=== PATIENT | female | born 1960 | race Caucasian/White ===

== ENCOUNTER 2017-08-11 16:00 | Emergency (ER) | payer OTHER, SELFPAY ==
[2017-08-11 16:01] VITALS: BP 166/97; PULSE 89; RESP 16; TEMP 36.7; O2SAT 100; BMI 36.6
--- NOTE | 2017-08-11 16:19 | RAD_ITS ---
STUDY: X-RAY - THORACIC SPINE REASON FOR EXAM: Female, 56 years old. Back pain. TECHNIQUE: 3 view(s) of the thoracic spine were obtained. COMPARISON: None. FINDINGS: There is an increase in the normal thoracic kyphosis. There is no substantial scoliosis. There is demineralization of the thoracic spine with endplate spondylosis. There is multilevel disc space narrowing of the thoracic spine. The soft tissue structures are unremarkable. RAD/Thoracic Spine 2 Views IMPRESSION: Osteopenia with multilevel degenerative disc disease and spondylosis of the thoracic spine. Electronically Signed: Effie Escudero MD at 17:46 EST , Service support ,
--- NOTE | 2017-08-11 16:19 | RAD_ITS ---
STUDY: X-RAY - LUMBAR SPINE REASON FOR EXAM: Female, 56 years old. Low-back pain without known recent trauma. TECHNIQUE: 3 view(s) of the lumbar spine were obtained. COMPARISON: Prior comparison studies are not available for review at this time. FINDINGS: There is an exaggerated lumbar lordosis. There is no substantial scoliosis. There is a normal alignment of the vertebrae. The bones appear osteopenic. There is mild anterolisthesis at L3-4. There is multi-level degenerative disc disease with multi-level disc space narrowing. There is no demonstrated fracture. There is multilevel degenerative arthropathy of facet joints. There may be a transitional vertebral segment at S1. There is atherosclerotic calcification of the abdominal aorta without a demonstrated aneurysm. RAD/Lumbar Spine 2 or 3 Views IMPRESSION: Multilevel degenerative disc disease, degenerative arthropathy and spondylosis of the lumbar spine. Electronically Signed: Effie Escudero MD at 17:45 EST , Service support ,
[2017-08-11 16:32] VITALS: BP 165/70; PULSE 85; RESP 14; O2SAT 99
--- NOTE | 2017-08-11 17:55 | ED.VISSUMM ---
- ER Visit Summary Date of Service: 08/11/17 Chief Complaint: Back pain History of Present Illness: The patient is a 56 F who presents with back pain. It is been present for about 2 weeks. She describes it as a cramping or spasm in the lower back which radiates into the left leg. She occasionally has tingling. It is worse when laying still at night and seems to be improved by getting up and moving around. She denies weakness. She denies fevers abdominal pain urinary retention fecal incontinence or history of spinal surgery. 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 She was seen in a walk-in clinic diagnosed with sciatica and is scheduled for therapy. Her pain is tolerable. She is concerned because before the onset of her symptoms she felt flushed and she has had a couple episodes where she has felt flushed since that time and is also having some upper back pain as well so was concerned this may be due to something else. No chest pain or shortness of breath. Physical Examination: Afebrile vitals are stable Moist mucous membranes Heart regular rate and rhythm Lungs are clear Abdomen soft and nontender Patient actually does not have any reproducible paraspinal or spinal tenderness Negative straight leg raise laying bilaterally Normal strength and sensation of the lower extremities with 5 out of 5 dorsiflexion plantarflexion and extensor hallucis longus Test Results: X-rays of the thoracic and lumbosacral spine show osteopenia and degenerative disc disease but no acute process no fracture. Emergency Department Course and Treatment: History and examination are consistent with lumbar radiculopathy. Patient does not have symptoms or signs suggestive of more serious process such as epidural abscess or cauda equina syndrome. She was reassured. I do believe she can undergo further outpatient evaluation. She was discharged. Treatment Plan: [] Disposition: Discharge Impression: Lumbar radiculopathy This note was generated with [employer] dictation software. It may contain incorrect words, spelling, and punctuation that were not noted in review of the chart prior to signing ED Disposition - Plan for ED Patient: Chief Complaint: Back Referrals: Maru Villela [Primary Care Provider] -
--- NOTE | 2017-08-11 17:58 | ED.DEP ---
ED Disposition - Plan for ED Patient: Chief Complaint: Back Instructions: ED Sciatica Referrals: Maru Villela [Primary Care Provider] -
[2017-08-11 18:02] VITALS: BP 122/75; PULSE 71; RESP 16; O2SAT 96
== END 2017-08-11 18:03 | disposition home or self-care (01) ==
PROVIDERS: Emergency Provider Emergency Medicine; Family Provider Nurse Practitioner; PCP Nurse Practitioner
DX: M51.17 Intervertebral disc disorders with radiculopathy, lumbosacral region (principal); M51.34 Other intervertebral disc degeneration, thoracic region; M85.80 Other specified disorders of bone density and structure, unspecified site; Z90.710 Acquired absence of both cervix and uterus
CPT/HCPCS: 72070; 72100; 99282; A4216

== ENCOUNTER → 2017-08-23 09:25 | Outpatient (CLI) | payer OTHER, SELFPAY ==
[2017-08-11 16:01] VITALS: BMI 36.6
[2017-08-11 18:02] VITALS: BP 122/75
--- NOTE | 2017-08-23 10:00 | MRI_ITS ---
STUDY: MRI LUMBAR SPINE WITHOUT CONTRAST REASON FOR EXAM: Female, 56 years old. Back pain that radiates down right leg. No known injury. TECHNIQUE: Standardized fat and water weighted pulse sequences were obtained in the sagittal and axial planes. COMPARISON: Radiographs of lumbar spine dated August 11, 2017. FINDINGS: T12-L1: There is narrowing of the disc. There is irregular contour of the endplates at this level possibly related to multiple Schmorl's nodes. There is an annular disc bulge. There is mild degenerative arthropathy of facet joints. Neural foramina are narrowed without evidence for nerve impingement. There is an exaggerated lumbar lordosis. There is no substantial scoliosis. Normal conus medullaris that terminates at the T12-L1 level. There is abnormal T1 and T2 hyperintensity within the T12 and L2 vertebral bodies probably related to small hemangiomas. L1-2: There is a moderate annular disc bulge and osteophyte complex. There is moderate degenerative arthropathy of facet joints. Neural foramina are narrowed without evidence for nerve impingement. There may be a focal left foraminal disc protrusion. There is mild central acquired canal stenosis. L2-3: There is an annular disc bulge and osteophyte complex. There is moderately severe degenerative arthropathy of facet joints. There is mild central acquired canal stenosis. Neural foramina bilaterally narrowed without evidence for nerve impingement. L3-4: There is mild anterolisthesis at this level. There is uncovering of the disc with annular disc bulge. There is severe degenerative arthropathy of facet joints. There is severe acquired canal stenosis with possible impingement of the cauda equina. Neural foramina are bilaterally narrowed with possible impingement of the right L3 nerve root at the neural foramen. L4-5: There is mild anterolisthesis at this level with uncovering of the disc. There is annular disc bulge with broad central disc protrusion. Appears to be a focal right central disc extrusion with probable impingement of the right L5 nerve root at the lateral recess. There are severe degenerative arthropathy of facet joints. Neural foramina are bilaterally narrowed without evidence for nerve impingement at the neural foramina. L5-S1: This has a rudimentary disc suggesting a transitional vertebral segment. There is moderate degenerative arthropathy of facet joints. Neural foramina are patent. There is no significant central acquired canal stenosis. Normal visualized sacral ala. There appear to be multiple left-sided parapelvic renal cysts. There may be a right-sided and left-sided extrarenal pelvis. Normal visualized paraspinous soft tissue structures. MRI/Spine Lumbar (Routine) IMPRESSION: 1. Moderately severe multilevel degenerative disc disease and degenerative arthropathy of the lumbar spine with acquired canal stenosis, neural foraminal narrowing and potential nerve impingement, as described. 2. Mild anterolisthesis at L3-4 and L4-5. 3. Transitional vertebral segment at L5-S1. Electronically Signed: Effie Escudero MD at 15:58 EST , Service support ,
== END ==
PROVIDERS: Family Provider Nurse Practitioner; PCP Nurse Practitioner; Visit Provider Nurse Practitioner
DX: M54.16 Radiculopathy, lumbar region (principal)
CPT/HCPCS: 72148

== ENCOUNTER 2017-09-06 12:30 | Outpatient (RCR) | payer OTHER, SELFPAY ==
[2017-08-11 18:02] VITALS: BP 122/75
--- NOTE | 2017-08-15 11:44 | HP.PTEVAL_ITS ---
Patient's Visit Information ABRAHAN TUCKER is a 56 year old F referred to Physical Therapy by Xi Lua with a diagnosis of LUMBAR DDD AND SCIATICA. Date of Evaluation: 08/15/17 Physical Therapist: Marly Sauer - Visit Plan Frequency: 2-3x /Week Duration: 4-6 Weeks Plan: AQUATIC THERAPY. POSTURE CORRECTION/STRENGTHENING, INSTRUCTION IN APPROPRIATE BODY MECHANICS AND ACTIVITY MODIFICATIONS. DLS STARTING WITH A NEUTRAL SPINE PROGRESSING ROM TOLERATED. ELIANE LE ROM, STRETCHING AND STRENGTHENING. HEP INSTRUCTION. 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 Disability: NO. Present symptoms: ELIANE LOW BACK PAIN RIGHT > LEFT AND RIGHT LE TO THE TOES. RIGHT LE PAIN, NUMBNESS AND TINGLING. PAIN FROM MID BACK TO CHEST AT TIMES IN SITTING. STATES JEREMY LLANES IS AWARE. Present since: JUL 26 2017. Pain Scale: WORST 10/10, LEAST 4/10. Currently: 4/10. Commenced as a result of: NO APPARENT REASON. Symptoms at onset: SAME. NOTICED IT WHEN SHE WENT TO SIT DOWN ON THE TOLIET AT 2 AM. Worse: TRYING TO BEND, STAYING STILL, SITTING, LYING DOWN, TRYING TO SLEEP, LIFTING. Better: STEROID, BEING ON THE MOVE. IBUPROFEN. Disturbed sleep: YES. Previous history/Previous treatment: PATIENT REPORTS A HISTORY OF LBP FOR ABOUT 6-7 YEARS. STATES SHE HAS A THIN DISK. CHIROPRACTOR. IBUPROFEN. IT NEVER WHEN DOWN THE LEG UNTIL NOW. Coughing/sneezing/straining: NEGATIVE. Gait: INDEP GAIT WITHOUT AD. Difficulty initiating urinatin: NO. Accidents: NO. Unexplained weight loss: NO. Imaging: LUMBAR X-RAY AT ED SATURDAY - ARTHRITIS. MRI ORDERED AND PENDING. T-SPINE X-RAY - ARTHRITIS. PMH: UNREMARKABLE - Objective Sitting Posture: POOR. Standing Posture: POOR. Lordosis: REDUCED. Lateral shift: NO. Relevant shift: N/A. Active Correction of posture: NE. Other Observations: INDEP GAIT INTO PT WITHOUT AD AND INDEP TRANSFER SIT TO STAND WITHOUT UE ASSIST. THIS PATIENT IS PLEASANT AND COOPERATIVE TO WORK WITH BUT GETS A LITTLE CONFUSED DURING INTERVIEW AND EXAM. Motor deficit: ELIANE LE STRENGTH 5/5 WITH MMT EXCEPT RIGHT HIP 4-/5 AND LEFT HIP 4/5. Sensory deficit: ELIANE LE LIGHT TOUCH SENSATION IS INTACT AND SYMMETRICAL. ROM deficit: TIGHT ELIANE LE HIP FLEXORS, HS'S AND GASTROC SOLEUS COMPLEX'S. Reflexes: ELIANE LE'S 2/ 3. Dural Signs: POSITIVE RIGHT AND NEGATIVE LLE. Lumbar mvmt loss: flex - MOD. ext - MICAH. R SG - MOD. L SG - MOD. PATIENT HAS C/O INCREASED PAIN WITH LUMBAR FLEXION AND RIGHT SG TESTING. Core strength: POOR. Palpation: TENDERNESS WITH PALPATION OF THE MID THORACIC SPINE AND THE [id number] REGIONS. - Goals Goal 1:: DECREASE C/O LBP AND RIGHT LE SX'S. Goal Time Frame: 4-6 Weeks Goal 2:: IMPROVE PERSONAL CARE, LIFITNG, SITTING, STANDING, SLEEP, SOCIAL LIFE, TRAVEL AND HOMEMAKING FUNCTION Goal Time Frame: 4-6 Weeks Goal 3:: INSTRUCT IN PROPHYLAXIS Goal Time Frame: 4-6 Weeks - Rehabilitation Potential Rehabilitation Potential: Fair - Anticipated Interventions Patient/Client Instruction: Educate patient on: Condition, Plan of Care, Risk Factors, Benefits of Fitness Program For the Purpose of:: To improve self management Therapeutic Exercise to Include: Strength training, Body mechanics, Postural training, Flexibilty training, In an aquatic setting, Dynamic Lumbar Stabilization For the Purpose of:: To improve ability of physical actions for home/community/ work/leisure Manual Therapy Techniques to Include: Soft tissue mobilization For the Purpose of:: To decrease pain, To improve nutrient delivery to tissue TENS: Yes IF ES: Yes Cryotherapy (ice pack, ice massage): Yes Thermo therapy (hot pack): Yes Ultrasound (thermal/non thermal): Yes For the Purpose of:: To decrease pain, To decrease swelling/inflammation Thank you for the opportunity to evaluate your patient. For Medicare and Medicare HMO plans, please review the plan of care and approve it. It will need to be FAXED BACK to us at [phone] for Medicare purposes. Please let me know if there are questions or concerns regarding this plan of care. Physician Signature: Date:
--- NOTE | 2018-01-14 13:49 | HP.PTDCNRP_ITS ---
HP - Discharge Summary (1) - Patient Information ABRAHAN TUCKER was seen in my office for initial evaluation on 08/15/17. The following Plan of Care was established for this patient: Initial Frequency: 2-3x /Week Initial Duration: 4-6 Weeks - Anticipated Interventions Patient/Client Instruction: Educate patient on: Condition, Plan of Care, Risk Factors, Benefits of Fitness Program For the Purpose of:: To improve self management Therapeutic Exercise to Include: Strength training, Body mechanics, Postural training, Flexibilty training, In an aquatic setting, Dynamic Lumbar Stabilization For the Purpose of:: To improve ability of physical actions for home/community/ work/leisure Manual Therapy Techniques to Include: Soft tissue mobilization For the Purpose of:: To decrease pain, To improve nutrient delivery to tissue TENS: Yes IF ES: Yes Cryotherapy (ice pack, ice massage): Yes Thermo therapy (hot pack): Yes Ultrasound (thermal/non thermal): Yes For the Purpose of:: To decrease pain, To decrease swelling/inflammation This patient was last seen in our office . Pertinent comments regarding their Physical therapy will appear below: This patient has not returned to Physical Therapy and is appropriate to return to MD for further follow-up as needed. At this point I will be discontinuing this patient from physical therapy. I would be happy to see this patient again in the future if found appropriate by the physician. Thank you! Marly Sauer
== END 2017-09-06 19:00 | disposition home or self-care (01) ==
LOC: PT 12:30
PROVIDERS: Family Provider Nurse Practitioner; PCP Nurse Practitioner; Visit Provider Internal Medicine
DX: M54.31 Sciatica, right side (principal); M51.36 Other intervertebral disc degeneration, lumbar region
CPT/HCPCS: 97014; 97035; 97113; 97162; 97530; G0283

== ENCOUNTER → 2017-09-09 10:52 | Outpatient (CLI) | payer OTHER, SELFPAY ==
--- NOTE | 2017-09-09 11:07 | RAD_ITS ---
XR Spine Cervical 2 or 3 Views INDICATION: CHRONIC PAIN, NKI COMPARISON: None TECHNIQUE: Frontal and lateral views of the cervical spine and open-mouth odontoid view FINDINGS: There is normal cervical lordosis. Height of the vertebral bodies is preserved. C4-5 and C5-6 and C6-7 disc spaces are decreased. C7 level is not well seen on the lateral view. Vascular calcifications are noted. Prevertebral soft tissue stripe is within normal limits. RAD/Cerv Spine 2 or 3 Views IMPRESSION: Degenerative changes at the lower cervical spine. Consider further evaluation with MRI if clinical symptoms persist. at 2143 Reported and signed by: Maranda Mi MD Electronically Signed: Maranda Mi MD at 20:42 EST Tel , Service support ,
== END ==
PROVIDERS: Family Provider Nurse Practitioner; PCP Nurse Practitioner; Visit Provider Anesthesiology Pain Medicine
DX: M54.2 Cervicalgia (principal)
CPT/HCPCS: 72040

== ENCOUNTER 2018-11-05 19:59 | Emergency (ER) | payer OTHER, SELFPAY ==
[2018-11-05 20:00] VITALS: BP 167/90; PULSE 84; RESP 17; TEMP 36.7; O2SAT 99; BMI 29.6
[2018-11-05 20:25] LABS: Color, Urine Straw (Yellow); Glucose, Dipstick Normal (Normal); Ketone-Dipstick Negative (Negative); Leukocyte Esterase-Dipstick 500 /ul (Negative); Nitrite-Dipstick Negative (Negative); Occult Blood-Urine 10 /ul (Negative); Protein-Dipstick Negative (Negative); Urine Bilirubin Dipstick Negative (Negative); Urine Clarity Clear (Clear); Urine Urobilinogen Normal (Normal)
[2018-11-05 20:48] LABS: Bacteria 2+ /hpf (None Seen); Mucous, Urine 1+ /hpf (<or=2+); Red Blood Cells-Urine 0-5 SEEN /hpf (0-5); Squamous Epithelial Cells - UA 0-5 SEEN /hpf (5-10); White Blood Cells 5-10 SEEN /hpf (0-5); Yeast-Urine RARE /hpf (None Seen)
--- NOTE | 2018-11-05 22:08 | ED.DCSUM_ITS ---
- ER Visit Summary Date of Service: 11/05/18 Chief Complaint: Burning with urination History of Present Illness: The patient is a 57 F who states for the past couple days she has had dysuria. She notes urinary frequency, urgency and dysuria. No fevers. No flank pain. No vomiting. Physical Examination: Afebrile vital signs are stable Gen: Well-nourished well-developed Head: Normocephalic atraumatic Eyes: Perrl EOMI ENT: TMs clear no rhinorrhea moist mucous membranes Neck: Supple no lymphadenopathy no JVD nontender CVS: Regular rate rhythm no murmurs normal S1-S2 Respiratory: No distress clear to auscultation bilaterally chest nontender Abdomen: Soft nontender nondistended normal bowel sounds no masses Back: Nontender Extremity: Nontender no edema Skin: Normal color no rash Neuro: alert orientated ?3 CN II-XII intact normal strength sensation reflexes gait cerebellar Psych: Normal affect normal mood Test Results: Urine is leukocyte esterase positive. 5-10 white cells. 2+ bacteria. Emergency Department Course and Treatment: Urine culture was ordered. Given the urine results and more importantly her clinical history patient was started on Macrobid and Pyridium. If no improvement follow-up with primary care return here. Impression: 1. Acute cystitis This note was generated with [employer] dictation software. It may contain incorrect words, spelling, and punctuation that were not noted in review of the chart prior to signing ED Disposition - Plan for ED Patient: Disposition: Home or Assisted Living Instructions: ED UTI Cystitis Female Prescriptions: Nitrofurantoin Macrocrystals [Macrobid] 100 mg PO Q12 #10 cap Phenazopyridine HCl [Pyridium] 200 mg PO TID #9 tab Referrals: Maru Villela, ARIELLE-C [Primary Care Provider] - As Needed
[2018-11-05] MEDS: Nitrofurantoin Macrocrystals 100 MG Capsule PO (22:17)
[2018-11-05] MEDS: Phenazopyridine 95 MG Tablet 190 MG PO (22:17)
[2018-11-05 22:19] VITALS: BP 200/93; PULSE 70; RESP 18; O2SAT 100
--- NOTE | 2018-11-05 22:28 | ED.RN ---
DR. DC MADE AWARE OF BP 200/93 AND SAID PATIENT IS ABLE TO GO HOME SINCE SHE DOESN'T HAVE ANY SYMPTOMS. HE SAID IT IS OK TO TAKE ANOTHER ONE OF HER MORNING BP PILLS SINCE HER PCP TOLD HER SHE COULD DO THAT BEFORE.
== END 2018-11-05 22:29 | disposition home or self-care (01) ==
LOC: ED 22:18
PROVIDERS: Emergency Provider Emergency Medicine; Family Provider Nurse Practitioner; PCP Nurse Practitioner
DX: N30.00 Acute cystitis without hematuria (principal); I10 Essential (primary) hypertension; Z79.899 Other long term (current) drug therapy
CPT/HCPCS: 81001; 87086; 87088; 99284

== ENCOUNTER 2018-11-21 19:58 | Emergency (ER) | payer OTHER, SELFPAY ==
[2018-11-21 19:58] VITALS: BP 166/89; PULSE 76; RESP 18; TEMP 36.7; O2SAT 100
--- NOTE | 2018-11-21 21:35 | ED.VISSUMM ---
- ER Visit Summary Date of Service: 11/21/18 Chief Complaint: High blood pressure History of Present Illness: The patient is a 57 F who presents for a high blood pressure check. The patient normally takes Norvasc 2.5 mg. She was recently increased to 5 mg after her blood pressures have been reading high. She checks her blood pressure at home frequently. She has had systolic pressures of 200. Patient is not on any other blood pressure medicine. She reports flushing and redness to her face and upper extremities. She thinks this may be related to increasing her Norvasc dose. Patient denies any other complaints currently. Physical Examination: Pressure 166/89. Otherwise her vitals are unremarkable and she is afebrile. She is alert and oriented and in no acute distress. Cranial nerves grossly intact. Moves all extremities. No focal or lateralizing neurologic abnormalities. Normal gait. Heart regular. No respiratory distress. Test Results: None indicated Emergency Department Course and Treatment: Patient has an established history of hypertension. Her blood pressure is 166/89. There is no indication for hypertensive urgency or emergency currently. Patient has had continued hypertension despite taking her increased dose of Norvasc. She attributes a skin rash to her increased dose of Norvasc. She would like to discontinue this medication. I advised her that she can discontinue the medication, but we should replace it. I started her on HCTZ. I advised her to continue monitoring her pressure. She should check in with her PCP for recheck and possible medication regimen adjustment. Patient should return right away for chest pain or stroke symptoms or any other complications. Treatment Plan: As above Disposition: Discharge Impression: 1. Hypertension established This note was generated with [employer] software. It may contain incorrect words, spelling, and punctuation that were not noted in review of the chart prior to signing ED Disposition - Plan for ED Patient: Disposition: Home or Assisted Living Instructions: ED HTN Established Prescriptions: Hydrochlorothiazide [Hctz] 25 mg PO DAILY #14 tab Referrals: Maru Villela NP-C [Primary Care Provider] -
--- NOTE | 2018-11-21 21:36 | DCINST.ED_ITS ---
ED Disposition - Plan for ED Patient: Instructions: ED HTN Established Prescriptions: Hydrochlorothiazide [Hctz] 25 mg PO DAILY #14 tab Referrals: Maru Villela, WIRING MECHANIC-C [Primary Care Provider] -
--- NOTE | 2018-11-21 21:54 | ED.RN ---
DISCHARGE INSTRUCTIONS GIVEN TO AND REVIEWED WITH PATIENT, PATIENT DENIES QUESTIONS OR CONCERNS AND VOICES UNDERSTANDING OF DISCHARGE INSTRUCTIONS. PT AMBULATES OUT OF ROOM WITHOUT DIFFICULTY.
== END 2018-11-21 21:55 | disposition home or self-care (01) ==
PROVIDERS: Emergency Provider Emergency Medicine; Family Provider Nurse Practitioner; PCP Nurse Practitioner
DX: I10 Essential (primary) hypertension (principal); Z79.899 Other long term (current) drug therapy
CPT/HCPCS: 99282

== ENCOUNTER 2020-01-25 13:53 | Outpatient (RCR) | payer OTHER, SELFPAY ==
--- NOTE | 2020-01-25 14:59 | HP.PTEVAL ---
Patient's Visit Information ABRAHAN TUCKER is a 59 year old F referred to Physical Therapy by REGINA Molina with a diagnosis of vertigo. Date of Evaluation: 01/25/20 Physical Therapist: Gurinder Sousa, CATHI, OCS, CSCS - Visit Plan Frequency: 1x/Week Duration: 2-4 Weeks Plan: weekly as needed x 2-4 for positional checks and vestibular checks. Next session check positional and oculomotr as needed. - Subjective Dizzyness for about a month. Insidious. Started feeling weak and shaky. Has checked bloodwork and blood pressure adn no problems. No diagnostics otherwise. Dizzyness in intermittent but worse at times. Worse with fatigue. Had waves and bed moving when lied down but that has improved. Dizzyness rated at 5/10 when present. Usually lasts short durations. Moving around is worse and sitting is fine. No passing out and no falls. Sleep is OK. Not employed. Activities take a little longer at home, stamina is effected. No falls, balance feels OK. - Objective Walks slow but steady. Transfers I. Steps reciprocal with one rail for safety. cervical AROM WFL adn without pain. Pt has some LB that she says is typical for her with transfers. - L hallpike hernesto. + R hallpike hernesto up torsional slight and quick with dizzyness. Treated with Wilma then - hallpike hernesto - Balance Scores Functional Gait Assessment Score: 27 % Disability: 10.0000 CATSIB Score (Max score 120 seconds): 120 - Goals Goal 1:: abolish dizzyness Goal Time Frame: 2-4 Weeks Goal 2:: Pt feel 95% back to norml Goal Time Frame: 4-6 Weeks - Rehabilitation Potential Physical Therapy Diagnosis: possible BPPV Rehabilitation Potential: Fair - Anticipated Interventions Patient/Client Instruction: Educate patient on: Condition, Plan of Care For the Purpose of:: To improve muscle performance and motor function, To increase tolerance to activity/condition/position Comment: positional and vestibular. Thank you for the opportunity to evaluate your patient. For Medicare and Medicare HMO plans, please review the plan of care and approve it. It will need to be FAXED BACK to us at [phone] for Medicare purposes. For Medicare only, by signing this I certify the plan of care. Please let me know if there are questions or concerns regarding this plan of care. Physician Signature: Date:
--- NOTE | 2020-03-29 09:50 | HP.PT.NRP ---
ABRAHAN TUCKER was seen in my office for initial evaluation on 01/25/20. The following Plan of Care was established for this patient: Initial Frequency: 1x/Week Initial Duration: 2-4 Weeks Patient/Client Instruction: Educate patient on: Condition, Plan of Care For the Purpose of:: To improve muscle performance and motor function, To increase tolerance to activity/condition/position This patient was last seen in our office 01/25/20. Pertinent comments regarding their Physical therapy will appear below: Pt seen for evaluation and positional treatment. Was to f/u weekly for checks but did not schedule or attend. At this point, it has been over two months and I will discontinue due to nonattendance. At this point I will be discontinuing this patient from physical therapy. I would be happy to see this patient again in the future if found appropriate by the physician. Thank you! Gurinder Sousa, DPT, OCS, CSCS
== END 2020-01-25 19:00 | disposition home or self-care (01) ==
LOC: PT 13:53
PROVIDERS: PCP Nurse Practitioner; Referring Provider Nurse Practitioner; Visit Provider Nurse Practitioner
DX: R42 Dizziness and giddiness (principal)
CPT/HCPCS: 97161

== ENCOUNTER → 2020-07-11 16:17 | Outpatient (CLI) | payer OTHER, SELFPAY ==
--- NOTE | 2020-07-11 16:20 | RAD_ITS ---
STUDY: X-RAY - LUMBAR SPINE REASON FOR EXAM: Female, 59 years old. bilateral buttock pain TECHNIQUE: 5 view(s) of the lumbar spine were obtained. COMPARISON: FINDINGS: Normal lumbar lordosis. There is no substantial scoliosis. 5 mm of anterolisthesis of L3 on L4 and 5 mm of anterolisthesis of L4 on L5 which are unchanged. There is multilevel endplate spondylosis of the lumbar vertebrae. There is multi-level degenerative disc disease with multi-level disc space narrowing. The soft tissue structures are unremarkable. RAD/L/S Spine Min 4 Views IMPRESSION: Degenerative disc disease with 5 mm of anterolisthesis of L3 on L4 and L4 and L5 which is unchanged. Electronically Signed: Dejuan Godinez MD at 17:02 EST Tel , Service support ,
--- NOTE | 2020-07-11 16:20 | RAD_ITS ---
STUDY: X-RAY - PELVIS REASON FOR EXAM: Female, 59 years old. bilateral buttock pain TECHNIQUE: One view of the pelvis was obtained. COMPARISON: None. FINDINGS: There is a non-specific bowel gas pattern. Normal visualized soft tissue structures. Normal bilateral iliac wings, sacroiliac joints and visualized sacrum. Normal visualized bilateral superior and inferior pubic rami. Normal pubic symphysis. Normal ischial tuberosities. There are osteoarthritic changes of the right femoral head with marginal osteophyte formation. There is osteoarthritic spur formation of the right acetabular rim. There is mild articular joint space narrowing of the right hip. Normal visualized left femoral head. There is osteoarthritic spur formation of the left acetabular rim. There is mild articular joint space narrowing of the left hip. RAD/Pelvis 1 or 2 Views IMPRESSION: Mild bilateral hip arthrosis. Electronically Signed: Dejuan Godinez MD at 17:03 EST Tel , Service support ,
== END ==
PROVIDERS: PCP Nurse Practitioner; Referring Provider Nurse Practitioner; Visit Provider Nurse Practitioner
DX: M79.18 Myalgia, other site (principal)
CPT/HCPCS: 72110; 72170

== ENCOUNTER → 2020-07-15 09:20 | Outpatient (CLI) | payer OTHER, SELFPAY ==
--- NOTE | 2020-07-15 09:27 | US_ITS ---
PROCEDURES: ULTRASOUND AORTA REASON FOR EXAM: Female, 59 years old. ABDOMINAL PRESSURE TECHNIQUE: Ultrasound evaluation of the aorta was performed with real-time and static cevallos-scale imaging. COMPARISON: None. FINDINGS: There is atherosclerotic plaque formation of the abdominal aorta. Aorta measures: Proximal 2.5 cm. Middle 2.0 cm. Distal 1.6 cm. Aorta measure transversely: Proximal 2.6 cm. Middle 1.8 cm. Distal 1.9 cm. Right iliac artery measures: 0.9 cm. Right iliac artery measure transversely: 1.0 cm. Left iliac artery measures: 1.0 cm. Left iliac artery measure transversely: 1.0 cm. There is no demonstrated aneurysm.. US/Aorta IMPRESSION: No abdominal aortic aneurysm is seen. There is evidence of atherosclerotic plaque formation. Electronically Signed: Gerardo Willis, at 10:52 EST , Service support ,
== END ==
PROVIDERS: PCP Nurse Practitioner; Referring Provider Nurse Practitioner; Visit Provider Nurse Practitioner
DX: R10.9 Unspecified abdominal pain (principal)
CPT/HCPCS: 76775

== ENCOUNTER → 2020-08-17 15:25 | Outpatient (CLI) | payer OTHER, SELFPAY ==
[2020-08-01 13:12] VITALS: BMI 31.0
--- NOTE | 2020-08-17 15:26 | MRI_ITS ---
STUDY: MRI LUMBAR SPINE WITHOUT CONTRAST REASON FOR EXAM: Female, 59 years old. degen spondylolisthesis, back stiffness -- pain low back and rt leg TECHNIQUE: Standardized fat and water weighted pulse sequences were obtained in the sagittal and axial planes. COMPARISON: 08/23/2017 FINDINGS: T12-L1: Grade 1 retrolisthesis Narrowed disc space with degenerative endplate changes minimal bulging disc osteophyte complex. Desiccation of the disc and normal morphology. Mild facet arthropathy. Mild bilateral neuroforaminal encroachment Normal lumbar lordosis. There is no substantial scoliosis. Normal conus medullaris that terminates at T12-L1 No evidence for acute fracture. Interosseous hemangiomata within the T12 and L2 vertebral bodies L1-2: Normal endplates. Normal disc height, desiccation and mild bulging annulus with small left foraminal disc protrusion.. Facet arthropathy. Normal central canal and bilateral lateral recesses. Mild left neuroforaminal encroachment.. L2-3: Normal endplates. Normal disc height, desiccation and mild annular bulge.. Facet arthropathy and thickening of ligamenta flava.. Mild narrowing of central canal. Mild narrowing of lateral recesses and moderate neuroforaminal stenosis. L3-4: Grade 1 spondylolisthesis. Narrowed disc space with desiccation of the disc and mild bulging disc osteophyte complex.. Facet arthropathy and thickening of ligamenta flava. Mild narrowing the central canal. Moderate bilateral recess and severe neuroforaminal stenosis exaggerated by pedicles. L4-5: Grade 1 spondylolisthesis. Narrowed disc space with desiccation of disc and mild bulging disc osteophyte complex. Bilateral facet arthropathy and thickening of ligamenta flava.. Mild narrowing of central canal. Moderate bilateral recess and severe neuroforaminal stenosis exaggerated by shortened pedicles L5-S1: Normal endplates. Normal disc height, desiccation and tiny central disc protrusion.. Facet arthropathy. Normal central canal and bilateral lateral recesses. Normal bilateral intervertebral neural foramina. Normal visualized sacral ala. Normal visualized paraspinous soft tissue structures. No significant change since prior exam MRI/Spine Lumbar (Routine) IMPRESSION: No evidence for acute fracture or other significant bony pathology. Advanced spondylosis and multilevel spinal stenosis secondary to disc disease and bony hypertrophy most severe at L4-5 and L3-4 exaggerated by shortened pedicles Electronically Signed: Dawood Horton MD at 16:56 EST , Service support ,
== END ==
PROVIDERS: PCP Nurse Practitioner; Referring Provider Orthopaedic Surgery; Visit Provider Orthopaedic Surgery
DX: M47.816 Spondylosis without myelopathy or radiculopathy, lumbar region (principal); M48.061 Spinal stenosis, lumbar region without neurogenic claudication
CPT/HCPCS: 72148

== ENCOUNTER 2023-06-13 10:53 | Emergency (ER) | payer OTHER, SELFPAY ==
[2023-06-13 10:54] VITALS: BP 166/70; PULSE 77; RESP 14; TEMP 36.8; O2SAT 100; BMI 28.5
--- NOTE | 2023-06-13 12:02 | CT_ITS ---
STUDY: CT BRAIN WITHOUT CONTRAST REASON FOR EXAM: Female, 62 years old. Weakness RADIATION DOSAGE (If Supplied By Facility): CTDIvol = ( 44.99 ) mGy, DLP = ( 829.85 ) mGycm TECHNIQUE: Transaxial CT imaging of the brain was performed without administration of intravenous contrast material. Individualized dose optimization techniques were used for this CT. COMPARISON: No relevant priors. FINDINGS: Normal soft tissue structures. Normal calvarium. Normal size ventricles and extra-axial spaces for the patient''s age. Normal white matter tracts of the cerebral hemispheres. Normal basal ganglia and thalami. Normal brainstem. Normal cerebellum. There is no intracranial hemorrhage. There are no findings of an acute ischemic infarction. Minimal mucosal thickening along the posterior aspect of the left maxillary sinus. CT/Brain/Head without Contrast IMPRESSION: Normal unenhanced CT scan of the brain. Minimal mucosal thickening along the posterior aspect of the left maxillary sinus. Electronically Signed: Gerardo Willis MD at 12:45 EST ,
--- NOTE | 2023-06-13 12:02 | EX.ED.DYSGE1 ---
HPI History of Present Illness Chief Complaint: Weakness Informant: patient Onset/Context/Timing Onset: Weeks (2) Context: Gradual Onset Timing: Continuous Quality: Weak, tired, dry Location: Lower extremities Worsened by: Nothing Relieved by: Rest Narrative Narrative: Patient presents with generalized weakness that has been getting worse over the past 2 weeks. Patient states she has been feeling weak and tired. Patient states it feels like her legs want to give out on her. Patient states it is gradually getting worse. Patient states it is better with rest. Patient denies any fevers or chills. Patient admits to some chronic neck and back pain. Patient also admits to a mild headache. Patient denies any numbness or tingling. Patient denies any bowel or bladder changes. Patient denies any saddle anesthesia. Patient denies any incontinence of urine or stool. [facility] Medical History (Updated 06/13/23 @ 15:[address] Gurinder Clinton DO) Back problem Hypertension Home Medications L.acidoph, paracasei,B. lactis 10 billion cell capsule 1 tab PO DAILY 11/05/18 [History Last Taken Unknown] cyclobenzaprine 5 mg tablet 5 mg PO 08/01/20 [History Last Taken Unknown] valsartan 40 mg tablet 40 mg PO 08/01/20 [History Last Taken Unknown] meloxicam 7.5 mg tablet (Mobic) 7.5 mg PO .prn 10/03/21 [History Last Taken Unknown] cephalexin 500 mg capsule 500 mg PO Q6 #12 CAPSULES 06/13/23 [Rx Last Taken Unknown] Allergy/AdvReac Type Severity Reaction Status Date / Time No Known Allergies Allergy Verified 06/13/23 10:54 Family History Mother Hypertension Surgical History (Updated 06/13/23 @ 14:[address] Gurinder Clinton DO) History of hysterectomy Social History Smoking Status: Never smoker alcohol intake: never substance use type: does not use ROS ROS ED Constitutional Constitutional ED: Denies chills or fever(s) Eyes Eyes: Denies blurry vision or change in vision ENT ENT ED: Denies rhinorrhea or sore throat Cardiovascular Cardiovascular: Denies chest pain or palpitations Respiratory/Chest Respiratory/Chest: Denies cough or dyspnea Gastrointestinal Gastrointestinal: Denies nausea or vomiting Genitourinary Genitourinary ED: Denies dysuria or hematuria Musculoskeletal Musculoskeletal: Reports back pain and neck pain Integumentary Denies abscess or rash Neurologic Neurologic: Reports headache(s) and weakness Allergic/Immunologic Allergic/Immunologic ED: Denies mouth swelling or urticaria EXAM Physical Exam Const Vital Signs: 06/13/23 10:54 06/13/23 11:55 06/13/23 14:02 Temperature 98.2 F Temperature Source Temporal Pulse Rate 77 70 Respiratory Rate 14 Respiratory Effort Normal Non-Labored Respiratory Pattern Normal Blood Pressure 166/70 H 130/64 H Blood Pressure Mean 102 86 Pulse Ox 100 Oxygen Delivery Method Room Air Positive well nourished and well developed General Appearance ED: well developed and NAD HEENT Reports moist mucous membranes Neck supple and no JVD Resp normal respiratory effort and clear to auscultation bilaterally Cardio regular rate and regular rhythm GI non-tender and non-distended Palpation: soft Extremity General Extremety ED: Negative for tenderness Neuro oriented x3, CN's II-XII intact bilaterally and no sensory deficits noted Sensorium / Orientation: alert Motor Exam: strength 5/5 throughout Psych mental status grossly normal MDM MDM MDM Narrative Medical decision making narrative: Differential diagnosis includes infection, electrolyte abnormality, stroke, cardiac dysrhythmia, cardiac ischemia, and dehydration. EKG will be obtained to assess for cardiac dysrhythmia and cardiac ischemia. CT scan of the brain will be obtained to assess for stroke and intracranial bleeding. CBC will be obtained to assess for leukocytosis and anemia. Basic metabolic profile will be obtained to assess for electrolyte abnormality and renal function. Urinalysis will be obtained to assess for urinary tract infection and hematuria. High-sensitivity troponin will be obtained to assess for cardiac ischemia. COVID-19 rapid antigen will be obtained to assess for COVID-19 infection. Influenza A and influenza B antigens will be obtained to assess for influenza infection. Lab Data Attestation: I reviewed the patient's lab results. Lab results narrative: CBC was reviewed and was within normal limits. Basic metabolic profile was reviewed and was essentially within normal limits. High-sensitivity troponin was reviewed and was within normal limits. Urinalysis was reviewed. There is a leukocyte esterase of 500 with 5-10 white blood cells and 1+ bacteria. COVID-19 rapid antigen was reviewed and was negative. Influenza A and influenza B antigens were reviewed and were negative. Labs: Laboratory Results - last 24 hr 06/13/23 06/13/23 12:15 13:20 WBC 5.8 RBC 4.14 L Hgb 13.0 Hct 37.8 MCV 91.3 MCH 31.4 MCHC 34.4 RDW Std Deviation 41.1 RDW Coeff of Jillian 12.4 Plt Count 263 MPV 9.0 Immature Gran % (Auto) 0.500 Neut % (Auto) 61.7 Lymph % (Auto) 28.3 Haakon % (Auto) 8.7 Eos % (Auto) 0.5 Baso % (Auto) 0.3 Absolute Neuts (auto) 3.5 Absolute Lymphs (auto) 1.63 Nucleated RBC % 0 Sodium 141 Potassium 3.6 Chloride 108 H Carbon Dioxide 29.0 Anion Gap 4 L BUN 7 Creatinine 0.61 Estim Creat Clear Calc 93.99 Est GFR (MDRD) Af Amer 127 Est GFR (MDRD) Non-Af 105 BUN/Creatinine Ratio 11.5 Glucose 96 Calcium 9.4 Troponin I High Sens 40 Urine Color Yellow Urine Clarity Clear Urine pH 8.0 Ur Specific [place] 1.015 Urine Protein Negative Urine Glucose (UA) Normal Urine Ketones Negative Urine Occult Blood 10 H Urine Nitrite Negative Urine Bilirubin Negative Urine Urobilinogen Normal Ur Leukocyte Esterase 500 H Urine RBC 0-5 SEEN Urine WBC 5-10 SEEN Ur Squamous Epith Cells 0-5 SEEN Urine Bacteria 1+ Urine Mucus 0 SEEN Radiography Chest X-Ray - ED: 2 View, Read by ED Physician, Read by Radiologist and No Acute Disease Diagnostic Testing: Clinical Impression(s) from Imaging Studies Brain CT 06/13/23 12:02 IMPRESSION: Normal unenhanced CT scan of the brain. Minimal mucosal thickening along the posterior aspect of the left maxillary sinus. Electronically Signed: Gerardo Willis MD at 12:45 EST , Chest X-Ray 06/13/23 12:03 IMPRESSION: Hyperinflation. Scattered calcified granulomas. Electronically Signed: Gerardo Willis MD at 12:47 EST , PA and lateral chest x-ray was obtained. There are 2 views. On my independent interpretation, lung banuelos are clear. There is normal cardiac silhouette. Bony thorax is normal. There is no acute process noted. Radiologist also interpreted the x-ray and agrees. EKG Initial EKG: Attestation: I personally reviewed and interpreted this EKG as follows: Interpretation: Sinus Rhythm (69) and No Acute Injury Pattern Comments: EKG was obtained. On my independent interpretation, it showed a normal sinus rhythm with a rate of 69. OK interval, QRS interval, and QTc intervals were all normal. Ramsey was normal. There are no acute ST or T wave changes. Prior EKG tracings: not available for review Prior: No Prior Treatment and Re-Evaluation :: Patient was given IV fluids. Urine culture was ordered. Patient was given a dose of Bactrim here. Patient was able to ambulate without difficulty. Patient was given a prescription for Keflex. Patient was instructed to follow-up with her primary care physician in 5 to 7 days. Patient understood and was agreeable with the plan. All questions were answered. Discharge Plan Triage Chief Complaint: Weakness ED Provider: Gurinder Clinton Dx/Rx/DC Orders Clinical Impression: Urinary tract infection, Dizziness Instructions: ED Dizziness, Uncertain Cause, ED Cystitis Female Adult Prescriptions: New cephalexin [cephalexin] 500 mg capsule 500 mg PO Q6 Qty: 12 0RF No Action cyclobenzaprine 5 mg tablet 5 mg PO valsartan 40 mg tablet 40 mg PO Patient Comments: TAKE 1 2 (ONE HALF) TABLET BY MOUTH ONCE DAILY meloxicam [Mobic] 7.5 mg tablet 7.5 mg PO .prn L.acidoph, paracasei,B. lactis 1 EACH capsule 1 tab PO DAILY Primary Care Provider: Corinne Sousa Referrals: Maru Villela [facility] [Non-Staff] - 3-5 Days Disposition Disposition: Home, Self Care
--- NOTE | 2023-06-13 12:03 | RAD_ITS ---
STUDY: X-RAY CHEST REASON FOR EXAM: Female, 62 years old. Weakness and dizziness. TECHNIQUE: PA and lateral views of the chest. COMPARISON: None. FINDINGS: Hyperinflation. The lungs are clear. Scattered calcified granulomas. There is no demonstrated pleural abnormality. Normal size heart. Normal mediastinum and dayo. Normal visualized pulmonary arteries. Normal visualized aortic arch and descending thoracic aorta. There are diffuse degenerative changes of the visualized thoracic spine. Normal visualized ribs, clavicles, and shoulders. There is no demonstrated abnormality of the visualized soft tissue structures of the upper abdomen. RAD/Chest PA and Lateral IMPRESSION: Hyperinflation. Scattered calcified granulomas. Electronically Signed: Gerardo Willis MD at 12:47 EST ,
[2023-06-13] MEDS: 0.9% Normal Saline (500mL Bag) 500 ML 1000 ML IV (12:21)
[2023-06-13 12:24] LABS: Absolute Lymphocyte Count 1.63 X10^3/uL (0.83-4.51); Absolute Neutrophil Count 3.5 X10^3/uL (2.0-7.7); Basophil# 0.02 X10^3/uL; Basophil% 0.3 % (0-1); Eosinophil# 0.03 X10^3/uL; Eosinophils% 0.5 % (0-5); Hematocrit 37.8 % (37-47); Lymphocyte # 1.63 X10^3/ul (0.83-4.51); Lymphocyte % 28.3 % (19-41); Mean Corp Hgb Conc 34.4 g/dL (32-36); Mean Corpuscular Hgb 31.4 pg (27.0-32.0); Mean Corpuscular Volume 91.3 fL (81-99); Monocyte% 8.7 % (0-10); NRBC Flagged by Analyzer 0 % (0-5); Neutrophil # 3.54 X10^3/uL (2.7-7.7); Neutrophil % 61.7 % (47-70); Platelet Count 263 K/mm3 (150-450); RBC Distribution Width CV 12.4 % (11.6-14.6); RBC Distribution Width SD 41.1 fl (35.1-43.9); Red Blood Count 4.14 M/mm3 (4.2-5.4); White Blood Count 5.8 K/mm3 (4.4-11.0)
[2023-06-13 12:39] LABS: Anion Gap 4 (5-15); BUN 7 mg/dL (7-18); BUN/Creat Ratio 11.5 RATIO (10-20); Calcium,Total 9.4 mg/dL (8.5-10.1); Chloride 108 mmol/L (98-107); Creatinine, Serum 0.61 mg/dL (0.55-1.02); EST Glomerular Filtration Rate 105 mL/min (>60); Est Glom Filt Rate - Afr Amer 127 mL/min (>60); Estimated Creatinine Clearance 93.99 ml/min; Glucose 96 mg/dL (74-106); Potassium 3.6 mmol/L (3.5-5.1); Sodium Level 141 mmol/L (136-145); Troponin-I HS 40 pg/mL (3.0-54.0)
[2023-06-13 13:34] LABS: Mucous, Urine 0 SEEN /hpf (<or=2+)
[2023-06-13 13:45] LABS: Color, Urine Yellow (Yellow); Glucose, Dipstick Normal (Normal); Ketone-Dipstick Negative (Negative); Leukocyte Esterase-Dipstick 500 /ul (Negative); Nitrite-Dipstick Negative (Negative); Occult Blood-Urine 10 /ul (Negative); Protein-Dipstick Negative (Negative); Specific Gravity, Urine 1.015 (1.002-1.030); Urine Bilirubin Dipstick Negative (Negative); Urine Clarity Clear (Clear); Urine Urobilinogen Normal (Normal)
[2023-06-13 13:57] LABS: Bacteria 1+ /hpf (None Seen); Red Blood Cells-Urine 0-5 SEEN /hpf (0-5); Squamous Epithelial Cells - UA 0-5 SEEN /hpf (5-10); White Blood Cells 5-10 SEEN /hpf (0-5)
[2023-06-13 14:02] VITALS: BP 130/64; PULSE 70
[2023-06-13] MEDS: Smz/Tmp Ds Tablet 1 TABLET PO (14:38)
== END 2023-06-13 15:29 | disposition home or self-care (01) ==
PROVIDERS: Emergency Provider Emergency Medicine; PCP Nurse Practitioner Family; Visit Provider Emergency Medicine
DX: N39.0 Urinary tract infection, site not specified (principal); R42 Dizziness and giddiness
CPT/HCPCS: 70450; 71046; 80048; 81001; 84484; 85025; 87077; 87086; 87088; 87186; 87428; 93005; 96360; 99283; J7040; A4216

== ENCOUNTER 2023-06-29 15:02 | Emergency (ER) | payer OTHER, SELFPAY ==
[2023-06-29 15:03] VITALS: BP 138/87; PULSE 76; RESP 14; TEMP 36.4; O2SAT 98; BMI 27.1
--- NOTE | 2023-06-29 15:46 | EDS_ITS ---
HPI History of Present Illness Chief Complaint: Weakness Narrative Narrative: 62-year-old female presenting with complaint of feeling like she cannot walk. She states this started around Thanksgiving after group gathering. She states she had a cold at that time but recovered from it. She has had the feeling since then and it has been fairly constant. She was seen in the ER and had a CT of her brain, lab work, EKG and all of this was normal. She states she was found to have a UTI and was treated for initially with Keflex and then followed up with Dr. Miramontes who checked her urinalysis and stated that it was clean but then the patient started having UTI symptoms the next day. After being on antibiotics for her UTI she developed a vaginal infection and was put on Flagyl. Subsequently she developed a yeast infection and had to be on medication for this. Patient states that I feel like I am not going to be able to walk. She states that I feel like I am not going to be able to my legs. She is able to walk and she has not fallen. She describes herself as wavy or like Jell-O when she is walking although she was able to demonstrate walking in the room without any difficulty. She has not had any headaches, visual complaints, nausea, vomiting. She eating drinking normally. Normal urine and stool. When asked if she is having dysuria she states she does not have any dysuria but thinks she might want to have some. When she is asked to further elaborate she states she thinks she might feel like she is going to develop something. She also states that she feels like her face is going to be flushed but it is not. She does not feel like she has vertiginous symptoms. [facility] Medical History Back problem Hypertension Home Medications L.acidoph, paracasei,B. lactis 10 billion cell capsule 1 tab PO DAILY 11/05/18 [History Last Taken Unknown] cyclobenzaprine 5 mg tablet 5 mg PO 08/01/20 [History Last Taken Unknown] valsartan 40 mg tablet 40 mg PO 08/01/20 [History Last Taken Unknown] meloxicam 7.5 mg tablet (Mobic) 7.5 mg PO .prn 10/03/21 [History Last Taken Unkn own] cephalexin 500 mg capsule 500 mg PO Q6 #12 CAPSULES 06/13/23 [Rx Last Taken Unknown] Allergy/AdvReac Type Severity Reaction Status Date / Time No Known Allergies Allergy Verified 06/29/23 15:03 Family History Mother Hypertension Surgical History History of hysterectomy Social History Smoking Status: Never smoker alcohol intake: never substance use type: does not use ROS ROS ED Constitutional Constitutional ED: Denies chills, fever(s) or sweats Eyes Eyes: Denies blurry vision or change in vision ENT ENT ED: Denies ear pain or sore throat Cardiovascular Cardiovascular: Reports other Details: Lightheadedness ; Denies chest pain, palpitations or racing heartbeat Respiratory/Chest Respiratory/Chest: Denies cough, dyspnea or sputum Gastrointestinal Gastrointestinal: Denies abdominal pain, constipation, diarrhea, nausea or vomiting Genitourinary Genitourinary ED: Denies dysuria, hematuria or urinary frequency Musculoskeletal Musculoskeletal: Denies arthralgias, myalgias or neck pain Integumentary Denies abscess, Abrasions or rash Neurologic Neurologic: Denies headache(s), paresthesias or weakness Psychiatric Psychiatric: Denies anxiety, depression, suicidal ideation or suicidal thoughts Endocrine Endocrinology: Denies polydipsia or polyuria EXAM Physical Exam Const Vital Signs: 06/29/23 15:03 06/29/23 15:02 06/29/23 16:08 Temperature 97.6 F L Temperature Source Temporal Pulse Rate 76 Pulse Rate [Lying] 66 Pulse Rate [Sitting (for 1 minute prior to obtaining)] 71 Pulse Rate [Standing (for 1 minute prior to obtaining)] 85 Respiratory Rate 14 Respiratory Effort Normal Non-Labored Respiratory Pattern Normal Blood Pressure 138/87 H Blood Pressure [Lying] 140/78 H Blood Pressure [Sitting (for 1 minute prior to obtaining)] 151/83 H Blood Pressure [Standing (for 1 minute prior to obtaining)] 158/88 H Blood Pressure Mean 104 Blood Pressure Mean [Lying] 98 Blood Pressure Mean [Sitting (for 1 minute prior to obtaining)] 105 Blood Pressure Mean [Standing (for 1 minute prior to obtaining)] 111 Pulse Ox 98 Oxygen Delivery Method Room Air 06/29/23 17:02 Temperature Temperature Source Pulse Rate Pulse Rate [Lying] Pulse Rate [Sitting (for 1 minute prior to obtaining)] Pulse Rate [Standing (for 1 minute prior to obtaining)] Respiratory Rate 16 Respiratory Effort Respiratory Pattern Blood Pressure Blood Pressure [Lying] Blood Pressure [Sitting (for 1 minute prior to obtaining)] Blood Pressure [Standing (for 1 minute prior to obtaining)] Blood Pressure Mean Blood Pressure Mean [Lying] Blood Pressure Mean [Sitting (for 1 minute prior to obtaining)] Blood Pressure Mean [Standing (for 1 minute prior to obtaining)] Pulse Ox Oxygen Delivery Method Positive well nourished General Appearance ED: NAD; Negative for pallor HEENT Reports moist mucous membranes Eyes PERRL and EOMs intact bilaterally General Eye ED: Negative for pale conjunctiva Resp normal respiratory effort and clear to auscultation bilaterally Auscultation: Negative for rales, rhonchi or wheezes Cardio regular rate and regular rhythm GI normal to inspection, nondistended, normoactive bowel sounds Extremity normal to inspection General Extremety ED: Negative for edema or tenderness General Extremity: Negative for edema Neuro oriented x3 and CN's II-XII intact bilaterally Sensorium / Orientation: alert Psych mental status grossly normal Skin no rashes or lesions noted and no wounds General Skin Exam: Negative for jaundice or pallor MDM MDM MDM Narrative Medical decision making narrative: Patient presenting with what is presumably lightheadedness. She is having a tough time describing what she is feeling but she is having difficulty involved. Started on EKG and CT brain which were negative. She does have recurrent UTIs as well. Differential includes dehydration, electrolyte abnormalities, UTI, orthostatic hypotension. Orthostatic vital signs will be obtained. CBC to assess for months of count, hemoglobin, platelets. BMP to assess renal function, electrolytes. Urinalysis to assess for UTI. Orthostatic vital signs are normal. CBC, BMP unremarkable. Thyroid studies are normal. Urinalysis negative. Patient counseled on findings. I recommended she follow-up with her PCP regarding her symptoms. Return precautions discussed. Impression: 1. Lightheadedness 2. Weakness Lab Data Labs: Laboratory Results - last 24 hr 06/29/23 06/29/23 16:00 16:25 WBC 6.4 RBC 4.33 Hgb 13.1 Hct 39.8 MCV 91.9 MCH 30.3 MCHC 32.9 RDW Std Deviation 42.4 RDW Coeff of Jillian 12.6 Plt Count 232 MPV 9.2 Immature Gran % (Auto) 0.600 Neut % (Auto) 64.8 Lymph % (Auto) 24.9 [place] % (Auto) 8.9 Eos % (Auto) 0.5 Baso % (Auto) 0.3 Absolute Neuts (auto) 4.2 Absolute Lymphs (auto) 1.60 Nucleated RBC % 0 Sodium 141 Potassium 3.8 Chloride 107 Carbon Dioxide 30.0 Anion Gap 4 L BUN 10 Creatinine 0.54 L Estim Creat Clear Calc 109.99 Est GFR (MDRD) Af Amer 147 Est GFR (MDRD) Non-Af 121 BUN/Creatinine Ratio 18.6 Glucose 90 Calcium 9.3 TSH 0.80 Free T4 1.09 Free T3 pg/dL 3.0 Urine Color Yellow Urine Clarity Clear Urine pH 7.0 Ur Specific [place] 1.010 Urine Protein Negative Urine Glucose (UA) Normal Urine Ketones Negative Urine Occult Blood 25 H Urine Nitrite Negative Urine Bilirubin Negative Urine Urobilinogen Normal Ur Leukocyte Esterase 500 H Urine RBC 0 SEEN Urine WBC 0-5 SEEN Ur Squamous Epith Cells 0-5 SEEN Urine Bacteria 0 SEEN Urine Mucus 0 SEEN Discharge Plan Triage Chief Complaint: Weakness ED Provider: Esau Cook Dx/Rx/DC Orders Instructions: ED Weakness (Uncertain Cause) Prescriptions: No Action cyclobenzaprine 5 mg tablet 5 mg PO valsartan 40 mg tablet 40 mg PO Patient Comments: TAKE 1 2 (ONE HALF) TABLET BY MOUTH ONCE DAILY meloxicam [Mobic] 7.5 mg tablet 7.5 mg PO .prn L.acidoph, paracasei,B. lactis 1 EACH capsule 1 tab PO DAILY cephalexin [cephalexin] 500 mg capsule 500 mg PO Q6 Qty: 12 0RF Primary Care Provider: Corinne Sousa Referrals: Corinne Sousa, ARIELLE-C [Primary Care Provider] - Disposition Disposition: Home, Self Care Discharge Date/Time: 06/29/23 18:06
[2023-06-29 16:08] VITALS: BP 140/78; BP 151/83; BP 158/88; PULSE 66; PULSE 71; PULSE 85
[2023-06-29 16:13] LABS: Absolute Neutrophil Count 4.2 X10^3/uL (2.0-7.7); Basophil# 0.02 X10^3/uL; Basophil% 0.3 % (0-1); Eosinophil# 0.03 X10^3/uL; Eosinophils% 0.5 % (0-5); Hematocrit 39.8 % (37-47); Hemoglobin 13.1 g/dL (12.0-15.0); Lymphocyte % 24.9 % (19-41); Mean Corp Hgb Conc 32.9 g/dL (32-36); Mean Corpuscular Hgb 30.3 pg (27.0-32.0); Mean Corpuscular Volume 91.9 fL (81-99); Mean Platelet Vol. 9.2 fl (6.2-12.0); Monocyte# 0.57 X10^3/uL; Monocyte% 8.9 % (0-10); NRBC Flagged by Analyzer 0 % (0-5); Neutrophil # 4.16 X10^3/uL (2.7-7.7); Neutrophil % 64.8 % (47-70); Platelet Count 232 K/mm3 (150-450); RBC Distribution Width CV 12.6 % (11.6-14.6); RBC Distribution Width SD 42.4 fl (35.1-43.9); Red Blood Count 4.33 M/mm3 (4.2-5.4); White Blood Count 6.4 K/mm3 (4.4-11.0)
[2023-06-29 16:32] LABS: Bacteria 0 SEEN /hpf (None Seen); Mucous, Urine 0 SEEN /hpf (<or=2+); Red Blood Cells-Urine 0 SEEN /hpf (0-5)
[2023-06-29 16:34] LABS: Color, Urine Yellow (Yellow); Glucose, Dipstick Normal (Normal); Ketone-Dipstick Negative (Negative); Leukocyte Esterase-Dipstick 500 /ul (Negative); Nitrite-Dipstick Negative (Negative); Occult Blood-Urine 25 /ul (Negative); Protein-Dipstick Negative (Negative); Urine Bilirubin Dipstick Negative (Negative); Urine Clarity Clear (Clear); Urine Urobilinogen Normal (Normal)
[2023-06-29 16:34] LABS: Anion Gap 4 (5-15); BUN 10 mg/dL (7-18); BUN/Creat Ratio 18.6 RATIO (10-20); Calcium,Total 9.3 mg/dL (8.5-10.1); Chloride 107 mmol/L (98-107); Creatinine, Serum 0.54 mg/dL (0.55-1.02); EST Glomerular Filtration Rate 121 mL/min (>60); Est Glom Filt Rate - Afr Amer 147 mL/min (>60); Estimated Creatinine Clearance 109.99 ml/min; Glucose 90 mg/dL (74-106); Potassium 3.8 mmol/L (3.5-5.1); Sodium Level 141 mmol/L (136-145); T4 Free Direct 1.09 ng/dL (0.76-1.46)
[2023-06-29 16:45] LABS: Squamous Epithelial Cells - UA 0-5 SEEN /hpf (5-10); White Blood Cells 0-5 SEEN /hpf (0-5)
[2023-06-29 17:02] VITALS: RESP 16
== END 2023-06-29 18:06 | disposition home or self-care (01) ==
PROVIDERS: Emergency Provider Student in an Organized Health Care Education/Training Program; PCP Nurse Practitioner Family; Visit Provider Student in an Organized Health Care Education/Training Program
DX: R53.1 Weakness (principal); R42 Dizziness and giddiness; I10 Essential (primary) hypertension; Z79.899 Other long term (current) drug therapy
CPT/HCPCS: 80048; 81001; 84439; 84443; 84481; 85025; 99284

== ENCOUNTER 2023-07-08 08:23 | Emergency (ER) | payer OTHER, SELFPAY ==
[2023-07-08 08:25] VITALS: BP 161/80; PULSE 72; RESP 14; TEMP 36.8; O2SAT 100; BMI 26.6
--- NOTE | 2023-07-08 08:35 | EX.ED.DYSGE1 ---
HPI History of Present Illness Chief Complaint: Syncope [facility] Medical History Back problem Hypertension Home Medications L.acidoph, paracasei,B. lactis 10 billion cell capsule 1 tab PO DAILY 11/05/18 [History Last Taken Unknown] cyclobenzaprine 5 mg tablet 5 mg PO 08/01/20 [History Last Taken Unknown] valsartan 40 mg tablet 40 mg PO 08/01/20 [History Last Taken Unknown] meloxicam 7.5 mg tablet (Mobic) 7.5 mg PO .prn 10/03/21 [History Last Taken Unknown] cephalexin 500 mg capsule 500 mg PO Q6 #12 CAPSULES 06/13/23 [Rx Last Taken Unknown] Allergy/AdvReac Type Severity Reaction Status Date / Time No Known Allergies Allergy Verified 06/29/23 15:03 Family History Mother Hypertension Surgical History History of hysterectomy Social History Smoking Status: Never smoker alcohol intake: never substance use type: does not use EXAM Physical Exam Const Vital Signs: 07/08/23 08:25 07/08/23 08:36 07/08/23 11:23 Temperature 98.2 F Temperature Source Temporal Pulse Rate 72 Respiratory Rate 14 16 Respiratory Effort Normal Non-Labored Respiratory Pattern Normal Blood Pressure 161/80 H Blood Pressure Mean 107 Pulse Ox 100 98 Oxygen Delivery Method Room Air Room Air MDM MDM MDM Narrative Medical decision making narrative: HISTORY OF PRESENT ILLNESS: 62-year-old female presents with feeling she is going to faint. She states has been having ongoing symptoms for the past 6 weeks. Notes bilateral leg weakness. Concerned she may fall at home. She has not fallen. She denies any chest pain but notes dizziness just prior to arrival that was self-limiting and lasted for seconds. Denies passing out but felt like she was going to lose consciousness. Denies any chest pain or shortness of breath. Denies any palpitations. Denies any bleeding diathesis. Denies any vomiting or diarrhea. Denies any back pain. Patient denies any saddle anesthesia, urinary retention, bowel or bladder incontinence, lower extremity weakness, fever or IV drug use, no recent spinal manipulation or surgery, no recent urinary catheterization. The patient denies recent surgery in the last 4 weeks or immobilization in the last 3 days, denies previous diagnosis of DVT or PE, hemoptysis, unilateral leg swelling or malignancy with treatment the last 6 months or palliative. No estrogen use noted. Patient denies sudden onset of pain, no tearing sensation, no migratory symptoms, no new numbness, weakness or loss of sensation. Patient denies family history or personal history of Connective tissue disorders (Marfan's Syndrome, Alondra Danlos etc) REVIEW OF SYSTEMS: Pertinent positives: Near syncope,, dizziness, bilateral leg weakness Pertinent negatives: Back pain, chest pain, palpitations, syncope focal weakness PHYSICAL EXAM: Nursing triage notes reviewed, Vital signs reviewed Constitutional: please see mdm HENT: MMM Eyes: Pupils equal round and reactive to light, Extraocular muscles intact Neck: No stridor, no JVD, full neck ROM Lungs: Clear to auscultation, No wheezing or rales. No increased work of breathing, no conversational dyspnea, no accessory muscle use, no nasal flaring. No respiratory distress noted Heart: Regular rate and rhythm, No murmurs, No rubs and No gallops, 2+ distal pulses (radial, femoral, posterior tibial) in all extremities Abdomen: Soft, there is no tenderness, rigidity, rebound or guarding, no obvious peritoneal signs, no palpable pulsatile abdominal masses, no auscultated abdominal bruit : No CVAT Extremities: No edema Back: no midline step offs or deformities Neuro: Alert and oriented x3, neuro exam at baseline, cranial nerves II through XII are intact. No pain with extraocular muscle movement. There is negative test of skew. 5 of 5 strength in upper and lower extremities in flexion extension. Intact sensation to light touch in upper and lower extremity dermatomes. No truncal or extremity ataxia. No dysdiadochokinesia. Normal gait. 2+ reflexes in upper and lower extremities. No meningeal signs. Negative Babinski. NIH of 0. Intact sensation L1-S1 dermatomal distributions. Intact 5/5 strength in hip flexion (T12-L3). Knee extension (L2-L4). Ankle dorsiflexion (L4-L5). Ankle plantar flexion (S1). Great toe extension (L5). 2+ patellar and Achilles DTRs. Skin: No rash or lesions noted MEDICAL DECISION MAKING: Chief Complaint: Dizziness, near syncope, leg weakness External records reviewed: Imaging reviewed: Aortic ultrasound from 2000 shows no abdominal aortic aneurysm Factors affecting care: Chronic back pain, hypertension Social determinants of health: Denies illicit drug use History obtained from others: Patient's Consults: none MDM Narrative: Patient was hemodynamically stable, afebrile, nontoxic-appearing. Exam without focal neurologic deficits. NIH of 0. No signs of posterior circulation CVA on exam. Patient ambulated well here without significant weakness or instability. There is no truncal extremity or gait ataxia noted on exam. I considered the following differential diagnosis: Arrhythmia, dehydration, vagal response, electrolyte disturbance, anemia, ACS, PE, dissection, ICH, mass ALL IMAGES (IF OBTAINED) HAVE BEEN PERSONALLY REVIEWED AND INTERPRETED BY MYSELF. EKG with normal sinus rhythm, normal axis, normal intervals, no STEMI I have personally reviewed the patient's chest x-ray. Chest x-ray is unremarkable for pulmonary edema, pneumothorax, pneumonia or focal cardiopulmonary abnormality. CBC without leukocytosis, severe anemia, no thrombocytopenia. BMP without evidence of significant electrolyte abnormalities, no anion gap, no acute kidney injury. High-sensitivity troponin is negative, no evidence of myocardial ischemia LFTs show no evidence of hepatobiliary pathology. Serum alcohol is negative CT scan of the brain shows no intracranial abnormality The synthesis of the patient history, physical exam, labs images suggest no acute life-limiting etiology. No indication for admission or advanced imaging such as MRI at this time as patient had no back pain red flags that would suggest an acute spinal injury. There is no clinical historical evidence to suggest Guillain-Benedict?. Patient had no objective weakness here was able to ambulate. She is appropriate discharge home with close outpatient follow-up and further evaluation. The patient and/or family, caregivers express understanding. The patient and/or family, caregivers agrees with the plan. Shared decision making: I will have a discussion with the patient and or visitors regarding risk/benefits of further testing or admission. They will be made aware of of the risk/benefits inherent in this decision they will be given the opportunity to voice understanding. Total critical care time today provided was at least 0 minutes. This excludes separately billable procedures. Critical care time (if documented) is secondary to the patient having high probability of clinically significant/life threatening deterioration in the patient's condition which required my urgent intervention. Impression: 1. Dizziness 2. Chronic leg weakness Dispo: Discharge Lab Data Labs: Laboratory Results - last 24 hr 07/08/23 09:10 WBC 4.0 L RBC 4.25 Hgb 12.9 Hct 39.4 MCV 92.7 MCH 30.4 MCHC 32.7 RDW Std Deviation 43.7 RDW Coeff of Jillian 12.8 Plt Count 217 MPV 9.2 Sodium 140 Potassium 3.7 Chloride 108 H Carbon Dioxide 31.0 Anion Gap 1 L BUN 10 Creatinine 0.72 Estim Creat Clear Calc 88.23 Est GFR (MDRD) Af Amer 105 Est GFR (MDRD) Non-Af 87 BUN/Creatinine Ratio 13.9 Glucose 82 Calcium 9.8 Total Bilirubin 0.50 AST 15 ALT 22 Alkaline Phosphatase 64 Troponin I High Sens 36 Total Protein 7.4 Albumin 3.8 Globulin 3.6 Albumin/Globulin Ratio 1.1 Ethyl Alcohol < 3.0 Radiography Diagnostic Testing: Clinical Impression(s) from Imaging Studies Brain CT 07/08/23 09:00 IMPRESSION: Normal unenhanced CT scan of the brain. Electronically Signed: Gustavo Seals MD at 10:41 EST , Chest X-Ray 07/08/23 09:32 IMPRESSION: Stable chest with no acute or active cardiopulmonary disease. Electronically Signed: Ken Owens MD at 9:48 EST , Discharge Plan Triage Chief Complaint: Syncope ED Provider: Leo Osullivan Dx/Rx/DC Orders Clinical Impression: Dizziness, Bilateral leg weakness Instructions: ED Dizziness, Uncertain Cause, ED Near-Fainting, Uncertain Cause, ED FALL-from [id number] Prescriptions: No Action cyclobenzaprine 5 mg tablet 5 mg PO valsartan 40 mg tablet 40 mg PO Patient Comments: TAKE 1 2 (ONE HALF) TABLET BY MOUTH ONCE DAILY meloxicam [Mobic] 7.5 mg tablet 7.5 mg PO .prn L.acidoph, paracasei,B. lactis 1 EACH capsule 1 tab PO DAILY cephalexin [cephalexin] 500 mg capsule 500 mg PO Q6 Qty: 12 0RF Primary Care Provider: Corinne Sousa Referrals: Corinne Sousa, SURG[facility]IER-C [Primary Care Provider] - Activity Restrictions/Additional Instructions: Thank you for trusting us with your care today! Your evaluation today did not reveal evidence of abnormal heart rhythms, damage to the heart, significant dehydration, kidney dysfunction, electrolyte abnormalities, intracranial abnormalities. Your physical exam was not consistent with an acute spinal injury. Please take Tylenol (2 pills, 650 mg), ibuprofen (2 pills, 400 mg) every 6 hours as needed for pain and fever control. Please return to the emergency department if your symptoms change or worsen. Please follow with your primary care physician for further outpatient evaluation and management. Disposition Disposition: Home, Self Care Discharge Date/Time: 07/08/23 11:23
--- NOTE | 2023-07-08 09:00 | CT_ITS ---
STUDY: CT BRAIN WITHOUT CONTRAST REASON FOR EXAM: Female, 62 years old. Dizziness RADIATION DOSAGE (If Supplied By Facility): CTDIvol = ( 44.99 ) mGy, DLP = ( 812.98 ) mGycm TECHNIQUE: Transaxial CT imaging of the brain was performed without administration of intravenous contrast material. Individualized dose optimization techniques were used for this CT. COMPARISON: Head CT dated June 13, 2023 FINDINGS: Normal soft tissue structures. Normal calvarium. No visualized hydrocephalus or midline shift. No visualized extra-axial fluid collection. Normal size ventricles and extra-axial spaces for the patient''s age. Normal white matter tracts of the cerebral hemispheres. Normal basal ganglia and thalami. Normal brainstem. Normal cerebellum. There is no intracranial hemorrhage. There are no findings of an acute ischemic infarction. Normal visualized paranasal sinuses. CT/Brain/Head without Contrast IMPRESSION: Normal unenhanced CT scan of the brain. Electronically Signed: Gustavo Seals MD at 10:41 EST ,
[2023-07-08 09:19] LABS: Hematocrit 39.4 % (37-47); Hemoglobin 12.9 g/dL (12.0-15.0); Mean Corp Hgb Conc 32.7 g/dL (32-36); Mean Corpuscular Hgb 30.4 pg (27.0-32.0); Mean Corpuscular Volume 92.7 fL (81-99); Mean Platelet Vol. 9.2 fl (6.2-12.0); Platelet Count 217 K/mm3 (150-450); RBC Distribution Width CV 12.8 % (11.6-14.6); RBC Distribution Width SD 43.7 fl (35.1-43.9); Red Blood Count 4.25 M/mm3 (4.2-5.4)
--- NOTE | 2023-07-08 09:32 | RAD_ITS ---
STUDY: X-RAY CHEST REASON FOR EXAM: Female, 62 years old. Dizziness. TECHNIQUE: Single frontal view of the chest. COMPARISON: June 13, 2023. FINDINGS: The lungs are clear and expanded. There is no demonstrated pleural abnormality. Normal size heart. Normal mediastinum and dayo. Normal visualized pulmonary arteries. Normal visualized aortic arch and descending thoracic aorta. Normal visualized thoracic spine. Normal visualized ribs, clavicles, and shoulders. No abnormality of the visualized soft tissue structures of the upper abdomen. RAD/Chest 1 View (Portable) IMPRESSION: Stable chest with no acute or active cardiopulmonary disease. Electronically Signed: Ken Owens MD at 9:48 EST ,
--- OUTSIDE RECORDS SUMMARY | 2023-07-08 09:33 | XMS RPT_ITS | CCD ---
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 Name Role Phone Maru Villela Unavailable Roberth Gunn Unavailable [facility], [facility] Unavailable Cinda Alcaraz Unavailable Unavailable Chong Jennings Unavailable Unavailable Suzanne Westbrook Unavailable Unavailable Kira Godoy Unavailable Unavailable Unavailable Unavailable Beatriz Bennett Unavailable Unavailable Chong Jennings Unavailable Unavailable Suzanne Westbrook Unavailable Unavailable Talia Rodgers Unavailable Unavailable Garrett, Jaqueline Unavailable Unavailable Chong Kelley Unavailable Unavailable Maryellen Miramontes Unavailable Oscar Dove Unavailable Zaheer Tomilnson Unavailable Maru Villela CNP Unavailable Oscar Dove DO Unavailable Dr. Roberth Gunn Unavailable [facility], [facility] Unavailable Maryellen Miramontes Unavailable Zaheer Tomlinson Unavailable Chong Kelley LPN Unavailable Unavailable Cinda Alcaraz LPN Unavailable Unavailable Beatriz Bennett Unavailable Unavailable Suzanne Westbrook RN Unavailable Unavailable Unavailable Unavailable Keke Colon MA Unavailable Unavailable BEVERLY Cuba LPN Unavailable Unavailable Garrett LICEA, Jaqueline Unavailable Unavailable Corinne Sousa CNP Unavailable Maru Villela Unavailable Corinne Sousa CNP Unavailable Lars Corinne STEELE Unavailable Unavailable Unavailable StephanieMaru baker Referring Unavailable Corinne Sousa CNP Attending Unavailable Corinne Sousa CNP Consulting Unavailable Medications Completed/Discontinued Medications Medication Drug Class(es) Dates Sig (Normalized) Sig (Original) acetaminophen 325 mg oral tablet (20 sources) Tylenol 325 MG O ral Tablet as needed (325 MG) Inactive Comments: Medication taken as needed. Problems Active Problems Problem Classification Problem Date Documented Da te Episodic/Chronic Abdominal pain (20 sources) Lower abdominal pain; Translations: [Abdominal pain] Resolved: 12-07-2020 09-25-2019 Episodic Past or Other Problems Problem Classification Problem Date Documented Da te Episodic/Chronic Conditions associated with dizziness or vertigo (20 sources) Conditions associated with dizziness or vertigo Influenza (13 sources) Influenza Other ear and sense organ disorders (20 sources) Hearing loss; Translations: [Hearing loss of right ear due to cerumen impaction] Resolved: 07-28-2018 07-03-2018 Chronic Other ear and sense organ disorders (12 sources) Hearing loss of right ear; Translations: [Hearing loss of right ear due to cerumen impaction] Resolved: 07-28-2018 11-07-2018 Chronic Other nutritional; endocrine; and metabolic disorders (20 sources) Body mass index 25-29 - overweight; Translations: [BMI 29.0-29.9,adult] Resolved: 08-12-2019 08-12-2019 Chronic Other nutritional; endocrine; and metabolic disorders (20 sources) Raised low density lipoprotein cholesterol; Translations: [Elevated LDL cholesterol level] Resolved: 07-28-2018 07-03-2018 Episodic Unclassified (20 sources) Shingles Unclassified (20 sources) Encounter for screening mammogram for breast cancer (Renamed from Encounter for screening mammogram for malignant neoplasm of breast); Translations: [Patient encounter status] 07-03-2018 Results Test Name Value Interpretation Reference Range Facil ity Vital Signs Date Time Vital Sign Value Performing Clinician Facility 03-18-2023 13:18-0400 Body height 170.18 cm BEVERLY Cuba LPN [facility] Work Phone: 03-18-2023 13:18-0400 Body mass index (BMI) [Ratio] 30.38 kg/m2 BEVERLY Cuba LPN [facility] Work Phone: 03-18-2023 13:18-0400 Body surface area Derived from formula 2 m2 BEVERLY Cuba LPN [facility] Work Phone: 03-18-2023 13:18-0400 Body temperature 97.3 [degF] BEVERLY Cuba LPN [facility] Work Phone: Encounters Encounter Date Encounter Type Care Provider Facility Start: 03-18-2023 End: 03-19-2023 Office outpatient visit 15 minutes Corinne Sousa CNP Work Phone: [facility] Start: 03-18-2023 Review Corinne Sousa CNP Work Phone: [facility] Start: 03-06-2023 End: 03-06-2023 Annotation/Addendum Corinne Sousa CNP Work Phone: [facility] Start: 12-07-2022 End: 12-07-2022 Office outpatient visit 15 minutes Corinne Sousa CNP Work Phone: [facility] Start: 09-14-2022 ambulatory Maru Berumne [facility] Start: 09-14-2022 End: 09-17-2022 Office outpatient visit 15 minutes Corinne Sousa CNP Work Phone: [facility] Start: 09-14-2022 Review Corinne Sousa CNP Work Phone: [facility] Start: 03-16-2022 End: 03-25-2022 Office outpatient visit 15 minutes Corinne Sousa CNP Work Phone: [facility] Start: 09-11-2021 End: 09-11-2021 Office outpatient visit 15 minutes Maru Stephaniesamuel STELEE Work Phone: [facility] Start: 08-14-2021 End: 08-14-2021 Office outpatient visit 25 minutes Maru Stephaniesamuel STEELE Work Phone: [facility] Start: 06-09-2021 End: 06-09-2021 Office outpatient visit 15 minutes Maru Villela [employer]ET[employer]EE Work Phone: [facility] Start: 03-22-2021 End: 03-22-2021 Annotation/Addendum Maru Villela [employer]EE Work Phone: [facility] Start: 03-22-2021 End: 03-22-2021 Office outpatient visit 10 minutes Maru Villela [employer]EE Work Phone: [facility] Start: 03-10-2021 End: 03-10-2021 Office outpatient visit 15 minutes Maru Villela [employer]EE Work Phone: [facility] Start: 12-07-2020 End: 12-07-2020 Office outpatient visit 15 minutes Maru Hinojosaestefanía [employer]ET[employer] TRAINEE Work Phone: [facility] Start: 10-18-2020 End: 10-18-2020 Office outpatient visit 5 minutes Maru Arambula [facility] Start: 09-06-2020 End: 09-06-2020 Office outpatient visit 15 minutes Maru [facility]ambula [facility] Start: 08-23-2020 End: 08-23-2020 Office outpatient visit 10 minutes Maru [facility]amb[facility] Start: 08-03-2020 End: 08-03-2020 Office outpatient visit 15 minutes Maru [facility]amb[facility] Start: 07-25-2020 End: 07-25-2020 Office outpatient visit 15 minutes Maru [facility] Start: 07-18-2020 End: 07-19-2020 Annotation/Addendum Maru Arambula [employer] [facility] Start: 07-18-2020 End: 07-18-2020 Office outpatient visit 25 minutes Maru [facility] Start: 07-11-2020 End: 07-11-2020 Office outpatient visit 25 minutes Maru [facility] Start: 04-04-2020 End: 04-04-2020 Office outpatient visit 5 minutes Maru [facility] Start: 02-17-2020 End: 02-17-2020 Phone Encounter Maru Arambula [employer] [facility] Start: 02-10-2020 End: 02-10-2020 Office outpatient visit 25 minutes Maru [facility] Start: 02-10-2020 Review Maru Ochoaens marla [facility] Start: 01-19-2020 End: 01-19-2020 Office outpatient visit 25 minutes Maru [facility] Start: 01-05-2020 End: 01-05-2020 Lab Order Maru Arambula [employer] [facility] Start: 01-05-2020 End: 01-05-2020 Office outpatient visit 25 minutes Maru Arambula [facility] Start: 11-16-2019 End: 11-16-2019 Office outpatient visit 15 minutes Maru Arambula [facility] Start: 09-25-2019 End: 09-25-2019 Office outpatient visit 15 minutes Maru Arambula [facility] Start: 08-12-2019 End: 08-12-2019 Office outpatient visit 25 minutes Maru Arambula [facility] Start: 08-04-2019 End: 08-04-2019 Office outpatient visit 15 minutes Maru Arambula [facility] Start: 06-25-2019 End: 06-25-2019 Office outpatient visit 15 minutes Maru Arambula [facility] Start: 02-11-2019 End: 02-11-2019 Annotation/Addendum Maru Arambula [employer] [facility] Start: 02-02-2019 End: 02-02-2019 Office outpatient visit 15 minutes Maru Arambula [facility] Start: 01-21-2019 End: 01-21-2019 Office outpatient visit 10 minutes Maru Arambula [facility] Start: 11-26-2018 End: 11-26-2018 Office outpatient visit 15 minutes Maru Arambula [facility] Start: 11-25-2018 End: 11-25-2018 Office outpatient visit 15 minutes Maru Arambula [facility] Start: 11-25-2018 Review Maru Berumen marla [facility] Start: 11-07-2018 End: 11-07-2018 Office outpatient visit 15 minutes Maru Arambula [facility] Start: 07-28-2018 End: 07-28-2018 Office outpatient visit 25 minutes Maru Arambula [facility] Start: 07-28-2018 Review Maru Brownbillestefanía Berumen marla [facility] Start: 07-03-2018 End: 07-03-2018 Office outpatient visit 15 minutes Maru Arambula [facility] Start: 02-04-2018 End: 02-04-2018 Office outpatient visit 15 minutes Maru Arambula [facility] Start: 01-31-2018 End: 01-31-2018 Office outpatient visit 15 minutes Maru Villela [facility] Start: 09-27-2017 End: 09-27-2017 Office outpatient visit 15 minutes Maru Villela [facility] Start: 08-30-2017 End: 08-30-2017 Office outpatient visit 25 minutes Maru Villela [facility] Start: 08-13-2017 End: 08-13-2017 Office outpatient visit 15 minutes Maru Villela [facility] Start: 07-31-2017 End: 07-31-2017 Office outpatient visit 15 minutes Maru Villela [facility] Start: 07-18-2016 End: 07-18-2016 Initial preventive medicine new patient 40-64yrs Maru Villela [facility] Internal [facility] Procedures Date Procedure Procedure Detail Performing Clinician Start: 11-09-2021 End: 11-09-2021 Chiropractic Report Comments: See Note; NOTES: [facility] [address] [place] [address] OFFICE VISIT Date of Service: 11/09/21 MR#: [id number] Acct: [id number] Name: SOCORRO VILLA Rep #: [id number] : 1960 Provider: ANTOLIN Jackson Age/Sex: 60/F [place] [facility] Status: Signed Intake Intake Visit Reasons: Back pain Chief Complaint: Low Back Pain Allergies No Known Allergies Allergy (Verified 11/09/21 14:15) Medications L.acidoph, paracasei,B. lactis 1 tab PO DAILY 11/05/18 [History Confirmed 11/09/21] cyclobenzaprine 5 mg tablet 5 mg PO tab 08/01/20 [History Confirmed 11/09/21] valsartan 40 mg tablet 40 mg PO tab 08/01/20 [History Confirmed 11/09/21] meloxicam 7.5 mg tablet 7.5 mg PO .prn tab 10/03/21 [History Confirmed 11/09/21] PFSH Medical History Back problem Hypertension Surgical History No history of previous surgery Family History Mother Hypertension Social History Smoking Status: Never smoker alcohol intake: never substance use type: does not use HPI Back pain Chief Complaint: low back Visit Number: 7 Details: SOCORRO VILLA is a 60 year old F here today for low back pain. She rates her pain 5/10 today states that the stiffness has improved tremendously with care program director. She is still having low back tightness across the low back but is able to perform her ADLs without pain. Denies injury, numbness, tingling or radiating pain. Location: low back Duration: intermittent Aggravating or associated factors: bending, ambulation Relieving factors: heat, chiro Pain Quality: aching, dull and other (stiff) Exam Musc General: Yes normal gait, joint tenderness and decreased range of motion; No normal posture or muscle weakness Thoracic/Lumber: No thoracic and lumbar spine normal to inspection (slightly flexed posture), Yes paraspinal tenderness (slightly improved) bilaterally in the upper lumbar, in the mid lumbar and in the lower lumbar, Yes thoraco-lumbar spasm on the right greater than left (paraspinal (L1-L5), QL, piriformis) and Yes misalignment L1, L2, L3, L4, L5 and RIL Sacroiliac joints: bilaterally tender to palpation Office Procedures Procedures - Chiropractic Procedures Manipulation: Lumbar L2 and Pelvis RIL Manipulation: 1-2 regions Electronic Stimulation: Yes Electrical Stimulation: Lumbar 15 mins (8) mA Traction, Mechanical: Yes Patient Response: positive Assessment and Plan Assessment and Plan (1) Back pain: Status: Acute Qualifiers: Back pain laterality: bilateral Back pain location: low back pain Chronicity: chronic Sciatica presence: without sciatica Qualified Code(s): M54.50 - Low back pain, unspecified; G89.29 - Other chronic pain Orders: Orders: Chiropractic Treatments Today (2) Spondylolysis of lumbar region: Status: Acute Orders: Orders: Chiropractic Treatments Today (3) Segmental and somatic dysfunction of pelvic region: Status: Acute Orders: Orders: Chiropractic Treatments Today (4) Segmental and somatic dysfunction of lumbar region: Status: Acute Orders: Orders: Chiropractic Treatments Today Plan Details Additional Comments: Patient was treated without incident. She has shown positive improvement. She will follow up on a PRN basis. Goals Barriers: Goals Decrease pain Improve posture Decrease spasm Decrease inflammation Barriers Spondy (L3/L4, L4/L5) DDD Follow Up: 1 x week (2/2) PRN Coding Level of Care Code No Charge Diagnoses Back pain M54.50; G89.29 Back pain laterality: bilateral Back pain location: low back pain Chronicity: chronic Sciatica presence: without sciatica Spondylolysis of lumbar region M43.06 Segmental and somatic dysfunction of pelvic region M99.05 Segmental and somatic dysfunction of lumbar region M99.03 CPT Codes Procedures - Manipulation: 1-2 regions (84186) Procedures - Electronic Stimulation: Yes (55279) Procedures - Traction, Mechanical: Yes (10746) 11/09/21 1522 <Electronically signed by Simi Page D.C.> Date Simi Page D.C. Cosigner Signature: Date (if applicable) CC: Corinne Sousa [facility] Work Phone: Start: 11-07-2021 End: 11-07-2021 Chiropractic Report Comments: See Note; NOTES: [facility] [address] [place], [place] [id number] OFFICE VISIT Date of Service: 11/07/21 MR#: [id number] Acct: [id number] Name: SOCORRO VILLA Rep #: [id number] : 1960 Provider: ANTOLIN Jackson Age/Sex: 60/F [place] [facility] Status: Signed Intake Intake Visit Reasons: Back pain Chief Complaint: Low Back Pain Allergies No Known Allergies Allergy (Verified 11/07/21 14:18) Medications L.acidoph, paracasei,B. lactis 1 tab PO DAILY 11/05/18 [History Confirmed 11/07/21] cyclobenzaprine 5 mg tablet 5 mg PO tab 08/01/20 [History Confirmed 11/07/21] valsartan 40 mg tablet 40 mg PO tab 08/01/20 [History Confirmed 11/07/21] meloxicam 7.5 mg tablet 7.5 mg PO .prn tab 10/03/21 [History Confirmed 11/07/21] PFSH Medical History Back problem Hypertension Surgical History No history of previous surgery Family History Mother Hypertension Social History Smoking Status: Never smoker alcohol intake: never substance use type: does not use HPI Back pain Chief Complaint: low back Visit Number: 6 Details: SOCORRO VILLA is a 60 year old F here today for low back pain. She states that the stiffness has improved with care program director. She is still having low back tightness which is across the low back but she is able to perform her ADLs with less discomfort. Denies injury, numbness, tingling or radiating pain. Location: low back and neck Duration: intermittent Aggravating or associated factors: bending, ambulation Relieving factors: heat, chiro Pain Quality: aching, dull and other (stiff) Exam Musc General: Yes normal gait, joint tenderness and decreased range of motion; No normal posture or muscle weakness Thoracic/Lumber: No thoracic and lumbar spine normal to inspection (slightly flexed posture), Yes paraspinal tenderness (slightly improved) bilaterally in the upper lumbar, in the mid lumbar and in the lower lumbar, Yes thoraco-lumbar spasm on the right greater than left (paraspinal (L1-L5), QL, piriformis) and Yes misalignment L1, L2, L3, L4, L5 and RIL Sacroiliac joints: bilaterally tender to palpation Office Procedures Procedures - Chiropractic Procedures Manipulation: Lumbar L2 and Pelvis RIL Manipulation: 1-2 regions Electronic Stimulation: Yes Electrical Stimulation: Cervical 15 mins (7) mA Therapy Performed by:: Ashley Neville Patient Response: positive Assessment and Plan Assessment and Plan (1) Back pain: Status: Acute Qualifiers: Back pain laterality: bilateral Back pain location: low back pain Chronicity: chronic Sciatica presence: without sciatica Qualified Code(s): M54.50 - Low back pain, unspecified; G89.29 - Other chronic pain Orders: Orders: Chiropractic Treatments Today (2) Spondylolysis of lumbar region: Status: Acute (3) Segmental and somatic dysfunction of pelvic region: Status: Acute (4) Segmental and somatic dysfunction of lumbar region: Status: Acute Plan Details Additional Comments: Patient was treated without incident. Continue care. Goals Barriers: Goals Decrease pain Improve posture Decrease spasm Decrease inflammation Barriers Spondy (L3/L4, L4/L5) DDD Follow Up: 1x/wk/2wks (0/2) Coding Level of Care Code No Charge Diagnoses Back pain M54.50; G89.29 Back pain laterality: bilateral Back pain location: low back pain Chronicity: chronic Sciatica presence: without sciatica Spondylolysis of lumbar region M43.06 Segmental and somatic dysfunction of pelvic region M99.05 Segmental and somatic dysfunction of lumbar region M99.03 CPT Codes Procedures - Manipulation: 1-2 regions (42247) Procedures - Electronic Stimulation: Yes (15160) 11/07/21 1650 <Electronically signed by Simi Page D.C.> Date Simi Page D.C. Cosigner Signature: Date (if applicable) CC: Corinne Sousa [employer]ET[employer] TRAINEE Work Phone: Start: 11-02-2021 End: 11-02-2021 Chiropractic Report Comments: See Note; NOTES: [facility] [address] [place] [id number] OFFICE VISIT Date of Service: 11/02/21 MR#: [id number] Acct: [id number] Name: SOCORRO VILLA Rep #: [id number] : 1960 Provider: ANTOLIN Jackson Age/Sex: 60/F [place] [facility] Status: Signed Intake Intake Visit Reasons: Back pain Chief Complaint: Low Back Pain Is patient in pain?: Yes Pain scale (1-10): 5 Allergies No Known Allergies Allergy (Verified 11/02/21 14:04) Medications L.acidoph, paracasei,B. lactis 1 tab PO DAILY 11/05/18 [History Confirmed 11/02/21] cyclobenzaprine 5 mg tablet 5 mg PO tab 08/01/20 [History Confirmed 11/02/21] valsartan 40 mg tablet 40 mg PO tab 08/01/20 [History Confirmed 11/02/21] meloxicam 7.5 mg tablet 7.5 mg PO .prn tab 10/03/21 [History Confirmed 11/02/21] PFSH Medical History Back problem Hypertension Surgical History No history of previous surgery Family History Mother Hypertension Social History Smoking Status: Never smoker alcohol intake: never substance use type: does not use HPI Back pain Chief Complaint: low back Visit Number: 5 Details: SOCORRO VILLA is a 60 year old F here today for c/o low back pain. She states that the pain has improved with care program director. She is still having low back tightness which is across the low back. Denies numbness, tingling or other associated symptoms. Denies any radiating pain. Location: low back Duration: intermittent Aggravating or associated factors: bending, ambulation Relieving factors: heat, chiro Pain Quality: aching, dull and other (stiff) Exam Musc General: Yes normal gait, joint tenderness and decreased range of motion; No normal posture or muscle weakness Thoracic/Lumber: No thoracic and lumbar spine normal to inspection (slightly flexed posture), Yes paraspinal tenderness (slightly improved) bilaterally in the upper lumbar, in the mid lumbar and in the lower lumbar, Yes thoraco-lumbar spasm on the right greater than left (paraspinal (L1-L5), QL, piriformis) and Yes misalignment L1, L2, L3, L4, L5 and RIL Sacroiliac joints: bilaterally tender to palpation Office Procedures Procedures - Chiropractic Procedures Stimulation: with Manipulation: Lumbar L2 and Pelvis RIL Manipulation: 1-2 regions Electronic Stimulation: Yes Electrical Stimulation: Cervical (7) 15 mins mA and Lumbar (7) 15 mins mA Traction, Mechanical: Yes Patient Response: positive Assessment and Plan Assessment and Plan (1) Back pain: Status: Acute Qualifiers: Back pain laterality: bilateral Back pain location: low back pain Chronicity: chronic Sciatica presence: without sciatica Qualified Code(s): M54.50 - Low back pain, unspecified; G89.29 - Other chronic pain Orders: Orders: Chiropractic Treatments Today Plan Details Additional Comments: Patient was treated without incident. She is showing positive improvement. Continue care. Goals Barriers: Goals Decrease pain Improve posture Decrease spasm Decrease inflammation Barriers Spondy (L3/L4, L4/L5) DDD Follow Up: 2 Weeks (11/10) Coding Level of Care Code No Charge Diagnoses Back pain M54.50; G89.29 Back pain laterality: bilateral Back pain location: low back pain Chronicity: chronic Sciatica presence: without sciatica CPT Codes Procedures - Manipulation: 1-2 regions (45941) Procedures - Electronic Stimulation: Yes (03074) Procedures - Traction, Mechanical: Yes (64052) 11/02/21 1438 <Electronically signed by Simi Page D.C.> Date Simi Page D.C. Cosigner Signature: Date (if applicable) CC: Corinne Sousa CNP Work Phone: Start: 10-31-2021 End: 10-31-2021 Chiropractic Report Comments: See Note; NOTES: [facility] [address] [place], [place] [id number] OFFICE VISIT Date of Service: 10/31/21 MR#: [id number] Acct: [id number] Name: SOCORRO VILLA Rep #: [id number] : 1960 Provider: ANTOLIN Jackson Age/Sex: 60/F [place] [facility] Status: Signed Intake Intake Visit Reasons: Back pain Chief Complaint: Low Back Pain Allergies No Known Allergies Allergy (Verified 10/26/21 16:25) Medications L.acidoph, paracasei,B. lactis 1 tab PO DAILY 11/05/18 [History Confirmed 10/31/21] cyclobenzaprine 5 mg tablet 5 mg PO tab 08/01/20 [History Confirmed 10/31/21] valsartan 40 mg tablet 40 mg PO tab 08/01/20 [History Confirmed 10/31/21] meloxicam 7.5 mg tablet 7.5 mg PO .prn tab 10/03/21 [History Confirmed 10/31/21] PFSH Medical History Back problem Hypertension Surgical History No history of previous surgery Family History Mother Hypertension Social History Smoking Status: Never smoker alcohol intake: never substance use type: does not use HPI Back pain Chief Complaint: low back Visit Number: 3 Details: SOCORRO VILLA is a 60 year old F here today for low back pain. She states that the chiropractic adjustments have been very helpful. She is still having low back tightness which is across the low back. Denies numbness, tingling or other associated symptoms. Denies any radiating pain. Location: low back Duration: intermittent Aggravating or associated factors: bending, ambulation Relieving factors: heat, chiro Pain Quality: aching and dull Exam Musc General: Yes normal gait, joint tenderness and decreased range of motion; No normal posture or muscle weakness Thoracic/Lumber: No thoracic and lumbar spine normal to inspection (slightly flexed posture), Yes paraspinal tenderness (slightly improved) bilaterally in the upper lumbar, in the mid lumbar and in the lower lumbar, Yes thoraco-lumbar spasm on the right greater than left (paraspinal (L1-L5), QL, piriformis) and Yes misalignment L1, L2, L3, L4, L5 and RIL Sacroiliac joints: bilaterally tender to palpation Office Procedures Procedures - Chiropractic Procedures Stimulation: with Manipulation: Lumbar L2 and Pelvis RIL Manipulation: 1-2 regions Electronic Stimulation: Yes Electrical Stimulation: Lumbar 15 mins (12) mA Therapy Performed by:: Ashley Neville Traction, Mechanical: Yes Patient Response: positive Assessment and Plan Assessment and Plan (1) Back pain: Status: Acute Qualifiers: Back pain laterality: bilateral Back pain location: low back pain Chronicity: chronic Sciatica presence: without sciatica Qualified Code(s): M54.50 - Low back pain, unspecified; G89.29 - Other chronic pain (2) Spondylolysis of lumbar region: Status: Acute (3) Segmental and somatic dysfunction of pelvic region: Status: Acute (4) Segmental and somatic dysfunction of lumbar region: Status: Acute Orders: Orders: Chiropractic Treatments Today M43.06, M99.05, M99.03 Plan Details Additional Comments: Patient was treated without incident. Continue care. Goals Barriers: Goals Decrease pain Improve posture Decrease spasm Decrease inflammation Barriers Spondy (L3/L4, L4/L5) DDD Follow Up: 2x week (3 of 6) Coding Level of Care Code No Charge Diagnoses Back pain M54.50; G89.29 Back pain laterality: bilateral Back pain location: low back pain Chronicity: chronic Sciatica presence: without sciatica Spondylolysis of lumbar region M43.06 Segmental and somatic dysfunction of pelvic region M99.05 Segmental and somatic dysfunction of lumbar region M99.03 CPT Codes Procedures - Manipulation: 1-2 regions (50917) Procedures - Electronic Stimulation: Yes (47325) Procedures - Traction, Mechanical: Yes (78584) 10/31/21 3956 <Electronically signed by Simi Page D.C.> Date Simi Page D.C. Cosigner Signature: Date (if applicable) CC: Corinne Lars STEELE Work Phone: Start: 10-26-2021 End: 10-30-2021 Chiropractic Report Comments: See Note; NOTES: [facility] [address] [place] [address] OFFICE VISIT Date of Service: 10/26/21 MR#: [id number] Acct: [id number] Name: SOCORRO VILLA Rep #: [id number] : 1960 Provider: ANTOLIN Jackson Age/Sex: 60/F [place] [facility] Status: Signed Intake Intake Visit Reasons: Back Pain Chief Complaint: Low Back Pain Is patient in pain?: Yes Pain scale (1-10): 7 Allergies No Known Allergies Allergy (Verified 10/26/21 16:25) Medications L.acidoph, paracasei,B. lactis 1 tab PO DAILY 11/05/18 [History Confirmed 10/26/21] cyclobenzaprine 5 mg tablet 5 mg PO tab 08/01/20 [History Confirmed 10/26/21] valsartan 40 mg tablet 40 mg PO tab 08/01/20 [History Confirmed 10/26/21] meloxicam 7.5 mg tablet 7.5 mg PO .prn tab 10/03/21 [History Confirmed 10/26/21] PFSH Medical History Back problem Hypertension Surgical History No history of previous surgery Family History Mother Hypertension Social History Smoking Status: Never smoker alcohol intake: never substance use type: does not use HPI Back Pain Chief Complaint: Low Back Pain Visit Number: 2 Details: Details: Socorro Villa 60 year old F is here today for low back pain. Patient stated her pain has improved since her last visit. She stated the pain currently is stiffness, achy, and constant across her lumbar spine. Pt. advises her pain is 7/10 today mostly due to stiffness. She stated the pain worsens as the day goes on. She gets relief from keeping active and resting. She finds that her posture becomes flexed as she walks and feels that this contributes to her pain and tightness. She denies numbness, tingling and radiculopathy. Onset: 07/08/16 Location: Low Back Pain Duration: Constant Relieving factors: working out, resting Pain Quality: aching, dull and other (stiffness) Exam Musc General: Yes normal gait, joint tenderness and decreased range of motion; No normal posture or muscle weakness Thoracic/Lumber: No thoracic and lumbar spine normal to inspection (slightly flexed posture), Yes straight leg raise negative bilaterally, Yes Lasegue's sign positive bilaterally, Yes pain with thoraco-lumbar ROM with lateral flexion to the right, with lateral flexion to the left and other (extension), Yes paraspinal tenderness bilaterally in the upper lumbar, in the mid lumbar and in the lower lumbar, Yes thoraco-lumbar ROM limited (extension) with lateral flexion to the right and with lateral flexion to the left, Yes thoraco-lumbar spasm on the right greater than left (paraspinal (L1-L5), QL, piriformis) and Yes misalignment L1, L2, L3, L4, L5 and RIL Sacroiliac joints: bilaterally tender to palpation Office Procedures Procedures - Chiropractic Procedures Manipulation: Lumbar L2 and Pelvis RIL Manipulation: 1-2 regions Electronic Stimulation: Yes Electrical Stimulation: Lumbar 15 mins (16) mA Therapy Performed by:: Dr. Simi Page DC Traction, Mechanical: Yes Patient Response: positive Assessment and Plan Assessment and Plan (1) Back pain: Status: Acute Qualifiers: Back pain laterality: bilateral Back pain location: low back pain Chronicity: chronic Sciatica presence: without sciatica Qualified Code(s): M54.50 - Low back pain, unspecified; G89.29 - Other chronic pain Orders: Orders: Chiropractic Treatments 10/26/21 (2) Spondylolysis of lumbar region: Status: Acute (3) Segmental and somatic dysfunction of pelvic region: Status: Acute (4) Segmental and somatic dysfunction of lumbar region: Status: Acute Plan Details Additional Comments: Patient was treated without incident. Continue care. Goals Barriers: Goals Decrease pain Improve posture Decrease spasm Decrease inflammation Barriers Spondy (L3/L4, L4/L5) DDD Follow Up: 2x/wk (2 of 6) Coding Level of Care Code No Charge Diagnoses Back pain M54.50; G89.29 Back pain laterality: bilateral Back pain location: low back pain Chronicity: chronic Sciatica presence: without sciatica Spondylolysis of lumbar region M43.06 Segmental and somatic dysfunction of pelvic region M99.05 Segmental and somatic dysfunction of lumbar region M99.03 CPT Codes Procedures - Manipulation: 1-2 regions (50537) Procedures - Electronic Stimulation: Yes (13293) Procedures - Traction, Mechanical: Yes (35042) 10/30/21 1510 <Electronically signed by Simi Page D.C.> Date Simi Page D.C. Cosigner Signature: Date (if applicable) CC: Corinne Sousa [facility] Work Phone: Start: 10-24-2021 End: 10-30-2021 Chiropractic Report Comments: See Note; NOTES: [facility] [address] [place] [address] OFFICE VISIT Date of Service: 10/24/21 MR#: [id number] Acct: [id number] Name: SOCORRO VILLA Rep #: [id number] : 1960 Provider: ANTOLIN Jackson Age/Sex: 60/F [place] [facility] Status: Signed Intake Intake Visit Reasons: Back pain Chief Complaint: Low Back Pain Allergies No Known Allergies Allergy (Verified 10/26/21 16:25) Medications L.acidoph, paracasei,B. lactis 1 tab PO DAILY 11/05/18 [History Confirmed 10/26/21] cyclobenzaprine 5 mg tablet 5 mg PO tab 08/01/20 [History Confirmed 10/26/21] valsartan 40 mg tablet 40 mg PO tab 08/01/20 [History Confirmed 10/26/21] meloxicam 7.5 mg tablet 7.5 mg PO .prn tab 10/03/21 [History Confirmed 10/26/21] PFSH Medical History Back problem Hypertension Surgical History No history of previous surgery Family History Mother Hypertension Social History Smoking Status: Never smoker alcohol intake: never substance use type: does not use HPI Back pain Chief Complaint: Low back pain Visit Number: 2 Details: SOCORRO VILLA is a 60 year old F here today for lower back pain and stiffness. She continues to have difficulty performing her ADLs. Exam Musc General: Yes normal gait, joint tenderness and decreased range of motion; No normal posture or muscle weakness Thoracic/Lumber: No thoracic and lumbar spine normal to inspection (slightly flexed posture), Yes paraspinal tenderness bilaterally in the upper lumbar, in the mid lumbar and in the lower lumbar, Yes thoraco-lumbar spasm on the right greater than left (paraspinal (L1-L5), QL, piriformis) and Yes misalignment L1, L2, L3, L4, L5 and RIL Sacroiliac joints: bilaterally tender to palpation Office Procedures Procedures - Chiropractic Procedures Manipulation: Lumbar L2 and Pelvis RIL Manipulation: 1-2 regions Electronic Stimulation: Yes Electrical Stimulation: Lumbar 15 mins (16) mA Therapy Performed by:: Dr. Simi Page DC Patient Response: positive Assessment and Plan Assessment and Plan (1) Back pain: Status: Acute Qualifiers: Back pain laterality: bilateral Back pain location: low back pain Chronicity: chronic Sciatica presence: without sciatica Qualified Code(s): M54.50 - Low back pain, unspecified; G89.29 - Other chronic pain (2) Spondylolysis of lumbar region: Status: Acute Orders: Orders: Chiropractic Treatments 10/24/21 (3) Segmental and somatic dysfunction of pelvic region: Status: Acute Orders: Orders: Chiropractic Treatments 10/24/21 (4) Segmental and somatic dysfunction of lumbar region: Status: Acute Orders: Orders: Chiropractic Treatments 10/24/21 Plan Details Additional Comments: Patient was treated without incident. Continue care. Goals Barriers: Goals Decrease pain Improve posture Decrease spasm Decrease inflammation Barriers Spondy (L3/L4, L4/L5) DDD Follow Up: 2x/wk (1 of 6) Coding Level of Care Code No Charge Diagnoses Back pain M54.50; G89.29 Back pain laterality: bilateral Back pain location: low back pain Chronicity: chronic Sciatica presence: without sciatica Spondylolysis of lumbar region M43.06 Segmental and somatic dysfunction of pelvic region M99.05 Segmental and somatic dysfunction of lumbar region M99.03 CPT Codes Procedures - Manipulation: 1-2 regions (90807) Procedures - Electronic Stimulation: Yes (82673) 10/30/21 0816 <Electronically signed by Simi Page D.C.> Date Simi Page D.C. Cosignisacc Signature: Date (if applicable) CC: Corinne Sousa CNP Work Phone: Start: 10-03-2021 End: 10-03-2021 Chiropractic Report Comments: See Note; NOTES: [facility] [address] [place] [id number] OFFICE VISIT Date of Service: 10/03/21 MR#: [id number] Acct: [id number] Name: SOCORRO VILLA Rep #: [id number] : 1960 Provider: ANTOLIN Jackson Age/Sex: 60/F [place] [facility] Status: Signed Intake Vital Signs 10/03/21 10:32 Height 5 ft 7 in Weight: 199 lb 8 oz BMI 31.2 BP 150/80 H Blood Pressure Location Lt brachial Position Sitting Intake Visit Reasons: Back Pain Chief Complaint: Low Back Pain 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 lactis 1 tab PO DAILY 11/05/18 [History Confirmed 10/03/21] cyclobenzaprine 5 mg tablet 5 mg PO tab 08/01/20 [History Confirmed 10/03/21] valsartan 40 mg tablet 40 mg PO tab 08/01/20 [History Confirmed 10/03/21] meloxicam 7.5 mg tablet 7.5 mg PO .prn tab 10/03/21 [History Confirmed 10/03/21] PFSH Medical History (Updated 10/03/21 @ 13:[address] Simi Page, [place]) Back problem Hypertension Surgical History (Updated 10/03/21 @ 10:56 by Margarette Pappas) No history of previous surgery Family History (Updated 10/03/21 @ 10:57 by Margarette Pappas) Mother Hypertension Social History (Updated 10/03/21 @ 10:57 by Margarette Pappas) Smoking Status: Never smoker alcohol intake: never substance use type: does not use HPI Back Pain Chief Complaint: Low Back Pain Visit Number: 1 Details: Details: Socroro Villa 60 year old F NEW PATIENT is here today for low back pain. Patient stated her low back pain started 5 years ago insidious onset. She stated the pain currently is stiffness, achy, and constant across her lumbar spine. She stated she has a history of right side sciatica which has decreased since getting pain injections with Dr. Gunn. She stated the pain worsens as the day goes on. She gets relief from keeping active and resting. She finds that her posture becomes flexed as she walks and feels that this contributes to her pain and tightness. She has a previous MRI which revealed DDD, spondylolisthesis at L3/L4 and L4/L5 with facet arthrosis. She denies numbness, tingling and radiculopathy. No history of spinal surgery. Onset: 07/08/16 Location: Low Back Pain Duration: Constant Relieving factors: working out, resting Pain Quality: aching, dull and other (stiffness) Exam Musc General: Yes normal gait, joint tenderness and decreased range of motion; No normal posture or muscle weakness Thoracic/Lumber: No thoracic and lumbar spine normal to inspection (slightly flexed posture), Yes straight leg raise negative bilaterally, Yes Lasegue's sign positive bilaterally, Yes pain with thoraco-lumbar ROM with lateral flexion to the right, with lateral flexion to the left and other (extension), Yes paraspinal tenderness bilaterally in the upper lumbar, in the mid lumbar and in the lower lumbar, Yes thoraco-lumbar ROM limited (extension) with lateral flexion to the right and with lateral flexion to the left, Yes thoraco-lumbar spasm on the right greater than left (paraspinal (L1-L5), QL, piriformis) and Yes misalignment L1, L2, L3, L4, L5 and RIL Sacroiliac joints: bilaterally tender to palpation Neuro General: patient alert, patient awake, patient oriented x3, CN's II-XI intact bilaterally and deep tendon reflexes 2+ bilaterally (lower extremity) Cranial Nerves: CN's II-XI intact bilaterally Cognition: normal cognition Speech: speech normal Gait: antalgic (flexed) Motor: strength 5/5 throughout (lower extremity, bilaterally) Sensory Exam: no sensory deficits noted DTR's: Rt Patellar: 2+, Lt Patellar: 2+, Rt Ankle: 2+ and Lt Ankle: 2+ Ortho Test CERVICAL THORACIC LUMBAR Kemps: Positive and Right Valsalvas: Negative SLR: Negative Iliac Compression: Positive, Right and Left Office Procedures Procedures - Chiropractic Procedures Manipulation: Lumbar L1 and Pelvis RIL Manipulation: 1-2 regions Traction, Mechanical: Yes Patient Response: positive Assessment and Plan Assessment and Plan (1) Back pain: Status: Acute Qualifiers: Back pain location: low back pain Chronicity: chronic Back pain laterality: bilateral Sciatica presence: without sciatica Qualified Code(s): M54.50 - Low back pain, unspecified; G89.29 - Other chronic pain Orders: Orders: Chiropractic Treatments Today (2) Segmental and somatic dysfunction of lumbar region: Status: Acute Orders: Orders: Chiropractic Treatments Today (3) Segmental and somatic dysfunction of pelvic region: Status: Acute Orders: Orders: Chiropractic Treatments Today (4) Spondylolysis of lumbar region: Status: Acute Orders: Orders: Chiropractic Treatments Today Plan Details Additional Comments: Previous MRI and xrays were reviewed. Patient was evaluated and treated without incident. Add in EMS to tx plan. Goals Barriers: Goals Decrease pain Improve posture Decrease spasm Decrease inflammation Barriers Spondy (L3/L4, L4/L5) DDD Follow Up: 2x/wk/2-3wks (07/13) Coding Level of Care Code Off vis,new,level 3 Diagnoses Back pain M54.50; G89.29 Back pain location: low back pain Chronicity: chronic Back pain laterality: bilateral Sciatica presence: without sciatica Segmental and somatic dysfunction of lumbar region M99.03 Segmental and somatic dysfunction of pelvic region M99.05 Spondylolysis of lumbar region M43.06 CPT Codes Procedures - Manipulation: 1-2 regions (93492) Procedures - Traction, Mechanical: Yes (66350) 10/03/21 1306 <Electronically signed by Simi Page D.C.> Date Simi Dumont Signature: Date (if applicable) CC: Corinne Sousa [employer] Work Phone: Start: 08-24-2020 End: 08-24-2020 Orthopedic Visit Report Comments: See Note; NOTES: [facility] Sports Medicine [address] [place] [address] OFFICE VISIT Date of Service: 08/24/20 MR#: [id number] Acct: [id number] Name: SOCORRO VILLA Raul Rep #: [id number] : 1960 Provider: Dr. Chinmay segal DO Age/Sex: 59/F [place] [facility] Status: Signed Intake Intake Visit Reasons: lUMBAR SPINE Is patient in pain?: Yes Allergies No Known Allergies Allergy (Verified 08/24/20 09:28) PFSH Social History (Updated 08/24/20 @ 10:[address] Chinmay Cerda DO) Smoking Status: Never smoker HPI lUMBAR SPINE: Details: Parts of this documentation were recorded by a scribe, this documentation accurately reflects the service provided and the decisions made by me, Dr. Chinmay Cerda DO 08/24/20 0922. SOCORRO VILLA is a 59 year old F here today for a followup after her lumbar spine MRI. Patient notes that she has improved. She has taken 2 rounds of steroids given to her by her PCP which has been helpful. Patient notes that her leg stiffness has gone away. She can now feel low back pain, as she has lost that stiffness. She had her MRI which is here for review. Socorro returns for follow-up after her new MRI scan of her lumbar spine. I reviewed the MRI at length. He has grade 1 spondylolisthesis of L4 on 5 and L3 on L4. Given her significant stenosis at both levels. We went back to her history. About between [address] Lagunas did epidural injections on her that helped her tremendously for a long period of time. I also remember the MRI scan from 2018 which really was about like it is now. It simply is not that much worse now than it was almost 3 years ago. Therefore I think that epidural injections again may be a very significant help to her as it did the first time. In addition she is not too crazy about the idea of a two-level reconstruction of her low back which is basically is what it would take. She was all for the epidurals again. We will send her back to Dr. Gunn for that purpose I would like to visit with her again 3 weeks after those are done. ROS Musc Reports back pain, Denies numbness, Denies stiffness, Denies tingling Skin/Breast Reports system reviewed and no additional complaints, except as docu Neuro Yes system reviewed and no additional complaints, except as docu, No numbness, No tingling Assessment Plan Problems 1. Degenerative spondylolisthesis M43.10 2. Spinal stenosis of lumbar region M48.061 Coding Level of Care Code Off vis,est,level 2 Diagnoses Degenerative spondylolisthesis M43.10 Spinal stenosis of lumbar region M48.061 Time Spent (min) 20 08/24/20 1010 <Electronically signed by Chinmay Cerda DO> Date [facility] Cerda [facility] Signature: Date (if applicable) CC: [employer] Maru Villela; Dr Luis A Villela Start: 08-17-2020 End: 08-17-2020 Spine Lumbar (Routine) Comments: See Note; NOTES: [facility] Imaging Services [address] [place] [address] Spine Lumbar (Routine) MR#: [id number] Acct: [id number] Name: SOCORRO VILLA Rep #: [id number] : 1960 F 59 From: Dawood Horton MD PCP: REGINA Molina Status: REG CLI Study: Spine Lumbar (Routine) Date of Exam: 08/17/20 Exam# [id number] Ordering Dr: Chinmay Cerda DO STUDY: MRI LUMBAR SPINE WITHOUT CONTRAST REASON FOR EXAM: Female, 59 years old. degen spondylolisthesis, back stiffness -- pain low back and rt leg TECHNIQUE: Standardized fat and water weighted pulse sequences were obtained in the sagittal and axial planes. COMPARISON: 08/23/2017 FINDINGS: T12-L1: Grade 1 retrolisthesis Narrowed disc space with degenerative endplate changes minimal bulging disc osteophyte complex. Desiccation of the disc and normal morphology. Mild facet arthropathy. Mild bilateral neuroforaminal encroachment Normal lumbar lordosis. There is no substantial scoliosis. Normal conus medullaris that terminates at T12-L1 No evidence for acute fracture. Interosseous hemangiomata within the T12 and L2 vertebral bodies L1-2: Normal endplates. Normal disc height, desiccation and mild bulging annulus with small left foraminal disc protrusion.. Facet arthropathy. Normal central canal and bilateral lateral recesses. Mild left neuroforaminal encroachment.. L2-3: Normal endplates. Normal disc height, desiccation and mild annular bulge.. Facet arthropathy and thickening of ligamenta flava.. Mild narrowing of central canal. Mild narrowing of lateral recesses and moderate neuroforaminal stenosis. L3-4: Grade 1 spondylolisthesis. Narrowed disc space with desiccation of the disc and mild bulging disc osteophyte complex.. Facet arthropathy and thickening of ligamenta flava. Mild narrowing the central canal. Moderate bilateral recess and severe neuroforaminal stenosis exaggerated by pedicles. L4-5: Grade 1 spondylolisthesis. Narrowed disc space with desiccation of disc and mild bulging disc osteophyte complex. Bilateral facet arthropathy and thickening of ligamenta flava.. Mild narrowing of central canal. Moderate bilateral recess and severe neuroforaminal stenosis exaggerated by shortened pedicles L5-S1: Normal endplates. Normal disc height, desiccation and tiny central disc protrusion.. Facet arthropathy. Normal central canal and bilateral lateral recesses. Normal bilateral intervertebral neural foramina. Normal visualized sacral ala. Normal visualized paraspinous soft tissue structures. No significant change since prior exam MRI/Spine Lumbar (Routine) IMPRESSION: No evidence for acute fracture or other significant bony pathology. Advanced spondylosis and multilevel spinal stenosis secondary to disc disease and bony hypertrophy most severe at L4-5 and L3-4 exaggerated by shortened pedicles Electronically Signed: Dawood Horton MD at 16:56 EST , Service support , CC: REGINA Villela; Dr. Chinmay Cerda DO Family Coach: Signed Maru Villela Start: 08-01-2020 End: 08-01-2020 Orthopedic Visit Report Comments: See Note; NOTES: [facility] Sports Medicine [address] [place] [address] OFFICE VISIT Date of Service: 08/01/20 MR#: [id number] Acct: [id number] Name: SOCORRO VILLA Rep #: [id number] : 1960 Provider: Dr. Chinmay segal DO Age/Sex: 59/F [place] [facility] [place] Status: Signed Intake Vital Signs 08/01/20 Height 5 ft 7 in 08/01/20 Weight: 198 lb 08/01/20 BMI 31.0 Intake Visit Reasons: Back pain Accompanied by: self Is patient in pain?: Yes Pain scale (1-10): 8 Allergies No Known Allergies Allergy (Verified 11/21/18 20:00) Medications L.acidoph,Paracasei, B.lactis [Probiotic] 1 tab PO DAILY 11/05/18 [History Confirmed 08/01/20] cyclobenzaprine 5 mg tablet 5 mg PO tab 08/01/20 [History Confirmed 08/01/20] valsartan 40 mg tablet 40 mg PO tab 08/01/20 [History Confirmed 08/01/20] PFSH Social History (Updated 08/01/20 @ 13:[address] Chinmay Cerda DO) Smoking Status: Never smoker HPI Back pain: Details: Parts of this documentation were recorded by a scribe, this documentation accurately reflects the service provided and the decisions made by me, Dr. Chinmay Cerda DO 08/01/20 1306. SOCORRO VILLA is a 59 year old F NEW patient here today for lumbar pain. Referred by Maru Vera, PCP She is here today for low back pain and weakness into her legs. She feels that her back is not holding her up that she is holding her back up. She has a hx of back issues and just recently started having issues again. She states that her whole back is painful and the weakness is around her waist. She states that pain comes after the weakness. She states she gets an achiness in her legs. She has done PT about 2 years ago for sciatic nerve and a hx of back injections. Has not seen pain management recently. Denies any traumatic injury to the back. Denies any back surgery. She has had x-rays and an MRI was denied that was recently ordered. She states that she feels pressure in her legs. She states that occasional she'll have a numbness of the right leg. She did try a Medrol dose pack which was semi-effective. She has also tried a muscle relaxer which is not effective. My history is as per above. On examination she has no real pain with extension or flexion of her lumbar spine. She has good motor strength of all the major muscle groups of both lower extremities. She has 2+ patella and Achilles reflexes bilaterally. She has no long tract signs. Clonus is absent Babinski's are downgoing. I reviewed plain x-rays of the lumbar spine that demonstrates that she has a degenerative spondylolisthesis of L4 and 5 and L3 on 4. I then reviewed the MRI scan from 2018. This demonstrates because of the L4-5 listhesis that she has spinal stenosis at that level in addition to a free fragment extrusion to the right side. In addition she has marked stenosis at L3-4. Our plan is for a new MRI scan of the lumbar spine. She has had a definite degeneration of her condition since that MRI was done. I will see her after that study and make further recommendations. Assessment Plan 1. Back pain M54.9 Orders Orders: Spine Lumbar (Routine) Today 2. Degenerative spondylolisthesis M43.10 Orders Orders: Spine Lumbar (Routine) Today 3. Spinal stenosis of lumbar region M48.061 Coding Level of Care Code Off vis,new,level 3 Diagnoses Back pain M54.9 Degenerative spondylolisthesis M43.10 Spinal stenosis of lumbar region M48.061 Time Spent (min) 30 08/01/20 1348 <Electronically signed by Chinmay Cerda DO> Date Chinmay Cerda DO Cosigner Signature: Date (if applicable) CC: REGINA Mahoney Ashishestefanía Maru Villela Start: 07-15-2020 End: 07-15-2020 Aorta Comments: See Note; NOTES: [facility] Imaging Services [address] [place] [address] [place] [address] Aorta MR#: [id number] Acct: [id number] Name: SOCORRO VILLA Rep #: [id number] : 1960 F 59 From: Gerardo paz MD PCP: REGINA Molina Status: REG CLI Study: Aorta Date of Exam: 07/15/20 Exam# [id number] Ordering Dr: Maru Villela NP PROCEDURES: ULTRASOUND AORTA REASON FOR EXAM: Female, 59 years old. ABDOMINAL PRESSURE TECHNIQUE: Ultrasound evaluation of the aorta was performed with real-time and static cevallos-scale imaging. COMPARISON: None. FINDINGS: There is atherosclerotic plaque formation of the abdominal aorta. Aorta measures: Proximal 2.5 cm. Middle 2.0 cm. Distal 1.6 cm. Aorta measure transversely: Proximal 2.6 cm. Middle 1.8 cm. Distal 1.9 cm. Right iliac artery measures: 0.9 cm. Right iliac artery measure transversely: 1.0 cm. Left iliac artery measures: 1.0 cm. Left iliac artery measure transversely: 1.0 cm. There is no demonstrated aneurysm.. US/Aorta IMPRESSION: No abdominal aortic aneurysm is seen. There is evidence of atherosclerotic plaque formation. Electronically Signed: Gerardo Willis, at 10:52 EST , Service support , CC: REGINA Villela Family Coach: Signed Maru Villela Work Phone: Start: 07-11-2020 End: 07-12-2020 L/S Spine Min 4 Views Comments: See Note; NOTES: [facility] Imaging Services [address] [place] [address] L/S Spine Min 4 Views MR#: [id number] Acct: [id number] Name: SOCORRO VILLA Rep #: [id number] : 1960 F 59 From: Dejuan Godinez MD PCP: REGINA Molina Status: REG CLI Study: L/S Spine Min 4 Views Date of Exam: 07/11/20 Exam# [id number] Ordering Dr: Maru Villela NP STUDY: X-RAY - LUMBAR SPINE REASON FOR EXAM: Female, 59 years old. bilateral buttock pain TECHNIQUE: 5 view(s) of the lumbar spine were obtained. COMPARISON: FINDINGS: Normal lumbar lordosis. There is no substantial scoliosis. 5 mm of anterolisthesis of L3 on L4 and 5 mm of anterolisthesis of L4 on L5 which are unchanged. There is multilevel endplate spondylosis of the lumbar vertebrae. There is multi-level degenerative disc disease with multi-level disc space narrowing. The soft tissue structures are unremarkable. RAD/L/S Spine Min 4 Views IMPRESSION: Degenerative disc disease with 5 mm of anterolisthesis of L3 on L4 and L4 and L5 which is unchanged. Electronically Signed: Dejuan Godinez MD at 17:02 EST Tel , Service support , CC: REGINA Villela Family Coach: Signed Maru Villela Work Phone: Start: 07-11-2020 End: 07-12-2020 Pelvis 1 or 2 Views Comments: See Note; NOTES: [facility] Imaging Services [address] [place] [address] Pelvis 1 or 2 Views MR#: [id number] Acct: [id number] Name: SOCORRO VILLA Rep #: [id number] : 1960 F 59 From: Dejuan Godinez MD PCP: REGINA Molina Status: REG CLI Study: Pelvis 1 or 2 Views Date of Exam: 07/11/20 Exam# [id number] Ordering Dr: Maru Villela NP [facility]-C STUDY: X-RAY - PELVIS REASON FOR EXAM: Female, 59 years old. bilateral buttock pain TECHNIQUE: One view of the pelvis was obtained. COMPARISON: None. FINDINGS: There is a non-specific bowel gas pattern. Normal visualized soft tissue structures. Normal bilateral iliac wings, sacroiliac joints and visualized sacrum. Normal visualized bilateral superior and inferior pubic rami. Normal pubic symphysis. Normal ischial tuberosities. There are osteoarthritic changes of the right femoral head with marginal osteophyte formation. There is osteoarthritic spur formation of the right acetabular rim. There is mild articular joint space narrowing of the right hip. Normal visualized left femoral head. There is osteoarthritic spur formation of the left acetabular rim. There is mild articular joint space narrowing of the left hip. RAD/Pelvis 1 or 2 Views IMPRESSION: Mild bilateral hip arthrosis. Electronically Signed: Dejuan Godinez MD at 17:03 EST Tel , Service support , CC: [facility]-C Maru Villela Family Coach: Signed Maru Villela Work Phone: Start: 03-29-2020 End: 03-29-2020 PT D/C of Non Returning Pt (1) Comments: See Note; NOTES: [facility] [address] [place] [address] [address] [place] [address] / REHABILITATION SERVICES DISCHARGE SUMMARY MR#: [id number] Acct: [id number] Name: LUCY VILLAEstefanía Carter Rep #: [id number] : 1960 59 From: MARIAN Duran DPT, CSCS Referring Dr.: REGINA Villela Status: REG RCR Insurance: [facility] PACKAGE PLAN SOCORRO VILLA was seen in my office for initial evaluation on 01/25/20. The following Plan of Care was established for this patient: Initial Frequency: 1x/Week Initial Duration: 2-4 Weeks Patient/Client Instruction: Educate patient on: Condition, Plan of Care For the Purpose of:: To improve muscle performance and motor function, To increase tolerance to activity/condition/position This patient was last seen in our office 01/25/20. Pertinent comments regarding their Physical therapy will appear below: Pt seen for evaluation and positional treatment. Was to f/u weekly for checks but did not schedule or attend. At this point, it has been over two months and I will discontinue due to nonattendance. At this point I will be discontinuing this patient from physical therapy. I would be happy to see this patient again in the future if found appropriate by the physician. Thank you! Gurinder Sousa DPT, MARIAN, CSCS <Electronically signed by MARIAN Duran DPT, CSCS> 03/29/20 1528 CC: REGINA Villela EBG Signed Maru Villela Start: 01-25-2020 End: 01-26-2020 Inital Evaluation (1) - PT Comments: See Note; NOTES: [facility] [address] [place] [address] [address] [place] [address] / REHABILITATION SERVICES INITIAL EVALUATION MR#: [id number] Acct: [id number] Name: SOCORRO VILLA Rep #: [id number] : 1960 59 From: MARIAN Duran DPT, CSCS Referring Dr.: REGINA Villela Status: REG RCR Insurance: [facility] PACKAGE PLAN Patient's Visit Information SOCORRO VILLA is a 59 year old F referred to Physical Therapy by REGINA Molina with a diagnosis of vertigo. Date of Evaluation: 01/25/20 Physical Therapist: Gurinder Sousa DPT, MARIAN, CSCS - Visit Plan Frequency: 1x/Week Duration: 2-4 Weeks Plan: weekly as needed x 2-4 for positional checks and vestibular checks. Next session check positional and oculomotr as needed. - Subjective Dizzyness for about a month. Insidious. Started feeling weak and shaky. Has checked bloodwork and blood pressure adn no problems. No diagnostics otherwise. Dizzyness in intermittent but worse at times. Worse with fatigue. Had waves and bed moving when lied down but that has improved. Dizzyness rated at 5/10 when present. Usually lasts short durations. Moving around is worse and sitting is fine. No passing out and no falls. Sleep is OK. Not employed. Activities take a little longer at home, stamina is effected. No falls, balance feels OK. - Objective Walks slow but steady. Transfers I. Steps reciprocal with one rail for safety. cervical AROM WFL adn without pain. Pt has some LB that she says is typical for her with transfers. - L hallpike hernesto. + R hallpike hernesto up torsional slight and quick with dizzyness. Treated with Wilma then - hallpike hernesto - Balance Scores Functional Gait Assessment Score: 27 % Disability: 10.0000 CATSIB Score (Max score 120 seconds): 120 - Goals Goal 1:: abolish dizzyness Goal Time Frame: 2-4 Weeks Goal 2:: Pt feel 95% back to norml Goal Time Frame: 4-6 Weeks - Rehabilitation Potential Physical Therapy Diagnosis: possible BPPV Rehabilitation Potential: Fair - Anticipated Interventions Patient/Client Instruction: Educate patient on: Condition, Plan of Care For the Purpose of:: To improve muscle performance and motor function, To increase tolerance to activity/condition/position Comment: positional and vestibular. Thank you for the opportunity to evaluate your patient. For Medicare and Medicare HMO plans, please review the plan of care and approve it. It will need to be FAXED BACK to us at [phone] for Medicare purposes. For Medicare only, by signing this I certify the plan of care. Please let me know if there are questions or concerns regarding this plan of care. Physician Signature: Date: <Electronically signed by Gurinder Sousa DPT, OCS, CSCS> 01/26/20 0859 CC: ASSOCIATE DE[facility] OF WOMENYulia Villela EBG Signed Maru Villela Start: 11-22-2018 End: 11-22-2018 Discharge Instruction Comments: See Note; NOTES: [facility] Medical Records Department [address] [place] [address] Discharge Instruction 11/21/182134 MR#: [id number] Acct: [id number] Name: LUCY VILLAEstefanía Carter Rep #: [id number] : 1960 57 From: Faheem Cormier MD PCP: Maru Villela NP Status: DEP ER ED Disposition - Plan for ED Patient: Instructions: ED HTN Established Prescriptions: Hydrochlorothiazide [Hctz] 25 mg PO DAILY #14 tab Referrals: Maru Villela NP-C [Primary Care Provider] - What to do if you have Problems For any increased pain, shortness of breath, bleeding, nausea or vomiting, chest pain, or any unexpected problems, contact your Primary Care Provider. Call [facility] ([phone]) or report to the closest Emergency Room. Call 911 if necessary. 11/22/18 0007 <Electronically signed by Faheem Cormier MD> Date Faheem Cormier MD Cosigner Signature (If Indicated): Date CC: [facility] Maru Villela Maru Hinojosaestefanía Start: 11-22-2018 End: 11-22-2018 Emergency Department Summary Comments: See Note; NOTES: [facility] Medical Records Department [address] [place] [address] Emergency Department Summary 11/21/182134 MR#: [id number] Acct: [id number] Name: SOCORRO VILLA Rep #: [id number] : 1960 57 From: Faheem Cormier MD PCP: Maru Villela NP Status: DEP ER - ER Visit Summary Date of Service: 11/21/18 Chief Complaint: High blood pressure History of Present Illness: The patient is a 57 F who presents for a high blood pressure check. The patient normally takes Norvasc 2.5 mg. She was recently increased to 5 mg after her blood pressures have been reading high. She checks her blood pressure at home frequently. She has had systolic pressures of 200. Patient is not on any other blood pressure medicine. She reports flushing and redness to her face and upper extremities. She thinks this may be related to increasing her Norvasc dose. Patient denies any other complaints currently. Physical Examination: Pressure 166/89. Otherwise her vitals are unremarkable and she is afebrile. She is alert and oriented and in no acute distress. Cranial nerves grossly intact. Moves all extremities. No focal or lateralizing neurologic abnormalities. Normal gait. Heart regular. No respiratory distress. Test Results: None indicated Emergency Department Course and Treatment: Patient has an established history of hypertension. Her blood pressure is 166/89. There is no indication for hypertensive urgency or emergency currently. Patient has had continued hypertension despite taking her increased dose of Norvasc. She attributes a skin rash to her increased dose of Norvasc. She would like to discontinue this medication. I advised her that she can discontinue the medication, but we should replace it. I started her on HCTZ. I advised her to continue monitoring her pressure. She should check in with her PCP for recheck and possible medication regimen adjustment. Patient should return right away for chest pain or stroke symptoms or any other complications. Treatment Plan: As above Disposition: Discharge Impression: 1. Hypertension established This note was generated with [employer] software. It may contain incorrect words, spelling, and punctuation that were not noted in review of the chart prior to signing ED Disposition - Plan for ED Patient: Disposition: Home or Assisted Living Instructions: ED HTN Established Prescriptions: Hydrochlorothiazide [Hctz] 25 mg PO DAILY #14 tab Referrals: Maru Villela, ARIELLE-C [Primary Care Provider] - What to do if you have Problems For any increased pain, shortness of breath, bleeding, nausea or vomiting, chest pain, or any unexpected problems, contact your Primary Care Provider. Call [facility] ([phone]) or report to the closest Emergency Room. Call 911 if necessary. 11/22/18 0007 <Electronically signed by Faheem Cormier MD> Date Faheem Cormier MD Cosigner Signature (If Indicated): Date CC: [facility] Maru Villela Start: 11-06-2018 End: 11-06-2018 Emergency Department Summary Comments: See Note; NOTES: [facility] Medical Records Department [address] [place] [address] Emergency Department Summary 11/05/18 2207 MR#: [id number] Acct: [id number] Name: SOCORRO VILLA Rep #: [id number] : 1960 57 From: Faheem Bruce DO PCP: Maru Villela NP Status: DEP ER - ER Visit Summary Date of Service: 11/05/18 Chief Complaint: Burning with urination History of Present Illness: The patient is a 57 F who states for the past couple days she has had dysuria. She notes urinary frequency, urgency and dysuria. No fevers. No flank pain. No vomiting. Physical Examination: Afebrile vital signs are stable Gen: Well-nourished well-developed Head: Normocephalic atraumatic Eyes: Perrl EOMI ENT: TMs clear no rhinorrhea moist mucous membranes Neck: Supple no lymphadenopathy no JVD nontender CVS: Regular rate rhythm no murmurs normal S1-S2 Respiratory: No distress clear to auscultation bilaterally chest nontender Abdomen: Soft nontender nondistended normal bowel sounds no masses Back: Nontender Extremity: Nontender no edema Skin: Normal color no rash Neuro: alert orientated 3 CN II-XII intact normal strength sensation reflexes gait cerebellar Psych: Normal affect normal mood Test Results: Urine is leukocyte esterase positive. 5-10 white cells. 2+ bacteria. Emergency Department Course and Treatment: Urine culture was ordered. Given the urine results and more importantly her clinical history patient was started on Macrobid and Pyridium. If no improvement follow-up with primary care return here. Impression: 1. Acute cystitis This note was generated with [employer]zi dictation software. It may contain incorrect words, spelling, and punctuation that were not noted in review of the chart prior to signing ED Disposition - Plan for ED Patient: Disposition: Home or Assisted Living Instructions: ED UTI Cystitis Female Prescriptions: Nitrofurantoin Macrocrystals [Macrobid] 100 mg PO Q12 #10 cap Phenazopyridine HCl [Pyridium] 200 mg PO TID #9 tab Referrals: Maru Villela NP-C [Primary Care Provider] - As Needed What to do if you have Problems For any increased pain, shortness of breath, bleeding, nausea or vomiting, chest pain, or any unexpected problems, contact your Primary Care Provider. Call [facility] ([phone]) or report to the closest Emergency Room. Call 911 if necessary. 11/06/18 0107 <Electronically signed by Faheem Bruce DO> Date Faheem Bruce DO Cosigner Signature (If Indicated): Date CC: ARIELLE Villela Start: 09-09-2017 End: 09-09-2017 Cerv Spine 2 or 3 Views Comments: See Note; NOTES: [facility] Imaging Services [address] [facility] [place] [address] Cerv Spine 2 or 3 Views MR#: [id number] Acct: [id number] Name: SOCORRO VILLA Rep #: [id number] : 1960 F 56 From: Maranda Mi MD PCP: Maru Villela NP Status: REG CLI Study: Cerv Spine 2 or 3 Views Date of Exam: 09/09/17 Exam# [id number] Ordering Dr: Yolanda Gunn MD XR Spine Cervical 2 or 3 Views INDICATION: CHRONIC PAIN, NKI COMPARISON: None TECHNIQUE: Frontal and lateral views of the cervical spine and open-mouth odontoid view FINDINGS: There is normal cervical lordosis. Height of the vertebral bodies is preserved. C4-5 and C5-6 and C6-7 disc spaces are decreased. C7 level is not well seen on the lateral view. Vascular calcifications are noted. Prevertebral soft tissue stripe is within normal limits. RAD/Cerv Spine 2 or 3 Views IMPRESSION: Degenerative changes at the lower cervical spine. Consider further evaluation with MRI if clinical symptoms persist. at 2143 Reported and signed by: Maranda Mi MD Electronically Signed: Maranda Mi MD at 20:42 EST Tel , Service support , CC: Maru Villela [employer] [facility] [facility]; Yolanda Gunn MD Family Coach: Signed Maru Villela Start: 08-23-2017 End: 08-24-2017 Spine Lumbar (Routine) Comments: See Note; NOTES: [facility] Imaging Services [address] [place] [address] Spine Lumbar (Routine) MR#: [id number] Acct: [id number] Name: SOCORRO VILLA Rep #: [id number] : 1960 F 56 From: Effie Escudero MD PCP: Maru Villela NP Status: REG CLI Study: Spine Lumbar (Routine) Date of Exam: 08/23/17 Exam# [id number] Ordering Dr: Maru Villela STUDY: MRI LUMBAR SPINE WITHOUT CONTRAST REASON FOR EXAM: Female, 56 years old. Back pain that radiates down right leg. No known injury. TECHNIQUE: Standardized fat and water weighted pulse sequences were obtained in the sagittal and axial planes. COMPARISON: Radiographs of lumbar spine dated August 11, 2017. FINDINGS: T12-L1: There is narrowing of the disc. There is irregular contour of the endplates at this level possibly related to multiple Schmorl's nodes. There is an annular disc bulge. There is mild degenerative arthropathy of facet joints. Neural foramina are narrowed without evidence for nerve impingement. There is an exaggerated lumbar lordosis. There is no substantial scoliosis. Normal conus medullaris that terminates at the T12-L1 level. There is abnormal T1 and T2 hyperintensity within the T12 and L2 vertebral bodies probably related to small hemangiomas. L1-2: There is a moderate annular disc bulge and osteophyte complex. There is moderate degenerative arthropathy of facet joints. Neural foramina are narrowed without evidence for nerve impingement. There may be a focal left foraminal disc protrusion. There is mild central acquired canal stenosis. L2-3: There is an annular disc bulge and osteophyte complex. There is moderately severe degenerative arthropathy of facet joints. There is mild central acquired canal stenosis. Neural foramina bilaterally narrowed without evidence for nerve impingement. L3-4: There is mild anterolisthesis at this level. There is uncovering of the disc with annular disc bulge. There is severe degenerative arthropathy of facet joints. There is severe acquired canal stenosis with possible impingement of the cauda equina. Neural foramina are bilaterally narrowed with possible impingement of the right L3 nerve root at the neural foramen. L4-5: There is mild anterolisthesis at this level with uncovering of the disc. There is annular disc bulge with broad central disc protrusion. Appears to be a focal right central disc extrusion with probable impingement of the right L5 nerve root at the lateral recess. There are severe degenerative arthropathy of facet joints. Neural foramina are bilaterally narrowed without evidence for nerve impingement at the neural foramina. L5-S1: This has a rudimentary disc suggesting a transitional vertebral segment. There is moderate degenerative arthropathy of facet joints. Neural foramina are patent. There is no significant central acquired canal stenosis. Normal visualized sacral ala. There appear to be multiple left-sided parapelvic renal cysts. There may be a right-sided and left-sided extrarenal pelvis. Normal visualized paraspinous soft tissue structures. MRI/Spine Lumbar (Routine) IMPRESSION: 1. Moderately severe multilevel degenerative disc disease and degenerative arthropathy of the lumbar spine with acquired canal stenosis, neural foraminal narrowing and potential nerve impingement, as described. 2. Mild anterolisthesis at L3-4 and L4-5. 3. Transitional vertebral segment at L5-S1. Electronically Signed: Effie Escudero MD at 15:58 EST , Service support , CC: Maru Villela NP Family Coach: Signed Maru Villela Work Phone: Start: 08-15-2017 End: 08-15-2017 Inital Evaluation (1) - PT Comments: See Note; NOTES: [facility] [address] [place] [address]. [address] [place] [address] Fax REHABILITATION SERVICES INITIAL EVALUATION MR#: [id number] Acct: [id number] Name: SOCORRO VILLA Rep #: [id number] : 1960 56 From: Marly Sauer PT, Cert. MDT Referring Dr.: Xi Lua DO Status: REG R Insurance: [facility] SELF PAY INSURANCE Patient's Visit Information SOCORRO VILLA is a 56 year old F referred to Physical Therapy by Xi Lua with a diagnosis of LUMBAR DDD AND SCIATICA. Date of Evaluation: 08/15/17 Physical Therapist: Marly Sauer - Visit Plan Frequency: 2-3x /Week Duration: 4-6 Weeks Plan: AQUATIC THERAPY. POSTURE CORRECTION/STRENGTHENING, INSTRUCTION IN APPROPRIATE BODY MECHANICS AND ACTIVITY MODIFICATIONS. DLS STARTING WITH A NEUTRAL SPINE PROGRESSING ROM TOLERATED. ELIANE LE ROM, STRETCHING AND STRENGTHENING. HEP INSTRUCTION. 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 Disability: NO. Present symptoms: ELIANE LOW BACK PAIN RIGHT > LEFT AND RIGHT LE TO THE TOES. RIGHT LE PAIN, NUMBNESS AND TINGLING. PAIN FROM MID BACK TO CHEST AT TIMES IN SITTING. STATES MARU LLANES IS AWARE. Present since: JUL 26 2017. Pain Scale: WORST 10/10, LEAST 4/10. Currently: 4/10. Commenced as a result of: NO APPARENT REASON. Symptoms at onset: SAME. NOTICED IT WHEN SHE WENT TO SIT DOWN ON THE TOLIET AT 2 AM. Worse: TRYING TO BEND, STAYING STILL, SITTING, LYING DOWN, TRYING TO SLEEP, LIFTING. Better: STEROID, BEING ON THE MOVE. IBUPROFEN. Disturbed sleep: YES. Previous history/Previous treatment: PATIENT REPORTS A HISTORY OF LBP FOR ABOUT 6-7 YEARS. STATES SHE HAS A THIN DISK. CHIROPRACTOR. IBUPROFEN. IT NEVER WHEN DOWN THE LEG UNTIL NOW. Coughing/sneezing/straining : NEGATIVE. Gait: INDEP GAIT WITHOUT AD. Difficulty initiating urinatin: NO. Accidents: NO. Unexplained weight loss: NO. Imaging: LUMBAR X-RAY AT ED SATURDAY - ARTHRITIS. MRI ORDERED AND PENDING. T-SPINE X-RAY - ARTHRITIS. PMH: UNREMARKABLE - Objective Sitting Posture: POOR. Standing Posture: POOR. Lordosis: REDUCED. Lateral shift: NO. Relevant shift: N/A. Active Correction of posture: NE. Other Observations: INDEP GAIT INTO PT WITHOUT AD AND INDEP TRANSFER SIT TO STAND WITHOUT UE ASSIST. THIS PATIENT IS PLEASANT AND COOPERATIVE TO WORK WITH BUT GETS A LITTLE CONFUSED DURING INTERVIEW AND EXAM. Motor deficit: ELIANE LE STRENGTH 5/5 WITH MMT EXCEPT RIGHT HIP 4-/5 AND LEFT HIP 4/5. Sensory deficit: ELIANE LE LIGHT TOUCH SENSATION IS INTACT AND SYMMETRICAL. ROM deficit: TIGHT ELIANE LE HIP FLEXORS, HS'S AND GASTROC SOLEUS COMPLEX'S. Reflexes: ELIANE LE'S 2/3. Dural Signs: POSITIVE RIGHT AND NEGATIVE LLE. Lumbar mvmt loss: flex - MOD. ext - MICAH. R SG - MOD. L SG - MOD. PATIENT HAS C/O INCREASED PAIN WITH LUMBAR FLEXION AND RIGHT SG TESTING. Core strength: POOR. Palpation: TENDERNESS WITH PALPATION OF THE MID THORACIC SPINE AND THE L345S1 REGIONS. - Goals Goal 1:: DECREASE C/O LBP AND RIGHT LE SX'S. Goal Time Frame: 4-6 Weeks Goal 2:: IMPROVE PERSONAL CARE, LIFITNG, SITTING, STANDING, SLEEP, SOCIAL LIFE, TRAVEL AND HOMEMAKING FUNCTION Goal Time Frame: 4-6 Weeks Goal 3:: INSTRUCT IN PROPHYLAXIS Goal Time Frame: 4-6 Weeks - Rehabilitation Potential Rehabilitation Potential: Fair - Anticipated Interventions Patient/Client Instruction: Educate patient on: Condition, Plan of Care, Risk Factors, Benefits of Fitness Program For the Purpose of:: To improve self management Therapeutic Exercise to Include: Strength training, Body mechanics, Postural training, Flexibilty training, In an aquatic setting , Dynamic Lumbar Stabilization For the Purpose of:: To improve ability of physical actions for home/community/work/leisure Manual Therapy Techniques to Include: Soft tissue mobilization For the Purpose of:: To decrease pain, To improve nutrient delivery to tissue TENS: Yes IF ES: Yes Cryotherapy (ice pack, ice massage): Yes Thermo therapy (hot pack): Yes Ultrasound (thermal/non thermal): Yes For the Purpose of:: To decrease pain, To decrease swelling/inflammation Thank you for the opportunity to evaluate your patient. For Medicare and Medicare HMO plans, please review the plan of care and approve it. It will need to be FAXED BACK to us at [phone] for Medicare purposes. Please let me know if there are questions or concerns regarding this plan of care. Physician Signature: Date: <Electronically signed by Marly Sauer PT, Cert. MDT> 08/15/17 1144 CC: Maru Villela NP; Xi Lua DO AURA Signed For Medicare only, by signing this I certify the plan of care. _ Physicians Signature Date Maru Villela Start: 08-11-2017 End: 08-11-2017 Discharge Instruction Comments: See Note; NOTES: [facility] Medical Records Department [address] [place] [address] Discharge Instruction 08/11/171757 MR#: [id number] Acct: [id number] Name: SOCORRO VILLA Rep #: [id number] : 1960 56 From: Michael Watson MD PCP: Maru Villela NP Status: REG ER ED Disposition - Plan for ED Patient: Chief Complaint: Back Instructions: ED Sciatica Referrals: Maru Villela [Primary Care Provider] - What to do if you have Problems For any increased pain, shortness of breath, bleeding, nausea or vomiting, chest pain, or any unexpected problems, contact your Primary Care Provider. Call [facility] ([phone]) or report to the closest Emergency Room. Call 911 if necessary. 08/11/171757 <Electronically signed by Michael Watson MD> Date Michael Watson MD Cosigner Signature (If Indicated): Date CC: Maru Villela Start: 08-11-2017 End: 08-11-2017 Emergency Department Summary Comments: See Note; NOTES: [facility] Medical Records Department [address] [place] [address] Emergency Department Summary 08/11/171754 MR#: [id number] Acct: [id number] Name: SOCORRO VILLA Rep #: [id number] : 1960 56 From: Michael Watson MD PCP: Maru Villela NP Status: REG ER - ER Visit Summary Date of Service: 08/11/17 Chief Complaint: Back pain History of Present Illness: The patient is a 56 F who presents with back pain. It is been present for about 2 weeks. She describes it as a cramping or spasm in the lower back which radiates into the left leg. She occasionally has tingling. It is worse when laying still at night and seems to be improved by getting up and moving around. She denies weakness. She denies fevers abdominal pain urinary retention fecal incontinence or history of spinal surgery. 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 She was seen in a walk-in clinic diagnosed with sciatica and is scheduled for therapy. Her pain is tolerable. She is concerned because before the onset of her symptoms she felt flushed and she has had a couple episodes where she has felt flushed since that time and is also having some upper back pain as well so was concerned this may be due to something else. No chest pain or shortness of breath. Physical Examination: Afebrile vitals are stable Moist mucous membranes Heart regular rate and rhythm Lungs are clear Abdomen soft and nontender Patient actually does not have any reproducible paraspinal or spinal tenderness Negative straight leg raise laying bilaterally Normal strength and sensation of the lower extremities with 5 out of 5 dorsiflexion plantarflexion and extensor hallucis longus Test Results: X-rays of the thoracic and lumbosacral spine show osteopenia and degenerative disc disease but no acute process no fracture. Emergency Department Course and Treatment: History and examination are consistent with lumbar radiculopathy. Patient does not have symptoms or signs suggestive of more serious process such as epidural abscess or cauda equina syndrome. She was reassured. I do believe she can undergo further outpatient evaluation. She was discharged. Treatment Plan: [] Disposition: Discharge Impression: Lumbar radiculopathy This note was generated with [employer] dictation software. It may contain incorrect words, spelling, and punctuation that were not noted in review of the chart prior to signing ED Disposition - Plan for ED Patient: Chief Complaint: Back Referrals: Maru Villela [Primary Care Provider] - What to do if you have Problems For any increased pain, shortness of breath, bleeding, nausea or vomiting, chest pain, or any unexpected problems, contact your Primary Care Provider. Call [email or web address] ([phone]) or report to the closest Emergency Room. Call 911 if necessary. 08/11/17 0288 <Electronically signed by Michael Watson MD> Date Michael Watson MD Cosigner Signature (If Indicated): Date CC: Maru Villela NP Maru Villela Start: 08-11-2017 End: 08-11-2017 Lumbar Spine 2 or 3 Views Comments: See Note; NOTES: [facility] Imaging Services [address] [address] Lumbar Spine 2 or 3 Views MR#: [id number] Acct: [id number] Name: SOCORRO VILLA Rep #: [id number] : 1960 F 56 From: Effie Escudero MD PCP: Maru Villela NP Status: REG ER Study: Lumbar Spine 2 or 3 Views Date of Exam: 08/11/17 Exam# [id number] Ordering Dr: Michael Watson MD STUDY: X-RAY - LUMBAR SPINE REASON FOR EXAM: Female, 56 years old. Low-back pain without known recent trauma. TECHNIQUE: 3 view(s) of the lumbar spine were obtained. COMPARISON: Prior comparison studies are not available for review at this time. FINDINGS: There is an exaggerated lumbar lordosis. There is no substantial scoliosis. There is a normal alignment of the vertebrae. The bones appear osteopenic. There is mild anterolisthesis at L3-4. There is multi-level degenerative disc disease with multi-level disc space narrowing. There is no demonstrated fracture. There is multilevel degenerative arthropathy of facet joints. There may be a transitional vertebral segment at S1. There is atherosclerotic calcification of the abdominal aorta without a demonstrated aneurysm. RAD/Lumbar Spine 2 or 3 Views IMPRESSION: Multilevel degenerative disc disease, degenerative arthropathy and spondylosis of the lumbar spine. Electronically Signed: Effie Escudero MD at 17:45 EST , Service support , CC: Maru Villela NP; Michael Watson MD Family Coach: Signed Maru Villela Start: 08-11-2017 End: 08-11-2017 Thoracic Spine 2 Views Comments: See Note; NOTES: [facility] Imaging Services [address] [place] [address] Thoracic Spine 2 Views MR#: [id number] Acct: [id number] Name: SOCORRO VILLA Rep #: [id number] : 1960 F 56 From: Effie Escudero MD PCP: Maru Villela NP Status: REG ER Study: Thoracic Spine 2 Views Date of Exam: 08/11/17 Exam# [id number] Ordering Dr: Michael Watson MD STUDY: X-RAY - THORACIC SPINE REASON FOR EXAM: Female, 56 years old. Back pain. TECHNIQUE: 3 view(s) of the thoracic spine were obtained. COMPARISON: None. FINDINGS: There is an increase in the normal thoracic kyphosis. There is no substantial scoliosis. There is demineralization of the thoracic spine with endplate spondylosis. There is multilevel disc space narrowing of the thoracic spine. The soft tissue structures are unremarkable. RAD/Thoracic Spine 2 Views IMPRESSION: Osteopenia with multilevel degenerative disc disease and spondylosis of the thoracic spine. Electronically Signed: Effie Escudero MD at 17:46 EST , Service support , CC: Maru Villela NP; Michael Watson MD Family Coach: Signed Maru Villela Hysterectomy Suzanne L Long Hysterectomy Chong Jennings Hysterectomy Chong Jennings Hysterectomy Chong Jennings Hysterectomy Beatriz Topock Hysterectomy Suzanne L Long Hysterectomy Chong Jennings Hysterectomy Chong Jennings Hysterectomy Chong Jennings Hysterectomy Chong Warren Hysterectomy Cinda Slarb Hysterectomy Chong Warren Hysterectomy Chong Warren Hysterectomy Cinda Slarb Hysterectomy Chong Warren LP N Hysterectomy Chong Warren LP N Hysterectomy BEVERLY [place] MORNING CAREGIVER Hysterectomy Jaqueline Garrett L PN Hysterectomy Cinda Slarb LP N Hysterectomy Cinda Slarb LP N Hysterectomy Keke Isaiah M A Hysterectomy BEVERLY [place] MORNING CAREGIVER Ligation of fallopia n tube Suzanne L Long Ligation of fallopia n tube Chong Jennings Ligation of fallopia n tube Chong Jennings Ligation of fallopia n tube Chong Jennings Ligation of fallopia n tube Beatriz Sabrina Ligation of fallopia n tube Suzanne L Long Ligation of fallopia n tube Chong Jennings Ligation of fallopia n tube Chong Jennings Ligation of fallopia n tube Chong Jennings Ligation of fallopia n tube Chong Warren Ligation of fallopia n tube Cinda Slarb Ligation of fallopia n tube Chong Warren Ligation of fallopia n tube Chong Warren Ligation of fallopia n tube Cinda Slarb Ligation of fallopia n tube Chong Warren MORNING CAREGIVER Ligation of fallopia n tube Chong Warren MORNING CAREGIVER Ligation of fallopia n tube BEVERLY [place] MORNING CAREGIVER Ligation of fallopia n tube Jaqueline Garrett MORNING CAREGIVER Ligation of fallopia n tube Cinda Slarb MORNING CAREGIVER Ligation of fallopia n tube Cinda Slarb MORNING CAREGIVER Ligation of fallopia n tube Keke Colon MA Ligation of fallopia n tube BEVERLY [place] MORNING CAREGIVER Plan of Treatment Date Care Activity Detail Author Start: 03-18-2023 Blood count complete auto&auto difrntl wbc CBC, PLATELETS & AUT DIFF (32679) : in 6 mo [facility] Work Phone: Start: 03-18-2023 Comprehensive metabolic panel METABOLIC PANEL, COMPREHENSIVE (15974) : in 6 mo [facility] Work Phone: Start: 03-18-2023 Lipid panel LIPID PANEL (09617) : in 6 mo [facility] Work Phone: Start: 03-18-2023 Provider Instructions for Treatment Follow up in 6 months [facility] Work Phone: Start: 12-07-2022 Procedure Education Eprescribed prescriptions (G8553) [facility] Work Phone: Start: 12-07-2022 Provider Instructions for Treatment Follow up if no improvement or if symptoms worsen [facility] Work Phone: Start: 12-07-2022 Urinalysis qual/semiquant except immunoassays URINALYSIS (57060) : 1 wk after completion of antibiotic. [facility] Work Phone: Start: 12-07-2022 Urnls dip stick/tablet reagent auto microscopy Urinalysis, Complete W/ Microscopic Examination with reflex to urine culture, routine (59201) [facility] Work Phone: Start: 09-14-2022 Assay of thyroid stimulating hormone tsh TSH (THYROID STIMULATING HORMONE) (53083) [facility] Work Phone: Immunizations Immunization Date Immunization Notes Care Provider nOel beck 05-11-2021 COVID-Pfizer (30 MCG/0.3 ML) Maru Brownsamuel STEELE Work Phone: [facility] Work Phone: 10-17-2020 COVID-19 (Pfizer) Maru Villela [facility] Work Phone: 09-26-2020 COVID-19 (Pfizer) Maru Villela [facility] Work Phone: Payers Date Payer Category Payer Unknown [id number] 2018 Unknown [id number] 2016 Unknown [id number] 1960 Unknown [id number] Unknown Social History Date Type Detail Facility Alcohol use: Never smoker [facility] Work Phone: Tobacco use: Never smoker. [facility] Work Phone: Alcohol use: Alcohol use: [facility] Work Phone: Tobacco use: Tobacco use: [facility] Work Phone: Clinical Notes Note Date & Type Note Facility [facility] Work Phone: Instructions* Name Dates Details Patient Instructions Indication:BMI 31.0-31.9,adult Start:09-Jun-2021 Instruction Type:Provider Instructions for Treatment How to Access Health Informa tion Online using Patient Portal and 3rd [employer] Apps Indication:Nonsmoker Start:09-Jun-2021 Instruction Type:Patient Education Patient Instructions Indication:BMI 31.0-31.9,adult Start:22-Mar-2021 Instruction Type:Provider Instructions for Treatment How to Access Health Informa tion Online using Patient Portal and 3rd [employer] Apps Indication:BMI 31.0-31.9,adult Start:22-Mar-2021 Instruction Type:Patient Education Patient Instructions Indication:BMI 31.0-31.9,adult Start:10-Mar-2021 Instruction Type:Provider Instructions for Treatment How to Access Health Informa tion Online using Patient Portal and 3rd [employer] Apps Indication:BMI 31.0-31.9,adult Start:10-Mar-2021 Instruction Type:Patient Education Patient Instructions Indication:Nonsmoker Start:07-Dec-2020 Instruction Type:Provider Instructions for Treatment How to Access Health Informa tion Online using Patient Portal and 3rd [employer] Apps Indication:Nonsmoker Start:07-Dec-2020 Instruction Type:Patient Education Patient Instructions Indication:Nonsmoker Start:18-Oct-2020 Instruction Type:Provider Instructions for Treatment How to Access Health Informa tion Online using Patient Portal and 3rd [employer] Apps Indication:Nonsmoker Start:18-Oct-2020 Instruction Type:Patient Education Patient Instructions Indication:Nonsmoker Start:06-Sep-2020 Instruction Type:Provider Instructions for Treatment How to Access Health Informa tion Online using Patient Portal and 3rd [employer] Apps Indication:Nonsmoker Start:06-Sep-2020 Instruction Type:Patient Education Patient Instructions Indication:Nonsmoker Start:23-Aug-2020 Instruction Type:Provider Instructions for Treatment How to Access Health Informa tion Online using Patient Portal and 3rd [employer] Apps Indication:Nonsmoker Start:23-Aug-2020 Instruction Type:Patient Education Patient Instructions Indication:Nonsmoker Start:03-Aug-2020 Instruction Type:Provider Instructions for Treatment How to Access Health Informa tion Online using Patient Portal and 3rd [employer] Apps Indication:Nonsmoker Start:03-Aug-2020 Instruction Type:Patient Education Patient Instructions Indication:Nonsmoker Start:25-Jul-2020 Instruction Type:Provider Instructions for Treatment How to Access Health Informa tion Online using Patient Portal and 3rd [employer] Apps Indication:Nonsmoker Start:25-Jul-2020 Instruction Type:Patient Education Patient Instructions Indication:Nonsmoker Start:18-Jul-2020 Instruction Type:Provider Instructions for Treatment How to Access Health Informa tion Online using Patient Portal and 3rd [employer] Apps Indication:Nonsmoker Start:18-Jul-2020 Instruction Type:Patient Education Patient Instructions Indication:Nonsmoker Start:11-Jul-2020 Instruction Type:Provider Instructions for Treatment How to Access Health Informa tion Online using Patient Portal and 3rd [employer] Apps Indication:Nonsmoker Start:11-Jul-2020 Instruction Type:Patient Education How to access health informa tion online Indication:Nonsmoker Start:10-Feb-2020 Instruction Type:Patient Education How to access health informa tion online - Detail Indication:Nonsmoker Start:10-Feb-2020 Instruction Type:Patient Education Patient Instructions Indication:BMI 31.0-31.9,adult Start:10-Feb-2020 Instruction Type:Provider Instructions for Treatment How to access health informa tion online Indication:Nonsmoker Start:19-Jan-2020 Instruction Type:Patient Education How to access health informa tion online - Detail Indication:Nonsmoker Start:19-Jan-2020 Instruction Type:Patient Education Patient Instructions Indication:Nonsmoker Start:19-Jan-2020 Instruction Type:Provider Instructions for Treatment How to access health informa tion online Indication:Nonsmoker Start:05-Jan-2020 Instruction Type:Patient Education How to access health informa tion online - Detail Indication:Nonsmoker Start:05-Jan-2020 Instruction Type:Patient Education Patient Instructions Indication:Allergic rhinitis Start:05-Jan-2020 Instruction Type:Provider Instructions for Treatment How to access health informa tion online Indication:BMI 30.0-30.9,adult Start:16-Nov-2019 Instruction Type:Patient Education How to access health informa tion online - Detail Indication:BMI 30.0-30.9,adult Start:16-Nov-2019 Instruction Type:Patient Education Patient Instructions Indication:BMI 30.0-30.9,adult Start:16-Nov-2019 Instruction Type:Provider Instructions for Treatment How to access health informa tion online Indication:BMI 30.0-30.9,adult Start:25-Sep-2019 Instruction Type:Patient Education How to access health informa tion online - Detail Indication:BMI 30.0-30.9,adult Start:25-Sep-2019 Instruction Type:Patient Education Patient Instructions Indication:BMI 30.0-30.9,adult Start:25-Sep-2019 Instruction Type:Provider Instructions for Treatment How to access health informa tion online Indication:Nonsmoker Start:12-Aug-2019 Instruction Type:Patient Education How to access health informa tion online - Detail Indication:Nonsmoker Start:12-Aug-2019 Instruction Type:Patient Education Patient Instructions Indication:Nonsmoker Start:12-Aug-2019 Instruction Type:Provider Instructions for Treatment How to access health informa tion online Indication:BMI 29.0-29.9,adult Start:04-Aug-2019 Instruction Type:Patient Education How to access health informa tion online - Detail Indication:BMI 29.0-29.9,adult Start:04-Aug-2019 Instruction Type:Patient Education Patient Instructions Indication:BMI 29.0-29.9,adult Start:04-Aug-2019 Instruction Type:Provider Instructions for Treatment How to access health informa tion online Indication:BMI 31.0-31.9,adult Start:25-Jun-2019 Instruction Type:Patient Education How to access health informa tion online - Detail Indication:BMI 31.0-31.9,adult Start:25-Jun-2019 Instruction Type:Patient Education Patient Instructions Indication:Dysuria Start:25-Jun-2019 Instruction Type:Provider Instructions for Treatment How to access health informa tion online Indication:Hypertension Start:02-Feb-2019 Instruction Type:Patient Education How to access health informa tion online - Detail Indication:Hypertension Start:02-Feb-2019 Instruction Type:Patient Education Patient Instructions Indication:Hypertension Start:02-Feb-2019 Instruction Type:Provider Instructions for Treatment How to access health informa tion online Indication:BMI 31.0-31.9,adult Start:21-Jan-2019 Instruction Type:Patient Education How to access health informa tion online - Detail Indication:BMI 31.0-31.9,adult Start:21-Jan-2019 Instruction Type:Patient Education Patient Instructions Indication:BMI 31.0-31.9,adult Start:21-Jan-2019 Instruction Type:Provider Instructions for Treatment How to access health informa tion online Indication:Nonsmoker Start:26-Nov-2018 Instruction Type:Patient Education How to access health informa tion online - Detail Indication:Nonsmoker Start:26-Nov-2018 Instruction Type:Patient Education Patient Instructions Indication:Nonsmoker Start:26-Nov-2018 Instruction Type:Provider Instructions for Treatment How to access health informa tion online Indication:Nonsmoker Start:25-Nov-2018 Instruction Type:Patient Education How to access health informa tion online - Detail Indication:Nonsmoker Start:25-Nov-2018 Instruction Type:Patient Education Patient Instructions Indication:Nonsmoker Start:25-Nov-2018 Instruction Type:Provider Instructions for Treatment How to access health informa tion online Indication:Nonsmoker Start:07-Nov-2018 Instruction Type:Patient Education How to access health informa tion online - Detail Indication:Nonsmoker Start:07-Nov-2018 Instruction Type:Patient Education Patient Instructions Indication:BMI 31.0-31.9,adult Start:07-Nov-2018 Instruction Type:Provider Instructions for Treatment How to access health informa tion online Indication:Nonsmoker Start:28-Jul-2018 Instruction Type:Patient Education How to access health informa tion online - Detail Indication:Nonsmoker Start:28-Jul-2018 Instruction Type:Patient Education Patient Instructions Indication:Bladder prolapse, congenital Start:28-Jul-2018 Instruction Type:Provider Instructions for Treatment How to access health informa tion online Indication:BMI 35.0-35.9,adult Start:03-Jul-2018 Instruction Type:Patient Education How to access health informa tion online - Detail Indication:BMI 35.0-35.9,adult Start:03-Jul-2018 Instruction Type:Patient Education Patient Instructions Indication:Upper respiratory infection Start:03-Jul-2018 Instruction Type:Provider Instructions for Treatment How to access health informa tion online Indication:Nonsmoker Start:04-Feb-2018 Instruction Type:Patient Education How to access health informa tion online - Detail Indication:Nonsmoker Start:04-Feb-2018 Instruction Type:Patient Education Patient Instructions Indication:Rash Start:04-Feb-2018 Instruction Type:Provider Instructions for Treatment How to access health informa tion online Indication:Sciatica of right side Start:31-Jan-2018 Instruction Type:Patient Education How to access health informa tion online - Detail Indication:Sciatica of right side Start:31-Jan-2018 Instruction Type:Patient Education Patient Instructions Indication:Nonsmoker Start:31-Jan-2018 Instruction Type:Provider Instructions for Treatment How to access health informa tion online Indication:Sciatica of right side Start:27-Sep-2017 Instruction Type:Patient Education How to access health informa tion online - Detail Indication:Sciatica of right side Start:27-Sep-2017 Instruction Type:Patient Education Patient Instructions Indication:Sciatica of right side Start:27-Sep-2017 Instruction Type:Provider Instructions for Treatment How to access health informa tion online Indication:Sciatica of right side Start:30-Aug-2017 Instruction Type:Patient Education How to access health informa tion online - Detail Indication:Sciatica of right side Start:30-Aug-2017 Instruction Type:Patient Education Patient Instructions Indication:Sciatica of right side Start:30-Aug-2017 Instruction Type:Provider Instructions for Treatment How to access health informa tion online Indication:DDD (degenerative disc disease), lumbar Start:13-Aug-2017 Instruction Type:Patient Education How to access health informa tion online - Detail Indication:DDD (degenerative disc disease), lumbar Start:13-Aug-2017 Instruction Type:Patient Education Patient Instructions Indication:Lumbar radiculopathy, right Start:13-Aug-2017 Instruction Type:Provider Instructions for Treatment How to access health informa tion online Indication:Nonsmoker Start:31-Jul-2017 Instruction Type:Patient Education How to access health informa tion online - Detail Indication:Nonsmoker Start:31-Jul-2017 Instruction Type:Patient Education Patient Instructions Indication:Nonsmoker Start:31-Jul-2017 Instruction Type:Provider Instructions for Treatment How to access health informa tion online Indication:Hypertension Start:18-Jul-2016 Instruction Type:Patient Education How to access health informa tion online - Detail Indication:Hypertension Start:18-Jul-2016 Instruction Type:Patient Education Patient Instructions Indication:Hypertension Start:18-Jul-2016 Instruction Type:Provider Instructions for Treatment [facility] Work Phone: Instructions* Name Dates Details Patient Instructions Indication:BMI 31.0-31.9,adult Start:09-Jun-2021 Instruction Type:Provider Instructions for Treatment How to Access Health Informa tion Online using Patient Portal and 3rd [employer] Apps Indication:Nonsmoker Start:09-Jun-2021 Instruction Type:Patient Education Patient Instructions Indication:BMI 31.0-31.9,adult Start:22-Mar-2021 Instruction Type:Provider Instructions for Treatment How to Access Health Informa tion Online using Patient Portal and 3rd [employer] Indication:BMI 31.0-31.9,adult Start:22-Mar-2021 Instruction Type:Patient Education Patient Instructions Indication:BMI 31.0-31.9,adult Start:10-Mar-2021 Instruction Type:Provider Instructions for Treatment How to Access Health Informa tion Online using Patient Portal and 3rd [employer] Indication:BMI 31.0-31.9,adult Start:10-Mar-2021 Instruction Type:Patient Education Patient Instructions Indication:Nonsmoker Start:07-Dec-2020 Instruction Type:Provider Instructions for Treatment How to Access Health Informa tion Online using Patient Portal and 3rd [employer] Indication:Nonsmoker Start:07-Dec-2020 Instruction Type:Patient Education Patient Instructions Indication:Nonsmoker Start:18-Oct-2020 Instruction Type:Provider Instructions for Treatment How to Access Health Informa tion Online using Patient Portal and 3rd [employer] Indication:Nonsmoker Start:18-Oct-2020 Instruction Type:Patient Education Patient Instructions Indication:Nonsmoker Start:06-Sep-2020 Instruction Type:Provider Instructions for Treatment How to Access Health Informa tion Online using Patient Portal and 3rd [employer] Indication:Nonsmoker Start:06-Sep-2020 Instruction Type:Patient Education Patient Instructions Indication:Nonsmoker Start:23-Aug-2020 Instruction Type:Provider Instructions for Treatment How to Access Health Informa tion Online using Patient Portal and [employer]rd [employer] Indication:Nonsmoker Start:23-Aug-2020 Instruction Type:Patient Education Patient Instructions Indication:Nonsmoker Start:03-Aug-2020 Instruction Type:Provider Instructions for Treatment How to Access Health Informa tion Online using Patient Portal and [employer]rd [employer] Indication:Nonsmoker Start:03-Aug-2020 Instruction Type:Patient Education Patient Instructions Indication:Nonsmoker Start:25-Jul-2020 Instruction Type:Provider Instructions for Treatment How to Access Health Informa tion Online using Patient Portal and [employer]rd [employer] Indication:Nonsmoker Start:25-Jul-2020 Instruction Type:Patient Education Patient Instructions Indication:Nonsmoker Start:18-Jul-2020 Instruction Type:Provider Instructions for Treatment How to Access Health Informa tion Online using Patient Portal and [employer]rd [employer] Indication:Nonsmoker Start:18-Jul-2020 Instruction Type:Patient Education Patient Instructions Indication:Nonsmoker Start:11-Jul-2020 Instruction Type:Provider Instructions for Treatment How to Access Health Informa tion Online using Patient Portal and [employer]rd [employer] Indication:Nonsmoker Start:11-Jul-2020 Instruction Type:Patient Education How to access health informa tion online Indication:Nonsmoker Start:10-Feb-2020 Instruction Type:Patient Education How to access health informa tion online - Detail Indication:Nonsmoker Start:10-Feb-2020 Instruction Type:Patient Education Patient Instructions Indication:BMI 31.0-31.9,adult Start:10-Feb-2020 Instruction Type:Provider Instructions for Treatment How to access health informa tion online Indication:Nonsmoker Start:19-Jan-2020 Instruction Type:Patient Education How to access health informa tion online - Detail Indication:Nonsmoker Start:19-Jan-2020 Instruction Type:Patient Education Patient Instructions Indication:Nonsmoker Start:19-Jan-2020 Instruction Type:Provider Instructions for Treatment How to access health informa tion online Indication:Nonsmoker Start:05-Jan-2020 Instruction Type:Patient Education How to access health informa tion online - Detail Indication:Nonsmoker Start:05-Jan-2020 Instruction Type:Patient Education Patient Instructions Indication:Allergic rhinitis Start:05-Jan-2020 Instruction Type:Provider Instructions for Treatment How to access health informa tion online Indication:BMI 30.0-30.9,adult Start:16-Nov-2019 Instruction Type:Patient Education How to access health informa tion online - Detail Indication:BMI 30.0-30.9,adult Start:16-Nov-2019 Instruction Type:Patient Education Patient Instructions Indication:BMI 30.0-30.9,adult Start:16-Nov-2019 Instruction Type:Provider Instructions for Treatment How to access health informa tion online Indication:BMI 30.0-30.9,adult Start:25-Sep-2019 Instruction Type:Patient Education How to access health informa tion online - Detail Indication:BMI 30.0-30.9,adult Start:25-Sep-2019 Instruction Type:Patient Education Patient Instructions Indication:BMI 30.0-30.9,adult Start:25-Sep-2019 Instruction Type:Provider Instructions for Treatment How to access health informa tion online Indication:Nonsmoker Start:12-Aug-2019 Instruction Type:Patient Education How to access health informa tion online - Detail Indication:Nonsmoker Start:12-Aug-2019 Instruction Type:Patient Education Patient Instructions Indication:Nonsmoker Start:12-Aug-2019 Instruction Type:Provider Instructions for Treatment How to access health informa tion online Indication:BMI 29.0-29.9,adult Start:04-Aug-2019 Instruction Type:Patient Education How to access health informa tion online - Detail Indication:BMI 29.0-29.9,adult Start:04-Aug-2019 Instruction Type:Patient Education Patient Instructions Indication:BMI 29.0-29.9,adult Start:04-Aug-2019 Instruction Type:Provider Instructions for Treatment How to access health informa tion online Indication:BMI 31.0-31.9,adult Start:25-Jun-2019 Instruction Type:Patient Education How to access health informa tion online - Detail Indication:BMI 31.0-31.9,adult Start:25-Jun-2019 Instruction Type:Patient Education Patient Instructions Indication:Dysuria Start:25-Jun-2019 Instruction Type:Provider Instructions for Treatment How to access health informa tion online Indication:Hypertension Start:02-Feb-2019 Instruction Type:Patient Education How to access health informa tion online - Detail Indication:Hypertension Start:02-Feb-2019 Instruction Type:Patient Education Patient Instructions Indication:Hypertension Start:02-Feb-2019 Instruction Type:Provider Instructions for Treatment How to access health informa tion online Indication:BMI 31.0-31.9,adult Start:21-Jan-2019 Instruction Type:Patient Education How to access health informa tion online - Detail Indication:BMI 31.0-31.9,adult Start:21-Jan-2019 Instruction Type:Patient Education Patient Instructions Indication:BMI 31.0-31.9,adult Start:21-Jan-2019 Instruction Type:Provider Instructions for Treatment How to access health informa tion online Indication:Nonsmoker Start:26-Nov-2018 Instruction Type:Patient Education How to access health informa tion online - Detail Indication:Nonsmoker Start:26-Nov-2018 Instruction Type:Patient Education Patient Instructions Indication:Nonsmoker Start:26-Nov-2018 Instruction Type:Provider Instructions for Treatment How to access health informa tion online Indication:Nonsmoker Start:25-Nov-2018 Instruction Type:Patient Education How to access health informa tion online - Detail Indication:Nonsmoker Start:25-Nov-2018 Instruction Type:Patient Education Patient Instructions Indication:Nonsmoker Start:25-Nov-2018 Instruction Type:Provider Instructions for Treatment How to access health informa tion online Indication:Nonsmoker Start:07-Nov-2018 Instruction Type:Patient Education How to access health informa tion online - Detail Indication:Nonsmoker Start:07-Nov-2018 Instruction Type:Patient Education Patient Instructions Indication:BMI 31.0-31.9,adult Start:07-Nov-2018 Instruction Type:Provider Instructions for Treatment How to access health informa tion online Indication:Nonsmoker Start:28-Jul-2018 Instruction Type:Patient Education How to access health informa tion online - Detail Indication:Nonsmoker Start:28-Jul-2018 Instruction Type:Patient Education Patient Instructions Indication:Bladder prolapse, congenital Start:28-Jul-2018 Instruction Type:Provider Instructions for Treatment How to access health informa tion online Indication:BMI 35.0-35.9,adult Start:03-Jul-2018 Instruction Type:Patient Education How to access health informa tion online - Detail Indication:BMI 35.0-35.9,adult Start:03-Jul-2018 Instruction Type:Patient Education Patient Instructions Indication:Upper respiratory infection Start:03-Jul-2018 Instruction Type:Provider Instructions for Treatment How to access health informa tion online Indication:Nonsmoker Start:04-Feb-2018 Instruction Type:Patient Education How to access health informa tion online - Detail Indication:Nonsmoker Start:04-Feb-2018 Instruction Type:Patient Education Patient Instructions Indication:Rash Start:04-Feb-2018 Instruction Type:Provider Instructions for Treatment How to access health informa tion online Indication:Sciatica of right side Start:31-Jan-2018 Instruction Type:Patient Education How to access health informa tion online - Detail Indication:Sciatica of right side Start:31-Jan-2018 Instruction Type:Patient Education Patient Instructions Indication:Nonsmoker Start:31-Jan-2018 Instruction Type:Provider Instructions for Treatment How to access health informa tion online Indication:Sciatica of right side Start:27-Sep-2017 Instruction Type:Patient Education How to access health informa tion online - Detail Indication:Sciatica of right side Start:27-Sep-2017 Instruction Type:Patient Education Patient Instructions Indication:Sciatica of right side Start:27-Sep-2017 Instruction Type:Provider Instructions for Treatment How to access health informa tion online Indication:Sciatica of right side Start:30-Aug-2017 Instruction Type:Patient Education How to access health informa tion online - Detail Indication:Sciatica of right side Start:30-Aug-2017 Instruction Type:Patient Education Patient Instructions Indication:Sciatica of right side Start:30-Aug-2017 Instruction Type:Provider Instructions for Treatment How to access health informa tion online Indication:DDD (degenerative disc disease), lumbar Start:13-Aug-2017 Instruction Type:Patient Education How to access health informa tion online - Detail Indication:DDD (degenerative disc disease), lumbar Start:13-Aug-2017 Instruction Type:Patient Education Patient Instructions Indication:Lumbar radiculopathy, right Start:13-Aug-2017 Instruction Type:Provider Instructions for Treatment How to access health informa tion online Indication:Nonsmoker Start:31-Jul-2017 Instruction Type:Patient Education How to access health informa tion online - Detail Indication:Nonsmoker Start:31-Jul-2017 Instruction Type:Patient Education Patient Instructions Indication:Nonsmoker Start:31-Jul-2017 Instruction Type:Provider Instructions for Treatment How to access health informa tion online Indication:Hypertension Start:18-Jul-2016 Instruction Type:Patient Education How to access health informa tion online - Detail Indication:Hypertension Start:18-Jul-2016 Instruction Type:Patient Education Patient Instructions Indication:Hypertension Start:18-Jul-2016 Instruction Type:Provider Instructions for Treatment [facility]; [facility] Work Phone: Instructions* Name Dates Details Patient Instructions Indication:BMI 31.0-31.9,adult Start:11-Sep-2021 Instruction Type:Provider Instructions for Treatment How to Access Health Informa tion Online using Patient Portal and [employer]rd [employer] Indication:BMI 31.0-31.9,adult Start:11-Sep-2021 Instruction Type:Patient Education Patient Instructions Indication:BMI 31.0-31.9,adult Start:09-Jun-2021 Instruction Type:Provider Instructions for Treatment How to Access Health Informa tion Online using Patient Portal and [employer]rd [employer] Indication:Nonsmoker Start:09-Jun-2021 Instruction Type:Patient Education Patient Instructions Indication:BMI 31.0-31.9,adult Start:22-Mar-2021 Instruction Type:Provider Instructions for Treatment How to Access Health Informa tion Online using Patient Portal and [employer]rd [employer] Indication:BMI 31.0-31.9,adult Start:22-Mar-2021 Instruction Type:Patient Education Patient Instructions Indication:BMI 31.0-31.9,adult Start:10-Mar-2021 Instruction Type:Provider Instructions for Treatment How to Access Health Informa tion Online using Patient Portal and [employer]rd [employer] Indication:BMI 31.0-31.9,adult Start:10-Mar-2021 Instruction Type:Patient Education Patient Instructions Indication:Nonsmoker Start:07-Dec-2020 Instruction Type:Provider Instructions for Treatment How to Access Health Informa tion Online using Patient Portal and [employer]rd [employer] Indication:Nonsmoker Start:07-Dec-2020 Instruction Type:Patient Education Patient Instructions Indication:Nonsmoker Start:18-Oct-2020 Instruction Type:Provider Instructions for Treatment How to Access Health Informa tion Online using Patient Portal and [employer]rd [employer] Indication:Nonsmoker Start:18-Oct-2020 Instruction Type:Patient Education Patient Instructions Indication:Nonsmoker Start:06-Sep-2020 Instruction Type:Provider Instructions for Treatment How to Access Health Informa tion Online using Patient Portal and [employer]rd [employer] Indication:Nonsmoker Start:06-Sep-2020 Instruction Type:Patient Education Patient Instructions Indication:Nonsmoker Start:23-Aug-2020 Instruction Type:Provider Instructions for Treatment How to Access Health Informa tion Online using Patient Portal and [employer]rd [employer] Indication:Nonsmoker Start:23-Aug-2020 Instruction Type:Patient Education Patient Instructions Indication:Nonsmoker Start:03-Aug-2020 Instruction Type:Provider Instructions for Treatment How to Access Health Informa tion Online using Patient Portal and [employer]rd [employer] Indication:Nonsmoker Start:03-Aug-2020 Instruction Type:Patient Education Patient Instructions Indication:Nonsmoker Start:25-Jul-2020 Instruction Type:Provider Instructions for Treatment How to Access Health Informa tion Online using Patient Portal and [employer]rd [employer] Indication:Nonsmoker Start:25-Jul-2020 Instruction Type:Patient Education Patient Instructions Indication:Nonsmoker Start:18-Jul-2020 Instruction Type:Provider Instructions for Treatment How to Access Health Informa tion Online using Patient Portal and [employer]rd [employer] Indication:Nonsmoker Start:18-Jul-2020 Instruction Type:Patient Education Patient Instructions Indication:Nonsmoker Start:11-Jul-2020 Instruction Type:Provider Instructions for Treatment How to Access Health Informa tion Online using Patient Portal and [employer]rd [employer] Indication:Nonsmoker Start:11-Jul-2020 Instruction Type:Patient Education How to access health informa tion online Indication:Nonsmoker Start:10-Feb-2020 Instruction Type:Patient Education How to access health informa tion online - Detail Indication:Nonsmoker Start:10-Feb-2020 Instruction Type:Patient Education Patient Instructions Indication:BMI 31.0-31.9,adult Start:10-Feb-2020 Instruction Type:Provider Instructions for Treatment How to access health informa tion online Indication:Nonsmoker Start:19-Jan-2020 Instruction Type:Patient Education How to access health informa tion online - Detail Indication:Nonsmoker Start:19-Jan-2020 Instruction Type:Patient Education Patient Instructions Indication:Nonsmoker Start:19-Jan-2020 Instruction Type:Provider Instructions for Treatment How to access health informa tion online Indication:Nonsmoker Start:05-Jan-2020 Instruction Type:Patient Education How to access health informa tion online - Detail Indication:Nonsmoker Start:05-Jan-2020 Instruction Type:Patient Education Patient Instructions Indication:Allergic rhinitis Start:05-Jan-2020 Instruction Type:Provider Instructions for Treatment How to access health informa tion online Indication:BMI 30.0-30.9,adult Start:16-Nov-2019 Instruction Type:Patient Education How to access health informa tion online - Detail Indication:BMI 30.0-30.9,adult Start:16-Nov-2019 Instruction Type:Patient Education Patient Instructions Indication:BMI 30.0-30.9,adult Start:16-Nov-2019 Instruction Type:Provider Instructions for Treatment How to access health informa tion online Indication:BMI 30.0-30.9,adult Start:25-Sep-2019 Instruction Type:Patient Education How to access health informa tion online - Detail Indication:BMI 30.0-30.9,adult Start:25-Sep-2019 Instruction Type:Patient Education Patient Instructions Indication:BMI 30.0-30.9,adult Start:25-Sep-2019 Instruction Type:Provider Instructions for Treatment How to access health informa tion online Indication:Nonsmoker Start:12-Aug-2019 Instruction Type:Patient Education How to access health informa tion online - Detail Indication:Nonsmoker Start:12-Aug-2019 Instruction Type:Patient Education Patient Instructions Indication:Nonsmoker Start:12-Aug-2019 Instruction Type:Provider Instructions for Treatment How to access health informa tion online Indication:BMI 29.0-29.9,adult Start:04-Aug-2019 Instruction Type:Patient Education How to access health informa tion online - Detail Indication:BMI 29.0-29.9,adult Start:04-Aug-2019 Instruction Type:Patient Education Patient Instructions Indication:BMI 29.0-29.9,adult Start:04-Aug-2019 Instruction Type:Provider Instructions for Treatment How to access health informa tion online Indication:BMI 31.0-31.9,adult Start:25-Jun-2019 Instruction Type:Patient Education How to access health informa tion online - Detail Indication:BMI 31.0-31.9,adult Start:25-Jun-2019 Instruction Type:Patient Education Patient Instructions Indication:Dysuria Start:25-Jun-2019 Instruction Type:Provider Instructions for Treatment How to access health informa tion online Indication:Hypertension Start:02-Feb-2019 Instruction Type:Patient Education How to access health informa tion online - Detail Indication:Hypertension Start:02-Feb-2019 Instruction Type:Patient Education Patient Instructions Indication:Hypertension Start:02-Feb-2019 Instruction Type:Provider Instructions for Treatment How to access health informa tion online Indication:BMI 31.0-31.9,adult Start:21-Jan-2019 Instruction Type:Patient Education How to access health informa tion online - Detail Indication:BMI 31.0-31.9,adult Start:21-Jan-2019 Instruction Type:Patient Education Patient Instructions Indication:BMI 31.0-31.9,adult Start:21-Jan-2019 Instruction Type:Provider Instructions for Treatment How to access health informa tion online Indication:Nonsmoker Start:26-Nov-2018 Instruction Type:Patient Education How to access health informa tion online - Detail Indication:Nonsmoker Start:26-Nov-2018 Instruction Type:Patient Education Patient Instructions Indication:Nonsmoker Start:26-Nov-2018 Instruction Type:Provider Instructions for Treatment How to access health informa tion online Indication:Nonsmoker Start:25-Nov-2018 Instruction Type:Patient Education How to access health informa tion online - Detail Indication:Nonsmoker Start:25-Nov-2018 Instruction Type:Patient Education Patient Instructions Indication:Nonsmoker Start:25-Nov-2018 Instruction Type:Provider Instructions for Treatment How to access health informa tion online Indication:Nonsmoker Start:07-Nov-2018 Instruction Type:Patient Education How to access health informa tion online - Detail Indication:Nonsmoker Start:07-Nov-2018 Instruction Type:Patient Education Patient Instructions Indication:BMI 31.0-31.9,adult Start:07-Nov-2018 Instruction Type:Provider Instructions for Treatment How to access health informa tion online Indication:Nonsmoker Start:28-Jul-2018 Instruction Type:Patient Education How to access health informa tion online - Detail Indication:Nonsmoker Start:28-Jul-2018 Instruction Type:Patient Education Patient Instructions Indication:Bladder prolapse, congenital Start:28-Jul-2018 Instruction Type:Provider Instructions for Treatment How to access health informa tion online Indication:BMI 35.0-35.9,adult Start:03-Jul-2018 Instruction Type:Patient Education How to access health informa tion online - Detail Indication:BMI 35.0-35.9,adult Start:03-Jul-2018 Instruction Type:Patient Education Patient Instructions Indication:Upper respiratory infection Start:03-Jul-2018 Instruction Type:Provider Instructions for Treatment How to access health informa tion online Indication:Nonsmoker Start:04-Feb-2018 Instruction Type:Patient Education How to access health informa tion online - Detail Indication:Nonsmoker Start:04-Feb-2018 Instruction Type:Patient Education Patient Instructions Indication:Rash Start:04-Feb-2018 Instruction Type:Provider Instructions for Treatment How to access health informa tion online Indication:Sciatica of right side Start:31-Jan-2018 Instruction Type:Patient Education How to access health informa tion online - Detail Indication:Sciatica of right side Start:31-Jan-2018 Instruction Type:Patient Education Patient Instructions Indication:Nonsmoker Start:31-Jan-2018 Instruction Type:Provider Instructions for Treatment How to access health informa tion online Indication:Sciatica of right side Start:27-Sep-2017 Instruction Type:Patient Education How to access health informa tion online - Detail Indication:Sciatica of right side Start:27-Sep-2017 Instruction Type:Patient Education Patient Instructions Indication:Sciatica of right side Start:27-Sep-2017 Instruction Type:Provider Instructions for Treatment How to access health informa tion online Indication:Sciatica of right side Start:30-Aug-2017 Instruction Type:Patient Education How to access health informa tion online - Detail Indication:Sciatica of right side Start:30-Aug-2017 Instruction Type:Patient Education Patient Instructions Indication:Sciatica of right side Start:30-Aug-2017 Instruction Type:Provider Instructions for Treatment How to access health informa tion online Indication:DDD (degenerative disc disease), lumbar Start:13-Aug-2017 Instruction Type:Patient Education How to access health informa tion online - Detail Indication:DDD (degenerative disc disease), lumbar Start:13-Aug-2017 Instruction Type:Patient Education Patient Instructions Indication:Lumbar radiculopathy, right Start:13-Aug-2017 Instruction Type:Provider Instructions for Treatment How to access health informa tion online Indication:Nonsmoker Start:31-Jul-2017 Instruction Type:Patient Education How to access health informa tion online - Detail Indication:Nonsmoker Start:31-Jul-2017 Instruction Type:Patient Education Patient Instructions Indication:Nonsmoker Start:31-Jul-2017 Instruction Type:Provider Instructions for Treatment How to access health informa tion online Indication:Hypertension Start:18-Jul-2016 Instruction Type:Patient Education How to access health informa tion online - Detail Indication:Hypertension Start:18-Jul-2016 Instruction Type:Patient Education Patient Instructions Indication:Hypertension Start:18-Jul-2016 Instruction Type:Provider Instructions for Treatment [facility]; [facility] Work Phone: Instructions* Name Dates Details Patient Instructions Indication:BMI 31.0-31.9,adult Start:11-Sep-2021 Instruction Type:Provider Instructions for Treatment How to Access Health Informa tion Online using Patient Portal and [employer]rd [employer] Indication:BMI 31.0-31.9,adult Start:11-Sep-2021 Instruction Type:Patient Education Patient Instructions Indication:BMI 31.0-31.9,adult Start:09-Jun-2021 Instruction Type:Provider Instructions for Treatment How to Access Health Informa tion Online using Patient Portal and [employer]rd [employer] Indication:Nonsmoker Start:09-Jun-2021 Instruction Type:Patient Education Patient Instructions Indication:BMI 31.0-31.9,adult Start:22-Mar-2021 Instruction Type:Provider Instructions for Treatment How to Access Health Informa tion Online using Patient Portal and [employer]rd [employer] Indication:BMI 31.0-31.9,adult Start:22-Mar-2021 Instruction Type:Patient Education Patient Instructions Indication:BMI 31.0-31.9,adult Start:10-Mar-2021 Instruction Type:Provider Instructions for Treatment How to Access Health Informa tion Online using Patient Portal and [employer]rd [employer] Indication:BMI 31.0-31.9,adult Start:10-Mar-2021 Instruction Type:Patient Education Patient Instructions Indication:Nonsmoker Start:07-Dec-2020 Instruction Type:Provider Instructions for Treatment How to Access Health Informa tion Online using Patient Portal and [employer] Indication:Nonsmoker Start:07-Dec-2020 Instruction Type:Patient Education Patient Instructions Indication:Nonsmoker Start:18-Oct-2020 Instruction Type:Provider Instructions for Treatment How to Access Health Informa tion Online using Patient Portal and [employer]rd [employer] Apps Indication:Nonsmoker Start:18-Oct-2020 Instruction Type:Patient Education Patient Instructions Indication:Nonsmoker Start:06-Sep-2020 Instruction Type:Provider Instructions for Treatment How to Access Health Informa tion Online using Patient Portal and [employer]rd [employer] Apps Indication:Nonsmoker Start:06-Sep-2020 Instruction Type:Patient Education Patient Instructions Indication:Nonsmoker Start:23-Aug-2020 Instruction Type:Provider Instructions for Treatment How to Access Health Informa tion Online using Patient Portal and [employer]rd [employer] Apps Indication:Nonsmoker Start:23-Aug-2020 Instruction Type:Patient Education Patient Instructions Indication:Nonsmoker Start:03-Aug-2020 Instruction Type:Provider Instructions for Treatment How to Access Health Informa tion Online using Patient Portal and [employer]rd [employer] Apps Indication:Nonsmoker Start:03-Aug-2020 Instruction Type:Patient Education Patient Instructions Indication:Nonsmoker Start:25-Jul-2020 Instruction Type:Provider Instructions for Treatment How to Access Health Informa tion Online using Patient Portal and [employer]rd [employer] Apps Indication:Nonsmoker Start:25-Jul-2020 Instruction Type:Patient Education Patient Instructions Indication:Nonsmoker Start:18-Jul-2020 Instruction Type:Provider Instructions for Treatment How to Access Health Informa tion Online using Patient Portal and [employer]rd [employer] Apps Indication:Nonsmoker Start:18-Jul-2020 Instruction Type:Patient Education Patient Instructions Indication:Nonsmoker Start:11-Jul-2020 Instruction Type:Provider Instructions for Treatment How to Access Health Informa tion Online using Patient Portal and [employer] Apps Indication:Nonsmoker Start:11-Jul-2020 Instruction Type:Patient Education How to access health informa tion online Indication:Nonsmoker Start:10-Feb-2020 Instruction Type:Patient Education How to access health informa tion online - Detail Indication:Nonsmoker Start:10-Feb-2020 Instruction Type:Patient Education Patient Instructions Indication:BMI 31.0-31.9,adult Start:10-Feb-2020 Instruction Type:Provider Instructions for Treatment How to access health informa tion online Indication:Nonsmoker Start:19-Jan-2020 Instruction Type:Patient Education How to access health informa tion online - Detail Indication:Nonsmoker Start:19-Jan-2020 Instruction Type:Patient Education Patient Instructions Indication:Nonsmoker Start:19-Jan-2020 Instruction Type:Provider Instructions for Treatment How to access health informa tion online Indication:Nonsmoker Start:05-Jan-2020 Instruction Type:Patient Education How to access health informa tion online - Detail Indication:Nonsmoker Start:05-Jan-2020 Instruction Type:Patient Education Patient Instructions Indication:Allergic rhinitis Start:05-Jan-2020 Instruction Type:Provider Instructions for Treatment How to access health informa tion online Indication:BMI 30.0-30.9,adult Start:16-Nov-2019 Instruction Type:Patient Education How to access health informa tion online - Detail Indication:BMI 30.0-30.9,adult Start:16-Nov-2019 Instruction Type:Patient Education Patient Instructions Indication:BMI 30.0-30.9,adult Start:16-Nov-2019 Instruction Type:Provider Instructions for Treatment How to access health informa tion online Indication:BMI 30.0-30.9,adult Start:25-Sep-2019 Instruction Type:Patient Education How to access health informa tion online - Detail Indication:BMI 30.0-30.9,adult Start:25-Sep-2019 Instruction Type:Patient Education Patient Instructions Indication:BMI 30.0-30.9,adult Start:25-Sep-2019 Instruction Type:Provider Instructions for Treatment How to access health informa tion online Indication:Nonsmoker Start:12-Aug-2019 Instruction Type:Patient Education How to access health informa tion online - Detail Indication:Nonsmoker Start:12-Aug-2019 Instruction Type:Patient Education Patient Instructions Indication:Nonsmoker Start:12-Aug-2019 Instruction Type:Provider Instructions for Treatment How to access health informa tion online Indication:BMI 29.0-29.9,adult Start:04-Aug-2019 Instruction Type:Patient Education How to access health informa tion online - Detail Indication:BMI 29.0-29.9,adult Start:04-Aug-2019 Instruction Type:Patient Education Patient Instructions Indication:BMI 29.0-29.9,adult Start:04-Aug-2019 Instruction Type:Provider Instructions for Treatment How to access health informa tion online Indication:BMI 31.0-31.9,adult Start:25-Jun-2019 Instruction Type:Patient Education How to access health informa tion online - Detail Indication:BMI 31.0-31.9,adult Start:25-Jun-2019 Instruction Type:Patient Education Patient Instructions Indication:Dysuria Start:25-Jun-2019 Instruction Type:Provider Instructions for Treatment How to access health informa tion online Indication:Hypertension Start:02-Feb-2019 Instruction Type:Patient Education How to access health informa tion online - Detail Indication:Hypertension Start:02-Feb-2019 Instruction Type:Patient Education Patient Instructions Indication:Hypertension Start:02-Feb-2019 Instruction Type:Provider Instructions for Treatment How to access health informa tion online Indication:BMI 31.0-31.9,adult Start:21-Jan-2019 Instruction Type:Patient Education How to access health informa tion online - Detail Indication:BMI 31.0-31.9,adult Start:21-Jan-2019 Instruction Type:Patient Education Patient Instructions Indication:BMI 31.0-31.9,adult Start:21-Jan-2019 Instruction Type:Provider Instructions for Treatment How to access health informa tion online Indication:Nonsmoker Start:26-Nov-2018 Instruction Type:Patient Education How to access health informa tion online - Detail Indication:Nonsmoker Start:26-Nov-2018 Instruction Type:Patient Education Patient Instructions Indication:Nonsmoker Start:26-Nov-2018 Instruction Type:Provider Instructions for Treatment How to access health informa tion online Indication:Nonsmoker Start:25-Nov-2018 Instruction Type:Patient Education How to access health informa tion online - Detail Indication:Nonsmoker Start:25-Nov-2018 Instruction Type:Patient Education Patient Instructions Indication:Nonsmoker Start:25-Nov-2018 Instruction Type:Provider Instructions for Treatment How to access health informa tion online Indication:Nonsmoker Start:07-Nov-2018 Instruction Type:Patient Education How to access health informa tion online - Detail Indication:Nonsmoker Start:07-Nov-2018 Instruction Type:Patient Education Patient Instructions Indication:BMI 31.0-31.9,adult Start:07-Nov-2018 Instruction Type:Provider Instructions for Treatment How to access health informa tion online Indication:Nonsmoker Start:28-Jul-2018 Instruction Type:Patient Education How to access health informa tion online - Detail Indication:Nonsmoker Start:28-Jul-2018 Instruction Type:Patient Education Patient Instructions Indication:Bladder prolapse, congenital Start:28-Jul-2018 Instruction Type:Provider Instructions for Treatment How to access health informa tion online Indication:BMI 35.0-35.9,adult Start:03-Jul-2018 Instruction Type:Patient Education How to access health informa tion online - Detail Indication:BMI 35.0-35.9,adult Start:03-Jul-2018 Instruction Type:Patient Education Patient Instructions Indication:Upper respiratory infection Start:03-Jul-2018 Instruction Type:Provider Instructions for Treatment How to access health informa tion online Indication:Nonsmoker Start:04-Feb-2018 Instruction Type:Patient Education How to access health informa tion online - Detail Indication:Nonsmoker Start:04-Feb-2018 Instruction Type:Patient Education Patient Instructions Indication:Rash Start:04-Feb-2018 Instruction Type:Provider Instructions for Treatment How to access health informa tion online Indication:Sciatica of right side Start:31-Jan-2018 Instruction Type:Patient Education How to access health informa tion online - Detail Indication:Sciatica of right side Start:31-Jan-2018 Instruction Type:Patient Education Patient Instructions Indication:Nonsmoker Start:31-Jan-2018 Instruction Type:Provider Instructions for Treatment How to access health informa tion online Indication:Sciatica of right side Start:27-Sep-2017 Instruction Type:Patient Education How to access health informa tion online - Detail Indication:Sciatica of right side Start:27-Sep-2017 Instruction Type:Patient Education Patient Instructions Indication:Sciatica of right side Start:27-Sep-2017 Instruction Type:Provider Instructions for Treatment How to access health informa tion online Indication:Sciatica of right side Start:30-Aug-2017 Instruction Type:Patient Education How to access health informa tion online - Detail Indication:Sciatica of right side Start:30-Aug-2017 Instruction Type:Patient Education Patient Instructions Indication:Sciatica of right side Start:30-Aug-2017 Instruction Type:Provider Instructions for Treatment How to access health informa tion online Indication:DDD (degenerative disc disease), lumbar Start:13-Aug-2017 Instruction Type:Patient Education How to access health informa tion online - Detail Indication:DDD (degenerative disc disease), lumbar Start:13-Aug-2017 Instruction Type:Patient Education Patient Instructions Indication:Lumbar radiculopathy, right Start:13-Aug-2017 Instruction Type:Provider Instructions for Treatment How to access health informa tion online Indication:Nonsmoker Start:31-Jul-2017 Instruction Type:Patient Education How to access health informa tion online - Detail Indication:Nonsmoker Start:31-Jul-2017 Instruction Type:Patient Education Patient Instructions Indication:Nonsmoker Start:31-Jul-2017 Instruction Type:Provider Instructions for Treatment How to access health informa tion online Indication:Hypertension Start:18-Jul-2016 Instruction Type:Patient Education How to access health informa tion online - Detail Indication:Hypertension Start:18-Jul-2016 Instruction Type:Patient Education Patient Instructions Indication:Hypertension Start:18-Jul-2016 Instruction Type:Provider Instructions for Treatment [facility]; [facility] Work Phone: Instructions* Name Dates Details Patient Instructions Indication:BMI 31.0-31.9,adult Start:11-Sep-2021 Instruction Type:Provider Instructions for Treatment How to Access Health Informa tion Online using Patient Portal and [employer]rd [employer] Apps Indication:BMI 31.0-31.9,adult Start:11-Sep-2021 Instruction Type:Patient Education Patient Instructions Indication:BMI 31.0-31.9,adult Start:09-Jun-2021 Instruction Type:Provider Instructions for Treatment How to Access Health Informa tion Online using Patient Portal and [employer] Apps Indication:Nonsmoker Start:09-Jun-2021 Instruction Type:Patient Education Patient Instructions Indication:BMI 31.0-31.9,adult Start:22-Mar-2021 Instruction Type:Provider Instructions for Treatment How to Access Health Informa tion Online using Patient Portal and [employer] Apps Indication:BMI 31.0-31.9,adult Start:22-Mar-2021 Instruction Type:Patient Education Patient Instructions Indication:BMI 31.0-31.9,adult Start:10-Mar-2021 Instruction Type:Provider Instructions for Treatment How to Access Health Informa tion Online using Patient Portal and [employer] Apps Indication:BMI 31.0-31.9,adult Start:10-Mar-2021 Instruction Type:Patient Education Patient Instructions Indication:Nonsmoker Start:07-Dec-2020 Instruction Type:Provider Instructions for Treatment How to Access Health Informa tion Online using Patient Portal and [employer] Apps Indication:Nonsmoker Start:07-Dec-2020 Instruction Type:Patient Education Patient Instructions Indication:Nonsmoker Start:18-Oct-2020 Instruction Type:Provider Instructions for Treatment How to Access Health Informa tion Online using Patient Portal and [employer] Apps Indication:Nonsmoker Start:18-Oct-2020 Instruction Type:Patient Education Patient Instructions Indication:Nonsmoker Start:06-Sep-2020 Instruction Type:Provider Instructions for Treatment How to Access Health Informa tion Online using Patient Portal and [employer] Apps Indication:Nonsmoker Start:06-Sep-2020 Instruction Type:Patient Education Patient Instructions Indication:Nonsmoker Start:23-Aug-2020 Instruction Type:Provider Instructions for Treatment How to Access Health Informa tion Online using Patient Portal and [employer] Apps Indication:Nonsmoker Start:23-Aug-2020 Instruction Type:Patient Education Patient Instructions Indication:Nonsmoker Start:03-Aug-2020 Instruction Type:Provider Instructions for Treatment How to Access Health Informa tion Online using Patient Portal and [employer] Apps Indication:Nonsmoker Start:03-Aug-2020 Instruction Type:Patient Education Patient Instructions Indication:Nonsmoker Start:25-Jul-2020 Instruction Type:Provider Instructions for Treatment How to Access Health Informa tion Online using Patient Portal and [employer] Apps Indication:Nonsmoker Start:25-Jul-2020 Instruction Type:Patient Education Patient Instructions Indication:Nonsmoker Start:18-Jul-2020 Instruction Type:Provider Instructions for Treatment How to Access Health Informa tion Online using Patient Portal and [employer] Apps Indication:Nonsmoker Start:18-Jul-2020 Instruction Type:Patient Education Patient Instructions Indication:Nonsmoker Start:11-Jul-2020 Instruction Type:Provider Instructions for Treatment How to Access Health Informa tion Online using Patient Portal and [employer] Apps Indication:Nonsmoker Start:11-Jul-2020 Instruction Type:Patient Education How to access health informa tion online Indication:Nonsmoker Start:10-Feb-2020 Instruction Type:Patient Education How to access health informa tion online - Detail Indication:Nonsmoker Start:10-Feb-2020 Instruction Type:Patient Education Patient Instructions Indication:BMI 31.0-31.9,adult Start:10-Feb-2020 Instruction Type:Provider Instructions for Treatment How to access health informa tion online Indication:Nonsmoker Start:19-Jan-2020 Instruction Type:Patient Education How to access health informa tion online - Detail Indication:Nonsmoker Start:19-Jan-2020 Instruction Type:Patient Education Patient Instructions Indication:Nonsmoker Start:19-Jan-2020 Instruction Type:Provider Instructions for Treatment How to access health informa tion online Indication:Nonsmoker Start:05-Jan-2020 Instruction Type:Patient Education How to access health informa tion online - Detail Indication:Nonsmoker Start:05-Jan-2020 Instruction Type:Patient Education Patient Instructions Indication:Allergic rhinitis Start:05-Jan-2020 Instruction Type:Provider Instructions for Treatment How to access health informa tion online Indication:BMI 30.0-30.9,adult Start:16-Nov-2019 Instruction Type:Patient Education How to access health informa tion online - Detail Indication:BMI 30.0-30.9,adult Start:16-Nov-2019 Instruction Type:Patient Education Patient Instructions Indication:BMI 30.0-30.9,adult Start:16-Nov-2019 Instruction Type:Provider Instructions for Treatment How to access health informa tion online Indication:BMI 30.0-30.9,adult Start:25-Sep-2019 Instruction Type:Patient Education How to access health informa tion online - Detail Indication:BMI 30.0-30.9,adult Start:25-Sep-2019 Instruction Type:Patient Education Patient Instructions Indication:BMI 30.0-30.9,adult Start:25-Sep-2019 Instruction Type:Provider Instructions for Treatment How to access health informa tion online Indication:Nonsmoker Start:12-Aug-2019 Instruction Type:Patient Education How to access health informa tion online - Detail Indication:Nonsmoker Start:12-Aug-2019 Instruction Type:Patient Education Patient Instructions Indication:Nonsmoker Start:12-Aug-2019 Instruction Type:Provider Instructions for Treatment How to access health informa tion online Indication:BMI 29.0-29.9,adult Start:04-Aug-2019 Instruction Type:Patient Education How to access health informa tion online - Detail Indication:BMI 29.0-29.9,adult Start:04-Aug-2019 Instruction Type:Patient Education Patient Instructions Indication:BMI 29.0-29.9,adult Start:04-Aug-2019 Instruction Type:Provider Instructions for Treatment How to access health informa tion online Indication:BMI 31.0-31.9,adult Start:25-Jun-2019 Instruction Type:Patient Education How to access health informa tion online - Detail Indication:BMI 31.0-31.9,adult Start:25-Jun-2019 Instruction Type:Patient Education Patient Instructions Indication:Dysuria Start:25-Jun-2019 Instruction Type:Provider Instructions for Treatment How to access health informa tion online Indication:Hypertension Start:02-Feb-2019 Instruction Type:Patient Education How to access health informa tion online - Detail Indication:Hypertension Start:02-Feb-2019 Instruction Type:Patient Education Patient Instructions Indication:Hypertension Start:02-Feb-2019 Instruction Type:Provider Instructions for Treatment How to access health informa tion online Indication:BMI 31.0-31.9,adult Start:21-Jan-2019 Instruction Type:Patient Education How to access health informa tion online - Detail Indication:BMI 31.0-31.9,adult Start:21-Jan-2019 Instruction Type:Patient Education Patient Instructions Indication:BMI 31.0-31.9,adult Start:21-Jan-2019 Instruction Type:Provider Instructions for Treatment How to access health informa tion online Indication:Nonsmoker Start:26-Nov-2018 Instruction Type:Patient Education How to access health informa tion online - Detail Indication:Nonsmoker Start:26-Nov-2018 Instruction Type:Patient Education Patient Instructions Indication:Nonsmoker Start:26-Nov-2018 Instruction Type:Provider Instructions for Treatment How to access health informa tion online Indication:Nonsmoker Start:25-Nov-2018 Instruction Type:Patient Education How to access health informa tion online - Detail Indication:Nonsmoker Start:25-Nov-2018 Instruction Type:Patient Education Patient Instructions Indication:Nonsmoker Start:25-Nov-2018 Instruction Type:Provider Instructions for Treatment How to access health informa tion online Indication:Nonsmoker Start:07-Nov-2018 Instruction Type:Patient Education How to access health informa tion online - Detail Indication:Nonsmoker Start:07-Nov-2018 Instruction Type:Patient Education Patient Instructions Indication:BMI 31.0-31.9,adult Start:07-Nov-2018 Instruction Type:Provider Instructions for Treatment How to access health informa tion online Indication:Nonsmoker Start:28-Jul-2018 Instruction Type:Patient Education How to access health informa tion online - Detail Indication:Nonsmoker Start:28-Jul-2018 Instruction Type:Patient Education Patient Instructions Indication:Bladder prolapse, congenital Start:28-Jul-2018 Instruction Type:Provider Instructions for Treatment How to access health informa tion online Indication:BMI 35.0-35.9,adult Start:03-Jul-2018 Instruction Type:Patient Education How to access health informa tion online - Detail Indication:BMI 35.0-35.9,adult Start:03-Jul-2018 Instruction Type:Patient Education Patient Instructions Indication:Upper respiratory infection Start:03-Jul-2018 Instruction Type:Provider Instructions for Treatment How to access health informa tion online Indication:Nonsmoker Start:04-Feb-2018 Instruction Type:Patient Education How to access health informa tion online - Detail Indication:Nonsmoker Start:04-Feb-2018 Instruction Type:Patient Education Patient Instructions Indication:Rash Start:04-Feb-2018 Instruction Type:Provider Instructions for Treatment How to access health informa tion online Indication:Sciatica of right side Start:31-Jan-2018 Instruction Type:Patient Education How to access health informa tion online - Detail Indication:Sciatica of right side Start:31-Jan-2018 Instruction Type:Patient Education Patient Instructions Indication:Nonsmoker Start:31-Jan-2018 Instruction Type:Provider Instructions for Treatment How to access health informa tion online Indication:Sciatica of right side Start:27-Sep-2017 Instruction Type:Patient Education How to access health informa tion online - Detail Indication:Sciatica of right side Start:27-Sep-2017 Instruction Type:Patient Education Patient Instructions Indication:Sciatica of right side Start:27-Sep-2017 Instruction Type:Provider Instructions for Treatment How to access health informa tion online Indication:Sciatica of right side Start:30-Aug-2017 Instruction Type:Patient Education How to access health informa tion online - Detail Indication:Sciatica of right side Start:30-Aug-2017 Instruction Type:Patient Education Patient Instructions Indication:Sciatica of right side Start:30-Aug-2017 Instruction Type:Provider Instructions for Treatment How to access health informa tion online Indication:DDD (degenerative disc disease), lumbar Start:13-Aug-2017 Instruction Type:Patient Education How to access health informa tion online - Detail Indication:DDD (degenerative disc disease), lumbar Start:13-Aug-2017 Instruction Type:Patient Education Patient Instructions Indication:Lumbar radiculopathy, right Start:13-Aug-2017 Instruction Type:Provider Instructions for Treatment How to access health informa tion online Indication:Nonsmoker Start:31-Jul-2017 Instruction Type:Patient Education How to access health informa tion online - Detail Indication:Nonsmoker Start:31-Jul-2017 Instruction Type:Patient Education Patient Instructions Indication:Nonsmoker Start:31-Jul-2017 Instruction Type:Provider Instructions for Treatment How to access health informa tion online Indication:Hypertension Start:18-Jul-2016 Instruction Type:Patient Education How to access health informa tion online - Detail Indication:Hypertension Start:18-Jul-2016 Instruction Type:Patient Education Patient Instructions Indication:Hypertension Start:18-Jul-2016 Instruction Type:Provider Instructions for Treatment [facility]; [facility] Work Phone: Instructions* Name Dates Details Patient Instructions Indication:Nonsmoker Start:16-Mar-2022 Instruction Type:Provider Instructions for Treatment How to Access Health Informa tion Online using Patient Portal and [employer] Apps Indication:Nonsmoker Start:16-Mar-2022 Instruction Type:Patient Education Patient Instructions Indication:BMI 31.0-31.9,adult Start:11-Sep-2021 Instruction Type:Provider Instructions for Treatment How to Access Health Informa tion Online using Patient Portal and [employer] Apps Indication:BMI 31.0-31.9,adult Start:11-Sep-2021 Instruction Type:Patient Education Patient Instructions Indication:BMI 31.0-31.9,adult Start:09-Jun-2021 Instruction Type:Provider Instructions for Treatment How to Access Health Informa tion Online using Patient Portal and [employer] Apps Indication:Nonsmoker Start:09-Jun-2021 Instruction Type:Patient Education Patient Instructions Indication:BMI 31.0-31.9,adult Start:22-Mar-2021 Instruction Type:Provider Instructions for Treatment How to Access Health Informa tion Online using Patient Portal and [employer] Apps Indication:BMI 31.0-31.9,adult Start:22-Mar-2021 Instruction Type:Patient Education Patient Instructions Indication:BMI 31.0-31.9,adult Start:10-Mar-2021 Instruction Type:Provider Instructions for Treatment How to Access Health Informa tion Online using Patient Portal and [employer] Apps Indication:BMI 31.0-31.9,adult Start:10-Mar-2021 Instruction Type:Patient Education Patient Instructions Indication:Nonsmoker Start:07-Dec-2020 Instruction Type:Provider Instructions for Treatment How to Access Health Informa tion Online using Patient Portal and [employer] Apps Indication:Nonsmoker Start:07-Dec-2020 Instruction Type:Patient Education Patient Instructions Indication:Nonsmoker Start:18-Oct-2020 Instruction Type:Provider Instructions for Treatment How to Access Health Informa tion Online using Patient Portal and [employer]rd [employer] Apps Indication:Nonsmoker Start:18-Oct-2020 Instruction Type:Patient Education Patient Instructions Indication:Nonsmoker Start:06-Sep-2020 Instruction Type:Provider Instructions for Treatment How to Access Health Informa tion Online using Patient Portal and [employer]rd [employer] Apps Indication:Nonsmoker Start:06-Sep-2020 Instruction Type:Patient Education Patient Instructions Indication:Nonsmoker Start:23-Aug-2020 Instruction Type:Provider Instructions for Treatment How to Access Health Informa tion Online using Patient Portal and [employer]rd [employer] Apps Indication:Nonsmoker Start:23-Aug-2020 Instruction Type:Patient Education Patient Instructions Indication:Nonsmoker Start:03-Aug-2020 Instruction Type:Provider Instructions for Treatment How to Access Health Informa tion Online using Patient Portal and [employer]rd [employer] Apps Indication:Nonsmoker Start:03-Aug-2020 Instruction Type:Patient Education Patient Instructions Indication:Nonsmoker Start:25-Jul-2020 Instruction Type:Provider Instructions for Treatment How to Access Health Informa tion Online using Patient Portal and [employer]rd [employer] Apps Indication:Nonsmoker Start:25-Jul-2020 Instruction Type:Patient Education Patient Instructions Indication:Nonsmoker Start:18-Jul-2020 Instruction Type:Provider Instructions for Treatment How to Access Health Informa tion Online using Patient Portal and [employer]rd [employer] Apps Indication:Nonsmoker Start:18-Jul-2020 Instruction Type:Patient Education Patient Instructions Indication:Nonsmoker Start:11-Jul-2020 Instruction Type:Provider Instructions for Treatment How to Access Health Informa tion Online using Patient Portal and [employer]rd [employer] Apps Indication:Nonsmoker Start:11-Jul-2020 Instruction Type:Patient Education How to access health informa tion online Indication:Nonsmoker Start:10-Feb-2020 Instruction Type:Patient Education How to access health informa tion online - Detail Indication:Nonsmoker Start:10-Feb-2020 Instruction Type:Patient Education Patient Instructions Indication:BMI 31.0-31.9,adult Start:10-Feb-2020 Instruction Type:Provider Instructions for Treatment How to access health informa tion online Indication:Nonsmoker Start:19-Jan-2020 Instruction Type:Patient Education How to access health informa tion online - Detail Indication:Nonsmoker Start:19-Jan-2020 Instruction Type:Patient Education Patient Instructions Indication:Nonsmoker Start:19-Jan-2020 Instruction Type:Provider Instructions for Treatment How to access health informa tion online Indication:Nonsmoker Start:05-Jan-2020 Instruction Type:Patient Education How to access health informa tion online - Detail Indication:Nonsmoker Start:05-Jan-2020 Instruction Type:Patient Education Patient Instructions Indication:Allergic rhinitis Start:05-Jan-2020 Instruction Type:Provider Instructions for Treatment How to access health informa tion online Indication:BMI 30.0-30.9,adult Start:16-Nov-2019 Instruction Type:Patient Education How to access health informa tion online - Detail Indication:BMI 30.0-30.9,adult Start:16-Nov-2019 Instruction Type:Patient Education Patient Instructions Indication:BMI 30.0-30.9,adult Start:16-Nov-2019 Instruction Type:Provider Instructions for Treatment How to access health informa tion online Indication:BMI 30.0-30.9,adult Start:25-Sep-2019 Instruction Type:Patient Education How to access health informa tion online - Detail Indication:BMI 30.0-30.9,adult Start:25-Sep-2019 Instruction Type:Patient Education Patient Instructions Indication:BMI 30.0-30.9,adult Start:25-Sep-2019 Instruction Type:Provider Instructions for Treatment How to access health informa tion online Indication:Nonsmoker Start:12-Aug-2019 Instruction Type:Patient Education How to access health informa tion online - Detail Indication:Nonsmoker Start:12-Aug-2019 Instruction Type:Patient Education Patient Instructions Indication:Nonsmoker Start:12-Aug-2019 Instruction Type:Provider Instructions for Treatment How to access health informa tion online Indication:BMI 29.0-29.9,adult Start:04-Aug-2019 Instruction Type:Patient Education How to access health informa tion online - Detail Indication:BMI 29.0-29.9,adult Start:04-Aug-2019 Instruction Type:Patient Education Patient Instructions Indication:BMI 29.0-29.9,adult Start:04-Aug-2019 Instruction Type:Provider Instructions for Treatment How to access health informa tion online Indication:BMI 31.0-31.9,adult Start:25-Jun-2019 Instruction Type:Patient Education How to access health informa tion online - Detail Indication:BMI 31.0-31.9,adult Start:25-Jun-2019 Instruction Type:Patient Education Patient Instructions Indication:Dysuria Start:25-Jun-2019 Instruction Type:Provider Instructions for Treatment How to access health informa tion online Indication:Hypertension Start:02-Feb-2019 Instruction Type:Patient Education How to access health informa tion online - Detail Indication:Hypertension Start:02-Feb-2019 Instruction Type:Patient Education Patient Instructions Indication:Hypertension Start:02-Feb-2019 Instruction Type:Provider Instructions for Treatment How to access health informa tion online Indication:BMI 31.0-31.9,adult Start:21-Jan-2019 Instruction Type:Patient Education How to access health informa tion online - Detail Indication:BMI 31.0-31.9,adult Start:21-Jan-2019 Instruction Type:Patient Education Patient Instructions Indication:BMI 31.0-31.9,adult Start:21-Jan-2019 Instruction Type:Provider Instructions for Treatment How to access health informa tion online Indication:Nonsmoker Start:26-Nov-2018 Instruction Type:Patient Education How to access health informa tion online - Detail Indication:Nonsmoker Start:26-Nov-2018 Instruction Type:Patient Education Patient Instructions Indication:Nonsmoker Start:26-Nov-2018 Instruction Type:Provider Instructions for Treatment How to access health informa tion online Indication:Nonsmoker Start:25-Nov-2018 Instruction Type:Patient Education How to access health informa tion online - Detail Indication:Nonsmoker Start:25-Nov-2018 Instruction Type:Patient Education Patient Instructions Indication:Nonsmoker Start:25-Nov-2018 Instruction Type:Provider Instructions for Treatment How to access health informa tion online Indication:Nonsmoker Start:07-Nov-2018 Instruction Type:Patient Education How to access health informa tion online - Detail Indication:Nonsmoker Start:07-Nov-2018 Instruction Type:Patient Education Patient Instructions Indication:BMI 31.0-31.9,adult Start:07-Nov-2018 Instruction Type:Provider Instructions for Treatment How to access health informa tion online Indication:Nonsmoker Start:28-Jul-2018 Instruction Type:Patient Education How to access health informa tion online - Detail Indication:Nonsmoker Start:28-Jul-2018 Instruction Type:Patient Education Patient Instructions Indication:Bladder prolapse, congenital Start:28-Jul-2018 Instruction Type:Provider Instructions for Treatment How to access health informa tion online Indication:BMI 35.0-35.9,adult Start:03-Jul-2018 Instruction Type:Patient Education How to access health informa tion online - Detail Indication:BMI 35.0-35.9,adult Start:03-Jul-2018 Instruction Type:Patient Education Patient Instructions Indication:Upper respiratory infection Start:03-Jul-2018 Instruction Type:Provider Instructions for Treatment How to access health informa tion online Indication:Nonsmoker Start:04-Feb-2018 Instruction Type:Patient Education How to access health informa tion online - Detail Indication:Nonsmoker Start:04-Feb-2018 Instruction Type:Patient Education Patient Instructions Indication:Rash Start:04-Feb-2018 Instruction Type:Provider Instructions for Treatment How to access health informa tion online Indication:Sciatica of right side Start:31-Jan-2018 Instruction Type:Patient Education How to access health informa tion online - Detail Indication:Sciatica of right side Start:31-Jan-2018 Instruction Type:Patient Education Patient Instructions Indication:Nonsmoker Start:31-Jan-2018 Instruction Type:Provider Instructions for Treatment How to access health informa tion online Indication:Sciatica of right side Start:27-Sep-2017 Instruction Type:Patient Education How to access health informa tion online - Detail Indication:Sciatica of right side Start:27-Sep-2017 Instruction Type:Patient Education Patient Instructions Indication:Sciatica of right side Start:27-Sep-2017 Instruction Type:Provider Instructions for Treatment How to access health informa tion online Indication:Sciatica of right side Start:30-Aug-2017 Instruction Type:Patient Education How to access health informa tion online - Detail Indication:Sciatica of right side Start:30-Aug-2017 Instruction Type:Patient Education Patient Instructions Indication:Sciatica of right side Start:30-Aug-2017 Instruction Type:Provider Instructions for Treatment How to access health informa tion online Indication:DDD (degenerative disc disease), lumbar Start:13-Aug-2017 Instruction Type:Patient Education How to access health informa tion online - Detail Indication:DDD (degenerative disc disease), lumbar Start:13-Aug-2017 Instruction Type:Patient Education Patient Instructions Indication:Lumbar radiculopathy, right Start:13-Aug-2017 Instruction Type:Provider Instructions for Treatment How to access health informa tion online Indication:Nonsmoker Start:31-Jul-2017 Instruction Type:Patient Education How to access health informa tion online - Detail Indication:Nonsmoker Start:31-Jul-2017 Instruction Type:Patient Education Patient Instructions Indication:Nonsmoker Start:31-Jul-2017 Instruction Type:Provider Instructions for Treatment How to access health informa tion online Indication:Hypertension Start:18-Jul-2016 Instruction Type:Patient Education How to access health informa tion online - Detail Indication:Hypertension Start:18-Jul-2016 Instruction Type:Patient Education Patient Instructions Indication:Hypertension Start:18-Jul-2016 Instruction Type:Provider Instructions for Treatment [facility]; [facility] Work Phone: Instructions* Name Dates Details Patient Instructions Indication:Nonsmoker Start:16-Mar-2022 Instruction Type:Provider Instructions for Treatment How to Access Health Informa tion Online using Patient Portal and [employer]rd [employer] Apps Indication:Nonsmoker Start:16-Mar-2022 Instruction Type:Patient Education Patient Instructions Indication:BMI 31.0-31.9,adult Start:11-Sep-2021 Instruction Type:Provider Instructions for Treatment How to Access Health Informa tion Online using Patient Portal and [employer]rd [employer] Apps Indication:BMI 31.0-31.9,adult Start:11-Sep-2021 Instruction Type:Patient Education Patient Instructions Indication:BMI 31.0-31.9,adult Start:09-Jun-2021 Instruction Type:Provider Instructions for Treatment How to Access Health Informa tion Online using Patient Portal and [employer]rd [employer] Apps Indication:Nonsmoker Start:09-Jun-2021 Instruction Type:Patient Education Patient Instructions Indication:BMI 31.0-31.9,adult Start:22-Mar-2021 Instruction Type:Provider Instructions for Treatment How to Access Health Informa tion Online using Patient Portal and [employer]rd [employer] Apps Indication:BMI 31.0-31.9,adult Start:22-Mar-2021 Instruction Type:Patient Education Patient Instructions Indication:BMI 31.0-31.9,adult Start:10-Mar-2021 Instruction Type:Provider Instructions for Treatment How to Access Health Informa tion Online using Patient Portal and [employer]rd [employer] Apps Indication:BMI 31.0-31.9,adult Start:10-Mar-2021 Instruction Type:Patient Education Patient Instructions Indication:Nonsmoker Start:07-Dec-2020 Instruction Type:Provider Instructions for Treatment How to Access Health Informa tion Online using Patient Portal and [employer]rd [employer] Apps Indication:Nonsmoker Start:07-Dec-2020 Instruction Type:Patient Education Patient Instructions Indication:Nonsmoker Start:18-Oct-2020 Instruction Type:Provider Instructions for Treatment How to Access Health Informa tion Online using Patient Portal and [employer]rd [employer] Apps Indication:Nonsmoker Start:18-Oct-2020 Instruction Type:Patient Education Patient Instructions Indication:Nonsmoker Start:06-Sep-2020 Instruction Type:Provider Instructions for Treatment How to Access Health Informa tion Online using Patient Portal and [employer] Apps Indication:Nonsmoker Start:06-Sep-2020 Instruction Type:Patient Education Patient Instructions Indication:Nonsmoker Start:23-Aug-2020 Instruction Type:Provider Instructions for Treatment How to Access Health Informa tion Online using Patient Portal and [employer] Apps Indication:Nonsmoker Start:23-Aug-2020 Instruction Type:Patient Education Patient Instructions Indication:Nonsmoker Start:03-Aug-2020 Instruction Type:Provider Instructions for Treatment How to Access Health Informa tion Online using Patient Portal and [employer]rd [employer] Apps Indication:Nonsmoker Start:03-Aug-2020 Instruction Type:Patient Education Patient Instructions Indication:Nonsmoker Start:25-Jul-2020 Instruction Type:Provider Instructions for Treatment How to Access Health Informa tion Online using Patient Portal and [employer] Apps Indication:Nonsmoker Start:25-Jul-2020 Instruction Type:Patient Education Patient Instructions Indication:Nonsmoker Start:18-Jul-2020 Instruction Type:Provider Instructions for Treatment How to Access Health Informa tion Online using Patient Portal and [employer] Apps Indication:Nonsmoker Start:18-Jul-2020 Instruction Type:Patient Education Patient Instructions Indication:Nonsmoker Start:11-Jul-2020 Instruction Type:Provider Instructions for Treatment How to Access Health Informa tion Online using Patient Portal and [employer] Apps Indication:Nonsmoker Start:11-Jul-2020 Instruction Type:Patient Education How to access health informa tion online Indication:Nonsmoker Start:10-Feb-2020 Instruction Type:Patient Education How to access health informa tion online - Detail Indication:Nonsmoker Start:10-Feb-2020 Instruction Type:Patient Education Patient Instructions Indication:BMI 31.0-31.9,adult Start:10-Feb-2020 Instruction Type:Provider Instructions for Treatment How to access health informa tion online Indication:Nonsmoker Start:19-Jan-2020 Instruction Type:Patient Education How to access health informa tion online - Detail Indication:Nonsmoker Start:19-Jan-2020 Instruction Type:Patient Education Patient Instructions Indication:Nonsmoker Start:19-Jan-2020 Instruction Type:Provider Instructions for Treatment How to access health informa tion online Indication:Nonsmoker Start:05-Jan-2020 Instruction Type:Patient Education How to access health informa tion online - Detail Indication:Nonsmoker Start:05-Jan-2020 Instruction Type:Patient Education Patient Instructions Indication:Allergic rhinitis Start:05-Jan-2020 Instruction Type:Provider Instructions for Treatment How to access health informa tion online Indication:BMI 30.0-30.9,adult Start:16-Nov-2019 Instruction Type:Patient Education How to access health informa tion online - Detail Indication:BMI 30.0-30.9,adult Start:16-Nov-2019 Instruction Type:Patient Education Patient Instructions Indication:BMI 30.0-30.9,adult Start:16-Nov-2019 Instruction Type:Provider Instructions for Treatment How to access health informa tion online Indication:BMI 30.0-30.9,adult Start:25-Sep-2019 Instruction Type:Patient Education How to access health informa tion online - Detail Indication:BMI 30.0-30.9,adult Start:25-Sep-2019 Instruction Type:Patient Education Patient Instructions Indication:BMI 30.0-30.9,adult Start:25-Sep-2019 Instruction Type:Provider Instructions for Treatment How to access health informa tion online Indication:Nonsmoker Start:12-Aug-2019 Instruction Type:Patient Education How to access health informa tion online - Detail Indication:Nonsmoker Start:12-Aug-2019 Instruction Type:Patient Education Patient Instructions Indication:Nonsmoker Start:12-Aug-2019 Instruction Type:Provider Instructions for Treatment How to access health informa tion online Indication:BMI 29.0-29.9,adult Start:04-Aug-2019 Instruction Type:Patient Education How to access health informa tion online - Detail Indication:BMI 29.0-29.9,adult Start:04-Aug-2019 Instruction Type:Patient Education Patient Instructions Indication:BMI 29.0-29.9,adult Start:04-Aug-2019 Instruction Type:Provider Instructions for Treatment How to access health informa tion online Indication:BMI 31.0-31.9,adult Start:25-Jun-2019 Instruction Type:Patient Education How to access health informa tion online - Detail Indication:BMI 31.0-31.9,adult Start:25-Jun-2019 Instruction Type:Patient Education Patient Instructions Indication:Dysuria Start:25-Jun-2019 Instruction Type:Provider Instructions for Treatment How to access health informa tion online Indication:Hypertension Start:02-Feb-2019 Instruction Type:Patient Education How to access health informa tion online - Detail Indication:Hypertension Start:02-Feb-2019 Instruction Type:Patient Education Patient Instructions Indication:Hypertension Start:02-Feb-2019 Instruction Type:Provider Instructions for Treatment How to access health informa tion online Indication:BMI 31.0-31.9,adult Start:21-Jan-2019 Instruction Type:Patient Education How to access health informa tion online - Detail Indication:BMI 31.0-31.9,adult Start:21-Jan-2019 Instruction Type:Patient Education Patient Instructions Indication:BMI 31.0-31.9,adult Start:21-Jan-2019 Instruction Type:Provider Instructions for Treatment How to access health informa tion online Indication:Nonsmoker Start:26-Nov-2018 Instruction Type:Patient Education How to access health informa tion online - Detail Indication:Nonsmoker Start:26-Nov-2018 Instruction Type:Patient Education Patient Instructions Indication:Nonsmoker Start:26-Nov-2018 Instruction Type:Provider Instructions for Treatment How to access health informa tion online Indication:Nonsmoker Start:25-Nov-2018 Instruction Type:Patient Education How to access health informa tion online - Detail Indication:Nonsmoker Start:25-Nov-2018 Instruction Type:Patient Education Patient Instructions Indication:Nonsmoker Start:25-Nov-2018 Instruction Type:Provider Instructions for Treatment How to access health informa tion online Indication:Nonsmoker Start:07-Nov-2018 Instruction Type:Patient Education How to access health informa tion online - Detail Indication:Nonsmoker Start:07-Nov-2018 Instruction Type:Patient Education Patient Instructions Indication:BMI 31.0-31.9,adult Start:07-Nov-2018 Instruction Type:Provider Instructions for Treatment How to access health informa tion online Indication:Nonsmoker Start:28-Jul-2018 Instruction Type:Patient Education How to access health informa tion online - Detail Indication:Nonsmoker Start:28-Jul-2018 Instruction Type:Patient Education Patient Instructions Indication:Bladder prolapse, congenital Start:28-Jul-2018 Instruction Type:Provider Instructions for Treatment How to access health informa tion online Indication:BMI 35.0-35.9,adult Start:03-Jul-2018 Instruction Type:Patient Education How to access health informa tion online - Detail Indication:BMI 35.0-35.9,adult Start:03-Jul-2018 Instruction Type:Patient Education Patient Instructions Indication:Upper respiratory infection Start:03-Jul-2018 Instruction Type:Provider Instructions for Treatment How to access health informa tion online Indication:Nonsmoker Start:04-Feb-2018 Instruction Type:Patient Education How to access health informa tion online - Detail Indication:Nonsmoker Start:04-Feb-2018 Instruction Type:Patient Education Patient Instructions Indication:Rash Start:04-Feb-2018 Instruction Type:Provider Instructions for Treatment How to access health informa tion online Indication:Sciatica of right side Start:31-Jan-2018 Instruction Type:Patient Education How to access health informa tion online - Detail Indication:Sciatica of right side Start:31-Jan-2018 Instruction Type:Patient Education Patient Instructions Indication:Nonsmoker Start:31-Jan-2018 Instruction Type:Provider Instructions for Treatment How to access health informa tion online Indication:Sciatica of right side Start:27-Sep-2017 Instruction Type:Patient Education How to access health informa tion online - Detail Indication:Sciatica of right side Start:27-Sep-2017 Instruction Type:Patient Education Patient Instructions Indication:Sciatica of right side Start:27-Sep-2017 Instruction Type:Provider Instructions for Treatment How to access health informa tion online Indication:Sciatica of right side Start:30-Aug-2017 Instruction Type:Patient Education How to access health informa tion online - Detail Indication:Sciatica of right side Start:30-Aug-2017 Instruction Type:Patient Education Patient Instructions Indication:Sciatica of right side Start:30-Aug-2017 Instruction Type:Provider Instructions for Treatment How to access health informa tion online Indication:DDD (degenerative disc disease), lumbar Start:13-Aug-2017 Instruction Type:Patient Education How to access health informa tion online - Detail Indication:DDD (degenerative disc disease), lumbar Start:13-Aug-2017 Instruction Type:Patient Education Patient Instructions Indication:Lumbar radiculopathy, right Start:13-Aug-2017 Instruction Type:Provider Instructions for Treatment How to access health informa tion online Indication:Nonsmoker Start:31-Jul-2017 Instruction Type:Patient Education How to access health informa tion online - Detail Indication:Nonsmoker Start:31-Jul-2017 Instruction Type:Patient Education Patient Instructions Indication:Nonsmoker Start:31-Jul-2017 Instruction Type:Provider Instructions for Treatment How to access health informa tion online Indication:Hypertension Start:18-Jul-2016 Instruction Type:Patient Education How to access health informa tion online - Detail Indication:Hypertension Start:18-Jul-2016 Instruction Type:Patient Education Patient Instructions Indication:Hypertension Start:18-Jul-2016 Instruction Type:Provider Instructions for Treatment [facility]; [facility] Work Phone: Instructions* Name Dates Details Patient Instructions Indication:Nonsmoker Start:14-Sep-2022 Instruction Type:Provider Instructions for Treatment How to Access Health Informa tion Online using Patient Portal and [employer]rd [employer] Apps Indication:Nonsmoker Start:14-Sep-2022 Instruction Type:Patient Education Patient Instructions Indication:Nonsmoker Start:16-Mar-2022 Instruction Type:Provider Instructions for Treatment How to Access Health Informa tion Online using Patient Portal and [employer]rd [employer] Apps Indication:Nonsmoker Start:16-Mar-2022 Instruction Type:Patient Education Patient Instructions Indication:BMI 31.0-31.9,adult Start:11-Sep-2021 Instruction Type:Provider Instructions for Treatment How to Access Health Informa tion Online using Patient Portal and [employer] Apps Indication:BMI 31.0-31.9,adult Start:11-Sep-2021 Instruction Type:Patient Education Patient Instructions Indication:BMI 31.0-31.9,adult Start:09-Jun-2021 Instruction Type:Provider Instructions for Treatment How to Access Health Informa tion Online using Patient Portal and [employer]rd [employer] Apps Indication:Nonsmoker Start:09-Jun-2021 Instruction Type:Patient Education Patient Instructions Indication:BMI 31.0-31.9,adult Start:22-Mar-2021 Instruction Type:Provider Instructions for Treatment How to Access Health Informa tion Online using Patient Portal and [employer] Apps Indication:BMI 31.0-31.9,adult Start:22-Mar-2021 Instruction Type:Patient Education Patient Instructions Indication:BMI 31.0-31.9,adult Start:10-Mar-2021 Instruction Type:Provider Instructions for Treatment How to Access Health Informa tion Online using Patient Portal and [employer] Apps Indication:BMI 31.0-31.9,adult Start:10-Mar-2021 Instruction Type:Patient Education Patient Instructions Indication:Nonsmoker Start:07-Dec-2020 Instruction Type:Provider Instructions for Treatment How to Access Health Informa tion Online using Patient Portal and [employer]rd [employer] Indication:Nonsmoker Start:07-Dec-2020 Instruction Type:Patient Education Patient Instructions Indication:Nonsmoker Start:18-Oct-2020 Instruction Type:Provider Instructions for Treatment How to Access Health Informa tion Online using Patient Portal and [employer]rd [employer] Apps Indication:Nonsmoker Start:18-Oct-2020 Instruction Type:Patient Education Patient Instructions Indication:Nonsmoker Start:06-Sep-2020 Instruction Type:Provider Instructions for Treatment How to Access Health Informa tion Online using Patient Portal and [employer]rd [employer] Apps Indication:Nonsmoker Start:06-Sep-2020 Instruction Type:Patient Education Patient Instructions Indication:Nonsmoker Start:23-Aug-2020 Instruction Type:Provider Instructions for Treatment How to Access Health Informa tion Online using Patient Portal and [employer]rd [employer] Apps Indication:Nonsmoker Start:23-Aug-2020 Instruction Type:Patient Education Patient Instructions Indication:Nonsmoker Start:03-Aug-2020 Instruction Type:Provider Instructions for Treatment How to Access Health Informa tion Online using Patient Portal and [employer]rd [employer] Apps Indication:Nonsmoker Start:03-Aug-2020 Instruction Type:Patient Education Patient Instructions Indication:Nonsmoker Start:25-Jul-2020 Instruction Type:Provider Instructions for Treatment How to Access Health Informa tion Online using Patient Portal and [employer]rd [employer] Apps Indication:Nonsmoker Start:25-Jul-2020 Instruction Type:Patient Education Patient Instructions Indication:Nonsmoker Start:18-Jul-2020 Instruction Type:Provider Instructions for Treatment How to Access Health Informa tion Online using Patient Portal and [employer]rd [employer] Apps Indication:Nonsmoker Start:18-Jul-2020 Instruction Type:Patient Education Patient Instructions Indication:Nonsmoker Start:11-Jul-2020 Instruction Type:Provider Instructions for Treatment How to Access Health Informa tion Online using Patient Portal and [employer]rd [employer] Apps Indication:Nonsmoker Start:11-Jul-2020 Instruction Type:Patient Education How to access health informa tion online Indication:Nonsmoker Start:10-Feb-2020 Instruction Type:Patient Education How to access health informa tion online - Detail Indication:Nonsmoker Start:10-Feb-2020 Instruction Type:Patient Education Patient Instructions Indication:BMI 31.0-31.9,adult Start:10-Feb-2020 Instruction Type:Provider Instructions for Treatment How to access health informa tion online Indication:Nonsmoker Start:19-Jan-2020 Instruction Type:Patient Education How to access health informa tion online - Detail Indication:Nonsmoker Start:19-Jan-2020 Instruction Type:Patient Education Patient Instructions Indication:Nonsmoker Start:19-Jan-2020 Instruction Type:Provider Instructions for Treatment How to access health informa tion online Indication:Nonsmoker Start:05-Jan-2020 Instruction Type:Patient Education How to access health informa tion online - Detail Indication:Nonsmoker Start:05-Jan-2020 Instruction Type:Patient Education Patient Instructions Indication:Allergic rhinitis Start:05-Jan-2020 Instruction Type:Provider Instructions for Treatment How to access health informa tion online Indication:BMI 30.0-30.9,adult Start:16-Nov-2019 Instruction Type:Patient Education How to access health informa tion online - Detail Indication:BMI 30.0-30.9,adult Start:16-Nov-2019 Instruction Type:Patient Education Patient Instructions Indication:BMI 30.0-30.9,adult Start:16-Nov-2019 Instruction Type:Provider Instructions for Treatment How to access health informa tion online Indication:BMI 30.0-30.9,adult Start:25-Sep-2019 Instruction Type:Patient Education How to access health informa tion online - Detail Indication:BMI 30.0-30.9,adult Start:25-Sep-2019 Instruction Type:Patient Education Patient Instructions Indication:BMI 30.0-30.9,adult Start:25-Sep-2019 Instruction Type:Provider Instructions for Treatment How to access health informa tion online Indication:Nonsmoker Start:12-Aug-2019 Instruction Type:Patient Education How to access health informa tion online - Detail Indication:Nonsmoker Start:12-Aug-2019 Instruction Type:Patient Education Patient Instructions Indication:Nonsmoker Start:12-Aug-2019 Instruction Type:Provider Instructions for Treatment How to access health informa tion online Indication:BMI 29.0-29.9,adult Start:04-Aug-2019 Instruction Type:Patient Education How to access health informa tion online - Detail Indication:BMI 29.0-29.9,adult Start:04-Aug-2019 Instruction Type:Patient Education Patient Instructions Indication:BMI 29.0-29.9,adult Start:04-Aug-2019 Instruction Type:Provider Instructions for Treatment How to access health informa tion online Indication:BMI 31.0-31.9,adult Start:25-Jun-2019 Instruction Type:Patient Education How to access health informa tion online - Detail Indication:BMI 31.0-31.9,adult Start:25-Jun-2019 Instruction Type:Patient Education Patient Instructions Indication:Dysuria Start:25-Jun-2019 Instruction Type:Provider Instructions for Treatment How to access health informa tion online Indication:Hypertension Start:02-Feb-2019 Instruction Type:Patient Education How to access health informa tion online - Detail Indication:Hypertension Start:02-Feb-2019 Instruction Type:Patient Education Patient Instructions Indication:Hypertension Start:02-Feb-2019 Instruction Type:Provider Instructions for Treatment How to access health informa tion online Indication:BMI 31.0-31.9,adult Start:21-Jan-2019 Instruction Type:Patient Education How to access health informa tion online - Detail Indication:BMI 31.0-31.9,adult Start:21-Jan-2019 Instruction Type:Patient Education Patient Instructions Indication:BMI 31.0-31.9,adult Start:21-Jan-2019 Instruction Type:Provider Instructions for Treatment How to access health informa tion online Indication:Nonsmoker Start:26-Nov-2018 Instruction Type:Patient Education How to access health informa tion online - Detail Indication:Nonsmoker Start:26-Nov-2018 Instruction Type:Patient Education Patient Instructions Indication:Nonsmoker Start:26-Nov-2018 Instruction Type:Provider Instructions for Treatment How to access health informa tion online Indication:Nonsmoker Start:25-Nov-2018 Instruction Type:Patient Education How to access health informa tion online - Detail Indication:Nonsmoker Start:25-Nov-2018 Instruction Type:Patient Education Patient Instructions Indication:Nonsmoker Start:25-Nov-2018 Instruction Type:Provider Instructions for Treatment How to access health informa tion online Indication:Nonsmoker Start:07-Nov-2018 Instruction Type:Patient Education How to access health informa tion online - Detail Indication:Nonsmoker Start:07-Nov-2018 Instruction Type:Patient Education Patient Instructions Indication:BMI 31.0-31.9,adult Start:07-Nov-2018 Instruction Type:Provider Instructions for Treatment How to access health informa tion online Indication:Nonsmoker Start:28-Jul-2018 Instruction Type:Patient Education How to access health informa tion online - Detail Indication:Nonsmoker Start:28-Jul-2018 Instruction Type:Patient Education Patient Instructions Indication:Bladder prolapse, congenital Start:28-Jul-2018 Instruction Type:Provider Instructions for Treatment How to access health informa tion online Indication:BMI 35.0-35.9,adult Start:03-Jul-2018 Instruction Type:Patient Education How to access health informa tion online - Detail Indication:BMI 35.0-35.9,adult Start:03-Jul-2018 Instruction Type:Patient Education Patient Instructions Indication:Upper respiratory infection Start:03-Jul-2018 Instruction Type:Provider Instructions for Treatment How to access health informa tion online Indication:Nonsmoker Start:04-Feb-2018 Instruction Type:Patient Education How to access health informa tion online - Detail Indication:Nonsmoker Start:04-Feb-2018 Instruction Type:Patient Education Patient Instructions Indication:Rash Start:04-Feb-2018 Instruction Type:Provider Instructions for Treatment How to access health informa tion online Indication:Sciatica of right side Start:31-Jan-2018 Instruction Type:Patient Education How to access health informa tion online - Detail Indication:Sciatica of right side Start:31-Jan-2018 Instruction Type:Patient Education Patient Instructions Indication:Nonsmoker Start:31-Jan-2018 Instruction Type:Provider Instructions for Treatment How to access health informa tion online Indication:Sciatica of right side Start:27-Sep-2017 Instruction Type:Patient Education How to access health informa tion online - Detail Indication:Sciatica of right side Start:27-Sep-2017 Instruction Type:Patient Education Patient Instructions Indication:Sciatica of right side Start:27-Sep-2017 Instruction Type:Provider Instructions for Treatment How to access health informa tion online Indication:Sciatica of right side Start:30-Aug-2017 Instruction Type:Patient Education How to access health informa tion online - Detail Indication:Sciatica of right side Start:30-Aug-2017 Instruction Type:Patient Education Patient Instructions Indication:Sciatica of right side Start:30-Aug-2017 Instruction Type:Provider Instructions for Treatment How to access health informa tion online Indication:DDD (degenerative disc disease), lumbar Start:13-Aug-2017 Instruction Type:Patient Education How to access health informa tion online - Detail Indication:DDD (degenerative disc disease), lumbar Start:13-Aug-2017 Instruction Type:Patient Education Patient Instructions Indication:Lumbar radiculopathy, right Start:13-Aug-2017 Instruction Type:Provider Instructions for Treatment How to access health informa tion online Indication:Nonsmoker Start:31-Jul-2017 Instruction Type:Patient Education How to access health informa tion online - Detail Indication:Nonsmoker Start:31-Jul-2017 Instruction Type:Patient Education Patient Instructions Indication:Nonsmoker Start:31-Jul-2017 Instruction Type:Provider Instructions for Treatment How to access health informa tion online Indication:Hypertension Start:18-Jul-2016 Instruction Type:Patient Education How to access health informa tion online - Detail Indication:Hypertension Start:18-Jul-2016 Instruction Type:Patient Education Patient Instructions Indication:Hypertension Start:18-Jul-2016 Instruction Type:Provider Instructions for Treatment [facility]; [facility] Work Phone: Instructions* Name Dates Details Patient Instructions Indication:Nonsmoker Start:14-Sep-2022 Instruction Type:Provider Instructions for Treatment How to Access Health Informa tion Online using Patient Portal and [employer]rd [employer] Apps Indication:Nonsmoker Start:14-Sep-2022 Instruction Type:Patient Education Patient Instructions Indication:Nonsmoker Start:16-Mar-2022 Instruction Type:Provider Instructions for Treatment How to Access Health Informa tion Online using Patient Portal and [employer]rd [employer] Apps Indication:Nonsmoker Start:16-Mar-2022 Instruction Type:Patient Education Patient Instructions Indication:BMI 31.0-31.9,adult Start:11-Sep-2021 Instruction Type:Provider Instructions for Treatment How to Access Health Informa tion Online using Patient Portal and [employer] Apps Indication:BMI 31.0-31.9,adult Start:11-Sep-2021 Instruction Type:Patient Education Patient Instructions Indication:BMI 31.0-31.9,adult Start:09-Jun-2021 Instruction Type:Provider Instructions for Treatment How to Access Health Informa tion Online using Patient Portal and [employer]rd [employer] Apps Indication:Nonsmoker Start:09-Jun-2021 Instruction Type:Patient Education Patient Instructions Indication:BMI 31.0-31.9,adult Start:22-Mar-2021 Instruction Type:Provider Instructions for Treatment How to Access Health Informa tion Online using Patient Portal and [employer] Apps Indication:BMI 31.0-31.9,adult Start:22-Mar-2021 Instruction Type:Patient Education Patient Instructions Indication:BMI 31.0-31.9,adult Start:10-Mar-2021 Instruction Type:Provider Instructions for Treatment How to Access Health Informa tion Online using Patient Portal and [employer] Apps Indication:BMI 31.0-31.9,adult Start:10-Mar-2021 Instruction Type:Patient Education Patient Instructions Indication:Nonsmoker Start:07-Dec-2020 Instruction Type:Provider Instructions for Treatment How to Access Health Informa tion Online using Patient Portal and [employer] Apps Indication:Nonsmoker Start:07-Dec-2020 Instruction Type:Patient Education Patient Instructions Indication:Nonsmoker Start:18-Oct-2020 Instruction Type:Provider Instructions for Treatment How to Access Health Informa tion Online using Patient Portal and [employer] Apps Indication:Nonsmoker Start:18-Oct-2020 Instruction Type:Patient Education Patient Instructions Indication:Nonsmoker Start:06-Sep-2020 Instruction Type:Provider Instructions for Treatment How to Access Health Informa tion Online using Patient Portal and [employer] Apps Indication:Nonsmoker Start:06-Sep-2020 Instruction Type:Patient Education Patient Instructions Indication:Nonsmoker Start:23-Aug-2020 Instruction Type:Provider Instructions for Treatment How to Access Health Informa tion Online using Patient Portal and [employer] Apps Indication:Nonsmoker Start:23-Aug-2020 Instruction Type:Patient Education Patient Instructions Indication:Nonsmoker Start:03-Aug-2020 Instruction Type:Provider Instructions for Treatment How to Access Health Informa tion Online using Patient Portal and [employer] Apps Indication:Nonsmoker Start:03-Aug-2020 Instruction Type:Patient Education Patient Instructions Indication:Nonsmoker Start:25-Jul-2020 Instruction Type:Provider Instructions for Treatment How to Access Health Informa tion Online using Patient Portal and [employer] Apps Indication:Nonsmoker Start:25-Jul-2020 Instruction Type:Patient Education Patient Instructions Indication:Nonsmoker Start:18-Jul-2020 Instruction Type:Provider Instructions for Treatment How to Access Health Informa tion Online using Patient Portal and [employer] Apps Indication:Nonsmoker Start:18-Jul-2020 Instruction Type:Patient Education Patient Instructions Indication:Nonsmoker Start:11-Jul-2020 Instruction Type:Provider Instructions for Treatment How to Access Health Informa tion Online using Patient Portal and [employer] Apps Indication:Nonsmoker Start:11-Jul-2020 Instruction Type:Patient Education How to access health informa tion online Indication:Nonsmoker Start:10-Feb-2020 Instruction Type:Patient Education How to access health informa tion online - Detail Indication:Nonsmoker Start:10-Feb-2020 Instruction Type:Patient Education Patient Instructions Indication:BMI 31.0-31.9,adult Start:10-Feb-2020 Instruction Type:Provider Instructions for Treatment How to access health informa tion online Indication:Nonsmoker Start:19-Jan-2020 Instruction Type:Patient Education How to access health informa tion online - Detail Indication:Nonsmoker Start:19-Jan-2020 Instruction Type:Patient Education Patient Instructions Indication:Nonsmoker Start:19-Jan-2020 Instruction Type:Provider Instructions for Treatment How to access health informa tion online Indication:Nonsmoker Start:05-Jan-2020 Instruction Type:Patient Education How to access health informa tion online - Detail Indication:Nonsmoker Start:05-Jan-2020 Instruction Type:Patient Education Patient Instructions Indication:Allergic rhinitis Start:05-Jan-2020 Instruction Type:Provider Instructions for Treatment How to access health informa tion online Indication:BMI 30.0-30.9,adult Start:16-Nov-2019 Instruction Type:Patient Education How to access health informa tion online - Detail Indication:BMI 30.0-30.9,adult Start:16-Nov-2019 Instruction Type:Patient Education Patient Instructions Indication:BMI 30.0-30.9,adult Start:16-Nov-2019 Instruction Type:Provider Instructions for Treatment How to access health informa tion online Indication:BMI 30.0-30.9,adult Start:25-Sep-2019 Instruction Type:Patient Education How to access health informa tion online - Detail Indication:BMI 30.0-30.9,adult Start:25-Sep-2019 Instruction Type:Patient Education Patient Instructions Indication:BMI 30.0-30.9,adult Start:25-Sep-2019 Instruction Type:Provider Instructions for Treatment How to access health informa tion online Indication:Nonsmoker Start:12-Aug-2019 Instruction Type:Patient Education How to access health informa tion online - Detail Indication:Nonsmoker Start:12-Aug-2019 Instruction Type:Patient Education Patient Instructions Indication:Nonsmoker Start:12-Aug-2019 Instruction Type:Provider Instructions for Treatment How to access health informa tion online Indication:BMI 29.0-29.9,adult Start:04-Aug-2019 Instruction Type:Patient Education How to access health informa tion online - Detail Indication:BMI 29.0-29.9,adult Start:04-Aug-2019 Instruction Type:Patient Education Patient Instructions Indication:BMI 29.0-29.9,adult Start:04-Aug-2019 Instruction Type:Provider Instructions for Treatment How to access health informa tion online Indication:BMI 31.0-31.9,adult Start:25-Jun-2019 Instruction Type:Patient Education How to access health informa tion online - Detail Indication:BMI 31.0-31.9,adult Start:25-Jun-2019 Instruction Type:Patient Education Patient Instructions Indication:Dysuria Start:25-Jun-2019 Instruction Type:Provider Instructions for Treatment How to access health informa tion online Indication:Hypertension Start:02-Feb-2019 Instruction Type:Patient Education How to access health informa tion online - Detail Indication:Hypertension Start:02-Feb-2019 Instruction Type:Patient Education Patient Instructions Indication:Hypertension Start:02-Feb-2019 Instruction Type:Provider Instructions for Treatment How to access health informa tion online Indication:BMI 31.0-31.9,adult Start:21-Jan-2019 Instruction Type:Patient Education How to access health informa tion online - Detail Indication:BMI 31.0-31.9,adult Start:21-Jan-2019 Instruction Type:Patient Education Patient Instructions Indication:BMI 31.0-31.9,adult Start:21-Jan-2019 Instruction Type:Provider Instructions for Treatment How to access health informa tion online Indication:Nonsmoker Start:26-Nov-2018 Instruction Type:Patient Education How to access health informa tion online - Detail Indication:Nonsmoker Start:26-Nov-2018 Instruction Type:Patient Education Patient Instructions Indication:Nonsmoker Start:26-Nov-2018 Instruction Type:Provider Instructions for Treatment How to access health informa tion online Indication:Nonsmoker Start:25-Nov-2018 Instruction Type:Patient Education How to access health informa tion online - Detail Indication:Nonsmoker Start:25-Nov-2018 Instruction Type:Patient Education Patient Instructions Indication:Nonsmoker Start:25-Nov-2018 Instruction Type:Provider Instructions for Treatment How to access health informa tion online Indication:Nonsmoker Start:07-Nov-2018 Instruction Type:Patient Education How to access health informa tion online - Detail Indication:Nonsmoker Start:07-Nov-2018 Instruction Type:Patient Education Patient Instructions Indication:BMI 31.0-31.9,adult Start:07-Nov-2018 Instruction Type:Provider Instructions for Treatment How to access health informa tion online Indication:Nonsmoker Start:28-Jul-2018 Instruction Type:Patient Education How to access health informa tion online - Detail Indication:Nonsmoker Start:28-Jul-2018 Instruction Type:Patient Education Patient Instructions Indication:Bladder prolapse, congenital Start:28-Jul-2018 Instruction Type:Provider Instructions for Treatment How to access health informa tion online Indication:BMI 35.0-35.9,adult Start:03-Jul-2018 Instruction Type:Patient Education How to access health informa tion online - Detail Indication:BMI 35.0-35.9,adult Start:03-Jul-2018 Instruction Type:Patient Education Patient Instructions Indication:Upper respiratory infection Start:03-Jul-2018 Instruction Type:Provider Instructions for Treatment How to access health informa tion online Indication:Nonsmoker Start:04-Feb-2018 Instruction Type:Patient Education How to access health informa tion online - Detail Indication:Nonsmoker Start:04-Feb-2018 Instruction Type:Patient Education Patient Instructions Indication:Rash Start:04-Feb-2018 Instruction Type:Provider Instructions for Treatment How to access health informa tion online Indication:Sciatica of right side Start:31-Jan-2018 Instruction Type:Patient Education How to access health informa tion online - Detail Indication:Sciatica of right side Start:31-Jan-2018 Instruction Type:Patient Education Patient Instructions Indication:Nonsmoker Start:31-Jan-2018 Instruction Type:Provider Instructions for Treatment How to access health informa tion online Indication:Sciatica of right side Start:27-Sep-2017 Instruction Type:Patient Education How to access health informa tion online - Detail Indication:Sciatica of right side Start:27-Sep-2017 Instruction Type:Patient Education Patient Instructions Indication:Sciatica of right side Start:27-Sep-2017 Instruction Type:Provider Instructions for Treatment How to access health informa tion online Indication:Sciatica of right side Start:30-Aug-2017 Instruction Type:Patient Education How to access health informa tion online - Detail Indication:Sciatica of right side Start:30-Aug-2017 Instruction Type:Patient Education Patient Instructions Indication:Sciatica of right side Start:30-Aug-2017 Instruction Type:Provider Instructions for Treatment How to access health informa tion online Indication:DDD (degenerative disc disease), lumbar Start:13-Aug-2017 Instruction Type:Patient Education How to access health informa tion online - Detail Indication:DDD (degenerative disc disease), lumbar Start:13-Aug-2017 Instruction Type:Patient Education Patient Instructions Indication:Lumbar radiculopathy, right Start:13-Aug-2017 Instruction Type:Provider Instructions for Treatment How to access health informa tion online Indication:Nonsmoker Start:31-Jul-2017 Instruction Type:Patient Education How to access health informa tion online - Detail Indication:Nonsmoker Start:31-Jul-2017 Instruction Type:Patient Education Patient Instructions Indication:Nonsmoker Start:31-Jul-2017 Instruction Type:Provider Instructions for Treatment How to access health informa tion online Indication:Hypertension Start:18-Jul-2016 Instruction Type:Patient Education How to access health informa tion online - Detail Indication:Hypertension Start:18-Jul-2016 Instruction Type:Patient Education Patient Instructions Indication:Hypertension Start:18-Jul-2016 Instruction Type:Provider Instructions for Treatment [facility]; [facility] Work Phone: Instructions* Name Dates Details Patient Instructions Indication:UTI symptoms (Renamed from Symptoms of urinary tract infection) Start:07-Dec-2022 Instruction Type:Provider Instructions for Treatment How to Access Health Informa tion Online using Patient Portal and [employer]rd [employer] Apps Indication:UTI symptoms (Renamed from Symptoms of urinary tract infection) Start:07-Dec-2022 Instruction Type:Patient Education Patient Instructions Indication:Nonsmoker Start:14-Sep-2022 Instruction Type:Provider Instructions for Treatment How to Access Health Informa tion Online using Patient Portal and [employer]rd [employer] Apps Indication:Nonsmoker Start:14-Sep-2022 Instruction Type:Patient Education Patient Instructions Indication:Nonsmoker Start:16-Mar-2022 Instruction Type:Provider Instructions for Treatment How to Access Health Informa tion Online using Patient Portal and [employer] Apps Indication:Nonsmoker Start:16-Mar-2022 Instruction Type:Patient Education Patient Instructions Indication:BMI 31.0-31.9,adult Start:11-Sep-2021 Instruction Type:Provider Instructions for Treatment How to Access Health Informa tion Online using Patient Portal and [employer] Apps Indication:BMI 31.0-31.9,adult Start:11-Sep-2021 Instruction Type:Patient Education Patient Instructions Indication:BMI 31.0-31.9,adult Start:09-Jun-2021 Instruction Type:Provider Instructions for Treatment How to Access Health Informa tion Online using Patient Portal and [employer]rd [employer] Apps Indication:Nonsmoker Start:09-Jun-2021 Instruction Type:Patient Education Patient Instructions Indication:BMI 31.0-31.9,adult Start:22-Mar-2021 Instruction Type:Provider Instructions for Treatment How to Access Health Informa tion Online using Patient Portal and [employer]rd [employer] Apps Indication:BMI 31.0-31.9,adult Start:22-Mar-2021 Instruction Type:Patient Education Patient Instructions Indication:BMI 31.0-31.9,adult Start:10-Mar-2021 Instruction Type:Provider Instructions for Treatment How to Access Health Informa tion Online using Patient Portal and [employer]rd [employer] Apps Indication:BMI 31.0-31.9,adult Start:10-Mar-2021 Instruction Type:Patient Education Patient Instructions Indication:Nonsmoker Start:07-Dec-2020 Instruction Type:Provider Instructions for Treatment How to Access Health Informa tion Online using Patient Portal and [employer]rd [employer] Apps Indication:Nonsmoker Start:07-Dec-2020 Instruction Type:Patient Education Patient Instructions Indication:Nonsmoker Start:18-Oct-2020 Instruction Type:Provider Instructions for Treatment How to Access Health Informa tion Online using Patient Portal and [employer]rd [employer] Apps Indication:Nonsmoker Start:18-Oct-2020 Instruction Type:Patient Education Patient Instructions Indication:Nonsmoker Start:06-Sep-2020 Instruction Type:Provider Instructions for Treatment How to Access Health Informa tion Online using Patient Portal and [employer]rd [employer] Apps Indication:Nonsmoker Start:06-Sep-2020 Instruction Type:Patient Education Patient Instructions Indication:Nonsmoker Start:23-Aug-2020 Instruction Type:Provider Instructions for Treatment How to Access Health Informa tion Online using Patient Portal and [employer]rd [employer] Apps Indication:Nonsmoker Start:23-Aug-2020 Instruction Type:Patient Education Patient Instructions Indication:Nonsmoker Start:03-Aug-2020 Instruction Type:Provider Instructions for Treatment How to Access Health Informa tion Online using Patient Portal and [employer]rd [employer] Apps Indication:Nonsmoker Start:03-Aug-2020 Instruction Type:Patient Education Patient Instructions Indication:Nonsmoker Start:25-Jul-2020 Instruction Type:Provider Instructions for Treatment How to Access Health Informa tion Online using Patient Portal and [employer]rd [employer] Apps Indication:Nonsmoker Start:25-Jul-2020 Instruction Type:Patient Education Patient Instructions Indication:Nonsmoker Start:18-Jul-2020 Instruction Type:Provider Instructions for Treatment How to Access Health Informa tion Online using Patient Portal and [employer]rd [employer] Apps Indication:Nonsmoker Start:18-Jul-2020 Instruction Type:Patient Education Patient Instructions Indication:Nonsmoker Start:11-Jul-2020 Instruction Type:Provider Instructions for Treatment How to Access Health Informa tion Online using Patient Portal and [employer]rd [employer] Apps Indication:Nonsmoker Start:11-Jul-2020 Instruction Type:Patient Education How to access health informa tion online Indication:Nonsmoker Start:10-Feb-2020 Instruction Type:Patient Education How to access health informa tion online - Detail Indication:Nonsmoker Start:10-Feb-2020 Instruction Type:Patient Education Patient Instructions Indication:BMI 31.0-31.9,adult Start:10-Feb-2020 Instruction Type:Provider Instructions for Treatment How to access health informa tion online Indication:Nonsmoker Start:19-Jan-2020 Instruction Type:Patient Education How to access health informa tion online - Detail Indication:Nonsmoker Start:19-Jan-2020 Instruction Type:Patient Education Patient Instructions Indication:Nonsmoker Start:19-Jan-2020 Instruction Type:Provider Instructions for Treatment How to access health informa tion online Indication:Nonsmoker Start:05-Jan-2020 Instruction Type:Patient Education How to access health informa tion online - Detail Indication:Nonsmoker Start:05-Jan-2020 Instruction Type:Patient Education Patient Instructions Indication:Allergic rhinitis Start:05-Jan-2020 Instruction Type:Provider Instructions for Treatment How to access health informa tion online Indication:BMI 30.0-30.9,adult Start:16-Nov-2019 Instruction Type:Patient Education How to access health informa tion online - Detail Indication:BMI 30.0-30.9,adult Start:16-Nov-2019 Instruction Type:Patient Education Patient Instructions Indication:BMI 30.0-30.9,adult Start:16-Nov-2019 Instruction Type:Provider Instructions for Treatment How to access health informa tion online Indication:BMI 30.0-30.9,adult Start:25-Sep-2019 Instruction Type:Patient Education How to access health informa tion online - Detail Indication:BMI 30.0-30.9,adult Start:25-Sep-2019 Instruction Type:Patient Education Patient Instructions Indication:BMI 30.0-30.9,adult Start:25-Sep-2019 Instruction Type:Provider Instructions for Treatment How to access health informa tion online Indication:Nonsmoker Start:12-Aug-2019 Instruction Type:Patient Education How to access health informa tion online - Detail Indication:Nonsmoker Start:12-Aug-2019 Instruction Type:Patient Education Patient Instructions Indication:Nonsmoker Start:12-Aug-2019 Instruction Type:Provider Instructions for Treatment How to access health informa tion online Indication:BMI 29.0-29.9,adult Start:04-Aug-2019 Instruction Type:Patient Education How to access health informa tion online - Detail Indication:BMI 29.0-29.9,adult Start:04-Aug-2019 Instruction Type:Patient Education Patient Instructions Indication:BMI 29.0-29.9,adult Start:04-Aug-2019 Instruction Type:Provider Instructions for Treatment How to access health informa tion online Indication:BMI 31.0-31.9,adult Start:25-Jun-2019 Instruction Type:Patient Education How to access health informa tion online - Detail Indication:BMI 31.0-31.9,adult Start:25-Jun-2019 Instruction Type:Patient Education Patient Instructions Indication:Dysuria Start:25-Jun-2019 Instruction Type:Provider Instructions for Treatment How to access health informa tion online Indication:Hypertension Start:02-Feb-2019 Instruction Type:Patient Education How to access health informa tion online - Detail Indication:Hypertension Start:02-Feb-2019 Instruction Type:Patient Education Patient Instructions Indication:Hypertension Start:02-Feb-2019 Instruction Type:Provider Instructions for Treatment How to access health informa tion online Indication:BMI 31.0-31.9,adult Start:21-Jan-2019 Instruction Type:Patient Education How to access health informa tion online - Detail Indication:BMI 31.0-31.9,adult Start:21-Jan-2019 Instruction Type:Patient Education Patient Instructions Indication:BMI 31.0-31.9,adult Start:21-Jan-2019 Instruction Type:Provider Instructions for Treatment How to access health informa tion online Indication:Nonsmoker Start:26-Nov-2018 Instruction Type:Patient Education How to access health informa tion online - Detail Indication:Nonsmoker Start:26-Nov-2018 Instruction Type:Patient Education Patient Instructions Indication:Nonsmoker Start:26-Nov-2018 Instruction Type:Provider Instructions for Treatment How to access health informa tion online Indication:Nonsmoker Start:25-Nov-2018 Instruction Type:Patient Education How to access health informa tion online - Detail Indication:Nonsmoker Start:25-Nov-2018 Instruction Type:Patient Education Patient Instructions Indication:Nonsmoker Start:25-Nov-2018 Instruction Type:Provider Instructions for Treatment How to access health informa tion online Indication:Nonsmoker Start:07-Nov-2018 Instruction Type:Patient Education How to access health informa tion online - Detail Indication:Nonsmoker Start:07-Nov-2018 Instruction Type:Patient Education Patient Instructions Indication:BMI 31.0-31.9,adult Start:07-Nov-2018 Instruction Type:Provider Instructions for Treatment How to access health informa tion online Indication:Nonsmoker Start:28-Jul-2018 Instruction Type:Patient Education How to access health informa tion online - Detail Indication:Nonsmoker Start:28-Jul-2018 Instruction Type:Patient Education Patient Instructions Indication:Bladder prolapse, congenital Start:28-Jul-2018 Instruction Type:Provider Instructions for Treatment How to access health informa tion online Indication:BMI 35.0-35.9,adult Start:03-Jul-2018 Instruction Type:Patient Education How to access health informa tion online - Detail Indication:BMI 35.0-35.9,adult Start:03-Jul-2018 Instruction Type:Patient Education Patient Instructions Indication:Upper respiratory infection Start:03-Jul-2018 Instruction Type:Provider Instructions for Treatment How to access health informa tion online Indication:Nonsmoker Start:04-Feb-2018 Instruction Type:Patient Education How to access health informa tion online - Detail Indication:Nonsmoker Start:04-Feb-2018 Instruction Type:Patient Education Patient Instructions Indication:Rash Start:04-Feb-2018 Instruction Type:Provider Instructions for Treatment How to access health informa tion online Indication:Sciatica of right side Start:31-Jan-2018 Instruction Type:Patient Education How to access health informa tion online - Detail Indication:Sciatica of right side Start:31-Jan-2018 Instruction Type:Patient Education Patient Instructions Indication:Nonsmoker Start:31-Jan-2018 Instruction Type:Provider Instructions for Treatment How to access health informa tion online Indication:Sciatica of right side Start:27-Sep-2017 Instruction Type:Patient Education How to access health informa tion online - Detail Indication:Sciatica of right side Start:27-Sep-2017 Instruction Type:Patient Education Patient Instructions Indication:Sciatica of right side Start:27-Sep-2017 Instruction Type:Provider Instructions for Treatment How to access health informa tion online Indication:Sciatica of right side Start:30-Aug-2017 Instruction Type:Patient Education How to access health informa tion online - Detail Indication:Sciatica of right side Start:30-Aug-2017 Instruction Type:Patient Education Patient Instructions Indication:Sciatica of right side Start:30-Aug-2017 Instruction Type:Provider Instructions for Treatment How to access health informa tion online Indication:DDD (degenerative disc disease), lumbar Start:13-Aug-2017 Instruction Type:Patient Education How to access health informa tion online - Detail Indication:DDD (degenerative disc disease), lumbar Start:13-Aug-2017 Instruction Type:Patient Education Patient Instructions Indication:Lumbar radiculopathy, right Start:13-Aug-2017 Instruction Type:Provider Instructions for Treatment How to access health informa tion online Indication:Nonsmoker Start:31-Jul-2017 Instruction Type:Patient Education How to access health informa tion online - Detail Indication:Nonsmoker Start:31-Jul-2017 Instruction Type:Patient Education Patient Instructions Indication:Nonsmoker Start:31-Jul-2017 Instruction Type:Provider Instructions for Treatment How to access health informa tion online Indication:Hypertension Start:18-Jul-2016 Instruction Type:Patient Education How to access health informa tion online - Detail Indication:Hypertension Start:18-Jul-2016 Instruction Type:Patient Education Patient Instructions Indication:Hypertension Start:18-Jul-2016 Instruction Type:Provider Instructions for Treatment [facility]; [facility] Work Phone: Instructions* Name Dates Details Patient Instructions Indication:UTI symptoms (Renamed from Symptoms of urinary tract infection) Start:07-Dec-2022 Instruction Type:Provider Instructions for Treatment How to Access Health Informa tion Online using Patient Portal and [employer]rd [employer] Apps Indication:UTI symptoms (Renamed from Symptoms of urinary tract infection) Start:07-Dec-2022 Instruction Type:Patient Education Patient Instructions Indication:Nonsmoker Start:14-Sep-2022 Instruction Type:Provider Instructions for Treatment How to Access Health Informa tion Online using Patient Portal and [employer]rd [employer] Apps Indication:Nonsmoker Start:14-Sep-2022 Instruction Type:Patient Education Patient Instructions Indication:Nonsmoker Start:16-Mar-2022 Instruction Type:Provider Instructions for Treatment How to Access Health Informa tion Online using Patient Portal and [employer]rd [employer] Apps Indication:Nonsmoker Start:16-Mar-2022 Instruction Type:Patient Education Patient Instructions Indication:BMI 31.0-31.9,adult Start:11-Sep-2021 Instruction Type:Provider Instructions for Treatment How to Access Health Informa tion Online using Patient Portal and [employer]rd [employer] Apps Indication:BMI 31.0-31.9,adult Start:11-Sep-2021 Instruction Type:Patient Education Patient Instructions Indication:BMI 31.0-31.9,adult Start:09-Jun-2021 Instruction Type:Provider Instructions for Treatment How to Access Health Informa tion Online using Patient Portal and [employer]rd [employer] Apps Indication:Nonsmoker Start:09-Jun-2021 Instruction Type:Patient Education Patient Instructions Indication:BMI 31.0-31.9,adult Start:22-Mar-2021 Instruction Type:Provider Instructions for Treatment How to Access Health Informa tion Online using Patient Portal and [employer]rd [employer] Apps Indication:BMI 31.0-31.9,adult Start:22-Mar-2021 Instruction Type:Patient Education Patient Instructions Indication:BMI 31.0-31.9,adult Start:10-Mar-2021 Instruction Type:Provider Instructions for Treatment How to Access Health Informa tion Online using Patient Portal and [employer]rd [employer] Apps Indication:BMI 31.0-31.9,adult Start:10-Mar-2021 Instruction Type:Patient Education Patient Instructions Indication:Nonsmoker Start:07-Dec-2020 Instruction Type:Provider Instructions for Treatment How to Access Health Informa tion Online using Patient Portal and [employer]rd [employer] Apps Indication:Nonsmoker Start:07-Dec-2020 Instruction Type:Patient Education Patient Instructions Indication:Nonsmoker Start:18-Oct-2020 Instruction Type:Provider Instructions for Treatment How to Access Health Informa tion Online using Patient Portal and [employer]rd [employer] Apps Indication:Nonsmoker Start:18-Oct-2020 Instruction Type:Patient Education Patient Instructions Indication:Nonsmoker Start:06-Sep-2020 Instruction Type:Provider Instructions for Treatment How to Access Health Informa tion Online using Patient Portal and [employer]rd [employer] Apps Indication:Nonsmoker Start:06-Sep-2020 Instruction Type:Patient Education Patient Instructions Indication:Nonsmoker Start:23-Aug-2020 Instruction Type:Provider Instructions for Treatment How to Access Health Informa tion Online using Patient Portal and [employer]rd [employer] Apps Indication:Nonsmoker Start:23-Aug-2020 Instruction Type:Patient Education Patient Instructions Indication:Nonsmoker Start:03-Aug-2020 Instruction Type:Provider Instructions for Treatment How to Access Health Informa tion Online using Patient Portal and [employer]rd [employer] Apps Indication:Nonsmoker Start:03-Aug-2020 Instruction Type:Patient Education Patient Instructions Indication:Nonsmoker Start:25-Jul-2020 Instruction Type:Provider Instructions for Treatment How to Access Health Informa tion Online using Patient Portal and [employer]rd [employer] Apps Indication:Nonsmoker Start:25-Jul-2020 Instruction Type:Patient Education Patient Instructions Indication:Nonsmoker Start:18-Jul-2020 Instruction Type:Provider Instructions for Treatment How to Access Health Informa tion Online using Patient Portal and [employer]rd [employer] Apps Indication:Nonsmoker Start:18-Jul-2020 Instruction Type:Patient Education Patient Instructions Indication:Nonsmoker Start:11-Jul-2020 Instruction Type:Provider Instructions for Treatment How to Access Health Informa tion Online using Patient Portal and [employer]rd [employer] Apps Indication:Nonsmoker Start:11-Jul-2020 Instruction Type:Patient Education How to access health informa tion online Indication:Nonsmoker Start:10-Feb-2020 Instruction Type:Patient Education How to access health informa tion online - Detail Indication:Nonsmoker Start:10-Feb-2020 Instruction Type:Patient Education Patient Instructions Indication:BMI 31.0-31.9,adult Start:10-Feb-2020 Instruction Type:Provider Instructions for Treatment How to access health informa tion online Indication:Nonsmoker Start:19-Jan-2020 Instruction Type:Patient Education How to access health informa tion online - Detail Indication:Nonsmoker Start:19-Jan-2020 Instruction Type:Patient Education Patient Instructions Indication:Nonsmoker Start:19-Jan-2020 Instruction Type:Provider Instructions for Treatment How to access health informa tion online Indication:Nonsmoker Start:05-Jan-2020 Instruction Type:Patient Education How to access health informa tion online - Detail Indication:Nonsmoker Start:05-Jan-2020 Instruction Type:Patient Education Patient Instructions Indication:Allergic rhinitis Start:05-Jan-2020 Instruction Type:Provider Instructions for Treatment How to access health informa tion online Indication:BMI 30.0-30.9,adult Start:16-Nov-2019 Instruction Type:Patient Education How to access health informa tion online - Detail Indication:BMI 30.0-30.9,adult Start:16-Nov-2019 Instruction Type:Patient Education Patient Instructions Indication:BMI 30.0-30.9,adult Start:16-Nov-2019 Instruction Type:Provider Instructions for Treatment How to access health informa tion online Indication:BMI 30.0-30.9,adult Start:25-Sep-2019 Instruction Type:Patient Education How to access health informa tion online - Detail Indication:BMI 30.0-30.9,adult Start:25-Sep-2019 Instruction Type:Patient Education Patient Instructions Indication:BMI 30.0-30.9,adult Start:25-Sep-2019 Instruction Type:Provider Instructions for Treatment How to access health informa tion online Indication:Nonsmoker Start:12-Aug-2019 Instruction Type:Patient Education How to access health informa tion online - Detail Indication:Nonsmoker Start:12-Aug-2019 Instruction Type:Patient Education Patient Instructions Indication:Nonsmoker Start:12-Aug-2019 Instruction Type:Provider Instructions for Treatment How to access health informa tion online Indication:BMI 29.0-29.9,adult Start:04-Aug-2019 Instruction Type:Patient Education How to access health informa tion online - Detail Indication:BMI 29.0-29.9,adult Start:04-Aug-2019 Instruction Type:Patient Education Patient Instructions Indication:BMI 29.0-29.9,adult Start:04-Aug-2019 Instruction Type:Provider Instructions for Treatment How to access health informa tion online Indication:BMI 31.0-31.9,adult Start:25-Jun-2019 Instruction Type:Patient Education How to access health informa tion online - Detail Indication:BMI 31.0-31.9,adult Start:25-Jun-2019 Instruction Type:Patient Education Patient Instructions Indication:Dysuria Start:25-Jun-2019 Instruction Type:Provider Instructions for Treatment How to access health informa tion online Indication:Hypertension Start:02-Feb-2019 Instruction Type:Patient Education How to access health informa tion online - Detail Indication:Hypertension Start:02-Feb-2019 Instruction Type:Patient Education Patient Instructions Indication:Hypertension Start:02-Feb-2019 Instruction Type:Provider Instructions for Treatment How to access health informa tion online Indication:BMI 31.0-31.9,adult Start:21-Jan-2019 Instruction Type:Patient Education How to access health informa tion online - Detail Indication:BMI 31.0-31.9,adult Start:21-Jan-2019 Instruction Type:Patient Education Patient Instructions Indication:BMI 31.0-31.9,adult Start:21-Jan-2019 Instruction Type:Provider Instructions for Treatment How to access health informa tion online Indication:Nonsmoker Start:26-Nov-2018 Instruction Type:Patient Education How to access health informa tion online - Detail Indication:Nonsmoker Start:26-Nov-2018 Instruction Type:Patient Education Patient Instructions Indication:Nonsmoker Start:26-Nov-2018 Instruction Type:Provider Instructions for Treatment How to access health informa tion online Indication:Nonsmoker Start:25-Nov-2018 Instruction Type:Patient Education How to access health informa tion online - Detail Indication:Nonsmoker Start:25-Nov-2018 Instruction Type:Patient Education Patient Instructions Indication:Nonsmoker Start:25-Nov-2018 Instruction Type:Provider Instructions for Treatment How to access health informa tion online Indication:Nonsmoker Start:07-Nov-2018 Instruction Type:Patient Education How to access health informa tion online - Detail Indication:Nonsmoker Start:07-Nov-2018 Instruction Type:Patient Education Patient Instructions Indication:BMI 31.0-31.9,adult Start:07-Nov-2018 Instruction Type:Provider Instructions for Treatment How to access health informa tion online Indication:Nonsmoker Start:28-Jul-2018 Instruction Type:Patient Education How to access health informa tion online - Detail Indication:Nonsmoker Start:28-Jul-2018 Instruction Type:Patient Education Patient Instructions Indication:Bladder prolapse, congenital Start:28-Jul-2018 Instruction Type:Provider Instructions for Treatment How to access health informa tion online Indication:BMI 35.0-35.9,adult Start:03-Jul-2018 Instruction Type:Patient Education How to access health informa tion online - Detail Indication:BMI 35.0-35.9,adult Start:03-Jul-2018 Instruction Type:Patient Education Patient Instructions Indication:Upper respiratory infection Start:03-Jul-2018 Instruction Type:Provider Instructions for Treatment How to access health informa tion online Indication:Nonsmoker Start:04-Feb-2018 Instruction Type:Patient Education How to access health informa tion online - Detail Indication:Nonsmoker Start:04-Feb-2018 Instruction Type:Patient Education Patient Instructions Indication:Rash Start:04-Feb-2018 Instruction Type:Provider Instructions for Treatment How to access health informa tion online Indication:Sciatica of right side Start:31-Jan-2018 Instruction Type:Patient Education How to access health informa tion online - Detail Indication:Sciatica of right side Start:31-Jan-2018 Instruction Type:Patient Education Patient Instructions Indication:Nonsmoker Start:31-Jan-2018 Instruction Type:Provider Instructions for Treatment How to access health informa tion online Indication:Sciatica of right side Start:27-Sep-2017 Instruction Type:Patient Education How to access health informa tion online - Detail Indication:Sciatica of right side Start:27-Sep-2017 Instruction Type:Patient Education Patient Instructions Indication:Sciatica of right side Start:27-Sep-2017 Instruction Type:Provider Instructions for Treatment How to access health informa tion online Indication:Sciatica of right side Start:30-Aug-2017 Instruction Type:Patient Education How to access health informa tion online - Detail Indication:Sciatica of right side Start:30-Aug-2017 Instruction Type:Patient Education Patient Instructions Indication:Sciatica of right side Start:30-Aug-2017 Instruction Type:Provider Instructions for Treatment How to access health informa tion online Indication:DDD (degenerative disc disease), lumbar Start:13-Aug-2017 Instruction Type:Patient Education How to access health informa tion online - Detail Indication:DDD (degenerative disc disease), lumbar Start:13-Aug-2017 Instruction Type:Patient Education Patient Instructions Indication:Lumbar radiculopathy, right Start:13-Aug-2017 Instruction Type:Provider Instructions for Treatment How to access health informa tion online Indication:Nonsmoker Start:31-Jul-2017 Instruction Type:Patient Education How to access health informa tion online - Detail Indication:Nonsmoker Start:31-Jul-2017 Instruction Type:Patient Education Patient Instructions Indication:Nonsmoker Start:31-Jul-2017 Instruction Type:Provider Instructions for Treatment How to access health informa tion online Indication:Hypertension Start:18-Jul-2016 Instruction Type:Patient Education How to access health informa tion online - Detail Indication:Hypertension Start:18-Jul-2016 Instruction Type:Patient Education Patient Instructions Indication:Hypertension Start:18-Jul-2016 Instruction Type:Provider Instructions for Treatment [facility]; [facility] Work Phone: Instructions* Name Dates Details Patient Instructions Indication:UTI symptoms (Renamed from Symptoms of urinary tract infection) Start:07-Dec-2022 Instruction Type:Provider Instructions for Treatment How to Access Health Informa tion Online using Patient Portal and [employer] Apps Indication:UTI symptoms (Renamed from Symptoms of urinary tract infection) Start:07-Dec-2022 Instruction Type:Patient Education Patient Instructions Indication:Nonsmoker Start:14-Sep-2022 Instruction Type:Provider Instructions for Treatment How to Access Health Informa tion Online using Patient Portal and [employer] Apps Indication:Nonsmoker Start:14-Sep-2022 Instruction Type:Patient Education Patient Instructions Indication:Nonsmoker Start:16-Mar-2022 Instruction Type:Provider Instructions for Treatment How to Access Health Informa tion Online using Patient Portal and [employer] Apps Indication:Nonsmoker Start:16-Mar-2022 Instruction Type:Patient Education Patient Instructions Indication:BMI 31.0-31.9,adult Start:11-Sep-2021 Instruction Type:Provider Instructions for Treatment How to Access Health Informa tion Online using Patient Portal and [employer] Apps Indication:BMI 31.0-31.9,adult Start:11-Sep-2021 Instruction Type:Patient Education Patient Instructions Indication:BMI 31.0-31.9,adult Start:09-Jun-2021 Instruction Type:Provider Instructions for Treatment How to Access Health Informa tion Online using Patient Portal and [employer] Apps Indication:Nonsmoker Start:09-Jun-2021 Instruction Type:Patient Education Patient Instructions Indication:BMI 31.0-31.9,adult Start:22-Mar-2021 Instruction Type:Provider Instructions for Treatment How to Access Health Informa tion Online using Patient Portal and [employer] Apps Indication:BMI 31.0-31.9,adult Start:22-Mar-2021 Instruction Type:Patient Education Patient Instructions Indication:BMI 31.0-31.9,adult Start:10-Mar-2021 Instruction Type:Provider Instructions for Treatment How to Access Health Informa tion Online using Patient Portal and [employer] Apps Indication:BMI 31.0-31.9,adult Start:10-Mar-2021 Instruction Type:Patient Education Patient Instructions Indication:Nonsmoker Start:07-Dec-2020 Instruction Type:Provider Instructions for Treatment How to Access Health Informa tion Online using Patient Portal and [employer] Apps Indication:Nonsmoker Start:07-Dec-2020 Instruction Type:Patient Education Patient Instructions Indication:Nonsmoker Start:18-Oct-2020 Instruction Type:Provider Instructions for Treatment How to Access Health Informa tion Online using Patient Portal and [employer] Apps Indication:Nonsmoker Start:18-Oct-2020 Instruction Type:Patient Education Patient Instructions Indication:Nonsmoker Start:06-Sep-2020 Instruction Type:Provider Instructions for Treatment How to Access Health Informa tion Online using Patient Portal and [employer] Apps Indication:Nonsmoker Start:06-Sep-2020 Instruction Type:Patient Education Patient Instructions Indication:Nonsmoker Start:23-Aug-2020 Instruction Type:Provider Instructions for Treatment How to Access Health Informa tion Online using Patient Portal and [employer] Apps Indication:Nonsmoker Start:23-Aug-2020 Instruction Type:Patient Education Patient Instructions Indication:Nonsmoker Start:03-Aug-2020 Instruction Type:Provider Instructions for Treatment How to Access Health Informa tion Online using Patient Portal and [employer] Apps Indication:Nonsmoker Start:03-Aug-2020 Instruction Type:Patient Education Patient Instructions Indication:Nonsmoker Start:25-Jul-2020 Instruction Type:Provider Instructions for Treatment How to Access Health Informa tion Online using Patient Portal and [employer] Apps Indication:Nonsmoker Start:25-Jul-2020 Instruction Type:Patient Education Patient Instructions Indication:Nonsmoker Start:18-Jul-2020 Instruction Type:Provider Instructions for Treatment How to Access Health Informa tion Online using Patient Portal and [employer] Apps Indication:Nonsmoker Start:18-Jul-2020 Instruction Type:Patient Education Patient Instructions Indication:Nonsmoker Start:11-Jul-2020 Instruction Type:Provider Instructions for Treatment How to Access Health Informa tion Online using Patient Portal and [employer] Apps Indication:Nonsmoker Start:11-Jul-2020 Instruction Type:Patient Education How to access health informa tion online Indication:Nonsmoker Start:10-Feb-2020 Instruction Type:Patient Education How to access health informa tion online - Detail Indication:Nonsmoker Start:10-Feb-2020 Instruction Type:Patient Education Patient Instructions Indication:BMI 31.0-31.9,adult Start:10-Feb-2020 Instruction Type:Provider Instructions for Treatment How to access health informa tion online Indication:Nonsmoker Start:19-Jan-2020 Instruction Type:Patient Education How to access health informa tion online - Detail Indication:Nonsmoker Start:19-Jan-2020 Instruction Type:Patient Education Patient Instructions Indication:Nonsmoker Start:19-Jan-2020 Instruction Type:Provider Instructions for Treatment How to access health informa tion online Indication:Nonsmoker Start:05-Jan-2020 Instruction Type:Patient Education How to access health informa tion online - Detail Indication:Nonsmoker Start:05-Jan-2020 Instruction Type:Patient Education Patient Instructions Indication:Allergic rhinitis Start:05-Jan-2020 Instruction Type:Provider Instructions for Treatment How to access health informa tion online Indication:BMI 30.0-30.9,adult Start:16-Nov-2019 Instruction Type:Patient Education How to access health informa tion online - Detail Indication:BMI 30.0-30.9,adult Start:16-Nov-2019 Instruction Type:Patient Education Patient Instructions Indication:BMI 30.0-30.9,adult Start:16-Nov-2019 Instruction Type:Provider Instructions for Treatment How to access health informa tion online Indication:BMI 30.0-30.9,adult Start:25-Sep-2019 Instruction Type:Patient Education How to access health informa tion online - Detail Indication:BMI 30.0-30.9,adult Start:25-Sep-2019 Instruction Type:Patient Education Patient Instructions Indication:BMI 30.0-30.9,adult Start:25-Sep-2019 Instruction Type:Provider Instructions for Treatment How to access health informa tion online Indication:Nonsmoker Start:12-Aug-2019 Instruction Type:Patient Education How to access health informa tion online - Detail Indication:Nonsmoker Start:12-Aug-2019 Instruction Type:Patient Education Patient Instructions Indication:Nonsmoker Start:12-Aug-2019 Instruction Type:Provider Instructions for Treatment How to access health informa tion online Indication:BMI 29.0-29.9,adult Start:04-Aug-2019 Instruction Type:Patient Education How to access health informa tion online - Detail Indication:BMI 29.0-29.9,adult Start:04-Aug-2019 Instruction Type:Patient Education Patient Instructions Indication:BMI 29.0-29.9,adult Start:04-Aug-2019 Instruction Type:Provider Instructions for Treatment How to access health informa tion online Indication:BMI 31.0-31.9,adult Start:25-Jun-2019 Instruction Type:Patient Education How to access health informa tion online - Detail Indication:BMI 31.0-31.9,adult Start:25-Jun-2019 Instruction Type:Patient Education Patient Instructions Indication:Dysuria Start:25-Jun-2019 Instruction Type:Provider Instructions for Treatment How to access health informa tion online Indication:Hypertension Start:02-Feb-2019 Instruction Type:Patient Education How to access health informa tion online - Detail Indication:Hypertension Start:02-Feb-2019 Instruction Type:Patient Education Patient Instructions Indication:Hypertension Start:02-Feb-2019 Instruction Type:Provider Instructions for Treatment How to access health informa tion online Indication:BMI 31.0-31.9,adult Start:21-Jan-2019 Instruction Type:Patient Education How to access health informa tion online - Detail Indication:BMI 31.0-31.9,adult Start:21-Jan-2019 Instruction Type:Patient Education Patient Instructions Indication:BMI 31.0-31.9,adult Start:21-Jan-2019 Instruction Type:Provider Instructions for Treatment How to access health informa tion online Indication:Nonsmoker Start:26-Nov-2018 Instruction Type:Patient Education How to access health informa tion online - Detail Indication:Nonsmoker Start:26-Nov-2018 Instruction Type:Patient Education Patient Instructions Indication:Nonsmoker Start:26-Nov-2018 Instruction Type:Provider Instructions for Treatment How to access health informa tion online Indication:Nonsmoker Start:25-Nov-2018 Instruction Type:Patient Education How to access health informa tion online - Detail Indication:Nonsmoker Start:25-Nov-2018 Instruction Type:Patient Education Patient Instructions Indication:Nonsmoker Start:25-Nov-2018 Instruction Type:Provider Instructions for Treatment How to access health informa tion online Indication:Nonsmoker Start:07-Nov-2018 Instruction Type:Patient Education How to access health informa tion online - Detail Indication:Nonsmoker Start:07-Nov-2018 Instruction Type:Patient Education Patient Instructions Indication:BMI 31.0-31.9,adult Start:07-Nov-2018 Instruction Type:Provider Instructions for Treatment How to access health informa tion online Indication:Nonsmoker Start:28-Jul-2018 Instruction Type:Patient Education How to access health informa tion online - Detail Indication:Nonsmoker Start:28-Jul-2018 Instruction Type:Patient Education Patient Instructions Indication:Bladder prolapse, congenital Start:28-Jul-2018 Instruction Type:Provider Instructions for Treatment How to access health informa tion online Indication:BMI 35.0-35.9,adult Start:03-Jul-2018 Instruction Type:Patient Education How to access health informa tion online - Detail Indication:BMI 35.0-35.9,adult Start:03-Jul-2018 Instruction Type:Patient Education Patient Instructions Indication:Upper respiratory infection Start:03-Jul-2018 Instruction Type:Provider Instructions for Treatment How to access health informa tion online Indication:Nonsmoker Start:04-Feb-2018 Instruction Type:Patient Education How to access health informa tion online - Detail Indication:Nonsmoker Start:04-Feb-2018 Instruction Type:Patient Education Patient Instructions Indication:Rash Start:04-Feb-2018 Instruction Type:Provider Instructions for Treatment How to access health informa tion online Indication:Sciatica of right side Start:31-Jan-2018 Instruction Type:Patient Education How to access health informa tion online - Detail Indication:Sciatica of right side Start:31-Jan-2018 Instruction Type:Patient Education Patient Instructions Indication:Nonsmoker Start:31-Jan-2018 Instruction Type:Provider Instructions for Treatment How to access health informa tion online Indication:Sciatica of right side Start:27-Sep-2017 Instruction Type:Patient Education How to access health informa tion online - Detail Indication:Sciatica of right side Start:27-Sep-2017 Instruction Type:Patient Education Patient Instructions Indication:Sciatica of right side Start:27-Sep-2017 Instruction Type:Provider Instructions for Treatment How to access health informa tion online Indication:Sciatica of right side Start:30-Aug-2017 Instruction Type:Patient Education How to access health informa tion online - Detail Indication:Sciatica of right side Start:30-Aug-2017 Instruction Type:Patient Education Patient Instructions Indication:Sciatica of right side Start:30-Aug-2017 Instruction Type:Provider Instructions for Treatment How to access health informa tion online Indication:DDD (degenerative disc disease), lumbar Start:13-Aug-2017 Instruction Type:Patient Education How to access health informa tion online - Detail Indication:DDD (degenerative disc disease), lumbar Start:13-Aug-2017 Instruction Type:Patient Education Patient Instructions Indication:Lumbar radiculopathy, right Start:13-Aug-2017 Instruction Type:Provider Instructions for Treatment How to access health informa tion online Indication:Nonsmoker Start:31-Jul-2017 Instruction Type:Patient Education How to access health informa tion online - Detail Indication:Nonsmoker Start:31-Jul-2017 Instruction Type:Patient Education Patient Instructions Indication:Nonsmoker Start:31-Jul-2017 Instruction Type:Provider Instructions for Treatment How to access health informa tion online Indication:Hypertension Start:18-Jul-2016 Instruction Type:Patient Education How to access health informa tion online - Detail Indication:Hypertension Start:18-Jul-2016 Instruction Type:Patient Education Patient Instructions Indication:Hypertension Start:18-Jul-2016 Instruction Type:Provider Instructions for Treatment [facility]; [facility] Work Phone: Instructions* Name Dates Details Patient Instructions Indication:UTI symptoms (Renamed from Symptoms of urinary tract infection) Start:07-Dec-2022 Instruction Type:Provider Instructions for Treatment How to Access Health Informa tion Online using Patient Portal and [employer] Apps Indication:UTI symptoms (Renamed from Symptoms of urinary tract infection) Start:07-Dec-2022 Instruction Type:Patient Education Patient Instructions Indication:Nonsmoker Start:14-Sep-2022 Instruction Type:Provider Instructions for Treatment How to Access Health Informa tion Online using Patient Portal and [employer] Apps Indication:Nonsmoker Start:14-Sep-2022 Instruction Type:Patient Education Patient Instructions Indication:Nonsmoker Start:16-Mar-2022 Instruction Type:Provider Instructions for Treatment How to Access Health Informa tion Online using Patient Portal and [employer] Apps Indication:Nonsmoker Start:16-Mar-2022 Instruction Type:Patient Education Patient Instructions Indication:BMI 31.0-31.9,adult Start:11-Sep-2021 Instruction Type:Provider Instructions for Treatment How to Access Health Informa tion Online using Patient Portal and [employer]rd [employer] Apps Indication:BMI 31.0-31.9,adult Start:11-Sep-2021 Instruction Type:Patient Education Patient Instructions Indication:BMI 31.0-31.9,adult Start:09-Jun-2021 Instruction Type:Provider Instructions for Treatment How to Access Health Informa tion Online using Patient Portal and [employer] Apps Indication:Nonsmoker Start:09-Jun-2021 Instruction Type:Patient Education Patient Instructions Indication:BMI 31.0-31.9,adult Start:22-Mar-2021 Instruction Type:Provider Instructions for Treatment How to Access Health Informa tion Online using Patient Portal and [employer] Apps Indication:BMI 31.0-31.9,adult Start:22-Mar-2021 Instruction Type:Patient Education Patient Instructions Indication:BMI 31.0-31.9,adult Start:10-Mar-2021 Instruction Type:Provider Instructions for Treatment How to Access Health Informa tion Online using Patient Portal and [employer] Apps Indication:BMI 31.0-31.9,adult Start:10-Mar-2021 Instruction Type:Patient Education Patient Instructions Indication:Nonsmoker Start:07-Dec-2020 Instruction Type:Provider Instructions for Treatment How to Access Health Informa tion Online using Patient Portal and [employer] Apps Indication:Nonsmoker Start:07-Dec-2020 Instruction Type:Patient Education Patient Instructions Indication:Nonsmoker Start:18-Oct-2020 Instruction Type:Provider Instructions for Treatment How to Access Health Informa tion Online using Patient Portal and [employer] Apps Indication:Nonsmoker Start:18-Oct-2020 Instruction Type:Patient Education Patient Instructions Indication:Nonsmoker Start:06-Sep-2020 Instruction Type:Provider Instructions for Treatment How to Access Health Informa tion Online using Patient Portal and [employer] Apps Indication:Nonsmoker Start:06-Sep-2020 Instruction Type:Patient Education Patient Instructions Indication:Nonsmoker Start:23-Aug-2020 Instruction Type:Provider Instructions for Treatment How to Access Health Informa tion Online using Patient Portal and [employer] Apps Indication:Nonsmoker Start:23-Aug-2020 Instruction Type:Patient Education Patient Instructions Indication:Nonsmoker Start:03-Aug-2020 Instruction Type:Provider Instructions for Treatment How to Access Health Informa tion Online using Patient Portal and [employer] Apps Indication:Nonsmoker Start:03-Aug-2020 Instruction Type:Patient Education Patient Instructions Indication:Nonsmoker Start:25-Jul-2020 Instruction Type:Provider Instructions for Treatment How to Access Health Informa tion Online using Patient Portal and [employer] Apps Indication:Nonsmoker Start:25-Jul-2020 Instruction Type:Patient Education Patient Instructions Indication:Nonsmoker Start:18-Jul-2020 Instruction Type:Provider Instructions for Treatment How to Access Health Informa tion Online using Patient Portal and [employer] Apps Indication:Nonsmoker Start:18-Jul-2020 Instruction Type:Patient Education Patient Instructions Indication:Nonsmoker Start:11-Jul-2020 Instruction Type:Provider Instructions for Treatment How to Access Health Informa tion Online using Patient Portal and [employer] Apps Indication:Nonsmoker Start:11-Jul-2020 Instruction Type:Patient Education How to access health informa tion online Indication:Nonsmoker Start:10-Feb-2020 Instruction Type:Patient Education How to access health informa tion online - Detail Indication:Nonsmoker Start:10-Feb-2020 Instruction Type:Patient Education Patient Instructions Indication:BMI 31.0-31.9,adult Start:10-Feb-2020 Instruction Type:Provider Instructions for Treatment How to access health informa tion online Indication:Nonsmoker Start:19-Jan-2020 Instruction Type:Patient Education How to access health informa tion online - Detail Indication:Nonsmoker Start:19-Jan-2020 Instruction Type:Patient Education Patient Instructions Indication:Nonsmoker Start:19-Jan-2020 Instruction Type:Provider Instructions for Treatment How to access health informa tion online Indication:Nonsmoker Start:05-Jan-2020 Instruction Type:Patient Education How to access health informa tion online - Detail Indication:Nonsmoker Start:05-Jan-2020 Instruction Type:Patient Education Patient Instructions Indication:Allergic rhinitis Start:05-Jan-2020 Instruction Type:Provider Instructions for Treatment How to access health informa tion online Indication:BMI 30.0-30.9,adult Start:16-Nov-2019 Instruction Type:Patient Education How to access health informa tion online - Detail Indication:BMI 30.0-30.9,adult Start:16-Nov-2019 Instruction Type:Patient Education Patient Instructions Indication:BMI 30.0-30.9,adult Start:16-Nov-2019 Instruction Type:Provider Instructions for Treatment How to access health informa tion online Indication:BMI 30.0-30.9,adult Start:25-Sep-2019 Instruction Type:Patient Education How to access health informa tion online - Detail Indication:BMI 30.0-30.9,adult Start:25-Sep-2019 Instruction Type:Patient Education Patient Instructions Indication:BMI 30.0-30.9,adult Start:25-Sep-2019 Instruction Type:Provider Instructions for Treatment How to access health informa tion online Indication:Nonsmoker Start:12-Aug-2019 Instruction Type:Patient Education How to access health informa tion online - Detail Indication:Nonsmoker Start:12-Aug-2019 Instruction Type:Patient Education Patient Instructions Indication:Nonsmoker Start:12-Aug-2019 Instruction Type:Provider Instructions for Treatment How to access health informa tion online Indication:BMI 29.0-29.9,adult Start:04-Aug-2019 Instruction Type:Patient Education How to access health informa tion online - Detail Indication:BMI 29.0-29.9,adult Start:04-Aug-2019 Instruction Type:Patient Education Patient Instructions Indication:BMI 29.0-29.9,adult Start:04-Aug-2019 Instruction Type:Provider Instructions for Treatment How to access health informa tion online Indication:BMI 31.0-31.9,adult Start:25-Jun-2019 Instruction Type:Patient Education How to access health informa tion online - Detail Indication:BMI 31.0-31.9,adult Start:25-Jun-2019 Instruction Type:Patient Education Patient Instructions Indication:Dysuria Start:25-Jun-2019 Instruction Type:Provider Instructions for Treatment How to access health informa tion online Indication:Hypertension Start:02-Feb-2019 Instruction Type:Patient Education How to access health informa tion online - Detail Indication:Hypertension Start:02-Feb-2019 Instruction Type:Patient Education Patient Instructions Indication:Hypertension Start:02-Feb-2019 Instruction Type:Provider Instructions for Treatment How to access health informa tion online Indication:BMI 31.0-31.9,adult Start:21-Jan-2019 Instruction Type:Patient Education How to access health informa tion online - Detail Indication:BMI 31.0-31.9,adult Start:21-Jan-2019 Instruction Type:Patient Education Patient Instructions Indication:BMI 31.0-31.9,adult Start:21-Jan-2019 Instruction Type:Provider Instructions for Treatment How to access health informa tion online Indication:Nonsmoker Start:26-Nov-2018 Instruction Type:Patient Education How to access health informa tion online - Detail Indication:Nonsmoker Start:26-Nov-2018 Instruction Type:Patient Education Patient Instructions Indication:Nonsmoker Start:26-Nov-2018 Instruction Type:Provider Instructions for Treatment How to access health informa tion online Indication:Nonsmoker Start:25-Nov-2018 Instruction Type:Patient Education How to access health informa tion online - Detail Indication:Nonsmoker Start:25-Nov-2018 Instruction Type:Patient Education Patient Instructions Indication:Nonsmoker Start:25-Nov-2018 Instruction Type:Provider Instructions for Treatment How to access health informa tion online Indication:Nonsmoker Start:07-Nov-2018 Instruction Type:Patient Education How to access health informa tion online - Detail Indication:Nonsmoker Start:07-Nov-2018 Instruction Type:Patient Education Patient Instructions Indication:BMI 31.0-31.9,adult Start:07-Nov-2018 Instruction Type:Provider Instructions for Treatment How to access health informa tion online Indication:Nonsmoker Start:28-Jul-2018 Instruction Type:Patient Education How to access health informa tion online - Detail Indication:Nonsmoker Start:28-Jul-2018 Instruction Type:Patient Education Patient Instructions Indication:Bladder prolapse, congenital Start:28-Jul-2018 Instruction Type:Provider Instructions for Treatment How to access health informa tion online Indication:BMI 35.0-35.9,adult Start:03-Jul-2018 Instruction Type:Patient Education How to access health informa tion online - Detail Indication:BMI 35.0-35.9,adult Start:03-Jul-2018 Instruction Type:Patient Education Patient Instructions Indication:Upper respiratory infection Start:03-Jul-2018 Instruction Type:Provider Instructions for Treatment How to access health informa tion online Indication:Nonsmoker Start:04-Feb-2018 Instruction Type:Patient Education How to access health informa tion online - Detail Indication:Nonsmoker Start:04-Feb-2018 Instruction Type:Patient Education Patient Instructions Indication:Rash Start:04-Feb-2018 Instruction Type:Provider Instructions for Treatment How to access health informa tion online Indication:Sciatica of right side Start:31-Jan-2018 Instruction Type:Patient Education How to access health informa tion online - Detail Indication:Sciatica of right side Start:31-Jan-2018 Instruction Type:Patient Education Patient Instructions Indication:Nonsmoker Start:31-Jan-2018 Instruction Type:Provider Instructions for Treatment How to access health informa tion online Indication:Sciatica of right side Start:27-Sep-2017 Instruction Type:Patient Education How to access health informa tion online - Detail Indication:Sciatica of right side Start:27-Sep-2017 Instruction Type:Patient Education Patient Instructions Indication:Sciatica of right side Start:27-Sep-2017 Instruction Type:Provider Instructions for Treatment How to access health informa tion online Indication:Sciatica of right side Start:30-Aug-2017 Instruction Type:Patient Education How to access health informa tion online - Detail Indication:Sciatica of right side Start:30-Aug-2017 Instruction Type:Patient Education Patient Instructions Indication:Sciatica of right side Start:30-Aug-2017 Instruction Type:Provider Instructions for Treatment How to access health informa tion online Indication:DDD (degenerative disc disease), lumbar Start:13-Aug-2017 Instruction Type:Patient Education How to access health informa tion online - Detail Indication:DDD (degenerative disc disease), lumbar Start:13-Aug-2017 Instruction Type:Patient Education Patient Instructions Indication:Lumbar radiculopathy, right Start:13-Aug-2017 Instruction Type:Provider Instructions for Treatment How to access health informa tion online Indication:Nonsmoker Start:31-Jul-2017 Instruction Type:Patient Education How to access health informa tion online - Detail Indication:Nonsmoker Start:31-Jul-2017 Instruction Type:Patient Education Patient Instructions Indication:Nonsmoker Start:31-Jul-2017 Instruction Type:Provider Instructions for Treatment How to access health informa tion online Indication:Hypertension Start:18-Jul-2016 Instruction Type:Patient Education How to access health informa tion online - Detail Indication:Hypertension Start:18-Jul-2016 Instruction Type:Patient Education Patient Instructions Indication:Hypertension Start:18-Jul-2016 Instruction Type:Provider Instructions for Treatment [facility]; [facility] Work Phone: Instructions Name Dates Details Nonsmoker : How to access he alth information online Indication:Nonsmoker Nonsmoker : How to access he alth information online - Detail Indication:Nonsmoker Nonsmoker : Patient Instruct ions Indication:Nonsmoker BMI 35.0-35.9,adult : How to access health information online Indication:BMI 35.0-35.9,adult BMI 35.0-35.9,adult : How to access health information online - Detail Indication:BMI 35.0-35.9,adult Upper respiratory infection : Patient Instructions Indication:Upper respiratory infection Rash : Patient Instructions Indication:Rash Sciatica of right side : How to access health information online Indication:Sciatica of right side Sciatica of right side : How to access health information online - Detail Indication:Sciatica of right side Sciatica of right side : Pat ient Instructions Indication:Sciatica of right side DDD (degenerative disc disea se), lumbar : How to access health information online Indication:DDD (degenerative disc disease), lumbar DDD (degenerative disc disea se), lumbar : How to access health information online - Detail Indication:DDD (degenerative disc disease), lumbar Lumbar radiculopathy, right : Patient Instructions Indication:Lumbar radiculopathy, right Hypertension : How to access health information online Indication:Hypertension Hypertension : How to access health information online - Detail Indication:Hypertension Hypertension : Patient Instr uctions Indication:Hypertension Name Dates Details How to access health informa tion online Indication:Nonsmoker Start:07-Nov-2018 Instruction Type:Patient Education How to access health informa tion online - Detail Indication:Nonsmoker Start:07-Nov-2018 Instruction Type:Patient Education Patient Instructions Indication:BMI 31.0-31.9,adult Start:07-Nov-2018 Instruction Type:Provider Instructions for Treatment How to access health informa tion online Indication:Nonsmoker Start:28-Jul-2018 Instruction Type:Patient Education How to access health informa tion online - Detail Indication:Nonsmoker Start:28-Jul-2018 Instruction Type:Patient Education Patient Instructions Indication:Bladder prolapse, congenital Start:28-Jul-2018 Instruction Type:Provider Instructions for Treatment How to access health informa tion online Indication:BMI 35.0-35.9,adult Start:03-Jul-2018 Instruction Type:Patient Education How to access health informa tion online - Detail Indication:BMI 35.0-35.9,adult Start:03-Jul-2018 Instruction Type:Patient Education Patient Instructions Indication:Upper respiratory infection Start:03-Jul-2018 Instruction Type:Provider Instructions for Treatment How to access health informa tion online Indication:Nonsmoker Start:04-Feb-2018 Instruction Type:Patient Education How to access health informa tion online - Detail Indication:Nonsmoker Start:04-Feb-2018 Instruction Type:Patient Education Patient Instructions Indication:Rash Start:04-Feb-2018 Instruction Type:Provider Instructions for Treatment How to access health informa tion online Indication:Sciatica of right side Start:31-Jan-2018 Instruction Type:Patient Education How to access health informa tion online - Detail Indication:Sciatica of right side Start:31-Jan-2018 Instruction Type:Patient Education Patient Instructions Indication:Nonsmoker Start:31-Jan-2018 Instruction Type:Provider Instructions for Treatment How to access health informa tion online Indication:Sciatica of right side Start:27-Sep-2017 Instruction Type:Patient Education How to access health informa tion online - Detail Indication:Sciatica of right side Start:27-Sep-2017 Instruction Type:Patient Education Patient Instructions Indication:Sciatica of right side Start:27-Sep-2017 Instruction Type:Provider Instructions for Treatment How to access health informa tion online Indication:Sciatica of right side Start:30-Aug-2017 Instruction Type:Patient Education How to access health informa tion online - Detail Indication:Sciatica of right side Start:30-Aug-2017 Instruction Type:Patient Education Patient Instructions Indication:Sciatica of right side Start:30-Aug-2017 Instruction Type:Provider Instructions for Treatment How to access health informa tion online Indication:DDD (degenerative disc disease), lumbar Start:13-Aug-2017 Instruction Type:Patient Education How to access health informa tion online - Detail Indication:DDD (degenerative disc disease), lumbar Start:13-Aug-2017 Instruction Type:Patient Education Patient Instructions Indication:Lumbar radiculopathy, right Start:13-Aug-2017 Instruction Type:Provider Instructions for Treatment How to access health informa tion online Indication:Nonsmoker Start:31-Jul-2017 Instruction Type:Patient Education How to access health informa tion online - Detail Indication:Nonsmoker Start:31-Jul-2017 Instruction Type:Patient Education Patient Instructions Indication:Nonsmoker Start:31-Jul-2017 Instruction Type:Provider Instructions for Treatment How to access health informa tion online Indication:Hypertension Start:18-Jul-2016 Instruction Type:Patient Education How to access health informa tion online - Detail Indication:Hypertension Start:18-Jul-2016 Instruction Type:Patient Education Patient Instructions Indication:Hypertension Start:18-Jul-2016 Instruction Type:Provider Instructions for Treatment Name Dates Details How to access health informa tion online Indication:Nonsmoker Start:25-Nov-2018 Instruction Type:Patient Education How to access health informa tion online - Detail Indication:Nonsmoker Start:25-Nov-2018 Instruction Type:Patient Education Patient Instructions Indication:Nonsmoker Start:25-Nov-2018 Instruction Type:Provider Instructions for Treatment How to access health informa tion online Indication:Nonsmoker Start:07-Nov-2018 Instruction Type:Patient Education How to access health informa tion online - Detail Indication:Nonsmoker Start:07-Nov-2018 Instruction Type:Patient Education Patient Instructions Indication:BMI 31.0-31.9,adult Start:07-Nov-2018 Instruction Type:Provider Instructions for Treatment How to access health informa tion online Indication:Nonsmoker Start:28-Jul-2018 Instruction Type:Patient Education How to access health informa tion online - Detail Indication:Nonsmoker Start:28-Jul-2018 Instruction Type:Patient Education Patient Instructions Indication:Bladder prolapse, congenital Start:28-Jul-2018 Instruction Type:Provider Instructions for Treatment How to access health informa tion online Indication:BMI 35.0-35.9,adult Start:03-Jul-2018 Instruction Type:Patient Education How to access health informa tion online - Detail Indication:BMI 35.0-35.9,adult Start:03-Jul-2018 Instruction Type:Patient Education Patient Instructions Indication:Upper respiratory infection Start:03-Jul-2018 Instruction Type:Provider Instructions for Treatment How to access health informa tion online Indication:Nonsmoker Start:04-Feb-2018 Instruction Type:Patient Education How to access health informa tion online - Detail Indication:Nonsmoker Start:04-Feb-2018 Instruction Type:Patient Education Patient Instructions Indication:Rash Start:04-Feb-2018 Instruction Type:Provider Instructions for Treatment How to access health informa tion online Indication:Sciatica of right side Start:31-Jan-2018 Instruction Type:Patient Education How to access health informa tion online - Detail Indication:Sciatica of right side Start:31-Jan-2018 Instruction Type:Patient Education Patient Instructions Indication:Nonsmoker Start:31-Jan-2018 Instruction Type:Provider Instructions for Treatment How to access health informa tion online Indication:Sciatica of right side Start:27-Sep-2017 Instruction Type:Patient Education How to access health informa tion online - Detail Indication:Sciatica of right side Start:27-Sep-2017 Instruction Type:Patient Education Patient Instructions Indication:Sciatica of right side Start:27-Sep-2017 Instruction Type:Provider Instructions for Treatment How to access health informa tion online Indication:Sciatica of right side Start:30-Aug-2017 Instruction Type:Patient Education How to access health informa tion online - Detail Indication:Sciatica of right side Start:30-Aug-2017 Instruction Type:Patient Education Patient Instructions Indication:Sciatica of right side Start:30-Aug-2017 Instruction Type:Provider Instructions for Treatment How to access health informa tion online Indication:DDD (degenerative disc disease), lumbar Start:13-Aug-2017 Instruction Type:Patient Education How to access health informa tion online - Detail Indication:DDD (degenerative disc disease), lumbar Start:13-Aug-2017 Instruction Type:Patient Education Patient Instructions Indication:Lumbar radiculopathy, right Start:13-Aug-2017 Instruction Type:Provider Instructions for Treatment How to access health informa tion online Indication:Nonsmoker Start:31-Jul-2017 Instruction Type:Patient Education How to access health informa tion online - Detail Indication:Nonsmoker Start:31-Jul-2017 Instruction Type:Patient Education Patient Instructions Indication:Nonsmoker Start:31-Jul-2017 Instruction Type:Provider Instructions for Treatment How to access health informa tion online Indication:Hypertension Start:18-Jul-2016 Instruction Type:Patient Education How to access health informa tion online - Detail Indication:Hypertension Start:18-Jul-2016 Instruction Type:Patient Education Patient Instructions Indication:Hypertension Start:18-Jul-2016 Instruction Type:Provider Instructions for Treatment Name Dates Details How to access health informa tion online Indication:Nonsmoker Start:26-Nov-2018 Instruction Type:Patient Education How to access health informa tion online - Detail Indication:Nonsmoker Start:26-Nov-2018 Instruction Type:Patient Education Patient Instructions Indication:Nonsmoker Start:26-Nov-2018 Instruction Type:Provider Instructions for Treatment How to access health informa tion online Indication:Nonsmoker Start:25-Nov-2018 Instruction Type:Patient Education How to access health informa tion online - Detail Indication:Nonsmoker Start:25-Nov-2018 Instruction Type:Patient Education Patient Instructions Indication:Nonsmoker Start:25-Nov-2018 Instruction Type:Provider Instructions for Treatment How to access health informa tion online Indication:Nonsmoker Start:07-Nov-2018 Instruction Type:Patient Education How to access health informa tion online - Detail Indication:Nonsmoker Start:07-Nov-2018 Instruction Type:Patient Education Patient Instructions Indication:BMI 31.0-31.9,adult Start:07-Nov-2018 Instruction Type:Provider Instructions for Treatment How to access health informa tion online Indication:Nonsmoker Start:28-Jul-2018 Instruction Type:Patient Education How to access health informa tion online - Detail Indication:Nonsmoker Start:28-Jul-2018 Instruction Type:Patient Education Patient Instructions Indication:Bladder prolapse, congenital Start:28-Jul-2018 Instruction Type:Provider Instructions for Treatment How to access health informa tion online Indication:BMI 35.0-35.9,adult Start:03-Jul-2018 Instruction Type:Patient Education How to access health informa tion online - Detail Indication:BMI 35.0-35.9,adult Start:03-Jul-2018 Instruction Type:Patient Education Patient Instructions Indication:Upper respiratory infection Start:03-Jul-2018 Instruction Type:Provider Instructions for Treatment How to access health informa tion online Indication:Nonsmoker Start:04-Feb-2018 Instruction Type:Patient Education How to access health informa tion online - Detail Indication:Nonsmoker Start:04-Feb-2018 Instruction Type:Patient Education Patient Instructions Indication:Rash Start:04-Feb-2018 Instruction Type:Provider Instructions for Treatment How to access health informa tion online Indication:Sciatica of right side Start:31-Jan-2018 Instruction Type:Patient Education How to access health informa tion online - Detail Indication:Sciatica of right side Start:31-Jan-2018 Instruction Type:Patient Education Patient Instructions Indication:Nonsmoker Start:31-Jan-2018 Instruction Type:Provider Instructions for Treatment How to access health informa tion online Indication:Sciatica of right side Start:27-Sep-2017 Instruction Type:Patient Education How to access health informa tion online - Detail Indication:Sciatica of right side Start:27-Sep-2017 Instruction Type:Patient Education Patient Instructions Indication:Sciatica of right side Start:27-Sep-2017 Instruction Type:Provider Instructions for Treatment How to access health informa tion online Indication:Sciatica of right side Start:30-Aug-2017 Instruction Type:Patient Education How to access health informa tion online - Detail Indication:Sciatica of right side Start:30-Aug-2017 Instruction Type:Patient Education Patient Instructions Indication:Sciatica of right side Start:30-Aug-2017 Instruction Type:Provider Instructions for Treatment How to access health informa tion online Indication:DDD (degenerative disc disease), lumbar Start:13-Aug-2017 Instruction Type:Patient Education How to access health informa tion online - Detail Indication:DDD (degenerative disc disease), lumbar Start:13-Aug-2017 Instruction Type:Patient Education Patient Instructions Indication:Lumbar radiculopathy, right Start:13-Aug-2017 Instruction Type:Provider Instructions for Treatment How to access health informa tion online Indication:Nonsmoker Start:31-Jul-2017 Instruction Type:Patient Education How to access health informa tion online - Detail Indication:Nonsmoker Start:31-Jul-2017 Instruction Type:Patient Education Patient Instructions Indication:Nonsmoker Start:31-Jul-2017 Instruction Type:Provider Instructions for Treatment How to access health informa tion online Indication:Hypertension Start:18-Jul-2016 Instruction Type:Patient Education How to access health informa tion online - Detail Indication:Hypertension Start:18-Jul-2016 Instruction Type:Patient Education Patient Instructions Indication:Hypertension Start:18-Jul-2016 Instruction Type:Provider Instructions for Treatment Name Dates Details How to access health informa tion online Indication:BMI 31.0-31.9,adult Start:21-Jan-2019 Instruction Type:Patient Education How to access health informa tion online - Detail Indication:BMI 31.0-31.9,adult Start:21-Jan-2019 Instruction Type:Patient Education Patient Instructions Indication:BMI 31.0-31.9,adult Start:21-Jan-2019 Instruction Type:Provider Instructions for Treatment How to access health informa tion online Indication:Nonsmoker Start:26-Nov-2018 Instruction Type:Patient Education How to access health informa tion online - Detail Indication:Nonsmoker Start:26-Nov-2018 Instruction Type:Patient Education Patient Instructions Indication:Nonsmoker Start:26-Nov-2018 Instruction Type:Provider Instructions for Treatment How to access health informa tion online Indication:Nonsmoker Start:25-Nov-2018 Instruction Type:Patient Education How to access health informa tion online - Detail Indication:Nonsmoker Start:25-Nov-2018 Instruction Type:Patient Education Patient Instructions Indication:Nonsmoker Start:25-Nov-2018 Instruction Type:Provider Instructions for Treatment How to access health informa tion online Indication:Nonsmoker Start:07-Nov-2018 Instruction Type:Patient Education How to access health informa tion online - Detail Indication:Nonsmoker Start:07-Nov-2018 Instruction Type:Patient Education Patient Instructions Indication:BMI 31.0-31.9,adult Start:07-Nov-2018 Instruction Type:Provider Instructions for Treatment How to access health informa tion online Indication:Nonsmoker Start:28-Jul-2018 Instruction Type:Patient Education How to access health informa tion online - Detail Indication:Nonsmoker Start:28-Jul-2018 Instruction Type:Patient Education Patient Instructions Indication:Bladder prolapse, congenital Start:28-Jul-2018 Instruction Type:Provider Instructions for Treatment How to access health informa tion online Indication:BMI 35.0-35.9,adult Start:03-Jul-2018 Instruction Type:Patient Education How to access health informa tion online - Detail Indication:BMI 35.0-35.9,adult Start:03-Jul-2018 Instruction Type:Patient Education Patient Instructions Indication:Upper respiratory infection Start:03-Jul-2018 Instruction Type:Provider Instructions for Treatment How to access health informa tion online Indication:Nonsmoker Start:04-Feb-2018 Instruction Type:Patient Education How to access health informa tion online - Detail Indication:Nonsmoker Start:04-Feb-2018 Instruction Type:Patient Education Patient Instructions Indication:Rash Start:04-Feb-2018 Instruction Type:Provider Instructions for Treatment How to access health informa tion online Indication:Sciatica of right side Start:31-Jan-2018 Instruction Type:Patient Education How to access health informa tion online - Detail Indication:Sciatica of right side Start:31-Jan-2018 Instruction Type:Patient Education Patient Instructions Indication:Nonsmoker Start:31-Jan-2018 Instruction Type:Provider Instructions for Treatment How to access health informa tion online Indication:Sciatica of right side Start:27-Sep-2017 Instruction Type:Patient Education How to access health informa tion online - Detail Indication:Sciatica of right side Start:27-Sep-2017 Instruction Type:Patient Education Patient Instructions Indication:Sciatica of right side Start:27-Sep-2017 Instruction Type:Provider Instructions for Treatment How to access health informa tion online Indication:Sciatica of right side Start:30-Aug-2017 Instruction Type:Patient Education How to access health informa tion online - Detail Indication:Sciatica of right side Start:30-Aug-2017 Instruction Type:Patient Education Patient Instructions Indication:Sciatica of right side Start:30-Aug-2017 Instruction Type:Provider Instructions for Treatment How to access health informa tion online Indication:DDD (degenerative disc disease), lumbar Start:13-Aug-2017 Instruction Type:Patient Education How to access health informa tion online - Detail Indication:DDD (degenerative disc disease), lumbar Start:13-Aug-2017 Instruction Type:Patient Education Patient Instructions Indication:Lumbar radiculopathy, right Start:13-Aug-2017 Instruction Type:Provider Instructions for Treatment How to access health informa tion online Indication:Nonsmoker Start:31-Jul-2017 Instruction Type:Patient Education How to access health informa tion online - Detail Indication:Nonsmoker Start:31-Jul-2017 Instruction Type:Patient Education Patient Instructions Indication:Nonsmoker Start:31-Jul-2017 Instruction Type:Provider Instructions for Treatment How to access health informa tion online Indication:Hypertension Start:18-Jul-2016 Instruction Type:Patient Education How to access health informa tion online - Detail Indication:Hypertension Start:18-Jul-2016 Instruction Type:Patient Education Patient Instructions Indication:Hypertension Start:18-Jul-2016 Instruction Type:Provider Instructions for Treatment Name Dates Details How to access health informa tion online Indication:Hypertension Start:02-Feb-2019 Instruction Type:Patient Education How to access health informa tion online - Detail Indication:Hypertension Start:02-Feb-2019 Instruction Type:Patient Education Patient Instructions Indication:Hypertension Start:02-Feb-2019 Instruction Type:Provider Instructions for Treatment How to access health informa tion online Indication:BMI 31.0-31.9,adult Start:21-Jan-2019 Instruction Type:Patient Education How to access health informa tion online - Detail Indication:BMI 31.0-31.9,adult Start:21-Jan-2019 Instruction Type:Patient Education Patient Instructions Indication:BMI 31.0-31.9,adult Start:21-Jan-2019 Instruction Type:Provider Instructions for Treatment How to access health informa tion online Indication:Nonsmoker Start:26-Nov-2018 Instruction Type:Patient Education How to access health informa tion online - Detail Indication:Nonsmoker Start:26-Nov-2018 Instruction Type:Patient Education Patient Instructions Indication:Nonsmoker Start:26-Nov-2018 Instruction Type:Provider Instructions for Treatment How to access health informa tion online Indication:Nonsmoker Start:25-Nov-2018 Instruction Type:Patient Education How to access health informa tion online - Detail Indication:Nonsmoker Start:25-Nov-2018 Instruction Type:Patient Education Patient Instructions Indication:Nonsmoker Start:25-Nov-2018 Instruction Type:Provider Instructions for Treatment How to access health informa tion online Indication:Nonsmoker Start:07-Nov-2018 Instruction Type:Patient Education How to access health informa tion online - Detail Indication:Nonsmoker Start:07-Nov-2018 Instruction Type:Patient Education Patient Instructions Indication:BMI 31.0-31.9,adult Start:07-Nov-2018 Instruction Type:Provider Instructions for Treatment How to access health informa tion online Indication:Nonsmoker Start:28-Jul-2018 Instruction Type:Patient Education How to access health informa tion online - Detail Indication:Nonsmoker Start:28-Jul-2018 Instruction Type:Patient Education Patient Instructions Indication:Bladder prolapse, congenital Start:28-Jul-2018 Instruction Type:Provider Instructions for Treatment How to access health informa tion online Indication:BMI 35.0-35.9,adult Start:03-Jul-2018 Instruction Type:Patient Education How to access health informa tion online - Detail Indication:BMI 35.0-35.9,adult Start:03-Jul-2018 Instruction Type:Patient Education Patient Instructions Indication:Upper respiratory infection Start:03-Jul-2018 Instruction Type:Provider Instructions for Treatment How to access health informa tion online Indication:Nonsmoker Start:04-Feb-2018 Instruction Type:Patient Education How to access health informa tion online - Detail Indication:Nonsmoker Start:04-Feb-2018 Instruction Type:Patient Education Patient Instructions Indication:Rash Start:04-Feb-2018 Instruction Type:Provider Instructions for Treatment How to access health informa tion online Indication:Sciatica of right side Start:31-Jan-2018 Instruction Type:Patient Education How to access health informa tion online - Detail Indication:Sciatica of right side Start:31-Jan-2018 Instruction Type:Patient Education Patient Instructions Indication:Nonsmoker Start:31-Jan-2018 Instruction Type:Provider Instructions for Treatment How to access health informa tion online Indication:Sciatica of right side Start:27-Sep-2017 Instruction Type:Patient Education How to access health informa tion online - Detail Indication:Sciatica of right side Start:27-Sep-2017 Instruction Type:Patient Education Patient Instructions Indication:Sciatica of right side Start:27-Sep-2017 Instruction Type:Provider Instructions for Treatment How to access health informa tion online Indication:Sciatica of right side Start:30-Aug-2017 Instruction Type:Patient Education How to access health informa tion online - Detail Indication:Sciatica of right side Start:30-Aug-2017 Instruction Type:Patient Education Patient Instructions Indication:Sciatica of right side Start:30-Aug-2017 Instruction Type:Provider Instructions for Treatment How to access health informa tion online Indication:DDD (degenerative disc disease), lumbar Start:13-Aug-2017 Instruction Type:Patient Education How to access health informa tion online - Detail Indication:DDD (degenerative disc disease), lumbar Start:13-Aug-2017 Instruction Type:Patient Education Patient Instructions Indication:Lumbar radiculopathy, right Start:13-Aug-2017 Instruction Type:Provider Instructions for Treatment How to access health informa tion online Indication:Nonsmoker Start:31-Jul-2017 Instruction Type:Patient Education How to access health informa tion online - Detail Indication:Nonsmoker Start:31-Jul-2017 Instruction Type:Patient Education Patient Instructions Indication:Nonsmoker Start:31-Jul-2017 Instruction Type:Provider Instructions for Treatment How to access health informa tion online Indication:Hypertension Start:18-Jul-2016 Instruction Type:Patient Education How to access health informa tion online - Detail Indication:Hypertension Start:18-Jul-2016 Instruction Type:Patient Education Patient Instructions Indication:Hypertension Start:18-Jul-2016 Instruction Type:Provider Instructions for Treatment Name Dates Details How to access health informa tion online Indication:Hypertension Start:02-Feb-2019 Instruction Type:Patient Education How to access health informa tion online - Detail Indication:Hypertension Start:02-Feb-2019 Instruction Type:Patient Education Patient Instructions Indication:Hypertension Start:02-Feb-2019 Instruction Type:Provider Instructions for Treatment How to access health informa tion online Indication:BMI 31.0-31.9,adult Start:21-Jan-2019 Instruction Type:Patient Education How to access health informa tion online - Detail Indication:BMI 31.0-31.9,adult Start:21-Jan-2019 Instruction Type:Patient Education Patient Instructions Indication:BMI 31.0-31.9,adult Start:21-Jan-2019 Instruction Type:Provider Instructions for Treatment How to access health informa tion online Indication:Nonsmoker Start:26-Nov-2018 Instruction Type:Patient Education How to access health informa tion online - Detail Indication:Nonsmoker Start:26-Nov-2018 Instruction Type:Patient Education Patient Instructions Indication:Nonsmoker Start:26-Nov-2018 Instruction Type:Provider Instructions for Treatment How to access health informa tion online Indication:Nonsmoker Start:25-Nov-2018 Instruction Type:Patient Education How to access health informa tion online - Detail Indication:Nonsmoker Start:25-Nov-2018 Instruction Type:Patient Education Patient Instructions Indication:Nonsmoker Start:25-Nov-2018 Instruction Type:Provider Instructions for Treatment How to access health informa tion online Indication:Nonsmoker Start:07-Nov-2018 Instruction Type:Patient Education How to access health informa tion online - Detail Indication:Nonsmoker Start:07-Nov-2018 Instruction Type:Patient Education Patient Instructions Indication:BMI 31.0-31.9,adult Start:07-Nov-2018 Instruction Type:Provider Instructions for Treatment How to access health informa tion online Indication:Nonsmoker Start:28-Jul-2018 Instruction Type:Patient Education How to access health informa tion online - Detail Indication:Nonsmoker Start:28-Jul-2018 Instruction Type:Patient Education Patient Instructions Indication:Bladder prolapse, congenital Start:28-Jul-2018 Instruction Type:Provider Instructions for Treatment How to access health informa tion online Indication:BMI 35.0-35.9,adult Start:03-Jul-2018 Instruction Type:Patient Education How to access health informa tion online - Detail Indication:BMI 35.0-35.9,adult Start:03-Jul-2018 Instruction Type:Patient Education Patient Instructions Indication:Upper respiratory infection Start:03-Jul-2018 Instruction Type:Provider Instructions for Treatment How to access health informa tion online Indication:Nonsmoker Start:04-Feb-2018 Instruction Type:Patient Education How to access health informa tion online - Detail Indication:Nonsmoker Start:04-Feb-2018 Instruction Type:Patient Education Patient Instructions Indication:Rash Start:04-Feb-2018 Instruction Type:Provider Instructions for Treatment How to access health informa tion online Indication:Sciatica of right side Start:31-Jan-2018 Instruction Type:Patient Education How to access health informa tion online - Detail Indication:Sciatica of right side Start:31-Jan-2018 Instruction Type:Patient Education Patient Instructions Indication:Nonsmoker Start:31-Jan-2018 Instruction Type:Provider Instructions for Treatment How to access health informa tion online Indication:Sciatica of right side Start:27-Sep-2017 Instruction Type:Patient Education How to access health informa tion online - Detail Indication:Sciatica of right side Start:27-Sep-2017 Instruction Type:Patient Education Patient Instructions Indication:Sciatica of right side Start:27-Sep-2017 Instruction Type:Provider Instructions for Treatment How to access health informa tion online Indication:Sciatica of right side Start:30-Aug-2017 Instruction Type:Patient Education How to access health informa tion online - Detail Indication:Sciatica of right side Start:30-Aug-2017 Instruction Type:Patient Education Patient Instructions Indication:Sciatica of right side Start:30-Aug-2017 Instruction Type:Provider Instructions for Treatment How to access health informa tion online Indication:DDD (degenerative disc disease), lumbar Start:13-Aug-2017 Instruction Type:Patient Education How to access health informa tion online - Detail Indication:DDD (degenerative disc disease), lumbar Start:13-Aug-2017 Instruction Type:Patient Education Patient Instructions Indication:Lumbar radiculopathy, right Start:13-Aug-2017 Instruction Type:Provider Instructions for Treatment How to access health informa tion online Indication:Nonsmoker Start:31-Jul-2017 Instruction Type:Patient Education How to access health informa tion online - Detail Indication:Nonsmoker Start:31-Jul-2017 Instruction Type:Patient Education Patient Instructions Indication:Nonsmoker Start:31-Jul-2017 Instruction Type:Provider Instructions for Treatment How to access health informa tion online Indication:Hypertension Start:18-Jul-2016 Instruction Type:Patient Education How to access health informa tion online - Detail Indication:Hypertension Start:18-Jul-2016 Instruction Type:Patient Education Patient Instructions Indication:Hypertension Start:18-Jul-2016 Instruction Type:Provider Instructions for Treatment Name Dates Details How to access health informa tion online Indication:Nonsmoker Start:05-Jan-2020 Instruction Type:Patient Education How to access health informa tion online - Detail Indication:Nonsmoker Start:05-Jan-2020 Instruction Type:Patient Education Patient Instructions Indication:Allergic rhinitis Start:05-Jan-2020 Instruction Type:Provider Instructions for Treatment How to access health informa tion online Indication:BMI 30.0-30.9,adult Start:16-Nov-2019 Instruction Type:Patient Education How to access health informa tion online - Detail Indication:BMI 30.0-30.9,adult Start:16-Nov-2019 Instruction Type:Patient Education Patient Instructions Indication:BMI 30.0-30.9,adult Start:16-Nov-2019 Instruction Type:Provider Instructions for Treatment How to access health informa tion online Indication:BMI 30.0-30.9,adult Start:25-Sep-2019 Instruction Type:Patient Education How to access health informa tion online - Detail Indication:BMI 30.0-30.9,adult Start:25-Sep-2019 Instruction Type:Patient Education Patient Instructions Indication:BMI 30.0-30.9,adult Start:25-Sep-2019 Instruction Type:Provider Instructions for Treatment How to access health informa tion online Indication:Nonsmoker Start:12-Aug-2019 Instruction Type:Patient Education How to access health informa tion online - Detail Indication:Nonsmoker Start:12-Aug-2019 Instruction Type:Patient Education Patient Instructions Indication:Nonsmoker Start:12-Aug-2019 Instruction Type:Provider Instructions for Treatment How to access health informa tion online Indication:BMI 29.0-29.9,adult Start:04-Aug-2019 Instruction Type:Patient Education How to access health informa tion online - Detail Indication:BMI 29.0-29.9,adult Start:04-Aug-2019 Instruction Type:Patient Education Patient Instructions Indication:BMI 29.0-29.9,adult Start:04-Aug-2019 Instruction Type:Provider Instructions for Treatment How to access health informa tion online Indication:BMI 31.0-31.9,adult Start:25-Jun-2019 Instruction Type:Patient Education How to access health informa tion online - Detail Indication:BMI 31.0-31.9,adult Start:25-Jun-2019 Instruction Type:Patient Education Patient Instructions Indication:Dysuria Start:25-Jun-2019 Instruction Type:Provider Instructions for Treatment How to access health informa tion online Indication:Hypertension Start:02-Feb-2019 Instruction Type:Patient Education How to access health informa tion online - Detail Indication:Hypertension Start:02-Feb-2019 Instruction Type:Patient Education Patient Instructions Indication:Hypertension Start:02-Feb-2019 Instruction Type:Provider Instructions for Treatment How to access health informa tion online Indication:BMI 31.0-31.9,adult Start:21-Jan-2019 Instruction Type:Patient Education How to access health informa tion online - Detail Indication:BMI 31.0-31.9,adult Start:21-Jan-2019 Instruction Type:Patient Education Patient Instructions Indication:BMI 31.0-31.9,adult Start:21-Jan-2019 Instruction Type:Provider Instructions for Treatment How to access health informa tion online Indication:Nonsmoker Start:26-Nov-2018 Instruction Type:Patient Education How to access health informa tion online - Detail Indication:Nonsmoker Start:26-Nov-2018 Instruction Type:Patient Education Patient Instructions Indication:Nonsmoker Start:26-Nov-2018 Instruction Type:Provider Instructions for Treatment How to access health informa tion online Indication:Nonsmoker Start:25-Nov-2018 Instruction Type:Patient Education How to access health informa tion online - Detail Indication:Nonsmoker Start:25-Nov-2018 Instruction Type:Patient Education Patient Instructions Indication:Nonsmoker Start:25-Nov-2018 Instruction Type:Provider Instructions for Treatment How to access health informa tion online Indication:Nonsmoker Start:07-Nov-2018 Instruction Type:Patient Education How to access health informa tion online - Detail Indication:Nonsmoker Start:07-Nov-2018 Instruction Type:Patient Education Patient Instructions Indication:BMI 31.0-31.9,adult Start:07-Nov-2018 Instruction Type:Provider Instructions for Treatment How to access health informa tion online Indication:Nonsmoker Start:28-Jul-2018 Instruction Type:Patient Education How to access health informa tion online - Detail Indication:Nonsmoker Start:28-Jul-2018 Instruction Type:Patient Education Patient Instructions Indication:Bladder prolapse, congenital Start:28-Jul-2018 Instruction Type:Provider Instructions for Treatment How to access health informa tion online Indication:BMI 35.0-35.9,adult Start:03-Jul-2018 Instruction Type:Patient Education How to access health informa tion online - Detail Indication:BMI 35.0-35.9,adult Start:03-Jul-2018 Instruction Type:Patient Education Patient Instructions Indication:Upper respiratory infection Start:03-Jul-2018 Instruction Type:Provider Instructions for Treatment How to access health informa tion online Indication:Nonsmoker Start:04-Feb-2018 Instruction Type:Patient Education How to access health informa tion online - Detail Indication:Nonsmoker Start:04-Feb-2018 Instruction Type:Patient Education Patient Instructions Indication:Rash Start:04-Feb-2018 Instruction Type:Provider Instructions for Treatment How to access health informa tion online Indication:Sciatica of right side Start:31-Jan-2018 Instruction Type:Patient Education How to access health informa tion online - Detail Indication:Sciatica of right side Start:31-Jan-2018 Instruction Type:Patient Education Patient Instructions Indication:Nonsmoker Start:31-Jan-2018 Instruction Type:Provider Instructions for Treatment How to access health informa tion online Indication:Sciatica of right side Start:27-Sep-2017 Instruction Type:Patient Education How to access health informa tion online - Detail Indication:Sciatica of right side Start:27-Sep-2017 Instruction Type:Patient Education Patient Instructions Indication:Sciatica of right side Start:27-Sep-2017 Instruction Type:Provider Instructions for Treatment How to access health informa tion online Indication:Sciatica of right side Start:30-Aug-2017 Instruction Type:Patient Education How to access health informa tion online - Detail Indication:Sciatica of right side Start:30-Aug-2017 Instruction Type:Patient Education Patient Instructions Indication:Sciatica of right side Start:30-Aug-2017 Instruction Type:Provider Instructions for Treatment How to access health informa tion online Indication:DDD (degenerative disc disease), lumbar Start:13-Aug-2017 Instruction Type:Patient Education How to access health informa tion online - Detail Indication:DDD (degenerative disc disease), lumbar Start:13-Aug-2017 Instruction Type:Patient Education Patient Instructions Indication:Lumbar radiculopathy, right Start:13-Aug-2017 Instruction Type:Provider Instructions for Treatment How to access health informa tion online Indication:Nonsmoker Start:31-Jul-2017 Instruction Type:Patient Education How to access health informa tion online - Detail Indication:Nonsmoker Start:31-Jul-2017 Instruction Type:Patient Education Patient Instructions Indication:Nonsmoker Start:31-Jul-2017 Instruction Type:Provider Instructions for Treatment How to access health informa tion online Indication:Hypertension Start:18-Jul-2016 Instruction Type:Patient Education How to access health informa tion online - Detail Indication:Hypertension Start:18-Jul-2016 Instruction Type:Patient Education Patient Instructions Indication:Hypertension Start:18-Jul-2016 Instruction Type:Provider Instructions for Treatment Name Dates Details How to access health informa tion online Indication:Nonsmoker Start:19-Jan-2020 Instruction Type:Patient Education How to access health informa tion online - Detail Indication:Nonsmoker Start:19-Jan-2020 Instruction Type:Patient Education Patient Instructions Indication:Nonsmoker Start:19-Jan-2020 Instruction Type:Provider Instructions for Treatment How to access health informa tion online Indication:Nonsmoker Start:05-Jan-2020 Instruction Type:Patient Education How to access health informa tion online - Detail Indication:Nonsmoker Start:05-Jan-2020 Instruction Type:Patient Education Patient Instructions Indication:Allergic rhinitis Start:05-Jan-2020 Instruction Type:Provider Instructions for Treatment How to access health informa tion online Indication:BMI 30.0-30.9,adult Start:16-Nov-2019 Instruction Type:Patient Education How to access health informa tion online - Detail Indication:BMI 30.0-30.9,adult Start:16-Nov-2019 Instruction Type:Patient Education Patient Instructions Indication:BMI 30.0-30.9,adult Start:16-Nov-2019 Instruction Type:Provider Instructions for Treatment How to access health informa tion online Indication:BMI 30.0-30.9,adult Start:25-Sep-2019 Instruction Type:Patient Education How to access health informa tion online - Detail Indication:BMI 30.0-30.9,adult Start:25-Sep-2019 Instruction Type:Patient Education Patient Instructions Indication:BMI 30.0-30.9,adult Start:25-Sep-2019 Instruction Type:Provider Instructions for Treatment How to access health informa tion online Indication:Nonsmoker Start:12-Aug-2019 Instruction Type:Patient Education How to access health informa tion online - Detail Indication:Nonsmoker Start:12-Aug-2019 Instruction Type:Patient Education Patient Instructions Indication:Nonsmoker Start:12-Aug-2019 Instruction Type:Provider Instructions for Treatment How to access health informa tion online Indication:BMI 29.0-29.9,adult Start:04-Aug-2019 Instruction Type:Patient Education How to access health informa tion online - Detail Indication:BMI 29.0-29.9,adult Start:04-Aug-2019 Instruction Type:Patient Education Patient Instructions Indication:BMI 29.0-29.9,adult Start:04-Aug-2019 Instruction Type:Provider Instructions for Treatment How to access health informa tion online Indication:BMI 31.0-31.9,adult Start:25-Jun-2019 Instruction Type:Patient Education How to access health informa tion online - Detail Indication:BMI 31.0-31.9,adult Start:25-Jun-2019 Instruction Type:Patient Education Patient Instructions Indication:Dysuria Start:25-Jun-2019 Instruction Type:Provider Instructions for Treatment How to access health informa tion online Indication:Hypertension Start:02-Feb-2019 Instruction Type:Patient Education How to access health informa tion online - Detail Indication:Hypertension Start:02-Feb-2019 Instruction Type:Patient Education Patient Instructions Indication:Hypertension Start:02-Feb-2019 Instruction Type:Provider Instructions for Treatment How to access health informa tion online Indication:BMI 31.0-31.9,adult Start:21-Jan-2019 Instruction Type:Patient Education How to access health informa tion online - Detail Indication:BMI 31.0-31.9,adult Start:21-Jan-2019 Instruction Type:Patient Education Patient Instructions Indication:BMI 31.0-31.9,adult Start:21-Jan-2019 Instruction Type:Provider Instructions for Treatment How to access health informa tion online Indication:Nonsmoker Start:26-Nov-2018 Instruction Type:Patient Education How to access health informa tion online - Detail Indication:Nonsmoker Start:26-Nov-2018 Instruction Type:Patient Education Patient Instructions Indication:Nonsmoker Start:26-Nov-2018 Instruction Type:Provider Instructions for Treatment How to access health informa tion online Indication:Nonsmoker Start:25-Nov-2018 Instruction Type:Patient Education How to access health informa tion online - Detail Indication:Nonsmoker Start:25-Nov-2018 Instruction Type:Patient Education Patient Instructions Indication:Nonsmoker Start:25-Nov-2018 Instruction Type:Provider Instructions for Treatment How to access health informa tion online Indication:Nonsmoker Start:07-Nov-2018 Instruction Type:Patient Education How to access health informa tion online - Detail Indication:Nonsmoker Start:07-Nov-2018 Instruction Type:Patient Education Patient Instructions Indication:BMI 31.0-31.9,adult Start:07-Nov-2018 Instruction Type:Provider Instructions for Treatment How to access health informa tion online Indication:Nonsmoker Start:28-Jul-2018 Instruction Type:Patient Education How to access health informa tion online - Detail Indication:Nonsmoker Start:28-Jul-2018 Instruction Type:Patient Education Patient Instructions Indication:Bladder prolapse, congenital Start:28-Jul-2018 Instruction Type:Provider Instructions for Treatment How to access health informa tion online Indication:BMI 35.0-35.9,adult Start:03-Jul-2018 Instruction Type:Patient Education How to access health informa tion online - Detail Indication:BMI 35.0-35.9,adult Start:03-Jul-2018 Instruction Type:Patient Education Patient Instructions Indication:Upper respiratory infection Start:03-Jul-2018 Instruction Type:Provider Instructions for Treatment How to access health informa tion online Indication:Nonsmoker Start:04-Feb-2018 Instruction Type:Patient Education How to access health informa tion online - Detail Indication:Nonsmoker Start:04-Feb-2018 Instruction Type:Patient Education Patient Instructions Indication:Rash Start:04-Feb-2018 Instruction Type:Provider Instructions for Treatment How to access health informa tion online Indication:Sciatica of right side Start:31-Jan-2018 Instruction Type:Patient Education How to access health informa tion online - Detail Indication:Sciatica of right side Start:31-Jan-2018 Instruction Type:Patient Education Patient Instructions Indication:Nonsmoker Start:31-Jan-2018 Instruction Type:Provider Instructions for Treatment How to access health informa tion online Indication:Sciatica of right side Start:27-Sep-2017 Instruction Type:Patient Education How to access health informa tion online - Detail Indication:Sciatica of right side Start:27-Sep-2017 Instruction Type:Patient Education Patient Instructions Indication:Sciatica of right side Start:27-Sep-2017 Instruction Type:Provider Instructions for Treatment How to access health informa tion online Indication:Sciatica of right side Start:30-Aug-2017 Instruction Type:Patient Education How to access health informa tion online - Detail Indication:Sciatica of right side Start:30-Aug-2017 Instruction Type:Patient Education Patient Instructions Indication:Sciatica of right side Start:30-Aug-2017 Instruction Type:Provider Instructions for Treatment How to access health informa tion online Indication:DDD (degenerative disc disease), lumbar Start:13-Aug-2017 Instruction Type:Patient Education How to access health informa tion online - Detail Indication:DDD (degenerative disc disease), lumbar Start:13-Aug-2017 Instruction Type:Patient Education Patient Instructions Indication:Lumbar radiculopathy, right Start:13-Aug-2017 Instruction Type:Provider Instructions for Treatment How to access health informa tion online Indication:Nonsmoker Start:31-Jul-2017 Instruction Type:Patient Education How to access health informa tion online - Detail Indication:Nonsmoker Start:31-Jul-2017 Instruction Type:Patient Education Patient Instructions Indication:Nonsmoker Start:31-Jul-2017 Instruction Type:Provider Instructions for Treatment How to access health informa tion online Indication:Hypertension Start:18-Jul-2016 Instruction Type:Patient Education How to access health informa tion online - Detail Indication:Hypertension Start:18-Jul-2016 Instruction Type:Patient Education Patient Instructions Indication:Hypertension Start:18-Jul-2016 Instruction Type:Provider Instructions for Treatment Name Dates Details How to access health informa tion online Indication:Nonsmoker Start:10-Feb-2020 Instruction Type:Patient Education How to access health informa tion online - Detail Indication:Nonsmoker Start:10-Feb-2020 Instruction Type:Patient Education Patient Instructions Indication:Nonsmoker Start:10-Feb-2020 Instruction Type:Provider Instructions for Treatment How to access health informa tion online Indication:Nonsmoker Start:19-Jan-2020 Instruction Type:Patient Education How to access health informa tion online - Detail Indication:Nonsmoker Start:19-Jan-2020 Instruction Type:Patient Education Patient Instructions Indication:Nonsmoker Start:19-Jan-2020 Instruction Type:Provider Instructions for Treatment How to access health informa tion online Indication:Nonsmoker Start:05-Jan-2020 Instruction Type:Patient Education How to access health informa tion online - Detail Indication:Nonsmoker Start:05-Jan-2020 Instruction Type:Patient Education Patient Instructions Indication:Allergic rhinitis Start:05-Jan-2020 Instruction Type:Provider Instructions for Treatment How to access health informa tion online Indication:BMI 30.0-30.9,adult Start:16-Nov-2019 Instruction Type:Patient Education How to access health informa tion online - Detail Indication:BMI 30.0-30.9,adult Start:16-Nov-2019 Instruction Type:Patient Education Patient Instructions Indication:BMI 30.0-30.9,adult Start:16-Nov-2019 Instruction Type:Provider Instructions for Treatment How to access health informa tion online Indication:BMI 30.0-30.9,adult Start:25-Sep-2019 Instruction Type:Patient Education How to access health informa tion online - Detail Indication:BMI 30.0-30.9,adult Start:25-Sep-2019 Instruction Type:Patient Education Patient Instructions Indication:BMI 30.0-30.9,adult Start:25-Sep-2019 Instruction Type:Provider Instructions for Treatment How to access health informa tion online Indication:Nonsmoker Start:12-Aug-2019 Instruction Type:Patient Education How to access health informa tion online - Detail Indication:Nonsmoker Start:12-Aug-2019 Instruction Type:Patient Education Patient Instructions Indication:Nonsmoker Start:12-Aug-2019 Instruction Type:Provider Instructions for Treatment How to access health informa tion online Indication:BMI 29.0-29.9,adult Start:04-Aug-2019 Instruction Type:Patient Education How to access health informa tion online - Detail Indication:BMI 29.0-29.9,adult Start:04-Aug-2019 Instruction Type:Patient Education Patient Instructions Indication:BMI 29.0-29.9,adult Start:04-Aug-2019 Instruction Type:Provider Instructions for Treatment How to access health informa tion online Indication:BMI 31.0-31.9,adult Start:25-Jun-2019 Instruction Type:Patient Education How to access health informa tion online - Detail Indication:BMI 31.0-31.9,adult Start:25-Jun-2019 Instruction Type:Patient Education Patient Instructions Indication:Dysuria Start:25-Jun-2019 Instruction Type:Provider Instructions for Treatment How to access health informa tion online Indication:Hypertension Start:02-Feb-2019 Instruction Type:Patient Education How to access health informa tion online - Detail Indication:Hypertension Start:02-Feb-2019 Instruction Type:Patient Education Patient Instructions Indication:Hypertension Start:02-Feb-2019 Instruction Type:Provider Instructions for Treatment How to access health informa tion online Indication:BMI 31.0-31.9,adult Start:21-Jan-2019 Instruction Type:Patient Education How to access health informa tion online - Detail Indication:BMI 31.0-31.9,adult Start:21-Jan-2019 Instruction Type:Patient Education Patient Instructions Indication:BMI 31.0-31.9,adult Start:21-Jan-2019 Instruction Type:Provider Instructions for Treatment How to access health informa tion online Indication:Nonsmoker Start:26-Nov-2018 Instruction Type:Patient Education How to access health informa tion online - Detail Indication:Nonsmoker Start:26-Nov-2018 Instruction Type:Patient Education Patient Instructions Indication:Nonsmoker Start:26-Nov-2018 Instruction Type:Provider Instructions for Treatment How to access health informa tion online Indication:Nonsmoker Start:25-Nov-2018 Instruction Type:Patient Education How to access health informa tion online - Detail Indication:Nonsmoker Start:25-Nov-2018 Instruction Type:Patient Education Patient Instructions Indication:Nonsmoker Start:25-Nov-2018 Instruction Type:Provider Instructions for Treatment How to access health informa tion online Indication:Nonsmoker Start:07-Nov-2018 Instruction Type:Patient Education How to access health informa tion online - Detail Indication:Nonsmoker Start:07-Nov-2018 Instruction Type:Patient Education Patient Instructions Indication:BMI 31.0-31.9,adult Start:07-Nov-2018 Instruction Type:Provider Instructions for Treatment How to access health informa tion online Indication:Nonsmoker Start:28-Jul-2018 Instruction Type:Patient Education How to access health informa tion online - Detail Indication:Nonsmoker Start:28-Jul-2018 Instruction Type:Patient Education Patient Instructions Indication:Bladder prolapse, congenital Start:28-Jul-2018 Instruction Type:Provider Instructions for Treatment How to access health informa tion online Indication:BMI 35.0-35.9,adult Start:03-Jul-2018 Instruction Type:Patient Education How to access health informa tion online - Detail Indication:BMI 35.0-35.9,adult Start:03-Jul-2018 Instruction Type:Patient Education Patient Instructions Indication:Upper respiratory infection Start:03-Jul-2018 Instruction Type:Provider Instructions for Treatment How to access health informa tion online Indication:Nonsmoker Start:04-Feb-2018 Instruction Type:Patient Education How to access health informa tion online - Detail Indication:Nonsmoker Start:04-Feb-2018 Instruction Type:Patient Education Patient Instructions Indication:Rash Start:04-Feb-2018 Instruction Type:Provider Instructions for Treatment How to access health informa tion online Indication:Sciatica of right side Start:31-Jan-2018 Instruction Type:Patient Education How to access health informa tion online - Detail Indication:Sciatica of right side Start:31-Jan-2018 Instruction Type:Patient Education Patient Instructions Indication:Nonsmoker Start:31-Jan-2018 Instruction Type:Provider Instructions for Treatment How to access health informa tion online Indication:Sciatica of right side Start:27-Sep-2017 Instruction Type:Patient Education How to access health informa tion online - Detail Indication:Sciatica of right side Start:27-Sep-2017 Instruction Type:Patient Education Patient Instructions Indication:Sciatica of right side Start:27-Sep-2017 Instruction Type:Provider Instructions for Treatment How to access health informa tion online Indication:Sciatica of right side Start:30-Aug-2017 Instruction Type:Patient Education How to access health informa tion online - Detail Indication:Sciatica of right side Start:30-Aug-2017 Instruction Type:Patient Education Patient Instructions Indication:Sciatica of right side Start:30-Aug-2017 Instruction Type:Provider Instructions for Treatment How to access health informa tion online Indication:DDD (degenerative disc disease), lumbar Start:13-Aug-2017 Instruction Type:Patient Education How to access health informa tion online - Detail Indication:DDD (degenerative disc disease), lumbar Start:13-Aug-2017 Instruction Type:Patient Education Patient Instructions Indication:Lumbar radiculopathy, right Start:13-Aug-2017 Instruction Type:Provider Instructions for Treatment How to access health informa tion online Indication:Nonsmoker Start:31-Jul-2017 Instruction Type:Patient Education How to access health informa tion online - Detail Indication:Nonsmoker Start:31-Jul-2017 Instruction Type:Patient Education Patient Instructions Indication:Nonsmoker Start:31-Jul-2017 Instruction Type:Provider Instructions for Treatment How to access health informa tion online Indication:Hypertension Start:18-Jul-2016 Instruction Type:Patient Education How to access health informa tion online - Detail Indication:Hypertension Start:18-Jul-2016 Instruction Type:Patient Education Patient Instructions Indication:Hypertension Start:18-Jul-2016 Instruction Type:Provider Instructions for Treatment Name Dates Details How to access health informa tion online Indication:Nonsmoker Start:10-Feb-2020 Instruction Type:Patient Education How to access health informa tion online - Detail Indication:Nonsmoker Start:10-Feb-2020 Instruction Type:Patient Education Patient Instructions Indication:BMI 31.0-31.9,adult Start:10-Feb-2020 Instruction Type:Provider Instructions for Treatment How to access health informa tion online Indication:Nonsmoker Start:19-Jan-2020 Instruction Type:Patient Education How to access health informa tion online - Detail Indication:Nonsmoker Start:19-Jan-2020 Instruction Type:Patient Education Patient Instructions Indication:Nonsmoker Start:19-Jan-2020 Instruction Type:Provider Instructions for Treatment How to access health informa tion online Indication:Nonsmoker Start:05-Jan-2020 Instruction Type:Patient Education How to access health informa tion online - Detail Indication:Nonsmoker Start:05-Jan-2020 Instruction Type:Patient Education Patient Instructions Indication:Allergic rhinitis Start:05-Jan-2020 Instruction Type:Provider Instructions for Treatment How to access health informa tion online Indication:BMI 30.0-30.9,adult Start:16-Nov-2019 Instruction Type:Patient Education How to access health informa tion online - Detail Indication:BMI 30.0-30.9,adult Start:16-Nov-2019 Instruction Type:Patient Education Patient Instructions Indication:BMI 30.0-30.9,adult Start:16-Nov-2019 Instruction Type:Provider Instructions for Treatment How to access health informa tion online Indication:BMI 30.0-30.9,adult Start:25-Sep-2019 Instruction Type:Patient Education How to access health informa tion online - Detail Indication:BMI 30.0-30.9,adult Start:25-Sep-2019 Instruction Type:Patient Education Patient Instructions Indication:BMI 30.0-30.9,adult Start:25-Sep-2019 Instruction Type:Provider Instructions for Treatment How to access health informa tion online Indication:Nonsmoker Start:12-Aug-2019 Instruction Type:Patient Education How to access health informa tion online - Detail Indication:Nonsmoker Start:12-Aug-2019 Instruction Type:Patient Education Patient Instructions Indication:Nonsmoker Start:12-Aug-2019 Instruction Type:Provider Instructions for Treatment How to access health informa tion online Indication:BMI 29.0-29.9,adult Start:04-Aug-2019 Instruction Type:Patient Education How to access health informa tion online - Detail Indication:BMI 29.0-29.9,adult Start:04-Aug-2019 Instruction Type:Patient Education Patient Instructions Indication:BMI 29.0-29.9,adult Start:04-Aug-2019 Instruction Type:Provider Instructions for Treatment How to access health informa tion online Indication:BMI 31.0-31.9,adult Start:25-Jun-2019 Instruction Type:Patient Education How to access health informa tion online - Detail Indication:BMI 31.0-31.9,adult Start:25-Jun-2019 Instruction Type:Patient Education Patient Instructions Indication:Dysuria Start:25-Jun-2019 Instruction Type:Provider Instructions for Treatment How to access health informa tion online Indication:Hypertension Start:02-Feb-2019 Instruction Type:Patient Education How to access health informa tion online - Detail Indication:Hypertension Start:02-Feb-2019 Instruction Type:Patient Education Patient Instructions Indication:Hypertension Start:02-Feb-2019 Instruction Type:Provider Instructions for Treatment How to access health informa tion online Indication:BMI 31.0-31.9,adult Start:21-Jan-2019 Instruction Type:Patient Education How to access health informa tion online - Detail Indication:BMI 31.0-31.9,adult Start:21-Jan-2019 Instruction Type:Patient Education Patient Instructions Indication:BMI 31.0-31.9,adult Start:21-Jan-2019 Instruction Type:Provider Instructions for Treatment How to access health informa tion online Indication:Nonsmoker Start:26-Nov-2018 Instruction Type:Patient Education How to access health informa tion online - Detail Indication:Nonsmoker Start:26-Nov-2018 Instruction Type:Patient Education Patient Instructions Indication:Nonsmoker Start:26-Nov-2018 Instruction Type:Provider Instructions for Treatment How to access health informa tion online Indication:Nonsmoker Start:25-Nov-2018 Instruction Type:Patient Education How to access health informa tion online - Detail Indication:Nonsmoker Start:25-Nov-2018 Instruction Type:Patient Education Patient Instructions Indication:Nonsmoker Start:25-Nov-2018 Instruction Type:Provider Instructions for Treatment How to access health informa tion online Indication:Nonsmoker Start:07-Nov-2018 Instruction Type:Patient Education How to access health informa tion online - Detail Indication:Nonsmoker Start:07-Nov-2018 Instruction Type:Patient Education Patient Instructions Indication:BMI 31.0-31.9,adult Start:07-Nov-2018 Instruction Type:Provider Instructions for Treatment How to access health informa tion online Indication:Nonsmoker Start:28-Jul-2018 Instruction Type:Patient Education How to access health informa tion online - Detail Indication:Nonsmoker Start:28-Jul-2018 Instruction Type:Patient Education Patient Instructions Indication:Bladder prolapse, congenital Start:28-Jul-2018 Instruction Type:Provider Instructions for Treatment How to access health informa tion online Indication:BMI 35.0-35.9,adult Start:03-Jul-2018 Instruction Type:Patient Education How to access health informa tion online - Detail Indication:BMI 35.0-35.9,adult Start:03-Jul-2018 Instruction Type:Patient Education Patient Instructions Indication:Upper respiratory infection Start:03-Jul-2018 Instruction Type:Provider Instructions for Treatment How to access health informa tion online Indication:Nonsmoker Start:04-Feb-2018 Instruction Type:Patient Education How to access health informa tion online - Detail Indication:Nonsmoker Start:04-Feb-2018 Instruction Type:Patient Education Patient Instructions Indication:Rash Start:04-Feb-2018 Instruction Type:Provider Instructions for Treatment How to access health informa tion online Indication:Sciatica of right side Start:31-Jan-2018 Instruction Type:Patient Education How to access health informa tion online - Detail Indication:Sciatica of right side Start:31-Jan-2018 Instruction Type:Patient Education Patient Instructions Indication:Nonsmoker Start:31-Jan-2018 Instruction Type:Provider Instructions for Treatment How to access health informa tion online Indication:Sciatica of right side Start:27-Sep-2017 Instruction Type:Patient Education How to access health informa tion online - Detail Indication:Sciatica of right side Start:27-Sep-2017 Instruction Type:Patient Education Patient Instructions Indication:Sciatica of right side Start:27-Sep-2017 Instruction Type:Provider Instructions for Treatment How to access health informa tion online Indication:Sciatica of right side Start:30-Aug-2017 Instruction Type:Patient Education How to access health informa tion online - Detail Indication:Sciatica of right side Start:30-Aug-2017 Instruction Type:Patient Education Patient Instructions Indication:Sciatica of right side Start:30-Aug-2017 Instruction Type:Provider Instructions for Treatment How to access health informa tion online Indication:DDD (degenerative disc disease), lumbar Start:13-Aug-2017 Instruction Type:Patient Education How to access health informa tion online - Detail Indication:DDD (degenerative disc disease), lumbar Start:13-Aug-2017 Instruction Type:Patient Education Patient Instructions Indication:Lumbar radiculopathy, right Start:13-Aug-2017 Instruction Type:Provider Instructions for Treatment How to access health informa tion online Indication:Nonsmoker Start:31-Jul-2017 Instruction Type:Patient Education How to access health informa tion online - Detail Indication:Nonsmoker Start:31-Jul-2017 Instruction Type:Patient Education Patient Instructions Indication:Nonsmoker Start:31-Jul-2017 Instruction Type:Provider Instructions for Treatment How to access health informa tion online Indication:Hypertension Start:18-Jul-2016 Instruction Type:Patient Education How to access health informa tion online - Detail Indication:Hypertension Start:18-Jul-2016 Instruction Type:Patient Education Patient Instructions Indication:Hypertension Start:18-Jul-2016 Instruction Type:Provider Instructions for Treatment Name Dates Details How to access health informa tion online Indication:Nonsmoker Start:10-Feb-2020 Instruction Type:Patient Education How to access health informa tion online - Detail Indication:Nonsmoker Start:10-Feb-2020 Instruction Type:Patient Education Patient Instructions Indication:BMI 31.0-31.9,adult Start:10-Feb-2020 Instruction Type:Provider Instructions for Treatment How to access health informa tion online Indication:Nonsmoker Start:19-Jan-2020 Instruction Type:Patient Education How to access health informa tion online - Detail Indication:Nonsmoker Start:19-Jan-2020 Instruction Type:Patient Education Patient Instructions Indication:Nonsmoker Start:19-Jan-2020 Instruction Type:Provider Instructions for Treatment How to access health informa tion online Indication:Nonsmoker Start:05-Jan-2020 Instruction Type:Patient Education How to access health informa tion online - Detail Indication:Nonsmoker Start:05-Jan-2020 Instruction Type:Patient Education Patient Instructions Indication:Allergic rhinitis Start:05-Jan-2020 Instruction Type:Provider Instructions for Treatment How to access health informa tion online Indication:BMI 30.0-30.9,adult Start:16-Nov-2019 Instruction Type:Patient Education How to access health informa tion online - Detail Indication:BMI 30.0-30.9,adult Start:16-Nov-2019 Instruction Type:Patient Education Patient Instructions Indication:BMI 30.0-30.9,adult Start:16-Nov-2019 Instruction Type:Provider Instructions for Treatment How to access health informa tion online Indication:BMI 30.0-30.9,adult Start:25-Sep-2019 Instruction Type:Patient Education How to access health informa tion online - Detail Indication:BMI 30.0-30.9,adult Start:25-Sep-2019 Instruction Type:Patient Education Patient Instructions Indication:BMI 30.0-30.9,adult Start:25-Sep-2019 Instruction Type:Provider Instructions for Treatment How to access health informa tion online Indication:Nonsmoker Start:12-Aug-2019 Instruction Type:Patient Education How to access health informa tion online - Detail Indication:Nonsmoker Start:12-Aug-2019 Instruction Type:Patient Education Patient Instructions Indication:Nonsmoker Start:12-Aug-2019 Instruction Type:Provider Instructions for Treatment How to access health informa tion online Indication:BMI 29.0-29.9,adult Start:04-Aug-2019 Instruction Type:Patient Education How to access health informa tion online - Detail Indication:BMI 29.0-29.9,adult Start:04-Aug-2019 Instruction Type:Patient Education Patient Instructions Indication:BMI 29.0-29.9,adult Start:04-Aug-2019 Instruction Type:Provider Instructions for Treatment How to access health informa tion online Indication:BMI 31.0-31.9,adult Start:25-Jun-2019 Instruction Type:Patient Education How to access health informa tion online - Detail Indication:BMI 31.0-31.9,adult Start:25-Jun-2019 Instruction Type:Patient Education Patient Instructions Indication:Dysuria Start:25-Jun-2019 Instruction Type:Provider Instructions for Treatment How to access health informa tion online Indication:Hypertension Start:02-Feb-2019 Instruction Type:Patient Education How to access health informa tion online - Detail Indication:Hypertension Start:02-Feb-2019 Instruction Type:Patient Education Patient Instructions Indication:Hypertension Start:02-Feb-2019 Instruction Type:Provider Instructions for Treatment How to access health informa tion online Indication:BMI 31.0-31.9,adult Start:21-Jan-2019 Instruction Type:Patient Education How to access health informa tion online - Detail Indication:BMI 31.0-31.9,adult Start:21-Jan-2019 Instruction Type:Patient Education Patient Instructions Indication:BMI 31.0-31.9,adult Start:21-Jan-2019 Instruction Type:Provider Instructions for Treatment How to access health informa tion online Indication:Nonsmoker Start:26-Nov-2018 Instruction Type:Patient Education How to access health informa tion online - Detail Indication:Nonsmoker Start:26-Nov-2018 Instruction Type:Patient Education Patient Instructions Indication:Nonsmoker Start:26-Nov-2018 Instruction Type:Provider Instructions for Treatment How to access health informa tion online Indication:Nonsmoker Start:25-Nov-2018 Instruction Type:Patient Education How to access health informa tion online - Detail Indication:Nonsmoker Start:25-Nov-2018 Instruction Type:Patient Education Patient Instructions Indication:Nonsmoker Start:25-Nov-2018 Instruction Type:Provider Instructions for Treatment How to access health informa tion online Indication:Nonsmoker Start:07-Nov-2018 Instruction Type:Patient Education How to access health informa tion online - Detail Indication:Nonsmoker Start:07-Nov-2018 Instruction Type:Patient Education Patient Instructions Indication:BMI 31.0-31.9,adult Start:07-Nov-2018 Instruction Type:Provider Instructions for Treatment How to access health informa tion online Indication:Nonsmoker Start:28-Jul-2018 Instruction Type:Patient Education How to access health informa tion online - Detail Indication:Nonsmoker Start:28-Jul-2018 Instruction Type:Patient Education Patient Instructions Indication:Bladder prolapse, congenital Start:28-Jul-2018 Instruction Type:Provider Instructions for Treatment How to access health informa tion online Indication:BMI 35.0-35.9,adult Start:03-Jul-2018 Instruction Type:Patient Education How to access health informa tion online - Detail Indication:BMI 35.0-35.9,adult Start:03-Jul-2018 Instruction Type:Patient Education Patient Instructions Indication:Upper respiratory infection Start:03-Jul-2018 Instruction Type:Provider Instructions for Treatment How to access health informa tion online Indication:Nonsmoker Start:04-Feb-2018 Instruction Type:Patient Education How to access health informa tion online - Detail Indication:Nonsmoker Start:04-Feb-2018 Instruction Type:Patient Education Patient Instructions Indication:Rash Start:04-Feb-2018 Instruction Type:Provider Instructions for Treatment How to access health informa tion online Indication:Sciatica of right side Start:31-Jan-2018 Instruction Type:Patient Education How to access health informa tion online - Detail Indication:Sciatica of right side Start:31-Jan-2018 Instruction Type:Patient Education Patient Instructions Indication:Nonsmoker Start:31-Jan-2018 Instruction Type:Provider Instructions for Treatment How to access health informa tion online Indication:Sciatica of right side Start:27-Sep-2017 Instruction Type:Patient Education How to access health informa tion online - Detail Indication:Sciatica of right side Start:27-Sep-2017 Instruction Type:Patient Education Patient Instructions Indication:Sciatica of right side Start:27-Sep-2017 Instruction Type:Provider Instructions for Treatment How to access health informa tion online Indication:Sciatica of right side Start:30-Aug-2017 Instruction Type:Patient Education How to access health informa tion online - Detail Indication:Sciatica of right side Start:30-Aug-2017 Instruction Type:Patient Education Patient Instructions Indication:Sciatica of right side Start:30-Aug-2017 Instruction Type:Provider Instructions for Treatment How to access health informa tion online Indication:DDD (degenerative disc disease), lumbar Start:13-Aug-2017 Instruction Type:Patient Education How to access health informa tion online - Detail Indication:DDD (degenerative disc disease), lumbar Start:13-Aug-2017 Instruction Type:Patient Education Patient Instructions Indication:Lumbar radiculopathy, right Start:13-Aug-2017 Instruction Type:Provider Instructions for Treatment How to access health informa tion online Indication:Nonsmoker Start:31-Jul-2017 Instruction Type:Patient Education How to access health informa tion online - Detail Indication:Nonsmoker Start:31-Jul-2017 Instruction Type:Patient Education Patient Instructions Indication:Nonsmoker Start:31-Jul-2017 Instruction Type:Provider Instructions for Treatment How to access health informa tion online Indication:Hypertension Start:18-Jul-2016 Instruction Type:Patient Education How to access health informa tion online - Detail Indication:Hypertension Start:18-Jul-2016 Instruction Type:Patient Education Patient Instructions Indication:Hypertension Start:18-Jul-2016 Instruction Type:Provider Instructions for Treatment Name Dates Details How to access health informa tion online Indication:Nonsmoker Start:10-Feb-2020 Instruction Type:Patient Education How to access health informa tion online - Detail Indication:Nonsmoker Start:10-Feb-2020 Instruction Type:Patient Education Patient Instructions Indication:BMI 31.0-31.9,adult Start:10-Feb-2020 Instruction Type:Provider Instructions for Treatment How to access health informa tion online Indication:Nonsmoker Start:19-Jan-2020 Instruction Type:Patient Education How to access health informa tion online - Detail Indication:Nonsmoker Start:19-Jan-2020 Instruction Type:Patient Education Patient Instructions Indication:Nonsmoker Start:19-Jan-2020 Instruction Type:Provider Instructions for Treatment How to access health informa tion online Indication:Nonsmoker Start:05-Jan-2020 Instruction Type:Patient Education How to access health informa tion online - Detail Indication:Nonsmoker Start:05-Jan-2020 Instruction Type:Patient Education Patient Instructions Indication:Allergic rhinitis Start:05-Jan-2020 Instruction Type:Provider Instructions for Treatment How to access health informa tion online Indication:BMI 30.0-30.9,adult Start:16-Nov-2019 Instruction Type:Patient Education How to access health informa tion online - Detail Indication:BMI 30.0-30.9,adult Start:16-Nov-2019 Instruction Type:Patient Education Patient Instructions Indication:BMI 30.0-30.9,adult Start:16-Nov-2019 Instruction Type:Provider Instructions for Treatment How to access health informa tion online Indication:BMI 30.0-30.9,adult Start:25-Sep-2019 Instruction Type:Patient Education How to access health informa tion online - Detail Indication:BMI 30.0-30.9,adult Start:25-Sep-2019 Instruction Type:Patient Education Patient Instructions Indication:BMI 30.0-30.9,adult Start:25-Sep-2019 Instruction Type:Provider Instructions for Treatment How to access health informa tion online Indication:Nonsmoker Start:12-Aug-2019 Instruction Type:Patient Education How to access health informa tion online - Detail Indication:Nonsmoker Start:12-Aug-2019 Instruction Type:Patient Education Patient Instructions Indication:Nonsmoker Start:12-Aug-2019 Instruction Type:Provider Instructions for Treatment How to access health informa tion online Indication:BMI 29.0-29.9,adult Start:04-Aug-2019 Instruction Type:Patient Education How to access health informa tion online - Detail Indication:BMI 29.0-29.9,adult Start:04-Aug-2019 Instruction Type:Patient Education Patient Instructions Indication:BMI 29.0-29.9,adult Start:04-Aug-2019 Instruction Type:Provider Instructions for Treatment How to access health informa tion online Indication:BMI 31.0-31.9,adult Start:25-Jun-2019 Instruction Type:Patient Education How to access health informa tion online - Detail Indication:BMI 31.0-31.9,adult Start:25-Jun-2019 Instruction Type:Patient Education Patient Instructions Indication:Dysuria Start:25-Jun-2019 Instruction Type:Provider Instructions for Treatment How to access health informa tion online Indication:Hypertension Start:02-Feb-2019 Instruction Type:Patient Education How to access health informa tion online - Detail Indication:Hypertension Start:02-Feb-2019 Instruction Type:Patient Education Patient Instructions Indication:Hypertension Start:02-Feb-2019 Instruction Type:Provider Instructions for Treatment How to access health informa tion online Indication:BMI 31.0-31.9,adult Start:21-Jan-2019 Instruction Type:Patient Education How to access health informa tion online - Detail Indication:BMI 31.0-31.9,adult Start:21-Jan-2019 Instruction Type:Patient Education Patient Instructions Indication:BMI 31.0-31.9,adult Start:21-Jan-2019 Instruction Type:Provider Instructions for Treatment How to access health informa tion online Indication:Nonsmoker Start:26-Nov-2018 Instruction Type:Patient Education How to access health informa tion online - Detail Indication:Nonsmoker Start:26-Nov-2018 Instruction Type:Patient Education Patient Instructions Indication:Nonsmoker Start:26-Nov-2018 Instruction Type:Provider Instructions for Treatment How to access health informa tion online Indication:Nonsmoker Start:25-Nov-2018 Instruction Type:Patient Education How to access health informa tion online - Detail Indication:Nonsmoker Start:25-Nov-2018 Instruction Type:Patient Education Patient Instructions Indication:Nonsmoker Start:25-Nov-2018 Instruction Type:Provider Instructions for Treatment How to access health informa tion online Indication:Nonsmoker Start:07-Nov-2018 Instruction Type:Patient Education How to access health informa tion online - Detail Indication:Nonsmoker Start:07-Nov-2018 Instruction Type:Patient Education Patient Instructions Indication:BMI 31.0-31.9,adult Start:07-Nov-2018 Instruction Type:Provider Instructions for Treatment How to access health informa tion online Indication:Nonsmoker Start:28-Jul-2018 Instruction Type:Patient Education How to access health informa tion online - Detail Indication:Nonsmoker Start:28-Jul-2018 Instruction Type:Patient Education Patient Instructions Indication:Bladder prolapse, congenital Start:28-Jul-2018 Instruction Type:Provider Instructions for Treatment How to access health informa tion online Indication:BMI 35.0-35.9,adult Start:03-Jul-2018 Instruction Type:Patient Education How to access health informa tion online - Detail Indication:BMI 35.0-35.9,adult Start:03-Jul-2018 Instruction Type:Patient Education Patient Instructions Indication:Upper respiratory infection Start:03-Jul-2018 Instruction Type:Provider Instructions for Treatment How to access health informa tion online Indication:Nonsmoker Start:04-Feb-2018 Instruction Type:Patient Education How to access health informa tion online - Detail Indication:Nonsmoker Start:04-Feb-2018 Instruction Type:Patient Education Patient Instructions Indication:Rash Start:04-Feb-2018 Instruction Type:Provider Instructions for Treatment How to access health informa tion online Indication:Sciatica of right side Start:31-Jan-2018 Instruction Type:Patient Education How to access health informa tion online - Detail Indication:Sciatica of right side Start:31-Jan-2018 Instruction Type:Patient Education Patient Instructions Indication:Nonsmoker Start:31-Jan-2018 Instruction Type:Provider Instructions for Treatment How to access health informa tion online Indication:Sciatica of right side Start:27-Sep-2017 Instruction Type:Patient Education How to access health informa tion online - Detail Indication:Sciatica of right side Start:27-Sep-2017 Instruction Type:Patient Education Patient Instructions Indication:Sciatica of right side Start:27-Sep-2017 Instruction Type:Provider Instructions for Treatment How to access health informa tion online Indication:Sciatica of right side Start:30-Aug-2017 Instruction Type:Patient Education How to access health informa tion online - Detail Indication:Sciatica of right side Start:30-Aug-2017 Instruction Type:Patient Education Patient Instructions Indication:Sciatica of right side Start:30-Aug-2017 Instruction Type:Provider Instructions for Treatment How to access health informa tion online Indication:DDD (degenerative disc disease), lumbar Start:13-Aug-2017 Instruction Type:Patient Education How to access health informa tion online - Detail Indication:DDD (degenerative disc disease), lumbar Start:13-Aug-2017 Instruction Type:Patient Education Patient Instructions Indication:Lumbar radiculopathy, right Start:13-Aug-2017 Instruction Type:Provider Instructions for Treatment How to access health informa tion online Indication:Nonsmoker Start:31-Jul-2017 Instruction Type:Patient Education How to access health informa tion online - Detail Indication:Nonsmoker Start:31-Jul-2017 Instruction Type:Patient Education Patient Instructions Indication:Nonsmoker Start:31-Jul-2017 Instruction Type:Provider Instructions for Treatment How to access health informa tion online Indication:Hypertension Start:18-Jul-2016 Instruction Type:Patient Education How to access health informa tion online - Detail Indication:Hypertension Start:18-Jul-2016 Instruction Type:Patient Education Patient Instructions Indication:Hypertension Start:18-Jul-2016 Instruction Type:Provider Instructions for Treatment Name Dates Details How to access health informa tion online Indication:Nonsmoker Start:10-Feb-2020 Instruction Type:Patient Education How to access health informa tion online - Detail Indication:Nonsmoker Start:10-Feb-2020 Instruction Type:Patient Education Patient Instructions Indication:BMI 31.0-31.9,adult Start:10-Feb-2020 Instruction Type:Provider Instructions for Treatment How to access health informa tion online Indication:Nonsmoker Start:19-Jan-2020 Instruction Type:Patient Education How to access health informa tion online - Detail Indication:Nonsmoker Start:19-Jan-2020 Instruction Type:Patient Education Patient Instructions Indication:Nonsmoker Start:19-Jan-2020 Instruction Type:Provider Instructions for Treatment How to access health informa tion online Indication:Nonsmoker Start:05-Jan-2020 Instruction Type:Patient Education How to access health informa tion online - Detail Indication:Nonsmoker Start:05-Jan-2020 Instruction Type:Patient Education Patient Instructions Indication:Allergic rhinitis Start:05-Jan-2020 Instruction Type:Provider Instructions for Treatment How to access health informa tion online Indication:BMI 30.0-30.9,adult Start:16-Nov-2019 Instruction Type:Patient Education How to access health informa tion online - Detail Indication:BMI 30.0-30.9,adult Start:16-Nov-2019 Instruction Type:Patient Education Patient Instructions Indication:BMI 30.0-30.9,adult Start:16-Nov-2019 Instruction Type:Provider Instructions for Treatment How to access health informa tion online Indication:BMI 30.0-30.9,adult Start:25-Sep-2019 Instruction Type:Patient Education How to access health informa tion online - Detail Indication:BMI 30.0-30.9,adult Start:25-Sep-2019 Instruction Type:Patient Education Patient Instructions Indication:BMI 30.0-30.9,adult Start:25-Sep-2019 Instruction Type:Provider Instructions for Treatment How to access health informa tion online Indication:Nonsmoker Start:12-Aug-2019 Instruction Type:Patient Education How to access health informa tion online - Detail Indication:Nonsmoker Start:12-Aug-2019 Instruction Type:Patient Education Patient Instructions Indication:Nonsmoker Start:12-Aug-2019 Instruction Type:Provider Instructions for Treatment How to access health informa tion online Indication:BMI 29.0-29.9,adult Start:04-Aug-2019 Instruction Type:Patient Education How to access health informa tion online - Detail Indication:BMI 29.0-29.9,adult Start:04-Aug-2019 Instruction Type:Patient Education Patient Instructions Indication:BMI 29.0-29.9,adult Start:04-Aug-2019 Instruction Type:Provider Instructions for Treatment How to access health informa tion online Indication:BMI 31.0-31.9,adult Start:25-Jun-2019 Instruction Type:Patient Education How to access health informa tion online - Detail Indication:BMI 31.0-31.9,adult Start:25-Jun-2019 Instruction Type:Patient Education Patient Instructions Indication:Dysuria Start:25-Jun-2019 Instruction Type:Provider Instructions for Treatment How to access health informa tion online Indication:Hypertension Start:02-Feb-2019 Instruction Type:Patient Education How to access health informa tion online - Detail Indication:Hypertension Start:02-Feb-2019 Instruction Type:Patient Education Patient Instructions Indication:Hypertension Start:02-Feb-2019 Instruction Type:Provider Instructions for Treatment How to access health informa tion online Indication:BMI 31.0-31.9,adult Start:21-Jan-2019 Instruction Type:Patient Education How to access health informa tion online - Detail Indication:BMI 31.0-31.9,adult Start:21-Jan-2019 Instruction Type:Patient Education Patient Instructions Indication:BMI 31.0-31.9,adult Start:21-Jan-2019 Instruction Type:Provider Instructions for Treatment How to access health informa tion online Indication:Nonsmoker Start:26-Nov-2018 Instruction Type:Patient Education How to access health informa tion online - Detail Indication:Nonsmoker Start:26-Nov-2018 Instruction Type:Patient Education Patient Instructions Indication:Nonsmoker Start:26-Nov-2018 Instruction Type:Provider Instructions for Treatment How to access health informa tion online Indication:Nonsmoker Start:25-Nov-2018 Instruction Type:Patient Education How to access health informa tion online - Detail Indication:Nonsmoker Start:25-Nov-2018 Instruction Type:Patient Education Patient Instructions Indication:Nonsmoker Start:25-Nov-2018 Instruction Type:Provider Instructions for Treatment How to access health informa tion online Indication:Nonsmoker Start:07-Nov-2018 Instruction Type:Patient Education How to access health informa tion online - Detail Indication:Nonsmoker Start:07-Nov-2018 Instruction Type:Patient Education Patient Instructions Indication:BMI 31.0-31.9,adult Start:07-Nov-2018 Instruction Type:Provider Instructions for Treatment How to access health informa tion online Indication:Nonsmoker Start:28-Jul-2018 Instruction Type:Patient Education How to access health informa tion online - Detail Indication:Nonsmoker Start:28-Jul-2018 Instruction Type:Patient Education Patient Instructions Indication:Bladder prolapse, congenital Start:28-Jul-2018 Instruction Type:Provider Instructions for Treatment How to access health informa tion online Indication:BMI 35.0-35.9,adult Start:03-Jul-2018 Instruction Type:Patient Education How to access health informa tion online - Detail Indication:BMI 35.0-35.9,adult Start:03-Jul-2018 Instruction Type:Patient Education Patient Instructions Indication:Upper respiratory infection Start:03-Jul-2018 Instruction Type:Provider Instructions for Treatment How to access health informa tion online Indication:Nonsmoker Start:04-Feb-2018 Instruction Type:Patient Education How to access health informa tion online - Detail Indication:Nonsmoker Start:04-Feb-2018 Instruction Type:Patient Education Patient Instructions Indication:Rash Start:04-Feb-2018 Instruction Type:Provider Instructions for Treatment How to access health informa tion online Indication:Sciatica of right side Start:31-Jan-2018 Instruction Type:Patient Education How to access health informa tion online - Detail Indication:Sciatica of right side Start:31-Jan-2018 Instruction Type:Patient Education Patient Instructions Indication:Nonsmoker Start:31-Jan-2018 Instruction Type:Provider Instructions for Treatment How to access health informa tion online Indication:Sciatica of right side Start:27-Sep-2017 Instruction Type:Patient Education How to access health informa tion online - Detail Indication:Sciatica of right side Start:27-Sep-2017 Instruction Type:Patient Education Patient Instructions Indication:Sciatica of right side Start:27-Sep-2017 Instruction Type:Provider Instructions for Treatment How to access health informa tion online Indication:Sciatica of right side Start:30-Aug-2017 Instruction Type:Patient Education How to access health informa tion online - Detail Indication:Sciatica of right side Start:30-Aug-2017 Instruction Type:Patient Education Patient Instructions Indication:Sciatica of right side Start:30-Aug-2017 Instruction Type:Provider Instructions for Treatment How to access health informa tion online Indication:DDD (degenerative disc disease), lumbar Start:13-Aug-2017 Instruction Type:Patient Education How to access health informa tion online - Detail Indication:DDD (degenerative disc disease), lumbar Start:13-Aug-2017 Instruction Type:Patient Education Patient Instructions Indication:Lumbar radiculopathy, right Start:13-Aug-2017 Instruction Type:Provider Instructions for Treatment How to access health informa tion online Indication:Nonsmoker Start:31-Jul-2017 Instruction Type:Patient Education How to access health informa tion online - Detail Indication:Nonsmoker Start:31-Jul-2017 Instruction Type:Patient Education Patient Instructions Indication:Nonsmoker Start:31-Jul-2017 Instruction Type:Provider Instructions for Treatment How to access health informa tion online Indication:Hypertension Start:18-Jul-2016 Instruction Type:Patient Education How to access health informa tion online - Detail Indication:Hypertension Start:18-Jul-2016 Instruction Type:Patient Education Patient Instructions Indication:Hypertension Start:18-Jul-2016 Instruction Type:Provider Instructions for Treatment Name Dates Details Patient Instructions Indication:Nonsmoker Start:11-Jul-2020 Instruction Type:Provider Instructions for Treatment How to Access Health Informa tion Online using Patient Portal and [employer]rd [employer] Apps Indication:Nonsmoker Start:11-Jul-2020 Instruction Type:Patient Education How to access health informa tion online Indication:Nonsmoker Start:10-Feb-2020 Instruction Type:Patient Education How to access health informa tion online - Detail Indication:Nonsmoker Start:10-Feb-2020 Instruction Type:Patient Education Patient Instructions Indication:BMI 31.0-31.9,adult Start:10-Feb-2020 Instruction Type:Provider Instructions for Treatment How to access health informa tion online Indication:Nonsmoker Start:19-Jan-2020 Instruction Type:Patient Education How to access health informa tion online - Detail Indication:Nonsmoker Start:19-Jan-2020 Instruction Type:Patient Education Patient Instructions Indication:Nonsmoker Start:19-Jan-2020 Instruction Type:Provider Instructions for Treatment How to access health informa tion online Indication:Nonsmoker Start:05-Jan-2020 Instruction Type:Patient Education How to access health informa tion online - Detail Indication:Nonsmoker Start:05-Jan-2020 Instruction Type:Patient Education Patient Instructions Indication:Allergic rhinitis Start:05-Jan-2020 Instruction Type:Provider Instructions for Treatment How to access health informa tion online Indication:BMI 30.0-30.9,adult Start:16-Nov-2019 Instruction Type:Patient Education How to access health informa tion online - Detail Indication:BMI 30.0-30.9,adult Start:16-Nov-2019 Instruction Type:Patient Education Patient Instructions Indication:BMI 30.0-30.9,adult Start:16-Nov-2019 Instruction Type:Provider Instructions for Treatment How to access health informa tion online Indication:BMI 30.0-30.9,adult Start:25-Sep-2019 Instruction Type:Patient Education How to access health informa tion online - Detail Indication:BMI 30.0-30.9,adult Start:25-Sep-2019 Instruction Type:Patient Education Patient Instructions Indication:BMI 30.0-30.9,adult Start:25-Sep-2019 Instruction Type:Provider Instructions for Treatment How to access health informa tion online Indication:Nonsmoker Start:12-Aug-2019 Instruction Type:Patient Education How to access health informa tion online - Detail Indication:Nonsmoker Start:12-Aug-2019 Instruction Type:Patient Education Patient Instructions Indication:Nonsmoker Start:12-Aug-2019 Instruction Type:Provider Instructions for Treatment How to access health informa tion online Indication:BMI 29.0-29.9,adult Start:04-Aug-2019 Instruction Type:Patient Education How to access health informa tion online - Detail Indication:BMI 29.0-29.9,adult Start:04-Aug-2019 Instruction Type:Patient Education Patient Instructions Indication:BMI 29.0-29.9,adult Start:04-Aug-2019 Instruction Type:Provider Instructions for Treatment How to access health informa tion online Indication:BMI 31.0-31.9,adult Start:25-Jun-2019 Instruction Type:Patient Education How to access health informa tion online - Detail Indication:BMI 31.0-31.9,adult Start:25-Jun-2019 Instruction Type:Patient Education Patient Instructions Indication:Dysuria Start:25-Jun-2019 Instruction Type:Provider Instructions for Treatment How to access health informa tion online Indication:Hypertension Start:02-Feb-2019 Instruction Type:Patient Education How to access health informa tion online - Detail Indication:Hypertension Start:02-Feb-2019 Instruction Type:Patient Education Patient Instructions Indication:Hypertension Start:02-Feb-2019 Instruction Type:Provider Instructions for Treatment How to access health informa tion online Indication:BMI 31.0-31.9,adult Start:21-Jan-2019 Instruction Type:Patient Education How to access health informa tion online - Detail Indication:BMI 31.0-31.9,adult Start:21-Jan-2019 Instruction Type:Patient Education Patient Instructions Indication:BMI 31.0-31.9,adult Start:21-Jan-2019 Instruction Type:Provider Instructions for Treatment How to access health informa tion online Indication:Nonsmoker Start:26-Nov-2018 Instruction Type:Patient Education How to access health informa tion online - Detail Indication:Nonsmoker Start:26-Nov-2018 Instruction Type:Patient Education Patient Instructions Indication:Nonsmoker Start:26-Nov-2018 Instruction Type:Provider Instructions for Treatment How to access health informa tion online Indication:Nonsmoker Start:25-Nov-2018 Instruction Type:Patient Education How to access health informa tion online - Detail Indication:Nonsmoker Start:25-Nov-2018 Instruction Type:Patient Education Patient Instructions Indication:Nonsmoker Start:25-Nov-2018 Instruction Type:Provider Instructions for Treatment How to access health informa tion online Indication:Nonsmoker Start:07-Nov-2018 Instruction Type:Patient Education How to access health informa tion online - Detail Indication:Nonsmoker Start:07-Nov-2018 Instruction Type:Patient Education Patient Instructions Indication:BMI 31.0-31.9,adult Start:07-Nov-2018 Instruction Type:Provider Instructions for Treatment How to access health informa tion online Indication:Nonsmoker Start:28-Jul-2018 Instruction Type:Patient Education How to access health informa tion online - Detail Indication:Nonsmoker Start:28-Jul-2018 Instruction Type:Patient Education Patient Instructions Indication:Bladder prolapse, congenital Start:28-Jul-2018 Instruction Type:Provider Instructions for Treatment How to access health informa tion online Indication:BMI 35.0-35.9,adult Start:03-Jul-2018 Instruction Type:Patient Education How to access health informa tion online - Detail Indication:BMI 35.0-35.9,adult Start:03-Jul-2018 Instruction Type:Patient Education Patient Instructions Indication:Upper respiratory infection Start:03-Jul-2018 Instruction Type:Provider Instructions for Treatment How to access health informa tion online Indication:Nonsmoker Start:04-Feb-2018 Instruction Type:Patient Education How to access health informa tion online - Detail Indication:Nonsmoker Start:04-Feb-2018 Instruction Type:Patient Education Patient Instructions Indication:Rash Start:04-Feb-2018 Instruction Type:Provider Instructions for Treatment How to access health informa tion online Indication:Sciatica of right side Start:31-Jan-2018 Instruction Type:Patient Education How to access health informa tion online - Detail Indication:Sciatica of right side Start:31-Jan-2018 Instruction Type:Patient Education Patient Instructions Indication:Nonsmoker Start:31-Jan-2018 Instruction Type:Provider Instructions for Treatment How to access health informa tion online Indication:Sciatica of right side Start:27-Sep-2017 Instruction Type:Patient Education How to access health informa tion online - Detail Indication:Sciatica of right side Start:27-Sep-2017 Instruction Type:Patient Education Patient Instructions Indication:Sciatica of right side Start:27-Sep-2017 Instruction Type:Provider Instructions for Treatment How to access health informa tion online Indication:Sciatica of right side Start:30-Aug-2017 Instruction Type:Patient Education How to access health informa tion online - Detail Indication:Sciatica of right side Start:30-Aug-2017 Instruction Type:Patient Education Patient Instructions Indication:Sciatica of right side Start:30-Aug-2017 Instruction Type:Provider Instructions for Treatment How to access health informa tion online Indication:DDD (degenerative disc disease), lumbar Start:13-Aug-2017 Instruction Type:Patient Education How to access health informa tion online - Detail Indication:DDD (degenerative disc disease), lumbar Start:13-Aug-2017 Instruction Type:Patient Education Patient Instructions Indication:Lumbar radiculopathy, right Start:13-Aug-2017 Instruction Type:Provider Instructions for Treatment How to access health informa tion online Indication:Nonsmoker Start:31-Jul-2017 Instruction Type:Patient Education How to access health informa tion online - Detail Indication:Nonsmoker Start:31-Jul-2017 Instruction Type:Patient Education Patient Instructions Indication:Nonsmoker Start:31-Jul-2017 Instruction Type:Provider Instructions for Treatment How to access health informa tion online Indication:Hypertension Start:18-Jul-2016 Instruction Type:Patient Education How to access health informa tion online - Detail Indication:Hypertension Start:18-Jul-2016 Instruction Type:Patient Education Patient Instructions Indication:Hypertension Start:18-Jul-2016 Instruction Type:Provider Instructions for Treatment Name Dates Details Patient Instructions Indication:Nonsmoker Start:11-Jul-2020 Instruction Type:Provider Instructions for Treatment How to Access Health Informa tion Online using Patient Portal and [employer]rd [employer] Apps Indication:Nonsmoker Start:11-Jul-2020 Instruction Type:Patient Education How to access health informa tion online Indication:Nonsmoker Start:10-Feb-2020 Instruction Type:Patient Education How to access health informa tion online - Detail Indication:Nonsmoker Start:10-Feb-2020 Instruction Type:Patient Education Patient Instructions Indication:BMI 31.0-31.9,adult Start:10-Feb-2020 Instruction Type:Provider Instructions for Treatment How to access health informa tion online Indication:Nonsmoker Start:19-Jan-2020 Instruction Type:Patient Education How to access health informa tion online - Detail Indication:Nonsmoker Start:19-Jan-2020 Instruction Type:Patient Education Patient Instructions Indication:Nonsmoker Start:19-Jan-2020 Instruction Type:Provider Instructions for Treatment How to access health informa tion online Indication:Nonsmoker Start:05-Jan-2020 Instruction Type:Patient Education How to access health informa tion online - Detail Indication:Nonsmoker Start:05-Jan-2020 Instruction Type:Patient Education Patient Instructions Indication:Allergic rhinitis Start:05-Jan-2020 Instruction Type:Provider Instructions for Treatment How to access health informa tion online Indication:BMI 30.0-30.9,adult Start:16-Nov-2019 Instruction Type:Patient Education How to access health informa tion online - Detail Indication:BMI 30.0-30.9,adult Start:16-Nov-2019 Instruction Type:Patient Education Patient Instructions Indication:BMI 30.0-30.9,adult Start:16-Nov-2019 Instruction Type:Provider Instructions for Treatment How to access health informa tion online Indication:BMI 30.0-30.9,adult Start:25-Sep-2019 Instruction Type:Patient Education How to access health informa tion online - Detail Indication:BMI 30.0-30.9,adult Start:25-Sep-2019 Instruction Type:Patient Education Patient Instructions Indication:BMI 30.0-30.9,adult Start:25-Sep-2019 Instruction Type:Provider Instructions for Treatment How to access health informa tion online Indication:Nonsmoker Start:12-Aug-2019 Instruction Type:Patient Education How to access health informa tion online - Detail Indication:Nonsmoker Start:12-Aug-2019 Instruction Type:Patient Education Patient Instructions Indication:Nonsmoker Start:12-Aug-2019 Instruction Type:Provider Instructions for Treatment How to access health informa tion online Indication:BMI 29.0-29.9,adult Start:04-Aug-2019 Instruction Type:Patient Education How to access health informa tion online - Detail Indication:BMI 29.0-29.9,adult Start:04-Aug-2019 Instruction Type:Patient Education Patient Instructions Indication:BMI 29.0-29.9,adult Start:04-Aug-2019 Instruction Type:Provider Instructions for Treatment How to access health informa tion online Indication:BMI 31.0-31.9,adult Start:25-Jun-2019 Instruction Type:Patient Education How to access health informa tion online - Detail Indication:BMI 31.0-31.9,adult Start:25-Jun-2019 Instruction Type:Patient Education Patient Instructions Indication:Dysuria Start:25-Jun-2019 Instruction Type:Provider Instructions for Treatment How to access health informa tion online Indication:Hypertension Start:02-Feb-2019 Instruction Type:Patient Education How to access health informa tion online - Detail Indication:Hypertension Start:02-Feb-2019 Instruction Type:Patient Education Patient Instructions Indication:Hypertension Start:02-Feb-2019 Instruction Type:Provider Instructions for Treatment How to access health informa tion online Indication:BMI 31.0-31.9,adult Start:21-Jan-2019 Instruction Type:Patient Education How to access health informa tion online - Detail Indication:BMI 31.0-31.9,adult Start:21-Jan-2019 Instruction Type:Patient Education Patient Instructions Indication:BMI 31.0-31.9,adult Start:21-Jan-2019 Instruction Type:Provider Instructions for Treatment How to access health informa tion online Indication:Nonsmoker Start:26-Nov-2018 Instruction Type:Patient Education How to access health informa tion online - Detail Indication:Nonsmoker Start:26-Nov-2018 Instruction Type:Patient Education Patient Instructions Indication:Nonsmoker Start:26-Nov-2018 Instruction Type:Provider Instructions for Treatment How to access health informa tion online Indication:Nonsmoker Start:25-Nov-2018 Instruction Type:Patient Education How to access health informa tion online - Detail Indication:Nonsmoker Start:25-Nov-2018 Instruction Type:Patient Education Patient Instructions Indication:Nonsmoker Start:25-Nov-2018 Instruction Type:Provider Instructions for Treatment How to access health informa tion online Indication:Nonsmoker Start:07-Nov-2018 Instruction Type:Patient Education How to access health informa tion online - Detail Indication:Nonsmoker Start:07-Nov-2018 Instruction Type:Patient Education Patient Instructions Indication:BMI 31.0-31.9,adult Start:07-Nov-2018 Instruction Type:Provider Instructions for Treatment How to access health informa tion online Indication:Nonsmoker Start:28-Jul-2018 Instruction Type:Patient Education How to access health informa tion online - Detail Indication:Nonsmoker Start:28-Jul-2018 Instruction Type:Patient Education Patient Instructions Indication:Bladder prolapse, congenital Start:28-Jul-2018 Instruction Type:Provider Instructions for Treatment How to access health informa tion online Indication:BMI 35.0-35.9,adult Start:03-Jul-2018 Instruction Type:Patient Education How to access health informa tion online - Detail Indication:BMI 35.0-35.9,adult Start:03-Jul-2018 Instruction Type:Patient Education Patient Instructions Indication:Upper respiratory infection Start:03-Jul-2018 Instruction Type:Provider Instructions for Treatment How to access health informa tion online Indication:Nonsmoker Start:04-Feb-2018 Instruction Type:Patient Education How to access health informa tion online - Detail Indication:Nonsmoker Start:04-Feb-2018 Instruction Type:Patient Education Patient Instructions Indication:Rash Start:04-Feb-2018 Instruction Type:Provider Instructions for Treatment How to access health informa tion online Indication:Sciatica of right side Start:31-Jan-2018 Instruction Type:Patient Education How to access health informa tion online - Detail Indication:Sciatica of right side Start:31-Jan-2018 Instruction Type:Patient Education Patient Instructions Indication:Nonsmoker Start:31-Jan-2018 Instruction Type:Provider Instructions for Treatment How to access health informa tion online Indication:Sciatica of right side Start:27-Sep-2017 Instruction Type:Patient Education How to access health informa tion online - Detail Indication:Sciatica of right side Start:27-Sep-2017 Instruction Type:Patient Education Patient Instructions Indication:Sciatica of right side Start:27-Sep-2017 Instruction Type:Provider Instructions for Treatment How to access health informa tion online Indication:Sciatica of right side Start:30-Aug-2017 Instruction Type:Patient Education How to access health informa tion online - Detail Indication:Sciatica of right side Start:30-Aug-2017 Instruction Type:Patient Education Patient Instructions Indication:Sciatica of right side Start:30-Aug-2017 Instruction Type:Provider Instructions for Treatment How to access health informa tion online Indication:DDD (degenerative disc disease), lumbar Start:13-Aug-2017 Instruction Type:Patient Education How to access health informa tion online - Detail Indication:DDD (degenerative disc disease), lumbar Start:13-Aug-2017 Instruction Type:Patient Education Patient Instructions Indication:Lumbar radiculopathy, right Start:13-Aug-2017 Instruction Type:Provider Instructions for Treatment How to access health informa tion online Indication:Nonsmoker Start:31-Jul-2017 Instruction Type:Patient Education How to access health informa tion online - Detail Indication:Nonsmoker Start:31-Jul-2017 Instruction Type:Patient Education Patient Instructions Indication:Nonsmoker Start:31-Jul-2017 Instruction Type:Provider Instructions for Treatment How to access health informa tion online Indication:Hypertension Start:18-Jul-2016 Instruction Type:Patient Education How to access health informa tion online - Detail Indication:Hypertension Start:18-Jul-2016 Instruction Type:Patient Education Patient Instructions Indication:Hypertension Start:18-Jul-2016 Instruction Type:Provider Instructions for Treatment Name Dates Details Patient Instructions Indication:Nonsmoker Start:18-Jul-2020 Instruction Type:Provider Instructions for Treatment How to Access Health Informa tion Online using Patient Portal and [employer]rd [employer] Apps Indication:Nonsmoker Start:18-Jul-2020 Instruction Type:Patient Education Patient Instructions Indication:Nonsmoker Start:11-Jul-2020 Instruction Type:Provider Instructions for Treatment How to Access Health Informa tion Online using Patient Portal and [employer]rd [employer] Apps Indication:Nonsmoker Start:11-Jul-2020 Instruction Type:Patient Education How to access health informa tion online Indication:Nonsmoker Start:10-Feb-2020 Instruction Type:Patient Education How to access health informa tion online - Detail Indication:Nonsmoker Start:10-Feb-2020 Instruction Type:Patient Education Patient Instructions Indication:BMI 31.0-31.9,adult Start:10-Feb-2020 Instruction Type:Provider Instructions for Treatment How to access health informa tion online Indication:Nonsmoker Start:19-Jan-2020 Instruction Type:Patient Education How to access health informa tion online - Detail Indication:Nonsmoker Start:19-Jan-2020 Instruction Type:Patient Education Patient Instructions Indication:Nonsmoker Start:19-Jan-2020 Instruction Type:Provider Instructions for Treatment How to access health informa tion online Indication:Nonsmoker Start:05-Jan-2020 Instruction Type:Patient Education How to access health informa tion online - Detail Indication:Nonsmoker Start:05-Jan-2020 Instruction Type:Patient Education Patient Instructions Indication:Allergic rhinitis Start:05-Jan-2020 Instruction Type:Provider Instructions for Treatment How to access health informa tion online Indication:BMI 30.0-30.9,adult Start:16-Nov-2019 Instruction Type:Patient Education How to access health informa tion online - Detail Indication:BMI 30.0-30.9,adult Start:16-Nov-2019 Instruction Type:Patient Education Patient Instructions Indication:BMI 30.0-30.9,adult Start:16-Nov-2019 Instruction Type:Provider Instructions for Treatment How to access health informa tion online Indication:BMI 30.0-30.9,adult Start:25-Sep-2019 Instruction Type:Patient Education How to access health informa tion online - Detail Indication:BMI 30.0-30.9,adult Start:25-Sep-2019 Instruction Type:Patient Education Patient Instructions Indication:BMI 30.0-30.9,adult Start:25-Sep-2019 Instruction Type:Provider Instructions for Treatment How to access health informa tion online Indication:Nonsmoker Start:12-Aug-2019 Instruction Type:Patient Education How to access health informa tion online - Detail Indication:Nonsmoker Start:12-Aug-2019 Instruction Type:Patient Education Patient Instructions Indication:Nonsmoker Start:12-Aug-2019 Instruction Type:Provider Instructions for Treatment How to access health informa tion online Indication:BMI 29.0-29.9,adult Start:04-Aug-2019 Instruction Type:Patient Education How to access health informa tion online - Detail Indication:BMI 29.0-29.9,adult Start:04-Aug-2019 Instruction Type:Patient Education Patient Instructions Indication:BMI 29.0-29.9,adult Start:04-Aug-2019 Instruction Type:Provider Instructions for Treatment How to access health informa tion online Indication:BMI 31.0-31.9,adult Start:25-Jun-2019 Instruction Type:Patient Education How to access health informa tion online - Detail Indication:BMI 31.0-31.9,adult Start:25-Jun-2019 Instruction Type:Patient Education Patient Instructions Indication:Dysuria Start:25-Jun-2019 Instruction Type:Provider Instructions for Treatment How to access health informa tion online Indication:Hypertension Start:02-Feb-2019 Instruction Type:Patient Education How to access health informa tion online - Detail Indication:Hypertension Start:02-Feb-2019 Instruction Type:Patient Education Patient Instructions Indication:Hypertension Start:02-Feb-2019 Instruction Type:Provider Instructions for Treatment How to access health informa tion online Indication:BMI 31.0-31.9,adult Start:21-Jan-2019 Instruction Type:Patient Education How to access health informa tion online - Detail Indication:BMI 31.0-31.9,adult Start:21-Jan-2019 Instruction Type:Patient Education Patient Instructions Indication:BMI 31.0-31.9,adult Start:21-Jan-2019 Instruction Type:Provider Instructions for Treatment How to access health informa tion online Indication:Nonsmoker Start:26-Nov-2018 Instruction Type:Patient Education How to access health informa tion online - Detail Indication:Nonsmoker Start:26-Nov-2018 Instruction Type:Patient Education Patient Instructions Indication:Nonsmoker Start:26-Nov-2018 Instruction Type:Provider Instructions for Treatment How to access health informa tion online Indication:Nonsmoker Start:25-Nov-2018 Instruction Type:Patient Education How to access health informa tion online - Detail Indication:Nonsmoker Start:25-Nov-2018 Instruction Type:Patient Education Patient Instructions Indication:Nonsmoker Start:25-Nov-2018 Instruction Type:Provider Instructions for Treatment How to access health informa tion online Indication:Nonsmoker Start:07-Nov-2018 Instruction Type:Patient Education How to access health informa tion online - Detail Indication:Nonsmoker Start:07-Nov-2018 Instruction Type:Patient Education Patient Instructions Indication:BMI 31.0-31.9,adult Start:07-Nov-2018 Instruction Type:Provider Instructions for Treatment How to access health informa tion online Indication:Nonsmoker Start:28-Jul-2018 Instruction Type:Patient Education How to access health informa tion online - Detail Indication:Nonsmoker Start:28-Jul-2018 Instruction Type:Patient Education Patient Instructions Indication:Bladder prolapse, congenital Start:28-Jul-2018 Instruction Type:Provider Instructions for Treatment How to access health informa tion online Indication:BMI 35.0-35.9,adult Start:03-Jul-2018 Instruction Type:Patient Education How to access health informa tion online - Detail Indication:BMI 35.0-35.9,adult Start:03-Jul-2018 Instruction Type:Patient Education Patient Instructions Indication:Upper respiratory infection Start:03-Jul-2018 Instruction Type:Provider Instructions for Treatment How to access health informa tion online Indication:Nonsmoker Start:04-Feb-2018 Instruction Type:Patient Education How to access health informa tion online - Detail Indication:Nonsmoker Start:04-Feb-2018 Instruction Type:Patient Education Patient Instructions Indication:Rash Start:04-Feb-2018 Instruction Type:Provider Instructions for Treatment How to access health informa tion online Indication:Sciatica of right side Start:31-Jan-2018 Instruction Type:Patient Education How to access health informa tion online - Detail Indication:Sciatica of right side Start:31-Jan-2018 Instruction Type:Patient Education Patient Instructions Indication:Nonsmoker Start:31-Jan-2018 Instruction Type:Provider Instructions for Treatment How to access health informa tion online Indication:Sciatica of right side Start:27-Sep-2017 Instruction Type:Patient Education How to access health informa tion online - Detail Indication:Sciatica of right side Start:27-Sep-2017 Instruction Type:Patient Education Patient Instructions Indication:Sciatica of right side Start:27-Sep-2017 Instruction Type:Provider Instructions for Treatment How to access health informa tion online Indication:Sciatica of right side Start:30-Aug-2017 Instruction Type:Patient Education How to access health informa tion online - Detail Indication:Sciatica of right side Start:30-Aug-2017 Instruction Type:Patient Education Patient Instructions Indication:Sciatica of right side Start:30-Aug-2017 Instruction Type:Provider Instructions for Treatment How to access health informa tion online Indication:DDD (degenerative disc disease), lumbar Start:13-Aug-2017 Instruction Type:Patient Education How to access health informa tion online - Detail Indication:DDD (degenerative disc disease), lumbar Start:13-Aug-2017 Instruction Type:Patient Education Patient Instructions Indication:Lumbar radiculopathy, right Start:13-Aug-2017 Instruction Type:Provider Instructions for Treatment How to access health informa tion online Indication:Nonsmoker Start:31-Jul-2017 Instruction Type:Patient Education How to access health informa tion online - Detail Indication:Nonsmoker Start:31-Jul-2017 Instruction Type:Patient Education Patient Instructions Indication:Nonsmoker Start:31-Jul-2017 Instruction Type:Provider Instructions for Treatment How to access health informa tion online Indication:Hypertension Start:18-Jul-2016 Instruction Type:Patient Education How to access health informa tion online - Detail Indication:Hypertension Start:18-Jul-2016 Instruction Type:Patient Education Patient Instructions Indication:Hypertension Start:18-Jul-2016 Instruction Type:Provider Instructions for Treatment Name Dates Details Patient Instructions Indication:Nonsmoker Start:18-Jul-2020 Instruction Type:Provider Instructions for Treatment How to Access Health Informa tion Online using Patient Portal and [employer]rd [employer] Apps Indication:Nonsmoker Start:18-Jul-2020 Instruction Type:Patient Education Patient Instructions Indication:Nonsmoker Start:11-Jul-2020 Instruction Type:Provider Instructions for Treatment How to Access Health Informa tion Online using Patient Portal and [employer]rd [employer] Apps Indication:Nonsmoker Start:11-Jul-2020 Instruction Type:Patient Education How to access health informa tion online Indication:Nonsmoker Start:10-Feb-2020 Instruction Type:Patient Education How to access health informa tion online - Detail Indication:Nonsmoker Start:10-Feb-2020 Instruction Type:Patient Education Patient Instructions Indication:BMI 31.0-31.9,adult Start:10-Feb-2020 Instruction Type:Provider Instructions for Treatment How to access health informa tion online Indication:Nonsmoker Start:19-Jan-2020 Instruction Type:Patient Education How to access health informa tion online - Detail Indication:Nonsmoker Start:19-Jan-2020 Instruction Type:Patient Education Patient Instructions Indication:Nonsmoker Start:19-Jan-2020 Instruction Type:Provider Instructions for Treatment How to access health informa tion online Indication:Nonsmoker Start:05-Jan-2020 Instruction Type:Patient Education How to access health informa tion online - Detail Indication:Nonsmoker Start:05-Jan-2020 Instruction Type:Patient Education Patient Instructions Indication:Allergic rhinitis Start:05-Jan-2020 Instruction Type:Provider Instructions for Treatment How to access health informa tion online Indication:BMI 30.0-30.9,adult Start:16-Nov-2019 Instruction Type:Patient Education How to access health informa tion online - Detail Indication:BMI 30.0-30.9,adult Start:16-Nov-2019 Instruction Type:Patient Education Patient Instructions Indication:BMI 30.0-30.9,adult Start:16-Nov-2019 Instruction Type:Provider Instructions for Treatment How to access health informa tion online Indication:BMI 30.0-30.9,adult Start:25-Sep-2019 Instruction Type:Patient Education How to access health informa tion online - Detail Indication:BMI 30.0-30.9,adult Start:25-Sep-2019 Instruction Type:Patient Education Patient Instructions Indication:BMI 30.0-30.9,adult Start:25-Sep-2019 Instruction Type:Provider Instructions for Treatment How to access health informa tion online Indication:Nonsmoker Start:12-Aug-2019 Instruction Type:Patient Education How to access health informa tion online - Detail Indication:Nonsmoker Start:12-Aug-2019 Instruction Type:Patient Education Patient Instructions Indication:Nonsmoker Start:12-Aug-2019 Instruction Type:Provider Instructions for Treatment How to access health informa tion online Indication:BMI 29.0-29.9,adult Start:04-Aug-2019 Instruction Type:Patient Education How to access health informa tion online - Detail Indication:BMI 29.0-29.9,adult Start:04-Aug-2019 Instruction Type:Patient Education Patient Instructions Indication:BMI 29.0-29.9,adult Start:04-Aug-2019 Instruction Type:Provider Instructions for Treatment How to access health informa tion online Indication:BMI 31.0-31.9,adult Start:25-Jun-2019 Instruction Type:Patient Education How to access health informa tion online - Detail Indication:BMI 31.0-31.9,adult Start:25-Jun-2019 Instruction Type:Patient Education Patient Instructions Indication:Dysuria Start:25-Jun-2019 Instruction Type:Provider Instructions for Treatment How to access health informa tion online Indication:Hypertension Start:02-Feb-2019 Instruction Type:Patient Education How to access health informa tion online - Detail Indication:Hypertension Start:02-Feb-2019 Instruction Type:Patient Education Patient Instructions Indication:Hypertension Start:02-Feb-2019 Instruction Type:Provider Instructions for Treatment How to access health informa tion online Indication:BMI 31.0-31.9,adult Start:21-Jan-2019 Instruction Type:Patient Education How to access health informa tion online - Detail Indication:BMI 31.0-31.9,adult Start:21-Jan-2019 Instruction Type:Patient Education Patient Instructions Indication:BMI 31.0-31.9,adult Start:21-Jan-2019 Instruction Type:Provider Instructions for Treatment How to access health informa tion online Indication:Nonsmoker Start:26-Nov-2018 Instruction Type:Patient Education How to access health informa tion online - Detail Indication:Nonsmoker Start:26-Nov-2018 Instruction Type:Patient Education Patient Instructions Indication:Nonsmoker Start:26-Nov-2018 Instruction Type:Provider Instructions for Treatment How to access health informa tion online Indication:Nonsmoker Start:25-Nov-2018 Instruction Type:Patient Education How to access health informa tion online - Detail Indication:Nonsmoker Start:25-Nov-2018 Instruction Type:Patient Education Patient Instructions Indication:Nonsmoker Start:25-Nov-2018 Instruction Type:Provider Instructions for Treatment How to access health informa tion online Indication:Nonsmoker Start:07-Nov-2018 Instruction Type:Patient Education How to access health informa tion online - Detail Indication:Nonsmoker Start:07-Nov-2018 Instruction Type:Patient Education Patient Instructions Indication:BMI 31.0-31.9,adult Start:07-Nov-2018 Instruction Type:Provider Instructions for Treatment How to access health informa tion online Indication:Nonsmoker Start:28-Jul-2018 Instruction Type:Patient Education How to access health informa tion online - Detail Indication:Nonsmoker Start:28-Jul-2018 Instruction Type:Patient Education Patient Instructions Indication:Bladder prolapse, congenital Start:28-Jul-2018 Instruction Type:Provider Instructions for Treatment How to access health informa tion online Indication:BMI 35.0-35.9,adult Start:03-Jul-2018 Instruction Type:Patient Education How to access health informa tion online - Detail Indication:BMI 35.0-35.9,adult Start:03-Jul-2018 Instruction Type:Patient Education Patient Instructions Indication:Upper respiratory infection Start:03-Jul-2018 Instruction Type:Provider Instructions for Treatment How to access health informa tion online Indication:Nonsmoker Start:04-Feb-2018 Instruction Type:Patient Education How to access health informa tion online - Detail Indication:Nonsmoker Start:04-Feb-2018 Instruction Type:Patient Education Patient Instructions Indication:Rash Start:04-Feb-2018 Instruction Type:Provider Instructions for Treatment How to access health informa tion online Indication:Sciatica of right side Start:31-Jan-2018 Instruction Type:Patient Education How to access health informa tion online - Detail Indication:Sciatica of right side Start:31-Jan-2018 Instruction Type:Patient Education Patient Instructions Indication:Nonsmoker Start:31-Jan-2018 Instruction Type:Provider Instructions for Treatment How to access health informa tion online Indication:Sciatica of right side Start:27-Sep-2017 Instruction Type:Patient Education How to access health informa tion online - Detail Indication:Sciatica of right side Start:27-Sep-2017 Instruction Type:Patient Education Patient Instructions Indication:Sciatica of right side Start:27-Sep-2017 Instruction Type:Provider Instructions for Treatment How to access health informa tion online Indication:Sciatica of right side Start:30-Aug-2017 Instruction Type:Patient Education How to access health informa tion online - Detail Indication:Sciatica of right side Start:30-Aug-2017 Instruction Type:Patient Education Patient Instructions Indication:Sciatica of right side Start:30-Aug-2017 Instruction Type:Provider Instructions for Treatment How to access health informa tion online Indication:DDD (degenerative disc disease), lumbar Start:13-Aug-2017 Instruction Type:Patient Education How to access health informa tion online - Detail Indication:DDD (degenerative disc disease), lumbar Start:13-Aug-2017 Instruction Type:Patient Education Patient Instructions Indication:Lumbar radiculopathy, right Start:13-Aug-2017 Instruction Type:Provider Instructions for Treatment How to access health informa tion online Indication:Nonsmoker Start:31-Jul-2017 Instruction Type:Patient Education How to access health informa tion online - Detail Indication:Nonsmoker Start:31-Jul-2017 Instruction Type:Patient Education Patient Instructions Indication:Nonsmoker Start:31-Jul-2017 Instruction Type:Provider Instructions for Treatment How to access health informa tion online Indication:Hypertension Start:18-Jul-2016 Instruction Type:Patient Education How to access health informa tion online - Detail Indication:Hypertension Start:18-Jul-2016 Instruction Type:Patient Education Patient Instructions Indication:Hypertension Start:18-Jul-2016 Instruction Type:Provider Instructions for Treatment Name Dates Details How to access health informa tion online Indication:Nonsmoker Start:25-Nov-2018 Instruction Type:Patient Education How to access health informa tion online - Detail Indication:Nonsmoker Start:25-Nov-2018 Instruction Type:Patient Education Patient Instructions Indication:Nonsmoker Start:25-Nov-2018 Instruction Type:Provider Instructions for Treatment How to access health informa tion online Indication:Nonsmoker Start:07-Nov-2018 Instruction Type:Patient Education How to access health informa tion online - Detail Indication:Nonsmoker Start:07-Nov-2018 Instruction Type:Patient Education Patient Instructions Indication:BMI 31.0-31.9,adult Start:07-Nov-2018 Instruction Type:Provider Instructions for Treatment How to access health informa tion online Indication:Nonsmoker Start:28-Jul-2018 Instruction Type:Patient Education How to access health informa tion online - Detail Indication:Nonsmoker Start:28-Jul-2018 Instruction Type:Patient Education Patient Instructions Indication:Bladder prolapse, congenital Start:28-Jul-2018 Instruction Type:Provider Instructions for Treatment How to access health informa tion online Indication:BMI 35.0-35.9,adult Start:03-Jul-2018 Instruction Type:Patient Education How to access health informa tion online - Detail Indication:BMI 35.0-35.9,adult Start:03-Jul-2018 Instruction Type:Patient Education Patient Instructions Indication:Upper respiratory infection Start:03-Jul-2018 Instruction Type:Provider Instructions for Treatment How to access health informa tion online Indication:Nonsmoker Start:04-Feb-2018 Instruction Type:Patient Education How to access health informa tion online - Detail Indication:Nonsmoker Start:04-Feb-2018 Instruction Type:Patient Education Patient Instructions Indication:Rash Start:04-Feb-2018 Instruction Type:Provider Instructions for Treatment How to access health informa tion online Indication:Sciatica of right side Start:31-Jan-2018 Instruction Type:Patient Education How to access health informa tion online - Detail Indication:Sciatica of right side Start:31-Jan-2018 Instruction Type:Patient Education Patient Instructions Indication:Nonsmoker Start:31-Jan-2018 Instruction Type:Provider Instructions for Treatment How to access health informa tion online Indication:Sciatica of right side Start:27-Sep-2017 Instruction Type:Patient Education How to access health informa tion online - Detail Indication:Sciatica of right side Start:27-Sep-2017 Instruction Type:Patient Education Patient Instructions Indication:Sciatica of right side Start:27-Sep-2017 Instruction Type:Provider Instructions for Treatment How to access health informa tion online Indication:Sciatica of right side Start:30-Aug-2017 Instruction Type:Patient Education How to access health informa tion online - Detail Indication:Sciatica of right side Start:30-Aug-2017 Instruction Type:Patient Education Patient Instructions Indication:Sciatica of right side Start:30-Aug-2017 Instruction Type:Provider Instructions for Treatment How to access health informa tion online Indication:DDD (degenerative disc disease), lumbar Start:13-Aug-2017 Instruction Type:Patient Education How to access health informa tion online - Detail Indication:DDD (degenerative disc disease), lumbar Start:13-Aug-2017 Instruction Type:Patient Education Patient Instructions Indication:Lumbar radiculopathy, right Start:13-Aug-2017 Instruction Type:Provider Instructions for Treatment How to access health informa tion online Indication:Nonsmoker Start:31-Jul-2017 Instruction Type:Patient Education How to access health informa tion online - Detail Indication:Nonsmoker Start:31-Jul-2017 Instruction Type:Patient Education Patient Instructions Indication:Nonsmoker Start:31-Jul-2017 Instruction Type:Provider Instructions for Treatment How to access health informa tion online Indication:Hypertension Start:18-Jul-2016 Instruction Type:Patient Education How to access health informa tion online - Detail Indication:Hypertension Start:18-Jul-2016 Instruction Type:Patient Education Patient Instructions Indication:Hypertension Start:18-Jul-2016 Instruction Type:Provider Instructions for Treatment Name Dates Details Nonsmoker : How to access he alth information online Indication:Nonsmoker Nonsmoker : How to access he alth information online - Detail Indication:Nonsmoker Bladder prolapse, congenital : Patient Instructions Indication:Bladder prolapse, congenital BMI 35.0-35.9,adult : How to access health information online Indication:BMI 35.0-35.9,adult BMI 35.0-35.9,adult : How to access health information online - Detail Indication:BMI 35.0-35.9,adult Upper respiratory infection : Patient Instructions Indication:Upper respiratory infection Rash : Patient Instructions Indication:Rash Sciatica of right side : How to access health information online Indication:Sciatica of right side Sciatica of right side : How to access health information online - Detail Indication:Sciatica of right side Nonsmoker : Patient Instruct ions Indication:Nonsmoker Sciatica of right side : Pat ient Instructions Indication:Sciatica of right side DDD (degenerative disc disea se), lumbar : How to access health information online Indication:DDD (degenerative disc disease), lumbar DDD (degenerative disc disea se), lumbar : How to access health information online - Detail Indication:DDD (degenerative disc disease), lumbar Lumbar radiculopathy, right : Patient Instructions Indication:Lumbar radiculopathy, right Hypertension : How to access health information online Indication:Hypertension Hypertension : How to access health information online - Detail Indication:Hypertension Hypertension : Patient Instr uctions Indication:Hypertension Name Dates Details How to access health informa tion online Indication:BMI 31.0-31.9,adult Start:21-Jan-2019 Instruction Type:Patient Education How to access health informa tion online - Detail Indication:BMI 31.0-31.9,adult Start:21-Jan-2019 Instruction Type:Patient Education Patient Instructions Indication:BMI 31.0-31.9,adult Start:21-Jan-2019 Instruction Type:Provider Instructions for Treatment How to access health informa tion online Indication:Nonsmoker Start:26-Nov-2018 Instruction Type:Patient Education How to access health informa tion online - Detail Indication:Nonsmoker Start:26-Nov-2018 Instruction Type:Patient Education Patient Instructions Indication:Nonsmoker Start:26-Nov-2018 Instruction Type:Provider Instructions for Treatment How to access health informa tion online Indication:Nonsmoker Start:25-Nov-2018 Instruction Type:Patient Education How to access health informa tion online - Detail Indication:Nonsmoker Start:25-Nov-2018 Instruction Type:Patient Education Patient Instructions Indication:Nonsmoker Start:25-Nov-2018 Instruction Type:Provider Instructions for Treatment How to access health informa tion online Indication:Nonsmoker Start:07-Nov-2018 Instruction Type:Patient Education How to access health informa tion online - Detail Indication:Nonsmoker Start:07-Nov-2018 Instruction Type:Patient Education Patient Instructions Indication:BMI 31.0-31.9,adult Start:07-Nov-2018 Instruction Type:Provider Instructions for Treatment How to access health informa tion online Indication:Nonsmoker Start:28-Jul-2018 Instruction Type:Patient Education How to access health informa tion online - Detail Indication:Nonsmoker Start:28-Jul-2018 Instruction Type:Patient Education Patient Instructions Indication:Bladder prolapse, congenital Start:28-Jul-2018 Instruction Type:Provider Instructions for Treatment How to access health informa tion online Indication:BMI 35.0-35.9,adult Start:03-Jul-2018 Instruction Type:Patient Education How to access health informa tion online - Detail Indication:BMI 35.0-35.9,adult Start:03-Jul-2018 Instruction Type:Patient Education Patient Instructions Indication:Upper respiratory infection Start:03-Jul-2018 Instruction Type:Provider Instructions for Treatment How to access health informa tion online Indication:Nonsmoker Start:04-Feb-2018 Instruction Type:Patient Education How to access health informa tion online - Detail Indication:Nonsmoker Start:04-Feb-2018 Instruction Type:Patient Education Patient Instructions Indication:Rash Start:04-Feb-2018 Instruction Type:Provider Instructions for Treatment How to access health informa tion online Indication:Sciatica of right side Start:31-Jan-2018 Instruction Type:Patient Education How to access health informa tion online - Detail Indication:Sciatica of right side Start:31-Jan-2018 Instruction Type:Patient Education Patient Instructions Indication:Nonsmoker Start:31-Jan-2018 Instruction Type:Provider Instructions for Treatment How to access health informa tion online Indication:Sciatica of right side Start:27-Sep-2017 Instruction Type:Patient Education How to access health informa tion online - Detail Indication:Sciatica of right side Start:27-Sep-2017 Instruction Type:Patient Education Patient Instructions Indication:Sciatica of right side Start:27-Sep-2017 Instruction Type:Provider Instructions for Treatment How to access health informa tion online Indication:Sciatica of right side Start:30-Aug-2017 Instruction Type:Patient Education How to access health informa tion online - Detail Indication:Sciatica of right side Start:30-Aug-2017 Instruction Type:Patient Education Patient Instructions Indication:Sciatica of right side Start:30-Aug-2017 Instruction Type:Provider Instructions for Treatment How to access health informa tion online Indication:DDD (degenerative disc disease), lumbar Start:13-Aug-2017 Instruction Type:Patient Education How to access health informa tion online - Detail Indication:DDD (degenerative disc disease), lumbar Start:13-Aug-2017 Instruction Type:Patient Education Patient Instructions Indication:Lumbar radiculopathy, right Start:13-Aug-2017 Instruction Type:Provider Instructions for Treatment How to access health informa tion online Indication:Nonsmoker Start:31-Jul-2017 Instruction Type:Patient Education How to access health informa tion online - Detail Indication:Nonsmoker Start:31-Jul-2017 Instruction Type:Patient Education Patient Instructions Indication:Nonsmoker Start:31-Jul-2017 Instruction Type:Provider Instructions for Treatment How to access health informa tion online Indication:Hypertension Start:18-Jul-2016 Instruction Type:Patient Education How to access health informa tion online - Detail Indication:Hypertension Start:18-Jul-2016 Instruction Type:Patient Education Patient Instructions Indication:Hypertension Start:18-Jul-2016 Instruction Type:Provider Instructions for Treatment Name Dates Details Patient Instructions Indication:Nonsmoker Start:23-Aug-2020 Instruction Type:Provider Instructions for Treatment How to Access Health Informa tion Online using Patient Portal and [employer]rd [employer] Apps Indication:Nonsmoker Start:23-Aug-2020 Instruction Type:Patient Education Patient Instructions Indication:Nonsmoker Start:03-Aug-2020 Instruction Type:Provider Instructions for Treatment How to Access Health Informa tion Online using Patient Portal and [employer]rd [employer] Apps Indication:Nonsmoker Start:03-Aug-2020 Instruction Type:Patient Education Patient Instructions Indication:Nonsmoker Start:25-Jul-2020 Instruction Type:Provider Instructions for Treatment How to Access Health Informa tion Online using Patient Portal and [employer]rd [employer] Apps Indication:Nonsmoker Start:25-Jul-2020 Instruction Type:Patient Education Patient Instructions Indication:Nonsmoker Start:18-Jul-2020 Instruction Type:Provider Instructions for Treatment How to Access Health Informa tion Online using Patient Portal and [employer]rd [employer] Apps Indication:Nonsmoker Start:18-Jul-2020 Instruction Type:Patient Education Patient Instructions Indication:Nonsmoker Start:11-Jul-2020 Instruction Type:Provider Instructions for Treatment How to Access Health Informa tion Online using Patient Portal and [employer]rd [employer] Apps Indication:Nonsmoker Start:11-Jul-2020 Instruction Type:Patient Education How to access health informa tion online Indication:Nonsmoker Start:10-Feb-2020 Instruction Type:Patient Education How to access health informa tion online - Detail Indication:Nonsmoker Start:10-Feb-2020 Instruction Type:Patient Education Patient Instructions Indication:BMI 31.0-31.9,adult Start:10-Feb-2020 Instruction Type:Provider Instructions for Treatment How to access health informa tion online Indication:Nonsmoker Start:19-Jan-2020 Instruction Type:Patient Education How to access health informa tion online - Detail Indication:Nonsmoker Start:19-Jan-2020 Instruction Type:Patient Education Patient Instructions Indication:Nonsmoker Start:19-Jan-2020 Instruction Type:Provider Instructions for Treatment How to access health informa tion online Indication:Nonsmoker Start:05-Jan-2020 Instruction Type:Patient Education How to access health informa tion online - Detail Indication:Nonsmoker Start:05-Jan-2020 Instruction Type:Patient Education Patient Instructions Indication:Allergic rhinitis Start:05-Jan-2020 Instruction Type:Provider Instructions for Treatment How to access health informa tion online Indication:BMI 30.0-30.9,adult Start:16-Nov-2019 Instruction Type:Patient Education How to access health informa tion online - Detail Indication:BMI 30.0-30.9,adult Start:16-Nov-2019 Instruction Type:Patient Education Patient Instructions Indication:BMI 30.0-30.9,adult Start:16-Nov-2019 Instruction Type:Provider Instructions for Treatment How to access health informa tion online Indication:BMI 30.0-30.9,adult Start:25-Sep-2019 Instruction Type:Patient Education How to access health informa tion online - Detail Indication:BMI 30.0-30.9,adult Start:25-Sep-2019 Instruction Type:Patient Education Patient Instructions Indication:BMI 30.0-30.9,adult Start:25-Sep-2019 Instruction Type:Provider Instructions for Treatment How to access health informa tion online Indication:Nonsmoker Start:12-Aug-2019 Instruction Type:Patient Education How to access health informa tion online - Detail Indication:Nonsmoker Start:12-Aug-2019 Instruction Type:Patient Education Patient Instructions Indication:Nonsmoker Start:12-Aug-2019 Instruction Type:Provider Instructions for Treatment How to access health informa tion online Indication:BMI 29.0-29.9,adult Start:04-Aug-2019 Instruction Type:Patient Education How to access health informa tion online - Detail Indication:BMI 29.0-29.9,adult Start:04-Aug-2019 Instruction Type:Patient Education Patient Instructions Indication:BMI 29.0-29.9,adult Start:04-Aug-2019 Instruction Type:Provider Instructions for Treatment How to access health informa tion online Indication:BMI 31.0-31.9,adult Start:25-Jun-2019 Instruction Type:Patient Education How to access health informa tion online - Detail Indication:BMI 31.0-31.9,adult Start:25-Jun-2019 Instruction Type:Patient Education Patient Instructions Indication:Dysuria Start:25-Jun-2019 Instruction Type:Provider Instructions for Treatment How to access health informa tion online Indication:Hypertension Start:02-Feb-2019 Instruction Type:Patient Education How to access health informa tion online - Detail Indication:Hypertension Start:02-Feb-2019 Instruction Type:Patient Education Patient Instructions Indication:Hypertension Start:02-Feb-2019 Instruction Type:Provider Instructions for Treatment How to access health informa tion online Indication:BMI 31.0-31.9,adult Start:21-Jan-2019 Instruction Type:Patient Education How to access health informa tion online - Detail Indication:BMI 31.0-31.9,adult Start:21-Jan-2019 Instruction Type:Patient Education Patient Instructions Indication:BMI 31.0-31.9,adult Start:21-Jan-2019 Instruction Type:Provider Instructions for Treatment How to access health informa tion online Indication:Nonsmoker Start:26-Nov-2018 Instruction Type:Patient Education How to access health informa tion online - Detail Indication:Nonsmoker Start:26-Nov-2018 Instruction Type:Patient Education Patient Instructions Indication:Nonsmoker Start:26-Nov-2018 Instruction Type:Provider Instructions for Treatment How to access health informa tion online Indication:Nonsmoker Start:25-Nov-2018 Instruction Type:Patient Education How to access health informa tion online - Detail Indication:Nonsmoker Start:25-Nov-2018 Instruction Type:Patient Education Patient Instructions Indication:Nonsmoker Start:25-Nov-2018 Instruction Type:Provider Instructions for Treatment How to access health informa tion online Indication:Nonsmoker Start:07-Nov-2018 Instruction Type:Patient Education How to access health informa tion online - Detail Indication:Nonsmoker Start:07-Nov-2018 Instruction Type:Patient Education Patient Instructions Indication:BMI 31.0-31.9,adult Start:07-Nov-2018 Instruction Type:Provider Instructions for Treatment How to access health informa tion online Indication:Nonsmoker Start:28-Jul-2018 Instruction Type:Patient Education How to access health informa tion online - Detail Indication:Nonsmoker Start:28-Jul-2018 Instruction Type:Patient Education Patient Instructions Indication:Bladder prolapse, congenital Start:28-Jul-2018 Instruction Type:Provider Instructions for Treatment How to access health informa tion online Indication:BMI 35.0-35.9,adult Start:03-Jul-2018 Instruction Type:Patient Education How to access health informa tion online - Detail Indication:BMI 35.0-35.9,adult Start:03-Jul-2018 Instruction Type:Patient Education Patient Instructions Indication:Upper respiratory infection Start:03-Jul-2018 Instruction Type:Provider Instructions for Treatment How to access health informa tion online Indication:Nonsmoker Start:04-Feb-2018 Instruction Type:Patient Education How to access health informa tion online - Detail Indication:Nonsmoker Start:04-Feb-2018 Instruction Type:Patient Education Patient Instructions Indication:Rash Start:04-Feb-2018 Instruction Type:Provider Instructions for Treatment How to access health informa tion online Indication:Sciatica of right side Start:31-Jan-2018 Instruction Type:Patient Education How to access health informa tion online - Detail Indication:Sciatica of right side Start:31-Jan-2018 Instruction Type:Patient Education Patient Instructions Indication:Nonsmoker Start:31-Jan-2018 Instruction Type:Provider Instructions for Treatment How to access health informa tion online Indication:Sciatica of right side Start:27-Sep-2017 Instruction Type:Patient Education How to access health informa tion online - Detail Indication:Sciatica of right side Start:27-Sep-2017 Instruction Type:Patient Education Patient Instructions Indication:Sciatica of right side Start:27-Sep-2017 Instruction Type:Provider Instructions for Treatment How to access health informa tion online Indication:Sciatica of right side Start:30-Aug-2017 Instruction Type:Patient Education How to access health informa tion online - Detail Indication:Sciatica of right side Start:30-Aug-2017 Instruction Type:Patient Education Patient Instructions Indication:Sciatica of right side Start:30-Aug-2017 Instruction Type:Provider Instructions for Treatment How to access health informa tion online Indication:DDD (degenerative disc disease), lumbar Start:13-Aug-2017 Instruction Type:Patient Education How to access health informa tion online - Detail Indication:DDD (degenerative disc disease), lumbar Start:13-Aug-2017 Instruction Type:Patient Education Patient Instructions Indication:Lumbar radiculopathy, right Start:13-Aug-2017 Instruction Type:Provider Instructions for Treatment How to access health informa tion online Indication:Nonsmoker Start:31-Jul-2017 Instruction Type:Patient Education How to access health informa tion online - Detail Indication:Nonsmoker Start:31-Jul-2017 Instruction Type:Patient Education Patient Instructions Indication:Nonsmoker Start:31-Jul-2017 Instruction Type:Provider Instructions for Treatment How to access health informa tion online Indication:Hypertension Start:18-Jul-2016 Instruction Type:Patient Education How to access health informa tion online - Detail Indication:Hypertension Start:18-Jul-2016 Instruction Type:Patient Education Patient Instructions Indication:Hypertension Start:18-Jul-2016 Instruction Type:Provider Instructions for Treatment Name Dates Details How to access health informa tion online Indication:Hypertension Start:02-Feb-2019 Instruction Type:Patient Education How to access health informa tion online - Detail Indication:Hypertension Start:02-Feb-2019 Instruction Type:Patient Education Patient Instructions Indication:Hypertension Start:02-Feb-2019 Instruction Type:Provider Instructions for Treatment How to access health informa tion online Indication:BMI 31.0-31.9,adult Start:21-Jan-2019 Instruction Type:Patient Education How to access health informa tion online - Detail Indication:BMI 31.0-31.9,adult Start:21-Jan-2019 Instruction Type:Patient Education Patient Instructions Indication:BMI 31.0-31.9,adult Start:21-Jan-2019 Instruction Type:Provider Instructions for Treatment How to access health informa tion online Indication:Nonsmoker Start:26-Nov-2018 Instruction Type:Patient Education How to access health informa tion online - Detail Indication:Nonsmoker Start:26-Nov-2018 Instruction Type:Patient Education Patient Instructions Indication:Nonsmoker Start:26-Nov-2018 Instruction Type:Provider Instructions for Treatment How to access health informa tion online Indication:Nonsmoker Start:25-Nov-2018 Instruction Type:Patient Education How to access health informa tion online - Detail Indication:Nonsmoker Start:25-Nov-2018 Instruction Type:Patient Education Patient Instructions Indication:Nonsmoker Start:25-Nov-2018 Instruction Type:Provider Instructions for Treatment How to access health informa tion online Indication:Nonsmoker Start:07-Nov-2018 Instruction Type:Patient Education How to access health informa tion online - Detail Indication:Nonsmoker Start:07-Nov-2018 Instruction Type:Patient Education Patient Instructions Indication:BMI 31.0-31.9,adult Start:07-Nov-2018 Instruction Type:Provider Instructions for Treatment How to access health informa tion online Indication:Nonsmoker Start:28-Jul-2018 Instruction Type:Patient Education How to access health informa tion online - Detail Indication:Nonsmoker Start:28-Jul-2018 Instruction Type:Patient Education Patient Instructions Indication:Bladder prolapse, congenital Start:28-Jul-2018 Instruction Type:Provider Instructions for Treatment How to access health informa tion online Indication:BMI 35.0-35.9,adult Start:03-Jul-2018 Instruction Type:Patient Education How to access health informa tion online - Detail Indication:BMI 35.0-35.9,adult Start:03-Jul-2018 Instruction Type:Patient Education Patient Instructions Indication:Upper respiratory infection Start:03-Jul-2018 Instruction Type:Provider Instructions for Treatment How to access health informa tion online Indication:Nonsmoker Start:04-Feb-2018 Instruction Type:Patient Education How to access health informa tion online - Detail Indication:Nonsmoker Start:04-Feb-2018 Instruction Type:Patient Education Patient Instructions Indication:Rash Start:04-Feb-2018 Instruction Type:Provider Instructions for Treatment How to access health informa tion online Indication:Sciatica of right side Start:31-Jan-2018 Instruction Type:Patient Education How to access health informa tion online - Detail Indication:Sciatica of right side Start:31-Jan-2018 Instruction Type:Patient Education Patient Instructions Indication:Nonsmoker Start:31-Jan-2018 Instruction Type:Provider Instructions for Treatment How to access health informa tion online Indication:Sciatica of right side Start:27-Sep-2017 Instruction Type:Patient Education How to access health informa tion online - Detail Indication:Sciatica of right side Start:27-Sep-2017 Instruction Type:Patient Education Patient Instructions Indication:Sciatica of right side Start:27-Sep-2017 Instruction Type:Provider Instructions for Treatment How to access health informa tion online Indication:Sciatica of right side Start:30-Aug-2017 Instruction Type:Patient Education How to access health informa tion online - Detail Indication:Sciatica of right side Start:30-Aug-2017 Instruction Type:Patient Education Patient Instructions Indication:Sciatica of right side Start:30-Aug-2017 Instruction Type:Provider Instructions for Treatment How to access health informa tion online Indication:DDD (degenerative disc disease), lumbar Start:13-Aug-2017 Instruction Type:Patient Education How to access health informa tion online - Detail Indication:DDD (degenerative disc disease), lumbar Start:13-Aug-2017 Instruction Type:Patient Education Patient Instructions Indication:Lumbar radiculopathy, right Start:13-Aug-2017 Instruction Type:Provider Instructions for Treatment How to access health informa tion online Indication:Nonsmoker Start:31-Jul-2017 Instruction Type:Patient Education How to access health informa tion online - Detail Indication:Nonsmoker Start:31-Jul-2017 Instruction Type:Patient Education Patient Instructions Indication:Nonsmoker Start:31-Jul-2017 Instruction Type:Provider Instructions for Treatment How to access health informa tion online Indication:Hypertension Start:18-Jul-2016 Instruction Type:Patient Education How to access health informa tion online - Detail Indication:Hypertension Start:18-Jul-2016 Instruction Type:Patient Education Patient Instructions Indication:Hypertension Start:18-Jul-2016 Instruction Type:Provider Instructions for Treatment Name Dates Details Patient Instructions Indication:Nonsmoker Start:06-Sep-2020 Instruction Type:Provider Instructions for Treatment How to Access Health Informa tion Online using Patient Portal and [employer]rd [employer] Apps Indication:Nonsmoker Start:06-Sep-2020 Instruction Type:Patient Education Patient Instructions Indication:Nonsmoker Start:23-Aug-2020 Instruction Type:Provider Instructions for Treatment How to Access Health Informa tion Online using Patient Portal and [employer]rd [employer] Apps Indication:Nonsmoker Start:23-Aug-2020 Instruction Type:Patient Education Patient Instructions Indication:Nonsmoker Start:03-Aug-2020 Instruction Type:Provider Instructions for Treatment How to Access Health Informa tion Online using Patient Portal and [employer]rd [employer] Apps Indication:Nonsmoker Start:03-Aug-2020 Instruction Type:Patient Education Patient Instructions Indication:Nonsmoker Start:25-Jul-2020 Instruction Type:Provider Instructions for Treatment How to Access Health Informa tion Online using Patient Portal and [employer]rd [employer] Apps Indication:Nonsmoker Start:25-Jul-2020 Instruction Type:Patient Education Patient Instructions Indication:Nonsmoker Start:18-Jul-2020 Instruction Type:Provider Instructions for Treatment How to Access Health Informa tion Online using Patient Portal and [employer]rd [employer] Apps Indication:Nonsmoker Start:18-Jul-2020 Instruction Type:Patient Education Patient Instructions Indication:Nonsmoker Start:11-Jul-2020 Instruction Type:Provider Instructions for Treatment How to Access Health Informa tion Online using Patient Portal and [employer]rd [employer] Apps Indication:Nonsmoker Start:11-Jul-2020 Instruction Type:Patient Education How to access health informa tion online Indication:Nonsmoker Start:10-Feb-2020 Instruction Type:Patient Education How to access health informa tion online - Detail Indication:Nonsmoker Start:10-Feb-2020 Instruction Type:Patient Education Patient Instructions Indication:BMI 31.0-31.9,adult Start:10-Feb-2020 Instruction Type:Provider Instructions for Treatment How to access health informa tion online Indication:Nonsmoker Start:19-Jan-2020 Instruction Type:Patient Education How to access health informa tion online - Detail Indication:Nonsmoker Start:19-Jan-2020 Instruction Type:Patient Education Patient Instructions Indication:Nonsmoker Start:19-Jan-2020 Instruction Type:Provider Instructions for Treatment How to access health informa tion online Indication:Nonsmoker Start:05-Jan-2020 Instruction Type:Patient Education How to access health informa tion online - Detail Indication:Nonsmoker Start:05-Jan-2020 Instruction Type:Patient Education Patient Instructions Indication:Allergic rhinitis Start:05-Jan-2020 Instruction Type:Provider Instructions for Treatment How to access health informa tion online Indication:BMI 30.0-30.9,adult Start:16-Nov-2019 Instruction Type:Patient Education How to access health informa tion online - Detail Indication:BMI 30.0-30.9,adult Start:16-Nov-2019 Instruction Type:Patient Education Patient Instructions Indication:BMI 30.0-30.9,adult Start:16-Nov-2019 Instruction Type:Provider Instructions for Treatment How to access health informa tion online Indication:BMI 30.0-30.9,adult Start:25-Sep-2019 Instruction Type:Patient Education How to access health informa tion online - Detail Indication:BMI 30.0-30.9,adult Start:25-Sep-2019 Instruction Type:Patient Education Patient Instructions Indication:BMI 30.0-30.9,adult Start:25-Sep-2019 Instruction Type:Provider Instructions for Treatment How to access health informa tion online Indication:Nonsmoker Start:12-Aug-2019 Instruction Type:Patient Education How to access health informa tion online - Detail Indication:Nonsmoker Start:12-Aug-2019 Instruction Type:Patient Education Patient Instructions Indication:Nonsmoker Start:12-Aug-2019 Instruction Type:Provider Instructions for Treatment How to access health informa tion online Indication:BMI 29.0-29.9,adult Start:04-Aug-2019 Instruction Type:Patient Education How to access health informa tion online - Detail Indication:BMI 29.0-29.9,adult Start:04-Aug-2019 Instruction Type:Patient Education Patient Instructions Indication:BMI 29.0-29.9,adult Start:04-Aug-2019 Instruction Type:Provider Instructions for Treatment How to access health informa tion online Indication:BMI 31.0-31.9,adult Start:25-Jun-2019 Instruction Type:Patient Education How to access health informa tion online - Detail Indication:BMI 31.0-31.9,adult Start:25-Jun-2019 Instruction Type:Patient Education Patient Instructions Indication:Dysuria Start:25-Jun-2019 Instruction Type:Provider Instructions for Treatment How to access health informa tion online Indication:Hypertension Start:02-Feb-2019 Instruction Type:Patient Education How to access health informa tion online - Detail Indication:Hypertension Start:02-Feb-2019 Instruction Type:Patient Education Patient Instructions Indication:Hypertension Start:02-Feb-2019 Instruction Type:Provider Instructions for Treatment How to access health informa tion online Indication:BMI 31.0-31.9,adult Start:21-Jan-2019 Instruction Type:Patient Education How to access health informa tion online - Detail Indication:BMI 31.0-31.9,adult Start:21-Jan-2019 Instruction Type:Patient Education Patient Instructions Indication:BMI 31.0-31.9,adult Start:21-Jan-2019 Instruction Type:Provider Instructions for Treatment How to access health informa tion online Indication:Nonsmoker Start:26-Nov-2018 Instruction Type:Patient Education How to access health informa tion online - Detail Indication:Nonsmoker Start:26-Nov-2018 Instruction Type:Patient Education Patient Instructions Indication:Nonsmoker Start:26-Nov-2018 Instruction Type:Provider Instructions for Treatment How to access health informa tion online Indication:Nonsmoker Start:25-Nov-2018 Instruction Type:Patient Education How to access health informa tion online - Detail Indication:Nonsmoker Start:25-Nov-2018 Instruction Type:Patient Education Patient Instructions Indication:Nonsmoker Start:25-Nov-2018 Instruction Type:Provider Instructions for Treatment How to access health informa tion online Indication:Nonsmoker Start:07-Nov-2018 Instruction Type:Patient Education How to access health informa tion online - Detail Indication:Nonsmoker Start:07-Nov-2018 Instruction Type:Patient Education Patient Instructions Indication:BMI 31.0-31.9,adult Start:07-Nov-2018 Instruction Type:Provider Instructions for Treatment How to access health informa tion online Indication:Nonsmoker Start:28-Jul-2018 Instruction Type:Patient Education How to access health informa tion online - Detail Indication:Nonsmoker Start:28-Jul-2018 Instruction Type:Patient Education Patient Instructions Indication:Bladder prolapse, congenital Start:28-Jul-2018 Instruction Type:Provider Instructions for Treatment How to access health informa tion online Indication:BMI 35.0-35.9,adult Start:03-Jul-2018 Instruction Type:Patient Education How to access health informa tion online - Detail Indication:BMI 35.0-35.9,adult Start:03-Jul-2018 Instruction Type:Patient Education Patient Instructions Indication:Upper respiratory infection Start:03-Jul-2018 Instruction Type:Provider Instructions for Treatment How to access health informa tion online Indication:Nonsmoker Start:04-Feb-2018 Instruction Type:Patient Education How to access health informa tion online - Detail Indication:Nonsmoker Start:04-Feb-2018 Instruction Type:Patient Education Patient Instructions Indication:Rash Start:04-Feb-2018 Instruction Type:Provider Instructions for Treatment How to access health informa tion online Indication:Sciatica of right side Start:31-Jan-2018 Instruction Type:Patient Education How to access health informa tion online - Detail Indication:Sciatica of right side Start:31-Jan-2018 Instruction Type:Patient Education Patient Instructions Indication:Nonsmoker Start:31-Jan-2018 Instruction Type:Provider Instructions for Treatment How to access health informa tion online Indication:Sciatica of right side Start:27-Sep-2017 Instruction Type:Patient Education How to access health informa tion online - Detail Indication:Sciatica of right side Start:27-Sep-2017 Instruction Type:Patient Education Patient Instructions Indication:Sciatica of right side Start:27-Sep-2017 Instruction Type:Provider Instructions for Treatment How to access health informa tion online Indication:Sciatica of right side Start:30-Aug-2017 Instruction Type:Patient Education How to access health informa tion online - Detail Indication:Sciatica of right side Start:30-Aug-2017 Instruction Type:Patient Education Patient Instructions Indication:Sciatica of right side Start:30-Aug-2017 Instruction Type:Provider Instructions for Treatment How to access health informa tion online Indication:DDD (degenerative disc disease), lumbar Start:13-Aug-2017 Instruction Type:Patient Education How to access health informa tion online - Detail Indication:DDD (degenerative disc disease), lumbar Start:13-Aug-2017 Instruction Type:Patient Education Patient Instructions Indication:Lumbar radiculopathy, right Start:13-Aug-2017 Instruction Type:Provider Instructions for Treatment How to access health informa tion online Indication:Nonsmoker Start:31-Jul-2017 Instruction Type:Patient Education How to access health informa tion online - Detail Indication:Nonsmoker Start:31-Jul-2017 Instruction Type:Patient Education Patient Instructions Indication:Nonsmoker Start:31-Jul-2017 Instruction Type:Provider Instructions for Treatment How to access health informa tion online Indication:Hypertension Start:18-Jul-2016 Instruction Type:Patient Education How to access health informa tion online - Detail Indication:Hypertension Start:18-Jul-2016 Instruction Type:Patient Education Patient Instructions Indication:Hypertension Start:18-Jul-2016 Instruction Type:Provider Instructions for Treatment Name Dates Details Patient Instructions Indication:Nonsmoker Start:06-Sep-2020 Instruction Type:Provider Instructions for Treatment How to Access Health Informa tion Online using Patient Portal and [employer]rd [employer] Apps Indication:Nonsmoker Start:06-Sep-2020 Instruction Type:Patient Education Patient Instructions Indication:Nonsmoker Start:23-Aug-2020 Instruction Type:Provider Instructions for Treatment How to Access Health Informa tion Online using Patient Portal and [employer]rd [employer] Apps Indication:Nonsmoker Start:23-Aug-2020 Instruction Type:Patient Education Patient Instructions Indication:Nonsmoker Start:03-Aug-2020 Instruction Type:Provider Instructions for Treatment How to Access Health Informa tion Online using Patient Portal and [employer]rd [employer] Apps Indication:Nonsmoker Start:03-Aug-2020 Instruction Type:Patient Education Patient Instructions Indication:Nonsmoker Start:25-Jul-2020 Instruction Type:Provider Instructions for Treatment How to Access Health Informa tion Online using Patient Portal and [employer]rd [employer] Apps Indication:Nonsmoker Start:25-Jul-2020 Instruction Type:Patient Education Patient Instructions Indication:Nonsmoker Start:18-Jul-2020 Instruction Type:Provider Instructions for Treatment How to Access Health Informa tion Online using Patient Portal and [employer]rd [employer] Apps Indication:Nonsmoker Start:18-Jul-2020 Instruction Type:Patient Education Patient Instructions Indication:Nonsmoker Start:11-Jul-2020 Instruction Type:Provider Instructions for Treatment How to Access Health Informa tion Online using Patient Portal and [employer]rd [employer] Apps Indication:Nonsmoker Start:11-Jul-2020 Instruction Type:Patient Education How to access health informa tion online Indication:Nonsmoker Start:10-Feb-2020 Instruction Type:Patient Education How to access health informa tion online - Detail Indication:Nonsmoker Start:10-Feb-2020 Instruction Type:Patient Education Patient Instructions Indication:BMI 31.0-31.9,adult Start:10-Feb-2020 Instruction Type:Provider Instructions for Treatment How to access health informa tion online Indication:Nonsmoker Start:19-Jan-2020 Instruction Type:Patient Education How to access health informa tion online - Detail Indication:Nonsmoker Start:19-Jan-2020 Instruction Type:Patient Education Patient Instructions Indication:Nonsmoker Start:19-Jan-2020 Instruction Type:Provider Instructions for Treatment How to access health informa tion online Indication:Nonsmoker Start:05-Jan-2020 Instruction Type:Patient Education How to access health informa tion online - Detail Indication:Nonsmoker Start:05-Jan-2020 Instruction Type:Patient Education Patient Instructions Indication:Allergic rhinitis Start:05-Jan-2020 Instruction Type:Provider Instructions for Treatment How to access health informa tion online Indication:BMI 30.0-30.9,adult Start:16-Nov-2019 Instruction Type:Patient Education How to access health informa tion online - Detail Indication:BMI 30.0-30.9,adult Start:16-Nov-2019 Instruction Type:Patient Education Patient Instructions Indication:BMI 30.0-30.9,adult Start:16-Nov-2019 Instruction Type:Provider Instructions for Treatment How to access health informa tion online Indication:BMI 30.0-30.9,adult Start:25-Sep-2019 Instruction Type:Patient Education How to access health informa tion online - Detail Indication:BMI 30.0-30.9,adult Start:25-Sep-2019 Instruction Type:Patient Education Patient Instructions Indication:BMI 30.0-30.9,adult Start:25-Sep-2019 Instruction Type:Provider Instructions for Treatment How to access health informa tion online Indication:Nonsmoker Start:12-Aug-2019 Instruction Type:Patient Education How to access health informa tion online - Detail Indication:Nonsmoker Start:12-Aug-2019 Instruction Type:Patient Education Patient Instructions Indication:Nonsmoker Start:12-Aug-2019 Instruction Type:Provider Instructions for Treatment How to access health informa tion online Indication:BMI 29.0-29.9,adult Start:04-Aug-2019 Instruction Type:Patient Education How to access health informa tion online - Detail Indication:BMI 29.0-29.9,adult Start:04-Aug-2019 Instruction Type:Patient Education Patient Instructions Indication:BMI 29.0-29.9,adult Start:04-Aug-2019 Instruction Type:Provider Instructions for Treatment How to access health informa tion online Indication:BMI 31.0-31.9,adult Start:25-Jun-2019 Instruction Type:Patient Education How to access health informa tion online - Detail Indication:BMI 31.0-31.9,adult Start:25-Jun-2019 Instruction Type:Patient Education Patient Instructions Indication:Dysuria Start:25-Jun-2019 Instruction Type:Provider Instructions for Treatment How to access health informa tion online Indication:Hypertension Start:02-Feb-2019 Instruction Type:Patient Education How to access health informa tion online - Detail Indication:Hypertension Start:02-Feb-2019 Instruction Type:Patient Education Patient Instructions Indication:Hypertension Start:02-Feb-2019 Instruction Type:Provider Instructions for Treatment How to access health informa tion online Indication:BMI 31.0-31.9,adult Start:21-Jan-2019 Instruction Type:Patient Education How to access health informa tion online - Detail Indication:BMI 31.0-31.9,adult Start:21-Jan-2019 Instruction Type:Patient Education Patient Instructions Indication:BMI 31.0-31.9,adult Start:21-Jan-2019 Instruction Type:Provider Instructions for Treatment How to access health informa tion online Indication:Nonsmoker Start:26-Nov-2018 Instruction Type:Patient Education How to access health informa tion online - Detail Indication:Nonsmoker Start:26-Nov-2018 Instruction Type:Patient Education Patient Instructions Indication:Nonsmoker Start:26-Nov-2018 Instruction Type:Provider Instructions for Treatment How to access health informa tion online Indication:Nonsmoker Start:25-Nov-2018 Instruction Type:Patient Education How to access health informa tion online - Detail Indication:Nonsmoker Start:25-Nov-2018 Instruction Type:Patient Education Patient Instructions Indication:Nonsmoker Start:25-Nov-2018 Instruction Type:Provider Instructions for Treatment How to access health informa tion online Indication:Nonsmoker Start:07-Nov-2018 Instruction Type:Patient Education How to access health informa tion online - Detail Indication:Nonsmoker Start:07-Nov-2018 Instruction Type:Patient Education Patient Instructions Indication:BMI 31.0-31.9,adult Start:07-Nov-2018 Instruction Type:Provider Instructions for Treatment How to access health informa tion online Indication:Nonsmoker Start:28-Jul-2018 Instruction Type:Patient Education How to access health informa tion online - Detail Indication:Nonsmoker Start:28-Jul-2018 Instruction Type:Patient Education Patient Instructions Indication:Bladder prolapse, congenital Start:28-Jul-2018 Instruction Type:Provider Instructions for Treatment How to access health informa tion online Indication:BMI 35.0-35.9,adult Start:03-Jul-2018 Instruction Type:Patient Education How to access health informa tion online - Detail Indication:BMI 35.0-35.9,adult Start:03-Jul-2018 Instruction Type:Patient Education Patient Instructions Indication:Upper respiratory infection Start:03-Jul-2018 Instruction Type:Provider Instructions for Treatment How to access health informa tion online Indication:Nonsmoker Start:04-Feb-2018 Instruction Type:Patient Education How to access health informa tion online - Detail Indication:Nonsmoker Start:04-Feb-2018 Instruction Type:Patient Education Patient Instructions Indication:Rash Start:04-Feb-2018 Instruction Type:Provider Instructions for Treatment How to access health informa tion online Indication:Sciatica of right side Start:31-Jan-2018 Instruction Type:Patient Education How to access health informa tion online - Detail Indication:Sciatica of right side Start:31-Jan-2018 Instruction Type:Patient Education Patient Instructions Indication:Nonsmoker Start:31-Jan-2018 Instruction Type:Provider Instructions for Treatment How to access health informa tion online Indication:Sciatica of right side Start:27-Sep-2017 Instruction Type:Patient Education How to access health informa tion online - Detail Indication:Sciatica of right side Start:27-Sep-2017 Instruction Type:Patient Education Patient Instructions Indication:Sciatica of right side Start:27-Sep-2017 Instruction Type:Provider Instructions for Treatment How to access health informa tion online Indication:Sciatica of right side Start:30-Aug-2017 Instruction Type:Patient Education How to access health informa tion online - Detail Indication:Sciatica of right side Start:30-Aug-2017 Instruction Type:Patient Education Patient Instructions Indication:Sciatica of right side Start:30-Aug-2017 Instruction Type:Provider Instructions for Treatment How to access health informa tion online Indication:DDD (degenerative disc disease), lumbar Start:13-Aug-2017 Instruction Type:Patient Education How to access health informa tion online - Detail Indication:DDD (degenerative disc disease), lumbar Start:13-Aug-2017 Instruction Type:Patient Education Patient Instructions Indication:Lumbar radiculopathy, right Start:13-Aug-2017 Instruction Type:Provider Instructions for Treatment How to access health informa tion online Indication:Nonsmoker Start:31-Jul-2017 Instruction Type:Patient Education How to access health informa tion online - Detail Indication:Nonsmoker Start:31-Jul-2017 Instruction Type:Patient Education Patient Instructions Indication:Nonsmoker Start:31-Jul-2017 Instruction Type:Provider Instructions for Treatment How to access health informa tion online Indication:Hypertension Start:18-Jul-2016 Instruction Type:Patient Education How to access health informa tion online - Detail Indication:Hypertension Start:18-Jul-2016 Instruction Type:Patient Education Patient Instructions Indication:Hypertension Start:18-Jul-2016 Instruction Type:Provider Instructions for Treatment Name Dates Details How to access health informa tion online Indication:Nonsmoker Start:19-Jan-2020 Instruction Type:Patient Education How to access health informa tion online - Detail Indication:Nonsmoker Start:19-Jan-2020 Instruction Type:Patient Education Patient Instructions Indication:Nonsmoker Start:19-Jan-2020 Instruction Type:Provider Instructions for Treatment How to access health informa tion online Indication:Nonsmoker Start:05-Jan-2020 Instruction Type:Patient Education How to access health informa tion online - Detail Indication:Nonsmoker Start:05-Jan-2020 Instruction Type:Patient Education Patient Instructions Indication:Allergic rhinitis Start:05-Jan-2020 Instruction Type:Provider Instructions for Treatment How to access health informa tion online Indication:BMI 30.0-30.9,adult Start:16-Nov-2019 Instruction Type:Patient Education How to access health informa tion online - Detail Indication:BMI 30.0-30.9,adult Start:16-Nov-2019 Instruction Type:Patient Education Patient Instructions Indication:BMI 30.0-30.9,adult Start:16-Nov-2019 Instruction Type:Provider Instructions for Treatment How to access health informa tion online Indication:BMI 30.0-30.9,adult Start:25-Sep-2019 Instruction Type:Patient Education How to access health informa tion online - Detail Indication:BMI 30.0-30.9,adult Start:25-Sep-2019 Instruction Type:Patient Education Patient Instructions Indication:BMI 30.0-30.9,adult Start:25-Sep-2019 Instruction Type:Provider Instructions for Treatment How to access health informa tion online Indication:Nonsmoker Start:12-Aug-2019 Instruction Type:Patient Education How to access health informa tion online - Detail Indication:Nonsmoker Start:12-Aug-2019 Instruction Type:Patient Education Patient Instructions Indication:Nonsmoker Start:12-Aug-2019 Instruction Type:Provider Instructions for Treatment How to access health informa tion online Indication:BMI 29.0-29.9,adult Start:04-Aug-2019 Instruction Type:Patient Education How to access health informa tion online - Detail Indication:BMI 29.0-29.9,adult Start:04-Aug-2019 Instruction Type:Patient Education Patient Instructions Indication:BMI 29.0-29.9,adult Start:04-Aug-2019 Instruction Type:Provider Instructions for Treatment How to access health informa tion online Indication:BMI 31.0-31.9,adult Start:25-Jun-2019 Instruction Type:Patient Education How to access health informa tion online - Detail Indication:BMI 31.0-31.9,adult Start:25-Jun-2019 Instruction Type:Patient Education Patient Instructions Indication:Dysuria Start:25-Jun-2019 Instruction Type:Provider Instructions for Treatment How to access health informa tion online Indication:Hypertension Start:02-Feb-2019 Instruction Type:Patient Education How to access health informa tion online - Detail Indication:Hypertension Start:02-Feb-2019 Instruction Type:Patient Education Patient Instructions Indication:Hypertension Start:02-Feb-2019 Instruction Type:Provider Instructions for Treatment How to access health informa tion online Indication:BMI 31.0-31.9,adult Start:21-Jan-2019 Instruction Type:Patient Education How to access health informa tion online - Detail Indication:BMI 31.0-31.9,adult Start:21-Jan-2019 Instruction Type:Patient Education Patient Instructions Indication:BMI 31.0-31.9,adult Start:21-Jan-2019 Instruction Type:Provider Instructions for Treatment How to access health informa tion online Indication:Nonsmoker Start:26-Nov-2018 Instruction Type:Patient Education How to access health informa tion online - Detail Indication:Nonsmoker Start:26-Nov-2018 Instruction Type:Patient Education Patient Instructions Indication:Nonsmoker Start:26-Nov-2018 Instruction Type:Provider Instructions for Treatment How to access health informa tion online Indication:Nonsmoker Start:25-Nov-2018 Instruction Type:Patient Education How to access health informa tion online - Detail Indication:Nonsmoker Start:25-Nov-2018 Instruction Type:Patient Education Patient Instructions Indication:Nonsmoker Start:25-Nov-2018 Instruction Type:Provider Instructions for Treatment How to access health informa tion online Indication:Nonsmoker Start:07-Nov-2018 Instruction Type:Patient Education How to access health informa tion online - Detail Indication:Nonsmoker Start:07-Nov-2018 Instruction Type:Patient Education Patient Instructions Indication:BMI 31.0-31.9,adult Start:07-Nov-2018 Instruction Type:Provider Instructions for Treatment How to access health informa tion online Indication:Nonsmoker Start:28-Jul-2018 Instruction Type:Patient Education How to access health informa tion online - Detail Indication:Nonsmoker Start:28-Jul-2018 Instruction Type:Patient Education Patient Instructions Indication:Bladder prolapse, congenital Start:28-Jul-2018 Instruction Type:Provider Instructions for Treatment How to access health informa tion online Indication:BMI 35.0-35.9,adult Start:03-Jul-2018 Instruction Type:Patient Education How to access health informa tion online - Detail Indication:BMI 35.0-35.9,adult Start:03-Jul-2018 Instruction Type:Patient Education Patient Instructions Indication:Upper respiratory infection Start:03-Jul-2018 Instruction Type:Provider Instructions for Treatment How to access health informa tion online Indication:Nonsmoker Start:04-Feb-2018 Instruction Type:Patient Education How to access health informa tion online - Detail Indication:Nonsmoker Start:04-Feb-2018 Instruction Type:Patient Education Patient Instructions Indication:Rash Start:04-Feb-2018 Instruction Type:Provider Instructions for Treatment How to access health informa tion online Indication:Sciatica of right side Start:31-Jan-2018 Instruction Type:Patient Education How to access health informa tion online - Detail Indication:Sciatica of right side Start:31-Jan-2018 Instruction Type:Patient Education Patient Instructions Indication:Nonsmoker Start:31-Jan-2018 Instruction Type:Provider Instructions for Treatment How to access health informa tion online Indication:Sciatica of right side Start:27-Sep-2017 Instruction Type:Patient Education How to access health informa tion online - Detail Indication:Sciatica of right side Start:27-Sep-2017 Instruction Type:Patient Education Patient Instructions Indication:Sciatica of right side Start:27-Sep-2017 Instruction Type:Provider Instructions for Treatment How to access health informa tion online Indication:Sciatica of right side Start:30-Aug-2017 Instruction Type:Patient Education How to access health informa tion online - Detail Indication:Sciatica of right side Start:30-Aug-2017 Instruction Type:Patient Education Patient Instructions Indication:Sciatica of right side Start:30-Aug-2017 Instruction Type:Provider Instructions for Treatment How to access health informa tion online Indication:DDD (degenerative disc disease), lumbar Start:13-Aug-2017 Instruction Type:Patient Education How to access health informa tion online - Detail Indication:DDD (degenerative disc disease), lumbar Start:13-Aug-2017 Instruction Type:Patient Education Patient Instructions Indication:Lumbar radiculopathy, right Start:13-Aug-2017 Instruction Type:Provider Instructions for Treatment How to access health informa tion online Indication:Nonsmoker Start:31-Jul-2017 Instruction Type:Patient Education How to access health informa tion online - Detail Indication:Nonsmoker Start:31-Jul-2017 Instruction Type:Patient Education Patient Instructions Indication:Nonsmoker Start:31-Jul-2017 Instruction Type:Provider Instructions for Treatment How to access health informa tion online Indication:Hypertension Start:18-Jul-2016 Instruction Type:Patient Education How to access health informa tion online - Detail Indication:Hypertension Start:18-Jul-2016 Instruction Type:Patient Education Patient Instructions Indication:Hypertension Start:18-Jul-2016 Instruction Type:Provider Instructions for Treatment Name Dates Details Patient Instructions Indication:Nonsmoker Start:18-Oct-2020 Instruction Type:Provider Instructions for Treatment How to Access Health Informa tion Online using Patient Portal and 3rd [employer] Apps Indication:Nonsmoker Start:18-Oct-2020 Instruction Type:Patient Education Patient Instructions Indication:Nonsmoker Start:06-Sep-2020 Instruction Type:Provider Instructions for Treatment How to Access Health Informa tion Online using Patient Portal and 3rd [employer] Apps Indication:Nonsmoker Start:06-Sep-2020 Instruction Type:Patient Education Patient Instructions Indication:Nonsmoker Start:23-Aug-2020 Instruction Type:Provider Instructions for Treatment How to Access Health Informa tion Online using Patient Portal and 3rd [employer] Apps Indication:Nonsmoker Start:23-Aug-2020 Instruction Type:Patient Education Patient Instructions Indication:Nonsmoker Start:03-Aug-2020 Instruction Type:Provider Instructions for Treatment How to Access Health Informa tion Online using Patient Portal and 3rd [employer] Apps Indication:Nonsmoker Start:03-Aug-2020 Instruction Type:Patient Education Patient Instructions Indication:Nonsmoker Start:25-Jul-2020 Instruction Type:Provider Instructions for Treatment How to Access Health Informa tion Online using Patient Portal and 3rd [employer] Apps Indication:Nonsmoker Start:25-Jul-2020 Instruction Type:Patient Education Patient Instructions Indication:Nonsmoker Start:18-Jul-2020 Instruction Type:Provider Instructions for Treatment How to Access Health Informa tion Online using Patient Portal and 3rd [employer] Apps Indication:Nonsmoker Start:18-Jul-2020 Instruction Type:Patient Education Patient Instructions Indication:Nonsmoker Start:11-Jul-2020 Instruction Type:Provider Instructions for Treatment How to Access Health Informa tion Online using Patient Portal and 3rd [employer] Apps Indication:Nonsmoker Start:11-Jul-2020 Instruction Type:Patient Education How to access health informa tion online Indication:Nonsmoker Start:10-Feb-2020 Instruction Type:Patient Education How to access health informa tion online - Detail Indication:Nonsmoker Start:10-Feb-2020 Instruction Type:Patient Education Patient Instructions Indication:BMI 31.0-31.9,adult Start:10-Feb-2020 Instruction Type:Provider Instructions for Treatment How to access health informa tion online Indication:Nonsmoker Start:19-Jan-2020 Instruction Type:Patient Education How to access health informa tion online - Detail Indication:Nonsmoker Start:19-Jan-2020 Instruction Type:Patient Education Patient Instructions Indication:Nonsmoker Start:19-Jan-2020 Instruction Type:Provider Instructions for Treatment How to access health informa tion online Indication:Nonsmoker Start:05-Jan-2020 Instruction Type:Patient Education How to access health informa tion online - Detail Indication:Nonsmoker Start:05-Jan-2020 Instruction Type:Patient Education Patient Instructions Indication:Allergic rhinitis Start:05-Jan-2020 Instruction Type:Provider Instructions for Treatment How to access health informa tion online Indication:BMI 30.0-30.9,adult Start:16-Nov-2019 Instruction Type:Patient Education How to access health informa tion online - Detail Indication:BMI 30.0-30.9,adult Start:16-Nov-2019 Instruction Type:Patient Education Patient Instructions Indication:BMI 30.0-30.9,adult Start:16-Nov-2019 Instruction Type:Provider Instructions for Treatment How to access health informa tion online Indication:BMI 30.0-30.9,adult Start:25-Sep-2019 Instruction Type:Patient Education How to access health informa tion online - Detail Indication:BMI 30.0-30.9,adult Start:25-Sep-2019 Instruction Type:Patient Education Patient Instructions Indication:BMI 30.0-30.9,adult Start:25-Sep-2019 Instruction Type:Provider Instructions for Treatment How to access health informa tion online Indication:Nonsmoker Start:12-Aug-2019 Instruction Type:Patient Education How to access health informa tion online - Detail Indication:Nonsmoker Start:12-Aug-2019 Instruction Type:Patient Education Patient Instructions Indication:Nonsmoker Start:12-Aug-2019 Instruction Type:Provider Instructions for Treatment How to access health informa tion online Indication:BMI 29.0-29.9,adult Start:04-Aug-2019 Instruction Type:Patient Education How to access health informa tion online - Detail Indication:BMI 29.0-29.9,adult Start:04-Aug-2019 Instruction Type:Patient Education Patient Instructions Indication:BMI 29.0-29.9,adult Start:04-Aug-2019 Instruction Type:Provider Instructions for Treatment How to access health informa tion online Indication:BMI 31.0-31.9,adult Start:25-Jun-2019 Instruction Type:Patient Education How to access health informa tion online - Detail Indication:BMI 31.0-31.9,adult Start:25-Jun-2019 Instruction Type:Patient Education Patient Instructions Indication:Dysuria Start:25-Jun-2019 Instruction Type:Provider Instructions for Treatment How to access health informa tion online Indication:Hypertension Start:02-Feb-2019 Instruction Type:Patient Education How to access health informa tion online - Detail Indication:Hypertension Start:02-Feb-2019 Instruction Type:Patient Education Patient Instructions Indication:Hypertension Start:02-Feb-2019 Instruction Type:Provider Instructions for Treatment How to access health informa tion online Indication:BMI 31.0-31.9,adult Start:21-Jan-2019 Instruction Type:Patient Education How to access health informa tion online - Detail Indication:BMI 31.0-31.9,adult Start:21-Jan-2019 Instruction Type:Patient Education Patient Instructions Indication:BMI 31.0-31.9,adult Start:21-Jan-2019 Instruction Type:Provider Instructions for Treatment How to access health informa tion online Indication:Nonsmoker Start:26-Nov-2018 Instruction Type:Patient Education How to access health informa tion online - Detail Indication:Nonsmoker Start:26-Nov-2018 Instruction Type:Patient Education Patient Instructions Indication:Nonsmoker Start:26-Nov-2018 Instruction Type:Provider Instructions for Treatment How to access health informa tion online Indication:Nonsmoker Start:25-Nov-2018 Instruction Type:Patient Education How to access health informa tion online - Detail Indication:Nonsmoker Start:25-Nov-2018 Instruction Type:Patient Education Patient Instructions Indication:Nonsmoker Start:25-Nov-2018 Instruction Type:Provider Instructions for Treatment How to access health informa tion online Indication:Nonsmoker Start:07-Nov-2018 Instruction Type:Patient Education How to access health informa tion online - Detail Indication:Nonsmoker Start:07-Nov-2018 Instruction Type:Patient Education Patient Instructions Indication:BMI 31.0-31.9,adult Start:07-Nov-2018 Instruction Type:Provider Instructions for Treatment How to access health informa tion online Indication:Nonsmoker Start:28-Jul-2018 Instruction Type:Patient Education How to access health informa tion online - Detail Indication:Nonsmoker Start:28-Jul-2018 Instruction Type:Patient Education Patient Instructions Indication:Bladder prolapse, congenital Start:28-Jul-2018 Instruction Type:Provider Instructions for Treatment How to access health informa tion online Indication:BMI 35.0-35.9,adult Start:03-Jul-2018 Instruction Type:Patient Education How to access health informa tion online - Detail Indication:BMI 35.0-35.9,adult Start:03-Jul-2018 Instruction Type:Patient Education Patient Instructions Indication:Upper respiratory infection Start:03-Jul-2018 Instruction Type:Provider Instructions for Treatment How to access health informa tion online Indication:Nonsmoker Start:04-Feb-2018 Instruction Type:Patient Education How to access health informa tion online - Detail Indication:Nonsmoker Start:04-Feb-2018 Instruction Type:Patient Education Patient Instructions Indication:Rash Start:04-Feb-2018 Instruction Type:Provider Instructions for Treatment How to access health informa tion online Indication:Sciatica of right side Start:31-Jan-2018 Instruction Type:Patient Education How to access health informa tion online - Detail Indication:Sciatica of right side Start:31-Jan-2018 Instruction Type:Patient Education Patient Instructions Indication:Nonsmoker Start:31-Jan-2018 Instruction Type:Provider Instructions for Treatment How to access health informa tion online Indication:Sciatica of right side Start:27-Sep-2017 Instruction Type:Patient Education How to access health informa tion online - Detail Indication:Sciatica of right side Start:27-Sep-2017 Instruction Type:Patient Education Patient Instructions Indication:Sciatica of right side Start:27-Sep-2017 Instruction Type:Provider Instructions for Treatment How to access health informa tion online Indication:Sciatica of right side Start:30-Aug-2017 Instruction Type:Patient Education How to access health informa tion online - Detail Indication:Sciatica of right side Start:30-Aug-2017 Instruction Type:Patient Education Patient Instructions Indication:Sciatica of right side Start:30-Aug-2017 Instruction Type:Provider Instructions for Treatment How to access health informa tion online Indication:DDD (degenerative disc disease), lumbar Start:13-Aug-2017 Instruction Type:Patient Education How to access health informa tion online - Detail Indication:DDD (degenerative disc disease), lumbar Start:13-Aug-2017 Instruction Type:Patient Education Patient Instructions Indication:Lumbar radiculopathy, right Start:13-Aug-2017 Instruction Type:Provider Instructions for Treatment How to access health informa tion online Indication:Nonsmoker Start:31-Jul-2017 Instruction Type:Patient Education How to access health informa tion online - Detail Indication:Nonsmoker Start:31-Jul-2017 Instruction Type:Patient Education Patient Instructions Indication:Nonsmoker Start:31-Jul-2017 Instruction Type:Provider Instructions for Treatment How to access health informa tion online Indication:Hypertension Start:18-Jul-2016 Instruction Type:Patient Education How to access health informa tion online - Detail Indication:Hypertension Start:18-Jul-2016 Instruction Type:Patient Education Patient Instructions Indication:Hypertension Start:18-Jul-2016 Instruction Type:Provider Instructions for Treatment Summary Purpose Family History No Family History Records Found Advance Directives Name Dates Details Immunization Registry [place] - Effective on 09/27/2020. Expiration date unspecified Effective:27-Sep-2020 Name Dates Details Immunization Registry [place] - Effective on 09/27/2020. Expiration date unspecified Effective:27-Sep-2020 Name Dates Details Immunization Registry [place] - Effective on 09/27/2020. Expiration date unspecified Effective:27-Sep-2020 Name Dates Details Immunization Registry [place] - Effective on 09/27/2020. Expiration date unspecified Effective:27-Sep-2020 Name Dates Details Immunization Registry [place] - Effective on 09/27/2020. Expiration date unspecified Effective:27-Sep-2020 Name Dates Details Immunization Registry [place] - Effective on 09/27/2020. Expiration date unspecified Effective:27-Sep-2020 Name Dates Details Immunization Registry [place] - Effective on 09/27/2020. Expiration date unspecified Effective:27-Sep-2020 Name Dates Details Immunization Registry [place] - Effective on 09/27/2020. Expiration date unspecified Effective:27-Sep-2020 Name Dates Details Immunization Registry [place] - Effective on 09/27/2020. Expiration date unspecified Effective:27-Sep-2020 Name Dates Details Immunization Registry [place] - Effective on 09/27/2020. Expiration date unspecified Effective:27-Sep-2020 Name Dates Details Immunization Registry [place] - Effective on 09/27/2020. Expiration date unspecified Effective:27-Sep-2020 Name Dates Details Immunization Registry [place] - Effective on 09/27/2020. Expiration date unspecified Effective:27-Sep-2020 Name Dates Details Immunization Registry [place] - Effective on 09/27/2020. Expiration date unspecified Effective:27-Sep-2020 Name Dates Details Immunization Registry [place] - Effective on 09/27/2020. Expiration date unspecified Effective:27-Sep-2020 Name Dates Details Immunization Registry [place] - Effective on 09/27/2020. Expiration date unspecified Effective:27-Sep-2020 Name Dates Details Immunization Registry [place] - Effective on 09/27/2020. Expiration date unspecified Effective:27-Sep-2020 Additional Source Comments INFORMATION SOURCE (unrecogn ized section and content) DATE CREATED AUTHOR AUTHOR'S ORGANIZ ATION 09/15/[address] [facility] FOR RECORDS PERTAINING TO PATIENTS WHO ARE OR HAVE BEEN ENROLLED IN A CHEMICAL DEPENDENCY/SUBSTANCEABUSE PROGRAM, SOME INFORMATION MAY BE OMITTED. This clinical summary was aggregated from multiple sources. Caution should be exercised in using it in the provision of clinical care. This summary normalizes information from multiple sources, and as a consequence, information in this document may materially change the coding, format and clinical context of patient data. In addition, data may be omitted in some cases. CLINICAL DECISIONS SHOULD BE BASED ON THE PRIMARY CLINICAL RECORDS. [facility] [employer] [facility]. provides no warranty or guarantee of the accuracy or completeness of information in this document.
[2023-07-08 09:36] LABS: ALB/GLOB Ratio 1.1 RATIO (0.9-2.4); AST(SGOT) 15 U/L (15-37); Alanine Aminotransfer ALT/SGPT 22 U/L (13-56); Albumin, Serum 3.8 g/dL (3.2-5.0); Alcohol, Blood (Medical)-Serum < 3.0 mg/dL; Alkaline Phosphatase 64 U/L (45-117); Anion Gap 1 (5-15); BUN 10 mg/dL (7-18); BUN/Creat Ratio 13.9 RATIO (10-20); Calcium,Total 9.8 mg/dL (8.5-10.1); Chloride 108 mmol/L (98-107); Creatinine, Serum 0.72 mg/dL (0.55-1.02); EST Glomerular Filtration Rate 87 mL/min (>60); Est Glom Filt Rate - Afr Amer 105 mL/min (>60); Estimated Creatinine Clearance 88.23 ml/min; Globulin 3.6 g/dL (2.2-4.2); Glucose 82 mg/dL (74-106); Potassium 3.7 mmol/L (3.5-5.1); Protein, Total 7.4 g/dL (6.4-8.2); Sodium Level 140 mmol/L (136-145); Troponin-I HS 36 pg/mL (3.0-54.0)
[2023-07-08] MEDS: 0.9% Normal Saline (500mL Bag) 500 ML 1000 ML IV (09:36)
[2023-07-08 11:23] VITALS: RESP 16; O2SAT 98
== END 2023-07-08 11:23 | disposition home or self-care (01) ==
PROVIDERS: Emergency Provider Emergency Medicine; PCP Nurse Practitioner Family; Visit Provider Emergency Medicine
DX: R42 Dizziness and giddiness (principal); R53.1 Weakness
CPT/HCPCS: 70450; 71045; 80053; 80320; 84484; 85027; 93005; 96360; 96361; 99284; J7030; G0480

== ENCOUNTER → 2023-07-16 | Outpatient (CLI) | payer OTHER, SELFPAY ==
--- NOTE | 2023-07-16 07:11 | MRI_ITS ---
EXAM: MR LUMBAR SPINE WITHOUT INTRAVENOUS CONTRAST CLINICAL INDICATION: bilateral leg weakness TECHNIQUE: Multiplanar and multisequence MR images of the lumbar spine without intravenous contrast. COMPARISON: MR Lumbar Spine dated 08/17/2020 FINDINGS: VERTEBRAE: Stable mild anterior listhesis of L3 on L4 and L4 on L5. Stable minimal retrolisthesis of T12 on L1. No bone marrow edema. Normal vertebral body height. SPINAL CORD: Normal. Normal position and signal intensity of the conus medullaris. SOFT TISSUES: Normal. DISCS/SPINAL CANAL/NEURAL FORAMINA: T12-L1: Prominent disc space loss and Modic type II endplate changes again noted. No disc herniation. Intact spinal canal and neural foramina. L1-L2: Stable mild disc space narrowing interval development of intravertebral disc herniation into the central portion of the L1 vertebral body stable left posterior lateral disc protrusion again noted resulting in moderate narrowing of the left neural foramen no significant narrowing of the spinal canal or right neural foramen. L2-L3: Moderate disc space narrowing. Interval increase in the broad-based disc protrusion. The additional ligamentous hypertrophy and facet arthropathy contributes to [id number] spinal stenosis and [id number] narrowing of the neural foramina. L3-L4: Stable mild anterior listhesis of L3 on L4. Somewhat more prominent right posterior lateral disc protrusion, ligamentous hypertrophy and facet arthropathy result in marked narrowing of the right neural foramen and moderate spinal stenosis. Mild narrowing of the left neural foramen related to mild disc prominence and facet arthropathy. L4-L5: Stable anterior listhesis of L4 on L5. Mild narrowing of the spinal canal and neural foramina related to the listhesis and prominent facet arthropathy. L5-S1: Normal. Normal disc height and morphology. Normal spinal canal and lateral recesses. Normal neuroforamina. MRI/Spine Lumbar (Routine) IMPRESSION: 1. Multilevel disc degeneration facet arthropathy 2. Mild L2-L3 spinal stenosis. 3. Moderate L3-4 spinal stenosis, mildly progressed from prior exam. 4. Prominent right L3-4 neural foraminal narrowing as described above. Electronically Signed: Jose Webster MD at 9:24 EST ,
--- OUTSIDE RECORDS SUMMARY | 2023-07-16 07:12 | XMS RPT_ITS | CCD ---
Author Name Unknown Address [address] [place] [address] Organization [facility] Care Team Providers Care Glassware Finisher Name Role Phone aMru Villela Unavailable Roberth Gunn Unavailable [facility], [facility] Unavailable Cinda Alcaraz Unavailable Unavailable Chong Jennings Unavailable Unavailable Suzanne Westbrook Unavailable Unavailable Kira Godoy Unavailable Unavailable Unavailable Unavailable Beatriz Bennett Unavailable Unavailable Chong Jennings Unavailable Unavailable Suzanne Westbrook Unavailable Unavailable Talia Rodgers Unavailable Unavailable Garrett, Jaqueline Unavailable Unavailable Chong Kelley Unavailable Unavailable Maryellen Miramontes Unavailable Oscar Dove Unavailable Zaheer Tomlinson Unavailable Maru Villela CNP Unavailable Oscar Dove DO Unavailable [phone] Roberth Gunn Unavailable [facility], [facility] Maryellen Miramontes Unavailable Zaheer Tomlinson Unavailable Chong Kelley LPN Unavailable Unavailable Cinda Alcaraz LPN Unavailable Unavailable Beatriz Bennett Unavailable Unavailable Suzanne Westbrook RN Unavailable Unavailable Unavailable Unavailable Keke Colon MA Unavailable Unavailable BEVERLY Cuba LPN Unavailable Unavailable Garrett LICEA, Jaqueline Unavailable Unavailable Corinne Sousa CNP Unavailable Maru Villela Unavailable Corinne Sousa CNP Unavailable Lars Corinne STEEEL Unavailable Unavailable Unavailable StephanieMaru baker Referring Unavailable [...] [facility] Start: 09-14-2022 ambulatory Maru [facility] Internal Med Start: 09-14-2022 End: 09-17-2022 Office outpatient visit 15 minutes Corinne Sousa CNP Work Phone: [facility] Start: 09-14-2022 Review Corinne Sousa CNP Work Phone: [facility] Start: 03-16-2022 End: 03-25-2022 Office outpatient visit 15 minutes Corinne Sousa CNP Work Phone: [facility] Start: 09-11-2021 End: 09-11-2021 Office outpatient visit 15 minutes Maru Stephaniesamuel STEELE Work Phone: [facility] Start: 08-14-2021 End: 08-14-2021 Office outpatient visit 25 minutes Maru Stephaniesamuel STEELE Work Phone: [facility] Start: 06-09-2021 End: 06-09-2021 Office outpatient visit 15 minutes Maru Villela ANIMAL SCIENTIST Work Phone: [facility] Start: 03-22-2021 End: 03-22-2021 Annotation/Addendum Maru Villela ANIMAL SCIENTIST Work Phone: [facility] Start: 03-22-2021 End: 03-22-2021 Office outpatient visit 10 minutes Maru Villela ANIMAL SCIENTIST Work Phone: [facility] Start: 03-10-2021 End: 03-10-2021 Office outpatient visit 15 minutes Maru Villela ANIMAL SCIENTIST Work Phone: [facility] Start: 12-07-2020 End: 12-07-2020 Office outpatient visit 15 minutes Maru Hinojosaestefanía ANIMAL SCIENTIST Work Phone: [facility] Start: 10-18-2020 [...] Start: 07-18-2020 End: 07-19-2020 Annotation/Addendum Maru Arambula [employer] [facility] al Medicine Start: 07-18-2020 End: 07-18-2020 Office outpatient visit 25 minutes Maru Arabmula Internal Medicine Start: 07-11-2020 End: 07-11-2020 Office outpatient visit 25 minutes Maru Arambula Internal [facility] Start: 04-04-2020 End: 04-04-2020 Office outpatient visit 5 minutes Maru Arambula Internal [facility] Start: 02-17-2020 End: 02-17-2020 Phone Encounter Maru Arambula [facility] [employer] [facility] Start: 02-10-2020 End: 02-10-2020 Office outpatient visit 25 minutes Maru Arambula [facility] Start: 02-10-2020 Review Maru Ochoaens marla Internal Medicine Start: 01-19-2020 End: 01-19-2020 Office outpatient visit 25 minutes Maru Arambula [facility] Start: 01-05-2020 End: 01-05-2020 Lab Order Maru Arambula [facility] Start: 01-05-2020 End: 01-05-2020 Office [...] Start: 02-11-2019 End: 02-11-2019 Annotation/Addendum Maru Arambula [facility] [employer] Operator al Medicine Start: 02-02-2019 End: 02-02-2019 Office [...] Office outpatient visit 15 minutes Maru Villela [facility] Internal Medicine Start: 09-27-2017 End: 09-27-2017 Office outpatient visit 15 minutes Maru Villela [facility] Internal Medicine Start: 08-30-2017 End: 08-30-2017 Office outpatient visit 25 minutes Maru Villela [facility] Internal Medicine Start: 08-13-2017 End: 08-13-2017 Office outpatient visit 15 minutes Maru Villela [facility] Internal Medicine Start: 07-31-2017 End: 07-31-2017 Office outpatient visit 15 minutes Maru Villela [facility] Internal Medicine Start: 07-18-2016 End: 07-18-2016 Initial preventive medicine new patient 40-64yrs Maru Villela [facility] Internal [facility] Procedures Date Procedure Procedure Detail Performing Clinician Start: 11-09-2021 End: 11-09-2021 Chiropractic Report Comments: See Note; NOTES: [facility] Chiropractic [address] [place] [address] OFFICE VISIT Date of Service: 11/09/21 MR#: [id number] Acct: [id number] Name: SOCORRO VILLA Rep #: [id number] : 1960 Provider: ANTOLIN Jackson Age/Sex: 60/F Location: [facility] Status: Signed Intake Intake Visit Reasons: [...] that the stiffness has improved tremendously with healthcare management. She is still having low back tightness [...] CPT Codes Procedures - Manipulation: 1-2 regions (30101) Procedures - Electronic Stimulation: Yes (58850) Procedures - Traction, Mechanical: Yes (03067) 11/09/21 1522 <Electronically signed by Simi Page D.C.> Date Simi Page D.C. Cosigner Signature: Date (if applicable) CC: Corinne Sousa [facility] Work Phone: Start: 11-07-2021 End: 11-07-2021 Chiropractic Report Comments: See Note; NOTES: [facility] [address] [place], [place] [address] OFFICE VISIT Date of Service: 11/07/21 MR#: [id number] Acct: [id number] Name: SOCORRO VILLA Rep #: [id number] : 1960 Provider: ANTOLIN Jackson Age/Sex: 60/F Location: [facility] Status: Signed Intake Intake Visit Reasons: [...] states that the stiffness has improved with healthcare management. She is still having low back tightness [...] CPT Codes Procedures - Manipulation: 1-2 regions (93581) Procedures - Electronic Stimulation: Yes (65216) 11/07/21 1650 <Electronically signed by Simi Page D.C.> Date Simi Page D.C. Cosigner Signature: Date (if applicable) CC: Corinne Sousa ANIMAL SCIENTIST Work Phone: Start: 11-02-2021 End: 11-02-2021 Chiropractic Report Comments: See Note; NOTES: [facility] [address] [place] [address] OFFICE VISIT Date of Service: 11/02/21 MR#: [id number] Acct: [id number] Name: SOCORRO VILLA Rep #: [id number] : 1960 Provider: ANTOLIN Jackson Age/Sex: 60/F Location: [facility] Status: Signed Intake Intake Visit Reasons: [...] states that the pain has improved with healthcare management. She is still having low back tightness [...] CPT Codes Procedures - Manipulation: 1-2 regions (90310) Procedures - Electronic Stimulation: Yes (26372) Procedures - Traction, Mechanical: Yes (50502) 11/02/21 1438 <Electronically signed by Simi Page D.C.> Date Simi Page D.C. Cosigner Signature: Date (if applicable) CC: Corinne Sousa CNP Work Phone: Start: 10-31-2021 End: 10-31-2021 Chiropractic Report Comments: See Note; NOTES: [facility] Chiropractic [address] [place], [place] [address] OFFICE VISIT Date of Service: 10/31/21 MR#: [id number] Acct: [id number] Name: SOCORRO VILLA Rep #: [id number] : 1960 Provider: ANTOLIN Jackson Age/Sex: 60/F Location: [facility] Status: Signed Intake Intake Visit Reasons: [...] CPT Codes Procedures - Manipulation: 1-2 regions (69587) Procedures - Electronic Stimulation: Yes (91610) Procedures - Traction, Mechanical: Yes (91931) 10/31/21 6926 <Electronically signed by Simi Page D.C.> Date Simi Page D.C. Cosigner Signature: Date (if applicable) CC: Corinne Lars STEELE Work Phone: Start: 10-26-2021 End: 10-30-2021 Chiropractic Report Comments: See Note; NOTES: [facility] Chirop[facility] [address] [place] [address] OFFICE VISIT Date of Service: 10/26/21 MR#: [id number] Acct: [id number] Name: SOCORRO VILLA Rep #: [id number] : 1960 Provider: ANTOLIN Jackson Age/Sex: 60/F Location: [facility] Status: Signed Intake Intake Visit Reasons: [...] CPT Codes Procedures - Manipulation: 1-2 regions (84793) Procedures - Electronic Stimulation: Yes (74509) Procedures - Traction, Mechanical: Yes (16446) 10/30/21 1510 <Electronically signed by Simi Page D.C.> Date Simi Page D.C. Cosigner Signature: Date (if applicable) CC: Corinne Sousa [facility] Work Phone: Start: 10-24-2021 End: 10-30-2021 Chiropractic Report Comments: See Note; NOTES: [facility] [address] [place] [address] OFFICE VISIT Date of Service: 10/24/21 MR#: [id number] Acct: [id number] Name: SOCORRO VILLA Rep #: [id number] : 1960 Provider: ANTOLIN Jackson Age/Sex: 60/F Location: [facility] Status: Signed Intake Intake Visit Reasons: [...] CPT Codes Procedures - Manipulation: 1-2 regions (15881) Procedures - Electronic Stimulation: Yes (59435) 10/30/21 0816 <Electronically signed by Simi Page D.C.> Date Simi Page D.C. Cosignisacc Signature: Date (if applicable) CC: Corinne Sousa CNP Work Phone: Start: 10-03-2021 End: 10-03-2021 Chiropractic Report Comments: See Note; NOTES: [facility] [address] [place] [address] OFFICE VISIT Date of Service: 10/03/21 MR#: [id number] Acct: [id number] Name: SOCORRO VILLA Rep #: [id number] : 1960 Provider: ANTOLIN Jackson Age/Sex: 60/F Location: [facility] Status: Signed Intake Vital Signs 10/03/21 10:32 Height 5 ft 7 in Weight: 199 lb 8 oz BMI 31.2 BP 150/80 H Blood Pressure Location Lt brachial Position Sitting Intake Visit Reasons: Back Pain Chief Complaint: Low Back Pain Digital Media Director Required: No Accompanied by: Self Is patient [...] 10/03/21 @ 13:[address] Simi Page, MS) Back problem Hypertension Surgical History (Updated 10/03/21 @ 10:56 by Margarette Pappas) No history of previous surgery Family History (Updated 10/03/21 @ 10:57 by Margarette Pappas) Mother Hypertension Social History (Updated 10/03/21 @ 10:57 by Margarette Pappas) Smoking Status: Never smoker alcohol intake: never substance use type: does not use HPI Back Pain Chief Complaint: Low Back Pain Visit Number: 1 Details: Details: Socorro Villa 60 year old F NEW PATIENT [...] CPT Codes Procedures - Manipulation: 1-2 regions (20071) Procedures - Traction, Mechanical: Yes (88083) 10/03/21 1306 <Electronically signed by Simi Page D.C.> Date Simi Dumont Signature: Date (if applicable) CC: Corinne Sousa ANIMAL SCIENTIST Work Phone: Start: 08-24-2020 End: 08-24-2020 Orthopedic Visit Report Comments: See Note; NOTES: [facility] Sports Medicine [address] [place] [address] OFFICE VISIT Date of Service: 08/24/20 MR#: [id number] Acct: [id number] Name: SOCORRO VILLA Raul Rep #: [id number] : 1960 Provider: Dr. Chinmay segal DO Age/Sex: 59/F Location: [facility] Status: Signed Intake Intake Visit Reasons: [...] Chinmay Cerda DO> Date [facility] Signature: Date (if applicable) CC: FINAL OPERATIONS TECHNICIAN-C Maru Villela; Dr Luis A Villela Start: 08-17-2020 End: 08-17-2020 Spine Lumbar (Routine) Comments: See Note; NOTES: [facility] Imaging Services [address] [place] [address] Spine Lumbar (Routine) MR#: [id number] Acct: [id number] Name: SOCORRO VILLA Rep #: [id number] : 1960 F 59 From: Dawood Horton MD PCP: REGINA Molina Status: REG CLI Study: Spine Lumbar (Routine) Date of Exam: 08/17/20 Exam# [id number] Ordering Dr: Chinmay Cerda DO STUDY: MRI [...] exaggerated by shortened pedicles Electronically Signed: Dawood Hroton MD at 16:56 EST , Service support , CC: REGINA Villela; Dr. Chinmay Cerda DO Appraiser Personal Property: Signed Maru Villela Start: 08-01-2020 End: 08-01-2020 Orthopedic Visit Report Comments: See Note; NOTES: [facility] Sports Medicine [address] [place] [address] OFFICE VISIT Date of Service: 08/01/20 MR#: [id number] Acct: [id number] Name: SOCORRO VILLA Rep #: [id number] : 1960 Provider: Dr. Chinmay segal DO Age/Sex: 59/F Location: [facility] Status: Signed Intake Vital Signs 08/01/20 [...] End: 07-15-2020 Aorta Comments: See Note; NOTES: [facility] Imaging Services [address] [place] [address] [place] [address] Aorta MR#: [id number] Acct: [id number] Name: SOCORRO VILLA Rep #: [id number] : 1960 F 59 From: Gerardo paz MD PCP: REGINA Molina Status: REG CLI Study: Aorta Date of Exam: 07/15/20 Exam# [id number] Ordering Dr: Maru Villela NP PROCEDURES: ULTRASOUND [...] , Service support , CC: REGINA Villela Appraiser Personal Property: Signed Maru Villela Work Phone: Start: 07-11-2020 End: 07-12-2020 L/S Spine Min 4 Views Comments: See Note; NOTES: [facility] Imaging Services [address] [place] [address] L/S Spine Min 4 Views MR#: [id number] Acct: [id number] Name: SOCORRO VILLA Rep #: [id number] : 1960 F 59 From: Dejuan Godinez MD PCP: REGINA Molina Status: REG CLI Study: L/S Spine Min 4 Views Date of Exam: 07/11/20 Exam# [id number] Ordering Dr: Maru Villela NP STUDY: X-RAY [...] , Service support , CC: REGINA Villela Appraiser Personal Property: Signed Maru Villela Work Phone: Start: 07-11-2020 End: 07-12-2020 Pelvis 1 or 2 Views Comments: See Note; NOTES: [facility] Imaging Services [address] [place] [address] Pelvis 1 or 2 Views MR#: [id number] Acct: [id number] Name: SOCORRO VILLA Rep #: [id number] : 1960 F 59 From: Dejuan Godinez MD PCP: REGINA Molina Status: REG CLI Study: Pelvis 1 or 2 Views Date of Exam: 07/11/20 Exam# [id number] Ordering Dr: Maru Villela NP FINAL OPERATIONS TECHNICIAN-C STUDY: X-RAY - PELVIS REASON FOR EXAM: [...] EST Tel , Service support , CC: FINAL OPERATIONS TECHNICIAN-C Maru Villela Appraiser Personal Property: Signed Maru Villela Work Phone: Start: 03-29-2020 End: 03-29-2020 PT D/C of Non Returning Pt (1) Comments: See Note; NOTES: [facility] [address] [place] [address] [address] [place] [address] / REHABILITATION SERVICES DISCHARGE SUMMARY MR#: [id number] Acct: [id number] Name: LUCY VILLAEstefanía Carter Rep #: [id number] : 1960 59 From: MARIAN Duran DPT, CSCS Referring Dr.: REGINA Villela Status: REG RCR Insurance: [facility] PACKAGE PLAN SOCORRO VILLA was seen in [...] (1) - PT Comments: See Note; NOTES: [facility] [address] [place] [address] [address] [place] [address] / REHABILITATION SERVICES INITIAL EVALUATION MR#: [id number] Acct: [id number] Name: SOCORRO VILLA Rep #: [id number] : 1960 59 From: MARIAN Duran DPT, CSCS Referring Dr.: REGINA Villela Status: REG RCR Insurance: [facility] PACKAGE PLAN Patient's Visit Information SOCORRO VILLA [...] to be FAXED BACK to us at [phone] for Medicare purposes. For Medicare only, by signing this I certify the plan of care. Please let me know if there are questions or concerns regarding this plan of care. Physician Signature: Date: <Electronically signed by Gurinder Sousa DPT, OCS, CSCS> 01/26/20 0859 CC: FINAL OPERATIONS TECHNICIANYulia Villela EBG Signed Maru Villela Start: 11-22-2018 End: 11-22-2018 Discharge Instruction Comments: See Note; NOTES: [facility] Medical Records Department [address] [place] [address] Discharge Instruction 11/21/182134 MR#: [id number] Acct: [id number] Name: LUCY VILLAEstefanía Carter Rep #: [id number] : 1960 57 From: Faheem Cormier MD [...] your Primary Care Provider. Call [facility] ([phone]) or report to the closest Emergency Room. Call 911 if necessary. 11/22/18 0007 <Electronically signed by Faheem Cormier MD> Date Faheem Cormier MD Cosigner Signature (If Indicated): Date CC: FINAL OPERATIONS TECHNICIAN Maru Villela Maru Hinojosaestefanía Start: 11-22-2018 End: 11-22-2018 Emergency Department Summary Comments: See Note; NOTES: [facility] Medical Records Department [address] [place] [address] Emergency Department Summary 11/21/182134 MR#: [id number] Acct: [id number] Name: SOCORRO VILLA Rep #: [id number] : 1960 57 From: Faheem Cormier MD [...] Hypertension established This note was generated with CloudPartneration software. It may contain incorrect words, spelling, [...] your Primary Care Provider. Call [facility] ([phone]) or report to the closest Emergency Room. Call 911 if necessary. 11/22/18 0007 <Electronically signed by Faheem Cormier MD> Date Faheem Cormier MD Cosigner Signature (If Indicated): Date CC: FINAL OPERATIONS TECHNICIAN Maru Villela Start: 11-06-2018 End: 11-06-2018 Emergency Department Summary Comments: See Note; NOTES: [facility] Medical Records Department [address] [place] [address] Emergency Department Summary 11/05/18 2207 MR#: [id number] Acct: [id number] Name: SOCORRO VILLA Rep #: [id number] : 1960 57 From: Faheem Bruce DO [...] Acute cystitis This note was generated with Nichewith dictation software. It may contain incorrect words, [...] your Primary Care Provider. Call [facility] ([phone]) or report to the closest Emergency Room. Call 911 if necessary. 11/06/18 0107 <Electronically signed by Faheem Bruce DO> Date Faheem Bruce DO Cosigner Signature (If Indicated): Date CC: ARIELLE Villela Start: 09-09-2017 End: 09-09-2017 Cerv Spine 2 or 3 Views Comments: See Note; NOTES: [facility] Imaging Services [address] [facility] [place] [address] Cerv Spine 2 or 3 Views MR#: [id number] Acct: [id number] Name: SOCORRO VILLA Rep #: [id number] : 1960 F 56 From: Maranda Mi MD PCP: Maru Villela NP Status: REG CLI Study: Cerv Spine 2 or 3 Views Date of Exam: 09/09/17 Exam# [id number] Ordering Dr: Yolanda Gunn MD XR Spine [...] , Service support , CC: Maru Villela FINAL OPERATIONS TECHNICIAN; Yolanda Gunn MD Appraiser Personal Property: Signed Maru Villela Start: 08-23-2017 End: 08-24-2017 Spine Lumbar (Routine) Comments: See Note; NOTES: [facility] Imaging Services [address] [place] [address] Spine Lumbar (Routine) MR#: [id number] Acct: [id number] Name: SOCORRO VILLA Rep #: [id number] : 1960 F 56 From: Effie Escudero MD PCP: Maru Villela NP Status: REG CLI Study: Spine Lumbar (Routine) Date of Exam: 08/23/17 Exam# [id number] Ordering Dr: Maru Villela STUDY: MRI LUMBAR [...] Service support , CC: Maru Villela NP Appraiser Personal Property: Signed Maru Villela Work Phone: Start: 08-15-2017 End: 08-15-2017 Inital Evaluation (1) - PT Comments: See Note; NOTES: [facility] [address] [place] [address]. [address] [place] [address] Fax REHABILITATION SERVICES INITIAL EVALUATION MR#: [id number] Acct: [id number] Name: SOCORRO VILLA Rep #: [id number] : 1960 56 From: Marly Sauer PT, Cert. MDT Referring Dr.: Xi Lua DO Status: REG R Insurance: [facility] SELF PAY INSURANCE Patient's Visit Information SOCORRO [...] CONFUSED DURING INTERVIEW AND EXAM. Motor deficit: EILANE LE STRENGTH 5/5 WITH MMT EXCEPT RIGHT [...] to be FAXED BACK to us at [phone] for Medicare purposes. Please let me know [...] 08-11-2017 Discharge Instruction Comments: See Note; NOTES: [facility] Medical Records Department [address] [place] [address] Discharge Instruction 08/11/171757 MR#: [id number] Acct: [id number] Name: SOCORRO VILLA Rep #: [id number] : 1960 56 From: Michael Watson MD [...] your Primary Care Provider. Call [facility] ([phone]) or report to the closest Emergency Room. Call 911 if necessary. 08/11/171757 <Electronically signed by Michael Watson MD> Date Michael Watson MD Cosigner Signature (If Indicated): Date CC: Maru Villela Start: 08-11-2017 End: 08-11-2017 Emergency Department Summary Comments: See Note; NOTES: [facility] Medical Records Department [address] [place] [address] Emergency Department Summary 08/11/171754 MR#: [id number] Acct: [id number] Name: SOCORRO VILLA Rep #: [id number] : 1960 56 From: Michael Watson MD [...] Lumbar radiculopathy This note was generated with Nichewith dictation software. It may contain incorrect words, [...] problems, contact your Primary Care Provider. Call [employer] [facility] ([phone]) or report to the closest Emergency Room. Call 911 if necessary. 08/11/17 2064 <Electronically signed by Michael Watson MD> Date Michael Watson MD Cosigner Signature (If Indicated): Date CC: Maru Villela NP Maru Villela Start: 08-11-2017 End: 08-11-2017 Lumbar Spine 2 or 3 Views Comments: See Note; NOTES: [facility] Imaging Services [address] [place] [address] Lumbar Spine 2 or 3 Views MR#: [id number] Acct: [id number] Name: SOCORRO VILLA Rep #: [id number] : 1960 F 56 From: Effie Escudero MD PCP: Maru Villela NP Status: REG ER Study: Lumbar Spine 2 or 3 Views Date of Exam: 08/11/17 Exam# [id number] Ordering Dr: Michael Watson MD STUDY: X-RAY [...] CC: Maru Villela NP; Michael Watson MD Appraiser Personal Property: Signed Maru Villela Start: 08-11-2017 End: 08-11-2017 Thoracic Spine 2 Views Comments: See Note; NOTES: [facility] Imaging Services [address] [place] [address] Thoracic Spine 2 Views MR#: [id number] Acct: [id number] Name: SOCORRO VILLA Rep #: [id number] : 1960 F 56 From: Effie Escudero MD PCP: Maru Villela NP Status: REG ER Study: Thoracic Spine 2 Views Date of Exam: 08/11/17 Exam# [id number] Ordering Dr: Michael Watson MD STUDY: X-RAY [...] CC: Maru Villela NP; Michael Watson MD Appraiser Personal Property: Signed Maru Villela Hysterectomy Suzanne L Long Hysterectomy Chong Jennings Hysterectomy Chong Jennings Hysterectomy Chong Jennings Hysterectomy Beatriz [place] Hysterectomy Suzanne L Long Hysterectomy Chong Jennings Hysterectomy Chong Jennings Hysterectomy Chong Jennings Hysterectomy Chong Warren Hysterectomy Cinda Slarb Hysterectomy Chong Warren Hysterectomy Chong Warren Hysterectomy Cinda Slarb Hysterectomy Chong Warren LP N Hysterectomy Chong Warren LP N Hysterectomy BEVERLY Bereket COUNTERINTELLIGENCE ANALYST Hysterectomy Jaqueline Garrett L PN Hysterectomy Cinda Slarb LP N Hysterectomy Cinda Slarb LP N Hysterectomy Keke Isaiah M A Hysterectomy BEVERLY [place] COUNTERINTELLIGENCE ANALYST Ligation of fallopia n tube Suzanne L [...] Ligation of fallopia n tube Chong Warren COUNTERINTELLIGENCE ANALYST Ligation of fallopia n tube Chong Warren COUNTERINTELLIGENCE ANALYST Ligation of fallopia n tube BEVERLY Bereket COUNTERINTELLIGENCE ANALYST Ligation of fallopia n tube Jaqueline Garrett COUNTERINTELLIGENCE ANALYST Ligation of fallopia n tube Cinda Slarb COUNTERINTELLIGENCE ANALYST Ligation of fallopia n tube Cinda Slarb COUNTERINTELLIGENCE ANALYST Ligation of fallopia n tube Keke Colon MA Ligation of fallopia n tube BEVERLY Bereket COUNTERINTELLIGENCE ANALYST Plan of Treatment Date Care Activity Detail Author Start: 03-18-2023 Blood count complete auto&auto difrntl wbc CBC, PLATELETS & AUT DIFF (74937) : in 6 mo [facility]; [facility] Work Phone: Start: 03-18-2023 Comprehensive metabolic panel METABOLIC PANEL, COMPREHENSIVE (79862) : in 6 mo [facility]; [facility] [facility] Work Phone: Start: 03-18-2023 Lipid panel LIPID PANEL (64787) : in 6 mo [facility]; [...] Start: 12-07-2022 Urinalysis qual/semiquant except immunoassays URINALYSIS (43711) : 1 wk after completion of antibiotic. [facility]; [facility] Work Phone: Start: 12-07-2022 Urnls dip stick/tablet reagent auto microscopy Urinalysis, Complete W/ Microscopic Examination with reflex to urine culture, routine (89869) [facility]; [facility] Work Phone: Start: 09-14-2022 Assay of thyroid stimulating hormone tsh TSH (THYROID STIMULATING HORMONE) ([id number]) [facility]; [facility] Work Phone: Immunizations Immunization Date Immunization Notes Care Provider Onel beck 05-11-2021 COVID-Pfizer (30 MCG/0.3 ML) Maru Brownsamuel STEELE Work Phone: [facility]; [facility] Work Phone: 10-17-2020 COVID-19 (Pfizer) [facility]; [facility] Work Phone: 09-26-2020 COVID-19 (Pfizer) [facility]; [facility] Work Phone: Payers Date Payer Category Payer Unknown [id number] 2018 Unknown [id number] 2016 Unknown [id number] 1958 Unknown [id number] Unknown Social History Date Type Detail Facility [...] tion Online using Patient Portal and [employer]rd [employer] Apps Indication:Nonsmoker Start:09-Jun-2021 Instruction Type:Patient Education Patient Instructions Indication:BMI 31.0-31.9,adult Start:22-Mar-2021 Instruction Type:Provider Instructions for Treatment How to Access Health Informa tion Online using Patient Portal and [employer]rd [employer] Apps Indication:BMI 31.0-31.9,adult Start:22-Mar-2021 Instruction Type:Patient Education Patient Instructions Indication:BMI 31.0-31.9,adult Start:10-Mar-2021 Instruction Type:Provider Instructions for Treatment How to Access Health Informa tion Online using Patient Portal and [employer]rd [employer] Apps Indication:BMI 31.0-31.9,adult Start:10-Mar-2021 Instruction Type:Patient Education Patient Instructions Indication:Nonsmoker Start:07-Dec-2020 Instruction Type:Provider Instructions for Treatment How to Access Health Informa tion Online using Patient Portal and [employer]rd [employer] Apps Indication:Nonsmoker Start:07-Dec-2020 Instruction Type:Patient Education Patient Instructions Indication:Nonsmoker Start:18-Oct-2020 Instruction Type:Provider Instructions for Treatment How to Access Health Informa tion Online using Patient Portal and [employer]rd [employer] Apps Indication:Nonsmoker Start:18-Oct-2020 Instruction Type:Patient Education Patient Instructions Indication:Nonsmoker Start:06-Sep-2020 Instruction Type:Provider Instructions for Treatment How to Access Health Informa tion Online using Patient Portal and [employer]rd [employer] Apps Indication:Nonsmoker Start:06-Sep-2020 Instruction Type:Patient Education Patient Instructions Indication:Nonsmoker Start:23-Aug-2020 Instruction Type:Provider Instructions for Treatment How to Access Health Informa tion Online using Patient Portal and [employer]rd [employer] Apps Indication:Nonsmoker Start:23-Aug-2020 Instruction Type:Patient Education Patient Instructions Indication:Nonsmoker Start:03-Aug-2020 Instruction Type:Provider Instructions for Treatment How to Access Health Informa tion Online using Patient Portal and [employer]rd [employer] Apps Indication:Nonsmoker Start:03-Aug-2020 Instruction Type:Patient Education Patient Instructions Indication:Nonsmoker Start:25-Jul-2020 Instruction Type:Provider Instructions for Treatment How to Access Health Informa tion Online using Patient Portal and [employer] Apps Indication:Nonsmoker Start:25-Jul-2020 Instruction Type:Patient Education Patient Instructions Indication:Nonsmoker Start:18-Jul-2020 Instruction Type:Provider Instructions for Treatment How to Access Health Informa tion Online using Patient Portal and [employer] Apps Indication:Nonsmoker Start:18-Jul-2020 Instruction Type:Patient Education Patient Instructions Indication:Nonsmoker Start:11-Jul-2020 Instruction Type:Provider Instructions for Treatment How to Access Health Informa tion Online using Patient Portal and [employer] Apps Indication:Nonsmoker Start:11-Jul-2020 Instruction Type:Patient Education [...] tion Online using Patient Portal and [employer]rd [employer] Apps Indication:Nonsmoker Start:09-Jun-2021 Instruction Type:Patient Education Patient Instructions Indication:BMI 31.0-31.9,adult Start:22-Mar-2021 Instruction Type:Provider Instructions for Treatment How to Access Health Informa tion Online using Patient Portal and [employer] Apps Indication:BMI 31.0-31.9,adult Start:22-Mar-2021 Instruction Type:Patient Education Patient Instructions Indication:BMI 31.0-31.9,adult Start:10-Mar-2021 Instruction Type:Provider Instructions for Treatment How to Access Health Informa tion Online using Patient Portal and [employer] Apps Indication:BMI 31.0-31.9,adult Start:10-Mar-2021 Instruction Type:Patient Education Patient Instructions Indication:Nonsmoker Start:07-Dec-2020 Instruction Type:Provider Instructions for Treatment How to Access Health Informa tion Online using Patient Portal and [employer] Apps Indication:Nonsmoker Start:07-Dec-2020 Instruction Type:Patient Education Patient Instructions Indication:Nonsmoker Start:18-Oct-2020 Instruction Type:Provider Instructions for Treatment How to Access Health Informa tion Online using Patient Portal and [employer] Apps Indication:Nonsmoker Start:18-Oct-2020 Instruction Type:Patient Education Patient Instructions Indication:Nonsmoker Start:06-Sep-2020 Instruction Type:Provider Instructions for Treatment How to Access Health Informa tion Online using Patient Portal and [employer] Apps Indication:Nonsmoker Start:06-Sep-2020 Instruction Type:Patient Education Patient Instructions Indication:Nonsmoker Start:23-Aug-2020 Instruction Type:Provider Instructions for Treatment How to Access Health Informa tion Online using Patient Portal and [employer]rd [employer] Apps Indication:Nonsmoker Start:23-Aug-2020 Instruction Type:Patient Education Patient Instructions Indication:Nonsmoker Start:03-Aug-2020 Instruction Type:Provider Instructions for Treatment How to Access Health Informa tion Online using Patient Portal and [employer] Apps Indication:Nonsmoker Start:03-Aug-2020 Instruction Type:Patient Education Patient Instructions Indication:Nonsmoker Start:25-Jul-2020 Instruction Type:Provider Instructions for Treatment How to Access Health Informa tion Online using Patient Portal and [employer]rd [employer] Apps Indication:Nonsmoker Start:25-Jul-2020 Instruction Type:Patient Education Patient Instructions Indication:Nonsmoker Start:18-Jul-2020 Instruction Type:Provider Instructions for Treatment How to Access Health Informa tion Online using Patient Portal and [employer] Apps Indication:Nonsmoker Start:18-Jul-2020 Instruction Type:Patient Education Patient Instructions Indication:Nonsmoker Start:11-Jul-2020 Instruction Type:Provider Instructions for Treatment How to Access Health Informa tion Online using Patient Portal and [employer] Apps Indication:Nonsmoker Start:11-Jul-2020 Instruction Type:Patient Education [...] tion Online using Patient Portal and [employer] Apps Indication:BMI 31.0-31.9,adult Start:11-Sep-2021 Instruction Type:Patient Education Patient Instructions Indication:BMI 31.0-31.9,adult Start:09-Jun-2021 Instruction Type:Provider Instructions for Treatment How to Access Health Informa tion Online using Patient Portal and [employer]rd [employer] Apps Indication:Nonsmoker Start:09-Jun-2021 Instruction Type:Patient Education Patient Instructions Indication:BMI 31.0-31.9,adult Start:22-Mar-2021 Instruction Type:Provider Instructions for Treatment How to Access Health Informa tion Online using Patient Portal and [employer] Apps Indication:BMI 31.0-31.9,adult Start:22-Mar-2021 Instruction Type:Patient Education Patient Instructions Indication:BMI 31.0-31.9,adult Start:10-Mar-2021 Instruction Type:Provider Instructions for Treatment How to Access Health Informa tion Online using Patient Portal and [employer] Apps Indication:BMI 31.0-31.9,adult Start:10-Mar-2021 Instruction Type:Patient Education Patient Instructions Indication:Nonsmoker Start:07-Dec-2020 Instruction Type:Provider Instructions for Treatment How to Access Health Informa tion Online using Patient Portal and [employer] Apps Indication:Nonsmoker Start:07-Dec-2020 Instruction Type:Patient Education Patient Instructions Indication:Nonsmoker Start:18-Oct-2020 Instruction Type:Provider Instructions for Treatment How to Access Health Informa tion Online using Patient Portal and [employer] Apps Indication:Nonsmoker Start:18-Oct-2020 Instruction Type:Patient Education Patient Instructions Indication:Nonsmoker Start:06-Sep-2020 Instruction Type:Provider Instructions for Treatment How to Access Health Informa tion Online using Patient Portal and [employer] Apps Indication:Nonsmoker Start:06-Sep-2020 Instruction Type:Patient Education Patient Instructions Indication:Nonsmoker Start:23-Aug-2020 Instruction Type:Provider Instructions for Treatment How to Access Health Informa tion Online using Patient Portal and [employer] Apps Indication:Nonsmoker Start:23-Aug-2020 Instruction Type:Patient Education Patient Instructions Indication:Nonsmoker Start:03-Aug-2020 Instruction Type:Provider Instructions for Treatment How to Access Health Informa tion Online using Patient Portal and [employer] Apps Indication:Nonsmoker Start:03-Aug-2020 Instruction Type:Patient Education Patient Instructions Indication:Nonsmoker Start:25-Jul-2020 Instruction Type:Provider Instructions for Treatment How to Access Health Informa tion Online using Patient Portal and [employer]rd [employer] Apps Indication:Nonsmoker Start:25-Jul-2020 Instruction Type:Patient Education Patient Instructions Indication:Nonsmoker Start:18-Jul-2020 Instruction Type:Provider Instructions for Treatment How to Access Health Informa tion Online using Patient Portal and [employer] Apps Indication:Nonsmoker Start:18-Jul-2020 Instruction Type:Patient Education Patient Instructions Indication:Nonsmoker Start:11-Jul-2020 Instruction Type:Provider Instructions for Treatment How to Access Health Informa tion Online using Patient Portal and [employer] Apps Indication:Nonsmoker Start:11-Jul-2020 Instruction Type:Patient Education [...] tion Online using Patient Portal and [employer] Apps Indication:BMI 31.0-31.9,adult Start:11-Sep-2021 Instruction Type:Patient Education Patient Instructions Indication:BMI 31.0-31.9,adult Start:09-Jun-2021 Instruction Type:Provider Instructions for Treatment How to Access Health Informa tion Online using Patient Portal and [employer]rd [employer] Apps Indication:Nonsmoker Start:09-Jun-2021 Instruction Type:Patient Education Patient Instructions Indication:BMI 31.0-31.9,adult Start:22-Mar-2021 Instruction Type:Provider Instructions for Treatment How to Access Health Informa tion Online using Patient Portal and [employer]rd [employer] Apps Indication:BMI 31.0-31.9,adult Start:22-Mar-2021 Instruction Type:Patient Education Patient Instructions Indication:BMI 31.0-31.9,adult Start:10-Mar-2021 Instruction Type:Provider Instructions for Treatment How to Access Health Informa tion Online using Patient Portal and [employer]rd [employer] Apps Indication:BMI 31.0-31.9,adult Start:10-Mar-2021 Instruction Type:Patient Education Patient Instructions Indication:Nonsmoker Start:07-Dec-2020 Instruction Type:Provider Instructions for Treatment How to Access Health Informa tion Online using Patient Portal and [employer] Apps Indication:Nonsmoker Start:07-Dec-2020 Instruction Type:Patient Education Patient Instructions Indication:Nonsmoker Start:18-Oct-2020 Instruction Type:Provider Instructions for Treatment How to Access Health Informa tion Online using Patient Portal and [employer] Apps Indication:Nonsmoker Start:18-Oct-2020 Instruction Type:Patient Education Patient Instructions Indication:Nonsmoker Start:06-Sep-2020 Instruction Type:Provider Instructions for Treatment How to Access Health Informa tion Online using Patient Portal and [employer]rd [employer] Apps Indication:Nonsmoker Start:06-Sep-2020 Instruction Type:Patient Education Patient Instructions Indication:Nonsmoker Start:23-Aug-2020 Instruction Type:Provider Instructions for Treatment How to Access Health Informa tion Online using Patient Portal and [employer] Apps Indication:Nonsmoker Start:23-Aug-2020 Instruction Type:Patient Education Patient Instructions Indication:Nonsmoker Start:03-Aug-2020 Instruction Type:Provider Instructions for Treatment How to Access Health Informa tion Online using Patient Portal and [employer] Apps Indication:Nonsmoker Start:03-Aug-2020 Instruction Type:Patient Education Patient Instructions Indication:Nonsmoker Start:25-Jul-2020 Instruction Type:Provider Instructions for Treatment How to Access Health Informa tion Online using Patient Portal and [employer]rd [employer] Apps Indication:Nonsmoker Start:25-Jul-2020 Instruction Type:Patient Education Patient Instructions Indication:Nonsmoker Start:18-Jul-2020 Instruction Type:Provider Instructions for Treatment How to Access Health Informa tion Online using Patient Portal and [employer]rd [employer] Apps Indication:Nonsmoker Start:18-Jul-2020 Instruction Type:Patient Education Patient Instructions Indication:Nonsmoker Start:11-Jul-2020 Instruction Type:Provider Instructions for Treatment How to Access Health Informa tion Online using Patient Portal and [employer] Apps Indication:Nonsmoker Start:11-Jul-2020 Instruction Type:Patient Education [...] tion Online using Patient Portal and [employer]rd [employer] Apps Indication:BMI 31.0-31.9,adult Start:11-Sep-2021 Instruction Type:Patient Education Patient Instructions Indication:BMI 31.0-31.9,adult Start:09-Jun-2021 Instruction Type:Provider Instructions for Treatment How to Access Health Informa tion Online using Patient Portal and [employer] Apps Indication:Nonsmoker Start:09-Jun-2021 Instruction Type:Patient Education Patient Instructions Indication:BMI 31.0-31.9,adult Start:22-Mar-2021 Instruction Type:Provider Instructions for Treatment How to Access Health Informa tion Online using Patient Portal and [employer]rd [employer] Apps Indication:BMI 31.0-31.9,adult Start:22-Mar-2021 Instruction Type:Patient Education Patient Instructions Indication:BMI 31.0-31.9,adult Start:10-Mar-2021 Instruction Type:Provider Instructions for Treatment How to Access Health Informa tion Online using Patient Portal and [employer]rd [employer] Apps Indication:BMI 31.0-31.9,adult Start:10-Mar-2021 Instruction Type:Patient Education Patient Instructions Indication:Nonsmoker Start:07-Dec-2020 Instruction Type:Provider Instructions for Treatment How to Access Health Informa tion Online using Patient Portal and [employer]rd [employer] Apps Indication:Nonsmoker Start:07-Dec-2020 Instruction Type:Patient Education Patient Instructions Indication:Nonsmoker Start:18-Oct-2020 Instruction Type:Provider Instructions for Treatment How to Access Health Informa tion Online using Patient Portal and [employer]rd [employer] Apps Indication:Nonsmoker Start:18-Oct-2020 Instruction Type:Patient Education Patient Instructions Indication:Nonsmoker Start:06-Sep-2020 Instruction Type:Provider Instructions for Treatment How to Access Health Informa tion Online using Patient Portal and [employer]rd [employer] Apps Indication:Nonsmoker Start:06-Sep-2020 Instruction Type:Patient Education Patient Instructions Indication:Nonsmoker Start:23-Aug-2020 Instruction Type:Provider Instructions for Treatment How to Access Health Informa tion Online using Patient Portal and [employer] Apps Indication:Nonsmoker Start:23-Aug-2020 Instruction Type:Patient Education Patient Instructions Indication:Nonsmoker Start:03-Aug-2020 Instruction Type:Provider Instructions for Treatment How to Access Health Informa tion Online using Patient Portal and [employer]rd [employer] Apps Indication:Nonsmoker Start:03-Aug-2020 Instruction Type:Patient Education Patient Instructions Indication:Nonsmoker Start:25-Jul-2020 Instruction Type:Provider Instructions for Treatment How to Access Health Informa tion Online using Patient Portal and [employer]rd [employer] Apps Indication:Nonsmoker Start:25-Jul-2020 Instruction Type:Patient Education Patient Instructions Indication:Nonsmoker Start:18-Jul-2020 Instruction Type:Provider Instructions for Treatment How to Access Health Informa tion Online using Patient Portal and [employer]rd [employer] Apps Indication:Nonsmoker Start:18-Jul-2020 Instruction Type:Patient Education Patient Instructions Indication:Nonsmoker Start:11-Jul-2020 Instruction Type:Provider Instructions for Treatment How to Access Health Informa tion Online using Patient Portal and [employer]rd [employer] Apps Indication:Nonsmoker Start:11-Jul-2020 Instruction Type:Patient Education [...] Informa tion Online using Patient Portal and [employer] Apps Indication:Nonsmoker Start:16-Mar-2022 Instruction Type:Patient Education Patient Instructions Indication:BMI 31.0-31.9,adult Start:11-Sep-2021 Instruction Type:Provider Instructions for Treatment How to Access Health Informa tion Online using Patient Portal and [employer] Apps Indication:BMI 31.0-31.9,adult Start:11-Sep-2021 Instruction Type:Patient Education Patient Instructions Indication:BMI 31.0-31.9,adult Start:09-Jun-2021 Instruction Type:Provider Instructions for Treatment How to Access Health Informa tion Online using Patient Portal and [employer]rd [employer] Apps Indication:Nonsmoker Start:09-Jun-2021 Instruction Type:Patient Education Patient Instructions Indication:BMI 31.0-31.9,adult Start:22-Mar-2021 Instruction Type:Provider Instructions for Treatment How to Access Health Informa tion Online using Patient Portal and [employer] Apps Indication:BMI 31.0-31.9,adult Start:22-Mar-2021 Instruction Type:Patient Education Patient Instructions Indication:BMI 31.0-31.9,adult Start:10-Mar-2021 Instruction Type:Provider Instructions for Treatment How to Access Health Informa tion Online using Patient Portal and [employer]rd [employer] Apps Indication:BMI 31.0-31.9,adult Start:10-Mar-2021 Instruction Type:Patient Education Patient Instructions Indication:Nonsmoker Start:07-Dec-2020 Instruction Type:Provider Instructions for Treatment How to Access Health Informa tion Online using Patient Portal and [employer] Apps Indication:Nonsmoker Start:07-Dec-2020 Instruction Type:Patient Education Patient Instructions Indication:Nonsmoker Start:18-Oct-2020 Instruction Type:Provider Instructions for Treatment How to Access Health Informa tion Online using Patient Portal and [employer] Apps Indication:Nonsmoker Start:18-Oct-2020 Instruction Type:Patient Education Patient Instructions Indication:Nonsmoker Start:06-Sep-2020 Instruction Type:Provider Instructions for Treatment How to Access Health Informa tion Online using Patient Portal and [employer] Apps Indication:Nonsmoker Start:06-Sep-2020 Instruction Type:Patient Education Patient Instructions Indication:Nonsmoker Start:23-Aug-2020 Instruction Type:Provider Instructions for Treatment How to Access Health Informa tion Online using Patient Portal and [employer] Apps Indication:Nonsmoker Start:23-Aug-2020 Instruction Type:Patient Education Patient Instructions Indication:Nonsmoker Start:03-Aug-2020 Instruction Type:Provider Instructions for Treatment How to Access Health Informa tion Online using Patient Portal and [employer] Apps Indication:Nonsmoker Start:03-Aug-2020 Instruction Type:Patient Education Patient Instructions Indication:Nonsmoker Start:25-Jul-2020 Instruction Type:Provider Instructions for Treatment How to Access Health Informa tion Online using Patient Portal and [employer]rd [employer] Apps Indication:Nonsmoker Start:25-Jul-2020 Instruction Type:Patient Education Patient Instructions Indication:Nonsmoker Start:18-Jul-2020 Instruction Type:Provider Instructions for Treatment How to Access Health Informa tion Online using Patient Portal and [employer] Apps Indication:Nonsmoker Start:18-Jul-2020 Instruction Type:Patient Education Patient Instructions Indication:Nonsmoker Start:11-Jul-2020 Instruction Type:Provider Instructions for Treatment How to Access Health Informa tion Online using Patient Portal and [employer] Apps Indication:Nonsmoker Start:11-Jul-2020 Instruction Type:Patient Education [...] tion Online using Patient Portal and [employer] Apps Indication:Nonsmoker Start:16-Mar-2022 Instruction Type:Patient Education Patient Instructions Indication:BMI 31.0-31.9,adult Start:11-Sep-2021 Instruction Type:Provider Instructions for Treatment How to Access Health Informa tion Online using Patient Portal and [employer] Apps Indication:BMI 31.0-31.9,adult Start:11-Sep-2021 Instruction Type:Patient Education Patient Instructions Indication:BMI 31.0-31.9,adult Start:09-Jun-2021 Instruction Type:Provider Instructions for Treatment How to Access Health Informa tion Online using Patient Portal and [employer] Apps Indication:Nonsmoker Start:09-Jun-2021 Instruction Type:Patient Education Patient Instructions Indication:BMI 31.0-31.9,adult Start:22-Mar-2021 Instruction Type:Provider Instructions for Treatment How to Access Health Informa tion Online using Patient Portal and [employer] Apps Indication:BMI 31.0-31.9,adult Start:22-Mar-2021 Instruction Type:Patient Education Patient Instructions Indication:BMI 31.0-31.9,adult Start:10-Mar-2021 Instruction Type:Provider Instructions for Treatment How to Access Health Informa tion Online using Patient Portal and [employer] Apps Indication:BMI 31.0-31.9,adult Start:10-Mar-2021 Instruction Type:Patient Education Patient Instructions Indication:Nonsmoker Start:07-Dec-2020 Instruction Type:Provider Instructions for Treatment How to Access Health Informa tion Online using Patient Portal and [employer] Apps Indication:Nonsmoker Start:07-Dec-2020 Instruction Type:Patient Education Patient Instructions Indication:Nonsmoker Start:18-Oct-2020 Instruction Type:Provider Instructions for Treatment How to Access Health Informa tion Online using Patient Portal and [employer] Apps Indication:Nonsmoker Start:18-Oct-2020 Instruction Type:Patient Education Patient Instructions Indication:Nonsmoker Start:06-Sep-2020 Instruction Type:Provider Instructions for Treatment How to Access Health Informa tion Online using Patient Portal and [employer] Apps Indication:Nonsmoker Start:06-Sep-2020 Instruction Type:Patient Education Patient Instructions Indication:Nonsmoker Start:23-Aug-2020 Instruction Type:Provider Instructions for Treatment How to Access Health Informa tion Online using Patient Portal and [employer] Apps Indication:Nonsmoker Start:23-Aug-2020 Instruction Type:Patient Education Patient Instructions Indication:Nonsmoker Start:03-Aug-2020 Instruction Type:Provider Instructions for Treatment How to Access Health Informa tion Online using Patient Portal and [employer] Apps Indication:Nonsmoker Start:03-Aug-2020 Instruction Type:Patient Education Patient Instructions Indication:Nonsmoker Start:25-Jul-2020 Instruction Type:Provider Instructions for Treatment How to Access Health Informa tion Online using Patient Portal and [employer] Apps Indication:Nonsmoker Start:25-Jul-2020 Instruction Type:Patient Education Patient Instructions Indication:Nonsmoker Start:18-Jul-2020 Instruction Type:Provider Instructions for Treatment How to Access Health Informa tion Online using Patient Portal and [employer] Apps Indication:Nonsmoker Start:18-Jul-2020 Instruction Type:Patient Education Patient Instructions Indication:Nonsmoker Start:11-Jul-2020 Instruction Type:Provider Instructions for Treatment How to Access Health Informa tion Online using Patient Portal and [employer] Apps Indication:Nonsmoker Start:11-Jul-2020 Instruction Type:Patient Education [...] tion Online using Patient Portal and [employer] Apps Indication:Nonsmoker Start:14-Sep-2022 Instruction Type:Patient Education Patient Instructions Indication:Nonsmoker Start:16-Mar-2022 Instruction Type:Provider Instructions for Treatment How to Access Health Informa tion Online using Patient Portal and [employer] Apps Indication:Nonsmoker Start:16-Mar-2022 Instruction Type:Patient Education Patient Instructions Indication:BMI 31.0-31.9,adult Start:11-Sep-2021 Instruction Type:Provider Instructions for Treatment How to Access Health Informa tion Online using Patient Portal and [employer] Apps Indication:BMI 31.0-31.9,adult Start:11-Sep-2021 Instruction Type:Patient Education Patient Instructions Indication:BMI 31.0-31.9,adult Start:09-Jun-2021 Instruction Type:Provider Instructions for Treatment How to Access Health Informa tion Online using Patient Portal and [employer] Apps Indication:Nonsmoker Start:09-Jun-2021 Instruction Type:Patient Education Patient Instructions Indication:BMI 31.0-31.9,adult Start:22-Mar-2021 Instruction Type:Provider Instructions for Treatment How to Access Health Informa tion Online using Patient Portal and [employer] Apps Indication:BMI 31.0-31.9,adult Start:22-Mar-2021 Instruction Type:Patient Education Patient Instructions Indication:BMI 31.0-31.9,adult Start:10-Mar-2021 Instruction Type:Provider Instructions for Treatment How to Access Health Informa tion Online using Patient Portal and [employer] Apps Indication:BMI 31.0-31.9,adult Start:10-Mar-2021 Instruction Type:Patient Education Patient Instructions Indication:Nonsmoker Start:07-Dec-2020 Instruction Type:Provider Instructions for Treatment How to Access Health Informa tion Online using Patient Portal and [employer] Apps Indication:Nonsmoker Start:07-Dec-2020 Instruction Type:Patient Education Patient Instructions Indication:Nonsmoker Start:18-Oct-2020 Instruction Type:Provider Instructions for Treatment How to Access Health Informa tion Online using Patient Portal and [employer] Apps Indication:Nonsmoker Start:18-Oct-2020 Instruction Type:Patient Education Patient Instructions Indication:Nonsmoker Start:06-Sep-2020 Instruction Type:Provider Instructions for Treatment How to Access Health Informa tion Online using Patient Portal and [employer] Apps Indication:Nonsmoker Start:06-Sep-2020 Instruction Type:Patient Education Patient Instructions Indication:Nonsmoker Start:23-Aug-2020 Instruction Type:Provider Instructions for Treatment How to Access Health Informa tion Online using Patient Portal and [employer] Apps Indication:Nonsmoker Start:23-Aug-2020 Instruction Type:Patient Education Patient Instructions Indication:Nonsmoker Start:03-Aug-2020 Instruction Type:Provider Instructions for Treatment How to Access Health Informa tion Online using Patient Portal and [employer] Apps Indication:Nonsmoker Start:03-Aug-2020 Instruction Type:Patient Education Patient Instructions Indication:Nonsmoker Start:25-Jul-2020 Instruction Type:Provider Instructions for Treatment How to Access Health Informa tion Online using Patient Portal and [employer] Apps Indication:Nonsmoker Start:25-Jul-2020 Instruction Type:Patient Education Patient Instructions Indication:Nonsmoker Start:18-Jul-2020 Instruction Type:Provider Instructions for Treatment How to Access Health Informa tion Online using Patient Portal and [employer] Apps Indication:Nonsmoker Start:18-Jul-2020 Instruction Type:Patient Education Patient Instructions Indication:Nonsmoker Start:11-Jul-2020 Instruction Type:Provider Instructions for Treatment How to Access Health Informa tion Online using Patient Portal and [employer] Apps Indication:Nonsmoker Start:11-Jul-2020 Instruction Type:Patient Education [...] tion Online using Patient Portal and [employer] Apps Indication:Nonsmoker Start:14-Sep-2022 Instruction Type:Patient Education Patient Instructions Indication:Nonsmoker Start:16-Mar-2022 Instruction Type:Provider Instructions for Treatment How to Access Health Informa tion Online using Patient Portal and [employer] Apps Indication:Nonsmoker Start:16-Mar-2022 Instruction Type:Patient Education Patient Instructions Indication:BMI 31.0-31.9,adult Start:11-Sep-2021 Instruction Type:Provider Instructions for Treatment How to Access Health Informa tion Online using Patient Portal and [employer] Apps Indication:BMI 31.0-31.9,adult Start:11-Sep-2021 Instruction Type:Patient Education Patient Instructions Indication:BMI 31.0-31.9,adult Start:09-Jun-2021 Instruction Type:Provider Instructions for Treatment How to Access Health Informa tion Online using Patient Portal and [employer] Apps Indication:Nonsmoker Start:09-Jun-2021 Instruction Type:Patient Education Patient Instructions Indication:BMI 31.0-31.9,adult Start:22-Mar-2021 Instruction Type:Provider Instructions for Treatment How to Access Health Informa tion Online using Patient Portal and [employer] Apps Indication:BMI 31.0-31.9,adult Start:22-Mar-2021 Instruction Type:Patient Education Patient Instructions Indication:BMI 31.0-31.9,adult Start:10-Mar-2021 Instruction Type:Provider Instructions for Treatment How to Access Health Informa tion Online using Patient Portal and [employer] Apps Indication:BMI 31.0-31.9,adult Start:10-Mar-2021 Instruction Type:Patient Education Patient Instructions Indication:Nonsmoker Start:07-Dec-2020 Instruction Type:Provider Instructions for Treatment How to Access Health Informa tion Online using Patient Portal and [employer] Apps Indication:Nonsmoker Start:07-Dec-2020 Instruction Type:Patient Education Patient Instructions Indication:Nonsmoker Start:18-Oct-2020 Instruction Type:Provider Instructions for Treatment How to Access Health Informa tion Online using Patient Portal and [employer] Apps Indication:Nonsmoker Start:18-Oct-2020 Instruction Type:Patient Education Patient Instructions Indication:Nonsmoker Start:06-Sep-2020 Instruction Type:Provider Instructions for Treatment How to Access Health Informa tion Online using Patient Portal and [employer] Apps Indication:Nonsmoker Start:06-Sep-2020 Instruction Type:Patient Education Patient Instructions Indication:Nonsmoker Start:23-Aug-2020 Instruction Type:Provider Instructions for Treatment How to Access Health Informa tion Online using Patient Portal and [employer] Apps Indication:Nonsmoker Start:23-Aug-2020 Instruction Type:Patient Education Patient Instructions Indication:Nonsmoker Start:03-Aug-2020 Instruction Type:Provider Instructions for Treatment How to Access Health Informa tion Online using Patient Portal and [employer] Apps Indication:Nonsmoker Start:03-Aug-2020 Instruction Type:Patient Education Patient Instructions Indication:Nonsmoker Start:25-Jul-2020 Instruction Type:Provider Instructions for Treatment How to Access Health Informa tion Online using Patient Portal and [employer] Apps Indication:Nonsmoker Start:25-Jul-2020 Instruction Type:Patient Education Patient Instructions Indication:Nonsmoker Start:18-Jul-2020 Instruction Type:Provider Instructions for Treatment How to Access Health Informa tion Online using Patient Portal and [employer] Apps Indication:Nonsmoker Start:18-Jul-2020 Instruction Type:Patient Education Patient Instructions Indication:Nonsmoker Start:11-Jul-2020 Instruction Type:Provider Instructions for Treatment How to Access Health Informa tion Online using Patient Portal and [employer] Apps Indication:Nonsmoker Start:11-Jul-2020 Instruction Type:Patient Education [...] tion Online using Patient Portal and [employer] Apps Indication:UTI symptoms (Renamed from Symptoms of urinary tract infection) Start:07-Dec-2022 Instruction Type:Patient Education Patient Instructions Indication:Nonsmoker Start:14-Sep-2022 Instruction Type:Provider Instructions for Treatment How to Access Health Informa tion Online using Patient Portal and [employer] Apps Indication:Nonsmoker Start:14-Sep-2022 Instruction Type:Patient Education Patient Instructions Indication:Nonsmoker Start:16-Mar-2022 Instruction Type:Provider Instructions for Treatment How to Access Health Informa tion Online using Patient Portal and [employer] Apps Indication:Nonsmoker Start:16-Mar-2022 Instruction Type:Patient Education Patient Instructions Indication:BMI 31.0-31.9,adult Start:11-Sep-2021 Instruction Type:Provider Instructions for Treatment How to Access Health Informa tion Online using Patient Portal and [employer] Apps Indication:BMI 31.0-31.9,adult Start:11-Sep-2021 Instruction Type:Patient Education Patient Instructions Indication:BMI 31.0-31.9,adult Start:09-Jun-2021 Instruction Type:Provider Instructions for Treatment How to Access Health Informa tion Online using Patient Portal and [employer] Apps Indication:Nonsmoker Start:09-Jun-2021 Instruction Type:Patient Education Patient Instructions Indication:BMI 31.0-31.9,adult Start:22-Mar-2021 Instruction Type:Provider Instructions for Treatment How to Access Health Informa tion Online using Patient Portal and [employer] Apps Indication:BMI 31.0-31.9,adult Start:22-Mar-2021 Instruction Type:Patient Education Patient Instructions Indication:BMI 31.0-31.9,adult Start:10-Mar-2021 Instruction Type:Provider Instructions for Treatment How to Access Health Informa tion Online using Patient Portal and [employer] Apps Indication:BMI 31.0-31.9,adult Start:10-Mar-2021 Instruction Type:Patient Education Patient Instructions Indication:Nonsmoker Start:07-Dec-2020 Instruction Type:Provider Instructions for Treatment How to Access Health Informa tion Online using Patient Portal and [employer] Apps Indication:Nonsmoker Start:07-Dec-2020 Instruction Type:Patient Education Patient Instructions Indication:Nonsmoker Start:18-Oct-2020 Instruction Type:Provider Instructions for Treatment How to Access Health Informa tion Online using Patient Portal and [employer] Apps Indication:Nonsmoker Start:18-Oct-2020 Instruction Type:Patient Education Patient Instructions Indication:Nonsmoker Start:06-Sep-2020 Instruction Type:Provider Instructions for Treatment How to Access Health Informa tion Online using Patient Portal and [employer] Apps Indication:Nonsmoker Start:06-Sep-2020 Instruction Type:Patient Education Patient Instructions Indication:Nonsmoker Start:23-Aug-2020 Instruction Type:Provider Instructions for Treatment How to Access Health Informa tion Online using Patient Portal and [employer] Apps Indication:Nonsmoker Start:23-Aug-2020 Instruction Type:Patient Education Patient Instructions Indication:Nonsmoker Start:03-Aug-2020 Instruction Type:Provider Instructions for Treatment How to Access Health Informa tion Online using Patient Portal and [employer] Apps Indication:Nonsmoker Start:03-Aug-2020 Instruction Type:Patient Education Patient Instructions Indication:Nonsmoker Start:25-Jul-2020 Instruction Type:Provider Instructions for Treatment How to Access Health Informa tion Online using Patient Portal and [employer] Apps Indication:Nonsmoker Start:25-Jul-2020 Instruction Type:Patient Education Patient Instructions Indication:Nonsmoker Start:18-Jul-2020 Instruction Type:Provider Instructions for Treatment How to Access Health Informa tion Online using Patient Portal and [employer] Apps Indication:Nonsmoker Start:18-Jul-2020 Instruction Type:Patient Education Patient Instructions Indication:Nonsmoker Start:11-Jul-2020 Instruction Type:Provider Instructions for Treatment How to Access Health Informa tion Online using Patient Portal and [employer] Apps Indication:Nonsmoker Start:11-Jul-2020 Instruction Type:Patient Education [...] tion Online using Patient Portal and [employer] Apps Indication:UTI symptoms (Renamed from Symptoms of urinary tract infection) Start:07-Dec-2022 Instruction Type:Patient Education Patient Instructions Indication:Nonsmoker Start:14-Sep-2022 Instruction Type:Provider Instructions for Treatment How to Access Health Informa tion Online using Patient Portal and [employer] Apps Indication:Nonsmoker Start:14-Sep-2022 Instruction Type:Patient Education Patient Instructions Indication:Nonsmoker Start:16-Mar-2022 Instruction Type:Provider Instructions for Treatment How to Access Health Informa tion Online using Patient Portal and [employer] Apps Indication:Nonsmoker Start:16-Mar-2022 Instruction Type:Patient Education Patient Instructions Indication:BMI 31.0-31.9,adult Start:11-Sep-2021 Instruction Type:Provider Instructions for Treatment How to Access Health Informa tion Online using Patient Portal and [employer] Apps Indication:BMI 31.0-31.9,adult Start:11-Sep-2021 Instruction Type:Patient Education Patient Instructions Indication:BMI 31.0-31.9,adult Start:09-Jun-2021 Instruction Type:Provider Instructions for Treatment How to Access Health Informa tion Online using Patient Portal and [employer] Apps Indication:Nonsmoker Start:09-Jun-2021 Instruction Type:Patient Education Patient Instructions Indication:BMI 31.0-31.9,adult Start:22-Mar-2021 Instruction Type:Provider Instructions for Treatment How to Access Health Informa tion Online using Patient Portal and [employer] Apps Indication:BMI 31.0-31.9,adult Start:22-Mar-2021 Instruction Type:Patient Education Patient Instructions Indication:BMI 31.0-31.9,adult Start:10-Mar-2021 Instruction Type:Provider Instructions for Treatment How to Access Health Informa tion Online using Patient Portal and [employer] Apps Indication:BMI 31.0-31.9,adult Start:10-Mar-2021 Instruction Type:Patient Education Patient Instructions Indication:Nonsmoker Start:07-Dec-2020 Instruction Type:Provider Instructions for Treatment How to Access Health Informa tion Online using Patient Portal and [employer] Apps Indication:Nonsmoker Start:07-Dec-2020 Instruction Type:Patient Education Patient Instructions Indication:Nonsmoker Start:18-Oct-2020 Instruction Type:Provider Instructions for Treatment How to Access Health Informa tion Online using Patient Portal and [employer] Apps Indication:Nonsmoker Start:18-Oct-2020 Instruction Type:Patient Education Patient Instructions Indication:Nonsmoker Start:06-Sep-2020 Instruction Type:Provider Instructions for Treatment How to Access Health Informa tion Online using Patient Portal and [employer] Apps Indication:Nonsmoker Start:06-Sep-2020 Instruction Type:Patient Education Patient Instructions Indication:Nonsmoker Start:23-Aug-2020 Instruction Type:Provider Instructions for Treatment How to Access Health Informa tion Online using Patient Portal and [employer] Apps Indication:Nonsmoker Start:23-Aug-2020 Instruction Type:Patient Education Patient Instructions Indication:Nonsmoker Start:03-Aug-2020 Instruction Type:Provider Instructions for Treatment How to Access Health Informa tion Online using Patient Portal and [employer] Apps Indication:Nonsmoker Start:03-Aug-2020 Instruction Type:Patient Education Patient Instructions Indication:Nonsmoker Start:25-Jul-2020 Instruction Type:Provider Instructions for Treatment How to Access Health Informa tion Online using Patient Portal and [employer] Apps Indication:Nonsmoker Start:25-Jul-2020 Instruction Type:Patient Education Patient Instructions Indication:Nonsmoker Start:18-Jul-2020 Instruction Type:Provider Instructions for Treatment How to Access Health Informa tion Online using Patient Portal and [employer] Apps Indication:Nonsmoker Start:18-Jul-2020 Instruction Type:Patient Education Patient Instructions Indication:Nonsmoker Start:11-Jul-2020 Instruction Type:Provider Instructions for Treatment How to Access Health Informa tion Online using Patient Portal and [employer] Apps Indication:Nonsmoker Start:11-Jul-2020 Instruction Type:Patient Education [...] Informa tion Online using Patient Portal and [employer] Apps Indication:UTI symptoms (Renamed from Symptoms of urinary tract infection) Start:07-Dec-2022 Instruction Type:Patient Education Patient Instructions Indication:Nonsmoker Start:14-Sep-2022 Instruction Type:Provider Instructions for Treatment How to Access Health Informa tion Online using Patient Portal and [employer] Apps Indication:Nonsmoker Start:14-Sep-2022 Instruction Type:Patient Education Patient Instructions Indication:Nonsmoker Start:16-Mar-2022 Instruction Type:Provider Instructions for Treatment How to Access Health Informa tion Online using Patient Portal and [employer] Apps Indication:Nonsmoker Start:16-Mar-2022 Instruction Type:Patient Education Patient Instructions Indication:BMI 31.0-31.9,adult Start:11-Sep-2021 Instruction Type:Provider Instructions for Treatment How to Access Health Informa tion Online using Patient Portal and [employer] Apps Indication:BMI 31.0-31.9,adult Start:11-Sep-2021 Instruction Type:Patient Education Patient Instructions Indication:BMI 31.0-31.9,adult Start:09-Jun-2021 Instruction Type:Provider Instructions for Treatment How to Access Health Informa tion Online using Patient Portal and [employer] Apps Indication:Nonsmoker Start:09-Jun-2021 Instruction Type:Patient Education Patient Instructions Indication:BMI 31.0-31.9,adult Start:22-Mar-2021 Instruction Type:Provider Instructions for Treatment How to Access Health Informa tion Online using Patient Portal and [employer] Apps Indication:BMI 31.0-31.9,adult Start:22-Mar-2021 Instruction Type:Patient Education Patient Instructions Indication:BMI 31.0-31.9,adult Start:10-Mar-2021 Instruction Type:Provider Instructions for Treatment How to Access Health Informa tion Online using Patient Portal and [employer] Apps Indication:BMI 31.0-31.9,adult Start:10-Mar-2021 Instruction Type:Patient Education Patient Instructions Indication:Nonsmoker Start:07-Dec-2020 Instruction Type:Provider Instructions for Treatment How to Access Health Informa tion Online using Patient Portal and [employer] Apps Indication:Nonsmoker Start:07-Dec-2020 Instruction Type:Patient Education Patient Instructions Indication:Nonsmoker Start:18-Oct-2020 Instruction Type:Provider Instructions for Treatment How to Access Health Informa tion Online using Patient Portal and [employer] Apps Indication:Nonsmoker Start:18-Oct-2020 Instruction Type:Patient Education Patient Instructions Indication:Nonsmoker Start:06-Sep-2020 Instruction Type:Provider Instructions for Treatment How to Access Health Informa tion Online using Patient Portal and [employer] Apps Indication:Nonsmoker Start:06-Sep-2020 Instruction Type:Patient Education Patient Instructions Indication:Nonsmoker Start:23-Aug-2020 Instruction Type:Provider Instructions for Treatment How to Access Health Informa tion Online using Patient Portal and [employer] Apps Indication:Nonsmoker Start:23-Aug-2020 Instruction Type:Patient Education Patient Instructions Indication:Nonsmoker Start:03-Aug-2020 Instruction Type:Provider Instructions for Treatment How to Access Health Informa tion Online using Patient Portal and [employer] Apps Indication:Nonsmoker Start:03-Aug-2020 Instruction Type:Patient Education Patient Instructions Indication:Nonsmoker Start:25-Jul-2020 Instruction Type:Provider Instructions for Treatment How to Access Health Informa tion Online using Patient Portal and [employer] Apps Indication:Nonsmoker Start:25-Jul-2020 Instruction Type:Patient Education Patient Instructions Indication:Nonsmoker Start:18-Jul-2020 Instruction Type:Provider Instructions for Treatment How to Access Health Informa tion Online using Patient Portal and [employer] Apps Indication:Nonsmoker Start:18-Jul-2020 Instruction Type:Patient Education Patient Instructions Indication:Nonsmoker Start:11-Jul-2020 Instruction Type:Provider Instructions for Treatment How to Access Health Informa tion Online using Patient Portal and [employer] Apps Indication:Nonsmoker Start:11-Jul-2020 Instruction Type:Patient Education [...] Informa tion Online using Patient Portal and [employer] Apps Indication:UTI symptoms (Renamed from Symptoms of urinary tract infection) Start:07-Dec-2022 Instruction Type:Patient Education Patient Instructions Indication:Nonsmoker Start:14-Sep-2022 Instruction Type:Provider Instructions for Treatment How to Access Health Informa tion Online using Patient Portal and [employer] Apps Indication:Nonsmoker Start:14-Sep-2022 Instruction Type:Patient Education Patient Instructions Indication:Nonsmoker Start:16-Mar-2022 Instruction Type:Provider Instructions for Treatment How to Access Health Informa tion Online using Patient Portal and [employer] Apps Indication:Nonsmoker Start:16-Mar-2022 Instruction Type:Patient Education Patient Instructions Indication:BMI 31.0-31.9,adult Start:11-Sep-2021 Instruction Type:Provider Instructions for Treatment How to Access Health Informa tion Online using Patient Portal and [employer] Apps Indication:BMI 31.0-31.9,adult Start:11-Sep-2021 Instruction Type:Patient Education Patient Instructions Indication:BMI 31.0-31.9,adult Start:09-Jun-2021 Instruction Type:Provider Instructions for Treatment How to Access Health Informa tion Online using Patient Portal and [employer] Apps Indication:Nonsmoker Start:09-Jun-2021 Instruction Type:Patient Education Patient Instructions Indication:BMI 31.0-31.9,adult Start:22-Mar-2021 Instruction Type:Provider Instructions for Treatment How to Access Health Informa tion Online using Patient Portal and [employer] Apps Indication:BMI 31.0-31.9,adult Start:22-Mar-2021 Instruction Type:Patient Education Patient Instructions Indication:BMI 31.0-31.9,adult Start:10-Mar-2021 Instruction Type:Provider Instructions for Treatment How to Access Health Informa tion Online using Patient Portal and [employer] Apps Indication:BMI 31.0-31.9,adult Start:10-Mar-2021 Instruction Type:Patient Education Patient Instructions Indication:Nonsmoker Start:07-Dec-2020 Instruction Type:Provider Instructions for Treatment How to Access Health Informa tion Online using Patient Portal and [employer] Apps Indication:Nonsmoker Start:07-Dec-2020 Instruction Type:Patient Education Patient Instructions Indication:Nonsmoker Start:18-Oct-2020 Instruction Type:Provider Instructions for Treatment How to Access Health Informa tion Online using Patient Portal and [employer] Apps Indication:Nonsmoker Start:18-Oct-2020 Instruction Type:Patient Education Patient Instructions Indication:Nonsmoker Start:06-Sep-2020 Instruction Type:Provider Instructions for Treatment How to Access Health Informa tion Online using Patient Portal and [employer] Apps Indication:Nonsmoker Start:06-Sep-2020 Instruction Type:Patient Education Patient Instructions Indication:Nonsmoker Start:23-Aug-2020 Instruction Type:Provider Instructions for Treatment How to Access Health Informa tion Online using Patient Portal and [employer] Apps Indication:Nonsmoker Start:23-Aug-2020 Instruction Type:Patient Education Patient Instructions Indication:Nonsmoker Start:03-Aug-2020 Instruction Type:Provider Instructions for Treatment How to Access Health Informa tion Online using Patient Portal and [employer] Apps Indication:Nonsmoker Start:03-Aug-2020 Instruction Type:Patient Education Patient Instructions Indication:Nonsmoker Start:25-Jul-2020 Instruction Type:Provider Instructions for Treatment How to Access Health Informa tion Online using Patient Portal and [employer] Apps Indication:Nonsmoker Start:25-Jul-2020 Instruction Type:Patient Education Patient Instructions Indication:Nonsmoker Start:18-Jul-2020 Instruction Type:Provider Instructions for Treatment How to Access Health Informa tion Online using Patient Portal and [employer] Apps Indication:Nonsmoker Start:18-Jul-2020 Instruction Type:Patient Education Patient Instructions Indication:Nonsmoker Start:11-Jul-2020 Instruction Type:Provider Instructions for Treatment How to Access Health Informa tion Online using Patient Portal and [employer] Apps Indication:Nonsmoker Start:11-Jul-2020 Instruction Type:Patient Education [...] tion Online using Patient Portal and [employer] Apps Indication:Nonsmoker Start:11-Jul-2020 Instruction Type:Patient Education [...] tion Online using Patient Portal and [employer] Indication:Nonsmoker Start:11-Jul-2020 Instruction Type:Patient Education [...] tion Online using Patient Portal and [employer] Apps Indication:Nonsmoker Start:18-Jul-2020 Instruction Type:Patient Education Patient Instructions Indication:Nonsmoker Start:11-Jul-2020 Instruction Type:Provider Instructions for Treatment How to Access Health Informa tion Online using Patient Portal and [employer] Apps Indication:Nonsmoker Start:11-Jul-2020 Instruction Type:Patient Education [...] tion Online using Patient Portal and [employer] Apps Indication:Nonsmoker Start:18-Jul-2020 Instruction Type:Patient Education Patient Instructions Indication:Nonsmoker Start:11-Jul-2020 Instruction Type:Provider Instructions for Treatment How to Access Health Informa tion Online using Patient Portal and [employer] Apps Indication:Nonsmoker Start:11-Jul-2020 Instruction Type:Patient Education [...] tion Online using Patient Portal and [employer] Apps Indication:Nonsmoker Start:23-Aug-2020 Instruction Type:Patient Education Patient Instructions Indication:Nonsmoker Start:03-Aug-2020 Instruction Type:Provider Instructions for Treatment How to Access Health Informa tion Online using Patient Portal and [employer] Apps Indication:Nonsmoker Start:03-Aug-2020 Instruction Type:Patient Education Patient Instructions Indication:Nonsmoker Start:25-Jul-2020 Instruction Type:Provider Instructions for Treatment How to Access Health Informa tion Online using Patient Portal and [employer] Apps Indication:Nonsmoker Start:25-Jul-2020 Instruction Type:Patient Education Patient Instructions Indication:Nonsmoker Start:18-Jul-2020 Instruction Type:Provider Instructions for Treatment How to Access Health Informa tion Online using Patient Portal and [employer] Apps Indication:Nonsmoker Start:18-Jul-2020 Instruction Type:Patient Education Patient Instructions Indication:Nonsmoker Start:11-Jul-2020 Instruction Type:Provider Instructions for Treatment How to Access Health Informa tion Online using Patient Portal and [employer] Apps Indication:Nonsmoker Start:11-Jul-2020 Instruction Type:Patient Education [...] tion Online using Patient Portal and [employer] Apps Indication:Nonsmoker Start:06-Sep-2020 Instruction Type:Patient Education Patient Instructions Indication:Nonsmoker Start:23-Aug-2020 Instruction Type:Provider Instructions for Treatment How to Access Health Informa tion Online using Patient Portal and [employer] Apps Indication:Nonsmoker Start:23-Aug-2020 Instruction Type:Patient Education Patient Instructions Indication:Nonsmoker Start:03-Aug-2020 Instruction Type:Provider Instructions for Treatment How to Access Health Informa tion Online using Patient Portal and [employer] Apps Indication:Nonsmoker Start:03-Aug-2020 Instruction Type:Patient Education Patient Instructions Indication:Nonsmoker Start:25-Jul-2020 Instruction Type:Provider Instructions for Treatment How to Access Health Informa tion Online using Patient Portal and [employer] Apps Indication:Nonsmoker Start:25-Jul-2020 Instruction Type:Patient Education Patient Instructions Indication:Nonsmoker Start:18-Jul-2020 Instruction Type:Provider Instructions for Treatment How to Access Health Informa tion Online using Patient Portal and [employer] Apps Indication:Nonsmoker Start:18-Jul-2020 Instruction Type:Patient Education Patient Instructions Indication:Nonsmoker Start:11-Jul-2020 Instruction Type:Provider Instructions for Treatment How to Access Health Informa tion Online using Patient Portal and [employer] Apps Indication:Nonsmoker Start:11-Jul-2020 Instruction Type:Patient Education [...] tion Online using Patient Portal and [employer] Apps Indication:Nonsmoker Start:06-Sep-2020 Instruction Type:Patient Education Patient Instructions Indication:Nonsmoker Start:23-Aug-2020 Instruction Type:Provider Instructions for Treatment How to Access Health Informa tion Online using Patient Portal and [employer] Apps Indication:Nonsmoker Start:23-Aug-2020 Instruction Type:Patient Education Patient Instructions Indication:Nonsmoker Start:03-Aug-2020 Instruction Type:Provider Instructions for Treatment How to Access Health Informa tion Online using Patient Portal and [employer] Apps Indication:Nonsmoker Start:03-Aug-2020 Instruction Type:Patient Education Patient Instructions Indication:Nonsmoker Start:25-Jul-2020 Instruction Type:Provider Instructions for Treatment How to Access Health Informa tion Online using Patient Portal and [employer] Apps Indication:Nonsmoker Start:25-Jul-2020 Instruction Type:Patient Education Patient Instructions Indication:Nonsmoker Start:18-Jul-2020 Instruction Type:Provider Instructions for Treatment How to Access Health Informa tion Online using Patient Portal and [employer] Apps Indication:Nonsmoker Start:18-Jul-2020 Instruction Type:Patient Education Patient Instructions Indication:Nonsmoker Start:11-Jul-2020 Instruction Type:Provider Instructions for Treatment How to Access Health Informa tion Online using Patient Portal and [employer] Apps Indication:Nonsmoker Start:11-Jul-2020 Instruction Type:Patient Education [...] tion Online using Patient Portal and [employer] Apps Indication:Nonsmoker Start:18-Oct-2020 Instruction Type:Patient Education Patient Instructions Indication:Nonsmoker Start:06-Sep-2020 Instruction Type:Provider Instructions for Treatment How to Access Health Informa tion Online using Patient Portal and [employer] Apps Indication:Nonsmoker Start:06-Sep-2020 Instruction Type:Patient Education Patient Instructions Indication:Nonsmoker Start:23-Aug-2020 Instruction Type:Provider Instructions for Treatment How to Access Health Informa tion Online using Patient Portal and [employer] Apps Indication:Nonsmoker Start:23-Aug-2020 Instruction Type:Patient Education Patient Instructions Indication:Nonsmoker Start:03-Aug-2020 Instruction Type:Provider Instructions for Treatment How to Access Health Informa tion Online using Patient Portal and [employer] Apps Indication:Nonsmoker Start:03-Aug-2020 Instruction Type:Patient Education Patient Instructions Indication:Nonsmoker Start:25-Jul-2020 Instruction Type:Provider Instructions for Treatment How to Access Health Informa tion Online using Patient Portal and [employer] Apps Indication:Nonsmoker Start:25-Jul-2020 Instruction Type:Patient Education Patient Instructions Indication:Nonsmoker Start:18-Jul-2020 Instruction Type:Provider Instructions for Treatment How to Access Health Informa tion Online using Patient Portal and [employer] Apps Indication:Nonsmoker Start:18-Jul-2020 Instruction Type:Patient Education Patient Instructions Indication:Nonsmoker Start:11-Jul-2020 Instruction Type:Provider Instructions for Treatment How to Access Health Informa tion Online using Patient Portal and [employer] Apps Indication:Nonsmoker Start:11-Jul-2020 Instruction Type:Patient Education [...] Advance Directives Name Dates Details Immunization Registry [place] - Effective on 09/27/2020. Expiration date unspecified Effective:27-Sep-2020 Name Dates Details Immunization Registry [place] - Effective on 09/27/2020. Expiration date unspecified Effective:27-Sep-2020 Name Dates Details Immunization Registry [place] - Effective on 09/27/2020. Expiration date unspecified Effective:27-Sep-2020 Name Dates Details Immunization Registry [place] - Effective on 09/27/2020. Expiration date unspecified Effective:27-Sep-2020 Name Dates Details Immunization Registry [place] - Effective on 09/27/2020. Expiration date unspecified Effective:27-Sep-2020 Name Dates Details Immunization Registry [place] - Effective on 09/27/2020. Expiration date unspecified Effective:27-Sep-2020 Name Dates Details Immunization Registry [place] - Effective on 09/27/2020. Expiration date unspecified Effective:27-Sep-2020 Name Dates Details Immunization Registry [place] - Effective on 09/27/2020. Expiration date unspecified Effective:27-Sep-2020 Name Dates Details Immunization Registry [place] - Effective on 09/27/2020. Expiration date unspecified Effective:27-Sep-2020 Name Dates Details Immunization Registry [place] - Effective on 09/27/2020. Expiration date unspecified Effective:27-Sep-2020 Name Dates Details Immunization Registry [place] - Effective on 09/27/2020. Expiration date unspecified Effective:27-Sep-2020 Name Dates Details Immunization Registry [place] - Effective on 09/27/2020. Expiration date unspecified Effective:27-Sep-2020 Name Dates Details Immunization Registry [place] - Effective on 09/27/2020. Expiration date unspecified Effective:27-Sep-2020 Name Dates Details Immunization Registry [place] - Effective on 09/27/2020. Expiration date unspecified Effective:27-Sep-2020 Name Dates Details Immunization Registry [place] - Effective on 09/27/2020. Expiration date unspecified Effective:27-Sep-2020 Name Dates Details Immunization Registry [place] - Effective on 09/27/2020. Expiration date unspecified Effective:27-Sep-2020 Additional Source Comments INFORMATION SOURCE (unrecogn ized section and content) DATE CREATED AUTHOR AUTHOR'S ORGANIZ ATION 09/15/2022 [facility] FOR RECORDS PERTAINING TO PATIENTS WHO ARE [...] BE BASED ON THE PRIMARY CLINICAL RECORDS. [facility]. provides no warranty or guarantee of the accuracy or completeness of information in this document.
== END | disposition home or self-care (01) ==
PROVIDERS: PCP Nurse Practitioner Family; Referring Provider Nurse Practitioner Family; Visit Provider Nurse Practitioner Family
DX: M62.81 Muscle weakness (generalized) (principal)
CPT/HCPCS: 72148

== ENCOUNTER 2023-07-24 12:00 | Outpatient (RCR) | payer OTHER, SELFPAY ==
--- NOTE | 2023-06-24 18:45 | HP.PTEVAL_ITS ---
Patient's Visit Information Visit Information Visit Information: ABRAHAN TUCKER is a 62 year old F referred to Physical Therapy by REGINA Menard with a diagnosis of BACK PAIN AND LEG WEAKNESS. Date of Evaluation: 06/24/23 Physical Therapist: Marly Sauer PT, Cert MDT Visit Plan Frequency: 2-3x /Week Duration: 4-6 Weeks Plan: POSTURE AND CORE STRENGTHENING WITH NEUTRAL SPINE. ELIANE LE HIP FLEXOR, HS AND CALF STRETCHING. TRUNK ROM/STRETCHING. INSTRUCTION IN PROPER POSTURE CONTROL, BODY MECHANICS AND APPROPRIATE ACTIVITY MODIFICATIONS. HEP INSTRUCTION. Subjective Subjective: Work/Leisure: RETIRED. I AM A HIGHLY ACTIVE PERSON. GROWN SON LIVES WITH US. BUSY WITH HOUSEWORK AND MEALS EVERYDAY. Disability: NO Present symptoms: INTERMITTENT R BACK, THIGH, LEG, AND FOOT PAIN. INTERMITTENT R LE NUMBNESS AND TINGLING. INTERMITTENT L LEG PAIN RECENTLY TOO. BACK AND ELIANE LE WEAKNESS. Present since: CHRONIC BUT WORSE SINCE INFECTION (UTI) ABOUT 2 WEEKS AGO Pain Scale: INTENSE ELIANE LE PAIN R>L AROUND THANKSGIVING TIME 2022 BUT THE PAIN HAS BEEN GONE FOR A FEW WEEKS NOW. Currently: 0/10 Is it getting better, worse or staying the same: THE PAIN IS BETTER BUT THE WEAKNESS IS GETTING WORSE. Commenced as a result of: INFECTION Symptoms at onset: BACK AND LEG PAIN AND WEAKNESS. Worse: BEING ACTIVE. THE DAY PROGRESSES BUT I JUST KEEP GOING. I DON'T LET IT STOP ME. I'M SLOWER. Better: WHEN I SIT DOWN. THAT REJUVINATES ME. REST. Disturbed sleep: NO Previous history/Previous treatment: PHYSICAL THERAPY FOR BACK IN THE PAST AND INJECTIONS WITH DR. BISWAS. NO BACK SURGERY. CONSULT WITH DR. BOYD. PATIENT REPORTS DR. BOYD SAID HER BACK IS REALLY BAD AND HE DID NOT RECOMMEND BACK SURGERY BUT DID RECOMMEND PAIN MANAGEMENT. CHIROPRACTIC 2 YRS AGO. Treatment this episode: NONE Coughing/sneezing/straining: NE Gait: NO FALLS. MY BACK WANTS TO BEND FORWARD THE MORE I WALK AND I DO NOT HAVE THE STRENGTH TO KEEP MYSELF UP STRAIGHT AND THAT IS WHAT I AM SO UPSET ABOUT. AND MY LEGS DO NOT HAVE THE STRENGTH FOR ME TO FEEL COMFORTABLE TO GO A STRETCH OF WALK. PATIENT REPORTS THAT HER BACK WANTS TO GO FORWARD AND WON'T HOLD HER UP AND SHE GETS SO UPSET AND IT MAKES HER SO MAD AND IT STARTED ABOUT 3 YEARS AGO AND IS GETTING WORSE. PATIENT GETS VERY UPSET AND ANGRY TALKING ABOUT IT. S HE REPORTS SHE JUST DOESN'T UNDERSTAND WHY SHE CAN'T STAND UP RIGHT BECAUSE SHE IS SO ACTIVE. Bowel or Bladder Dysfunction: URINARY LEAKING BUT DENIES INCONTINENCE. CURRENTLY ON 3 ANTIBIOTICS FOR INFECTION. Accidents: NO Unexplained weight loss: NO Imaging: NO RECENT LUMBAR X-RAY OR MRI. MOST RECENT ABOUT 2 YEARS AGO. PMH/Recent major surgery: HTN, BLADDER PROLAPSE, BACK PROBLEMS. Objective Objective: Sitting/Standing Posture: POOR. ANTERIOR PELVIC TILT. INCREASED TRUNK FLEXION. INCREASED LORDOSIS. EXTREME FH. RSH'S. INCREASED KYPHOSIS. R ILIAC CREST HIGHER THAN LEFT. Active Correction of posture: UNABLE TO FULLY CORRECT AND UNABLE TO MAINTAIN PARTIAL CORRECTION. Other Observations: THIS PATIENT AMBULATES INDEP'LY INTO PT WITHOUT ANY AD'S, WITH DECREASED CADANCE, DECREASED ELIANE STRIDE LENGTH, INCREASED TRUNK FLEXION BUT NO LOB. ABLE TO TRANSFER INDEP'LY FROM SIT TO STAND WITH HANDS ON KNEES. Sensory deficit: ELIANE LE LIGHT TOUCH SENSATION GROSSLY INTACT AND SYMMETRICAL ROM deficit: MICAH ELIANE HIP FLEXOR TIGHTNESS. MOD ELIANE HS AND MILD ELIANE GASTROC SOLEUS COMPLEX TIGHTNESS. Motor deficit: ELIANE LE STRENGTH 5/5 WITH MMT'ING. Reflexes: 1/2 ELIANE LE'S. Dural Signs: NEGATIVE ELIANE LE'S. Lumbar mvmt loss: flex - MIN ext - MICAH R SG - MICAH L SG - MICAH PATIENT DENIES PAIN WITH LUMBAR ROM TESTING ALL PLANES. Core strength: POOR Palpation: NO ACUTE LUMBAR, SACRAL OR HIP TENDERNESS. OTHER: PATIENT IS UNABLE TO SLS ON EITHER LE X > 2 SEC WITHOUT UE ASSIST. TREATMENT: NEUROMUSCULAR REEDUCATION - INTRO TO RETRAINING OF MVMT AND POSTURE FOR SITTING, LYING AND STANDING ACTIVITIES. PATIENT TOLERATED USE OF LUMBAR SUPPORT IN SITTING WELL IN CLINIC TODAY. INTRO TO EDUCATION OF BASIC ANATOMY AND PHYSIOLOGY OF LUMBAR SPINE IN CONNECTION WITH CORE AND LE STRENGTH. SHE COMMUNICATED A GOOD UNDERSTANDING OF THE POSSIBLE BENEFITS OF TAKING MORE FREQUENT BREAKS IN SITTING DURING THE DAY AND EXPRESSED APPRECIATION FOR INFORMATION GIVEN TODAY. Balance/Special Test Scores Oswestry Low Back Score: 4 Lower Extremity Functional Score: 38 Goals Goal 1:: INCREASE TOLERANCE OF STANDING, WALKING AND ADL FUNCTION EVIDENCED BY AT LEAST 5 POINT IMPROVEMENT ON LEFS SCORE. Goal Time Frame: 4-6 Weeks Goal 2:: Patient will have increased BLE and core strength increased by 1/2 grade of all effected musculature. Goal Time Frame: 4-6 Weeks Goal 3:: PATIENT WILL BE ABLE TO SLS ON EA LE X > 6 SEC WITHOUT UE ASSIST OR LOB. Goal Time Frame: 4-6 Weeks Goal 4:: PATIENT WILL BE INDEP WITH A HEP FOR CONTINUED IMPROVEMENT ONCE FORMAL PHYSICAL THERAPY CONCLUDES. Goal Time Frame: 4-6 Weeks Rehabilitation Potential Physical Therapy Diagnosis: POOR CORE STRENGTH. TRUNK AND LE STIFFNESS. Rehabilitation Potential: Fair Anticipated Interventions Patient/Client Instruction: Educate patient on: Condition, Plan of Care and Risk Factors For the Purpose of:: To improve self management Therapeutic Exercise to Include: Strength training, Body mechanics, Postural training, Flexibilty training, Gait and locomotor training and Dynamic Lumbar Stabilization For the Purpose of:: To decrease pain, To increase ROM, To improve muscle performance and motor function, To increase tolerance to activity/condition/position, To improve ability of physical actions for home/community/work/leisure and To improve gait and locomotor functions Text: Thank you for the opportunity to evaluate your patient. For Medicare and Medicare HMO plans, please review the plan of care and approve it. It will need to be FAXED BACK to us at [phone] for Medicare purposes. For Medicare only, by signing this I certify the plan of care. Please let me know if there are questions or concerns regarding this plan of care. Physician Signature: Dat e:
--- NOTE | 2023-10-17 08:55 | HP.PTDCNRP_ITS ---
Patient Information Patient Information: ABRAHAN TUCKER was seen in my office for initial evaluation on 06/24/23. The following Plan of Care was established for this patient: POC Established Initial Frequency: 2-3x /Week Initial Duration: 4-6 Weeks Anticipated Interventions Patient/Client Instruction: Educate patient on: Condition, Plan of Care and Risk Factors For the Purpose of:: To improve self management Therapeutic Exercise to Include: Strength training, Body mechanics, Postural training, Flexibilty training, Gait and locomotor training and Dynamic Lumbar Stabilization For the Purpose of:: To decrease pain, To increase ROM, To improve muscle performance and motor function, To increase tolerance to activity/conditi on/position, To improve ability of physical actions for home/community/work/leisure and To improve gait and locomotor functions Last Seen Last Seen: This patient was last seen in our office 07/24/23. Pertinent comments regarding their Physical therapy will appear below: This patient has not returned to Physical Therapy and is appropriate to return to MD for further follow-up as needed. At this point I will be discontinuing this patient from physical therapy. I would be happy to see this patient again in the future if found appropriate by the physician. Thank you! Marly Sauer, PT, Cert MDT Balance/Gait/Functional tests Balance/Special Test Scores Oswestry Low Back Score: 4 Lower Extremity Functional Score: 37
== END 2023-07-24 19:00 | disposition home or self-care (01) ==
LOC: PT 12:00
PROVIDERS: PCP Nurse Practitioner Family; Visit Provider Nurse Practitioner Family
DX: R29.898 Other symptoms and signs involving the musculoskeletal system (principal); M54.50 Low back pain, unspecified
CPT/HCPCS: 97112; 97162; 97530

== ENCOUNTER → 2023-07-31 | Outpatient (CLI) | payer OTHER, SELFPAY ==
--- OUTSIDE RECORDS SUMMARY | 2023-07-31 07:09 | XMS RPT_ITS | CCD ---
Author Name Unknown Address [address] [place] [address] Organization [facility] Care Team Providers Care Marketing Campaign Analyst Name Role Phone Maru Villela Unavailable Roberth Gunn Unavailable [facility], [facility] Unavailable Cinda Alcaraz Unavailable Unavailable [...] Dove DO Unavailable Dr. Roberth Gunn [facility] Maryellen Miramontes Unavailable Zaheer [...] Internal Medicine Start: 09-14-2022 ambulatory [facility] Internal Med Start: 09-14-2022 End: 09-17-2022 [...] Office outpatient visit 15 minutes Maru Villela CIVIL ENGINEERING PROFESSIONAL Work Phone: [facility] Start: 03-22-2021 End: 03-22-2021 Annotation/Addendum Maru Villela CIVIL ENGINEERING PROFESSIONAL Work Phone: [facility] Start: 03-22-2021 End: 03-22-2021 Office outpatient visit 10 minutes Maru Villela CIVIL ENGINEERING PROFESSIONAL Work Phone: [facility] Start: 03-10-2021 End: 03-10-2021 Office outpatient visit 15 minutes Maru Villela CIVIL ENGINEERING PROFESSIONAL Work Phone: [facility] Start: 12-07-2020 End: 12-07-2020 Office outpatient visit 15 minutes Maru Hinojosaestefanía CIVIL ENGINEERING PROFESSIONAL Work Phone: [facility] Start: 10-18-2020 [...] Start: 07-18-2020 End: 07-19-2020 Annotation/Addendum Maru Arambula Medical Writer al Medicine Start: 07-18-2020 End: 07-18-2020 Office outpatient visit 25 minutes Maru Arambula Internal Medicine Start: 07-11-2020 End: 07-11-2020 Office outpatient visit 25 minutes Maru Arambula Internal [facility] Start: 04-04-2020 End: 04-04-2020 Office outpatient visit 5 minutes Maru Arambula Internal Medicine Start: 02-17-2020 End: 02-17-2020 Phone Encounter Maru Arambula Medical Writer al Medicine Start: 02-10-2020 End: 02-10-2020 Office outpatient visit 25 minutes Maru Arambula Internal Medicine Start: 02-10-2020 Review Maru Ochoaens marla Internal Medicine Start: 01-19-2020 End: 01-19-2020 Office outpatient visit 25 minutes Maru Arambula [facility] Start: 01-05-2020 End: 01-05-2020 Lab Order Maru Arambula Medical Writer al Medicine Start: 01-05-2020 End: 01-05-2020 Office [...] Start: 02-11-2019 End: 02-11-2019 Annotation/Addendum Maru Arambula Medical Writer al Medicine Start: 02-02-2019 End: 02-02-2019 Office [...] Maru Arambula Internal Medicine Start: 07-28-2018 Review Maur Brownbillestefanía Berumen marla Internal Medicine Start: 07-03-2018 End: 07-03-2018 Office outpatient visit 15 minutes Maru Arambula Internal Medicine Start: 02-04-2018 End: 02-04-2018 Office outpatient visit 15 minutes Maru Arambula Internal Medicine Start: 01-31-2018 End: 01-31-2018 Office outpatient visit 15 minutes Maru Villela [facility] Internal Medicine Start: 09-27-2017 End: 09-27-2017 Office outpatient visit 15 minutes Maru Villela [facility] Internal Medicine Start: 08-30-2017 End: 08-30-2017 Office outpatient visit 25 minutes Maru Villela [facility] Internal Medicine Start: 08-13-2017 End: 08-13-2017 Office outpatient visit 15 minutes Maru Villela [facility] Internal Medicine Start: 07-31-2017 End: 07-31-2017 Office outpatient visit 15 minutes Maru Villela [facility] Internal Medicine Start: 07-18-2016 End: 07-18-2016 Initial preventive medicine new patient 40-64yrs Maru Villela [facility] Internal [facility] Procedures Date Procedure Procedure Detail Performing Clinician Start: 11-09-2021 End: 11-09-2021 Chiropractic Report Comments: See Note; NOTES: [facility] Chiropractic [address] [place] [address] OFFICE VISIT Date of Service: 11/09/21 MR#: [id number] Acct: [id number] Name: SOCORRO VILLA Rep #: [id number] : 1960 Provider: ANTOLIN Jackson Age/Sex: 60/F Location: [facility] Status: Signed Intake Intake Visit Reasons: [...] that the stiffness has improved tremendously with acute care registered nurse. She is still having low back tightness [...] CPT Codes Procedures - Manipulation: 1-2 regions (04943) Procedures - Electronic Stimulation: Yes (26847) Procedures - Traction, Mechanical: Yes (12824) 11/09/21 1522 <Electronically signed by Simi Page D.C.> Date Simi Page D.C. Cosigner Signature: Date (if applicable) CC: Corinne Sousa [facility] Work Phone: Start: 11-07-2021 End: 11-07-2021 Chiropractic Report Comments: See Note; NOTES: [facility] [address] [place], [place] [id number] OFFICE VISIT Date of Service: 11/07/21 MR#: [id number] Acct: [id number] Name: SOCORRO VILLA Rep #: [id number] : 1960 Provider: ANTOLIN Jackson Age/Sex: 60/F Location: [facility] Status: Signed Intake Intake Visit Reasons: [...] states that the stiffness has improved with acute care registered nurse. She is still having low back tightness [...] CPT Codes Procedures - Manipulation: 1-2 regions (18951) Procedures - Electronic Stimulation: Yes (74317) 11/07/21 1650 <Electronically signed by Simi Page D.C.> Date Simi Page D.C. Cosigner Signature: Date (if applicable) CC: Corinne Sousa CIVIL ENGINEERING PROFESSIONAL Work Phone: Start: 11-02-2021 End: 11-02-2021 Chiropractic Report Comments: See Note; NOTES: [facility] [address] [place] [address] OFFICE VISIT Date of Service: 11/02/21 MR#: [id number] Acct: [id number] Name: SOCORRO VILLA Rep #: [id number] : 1960 Provider: ANTOLIN Jackson Age/Sex: 60/F Location: [facility] Status: Signed Intake Intake Visit Reasons: Back [...] states that the pain has improved with acute care registered nurse. She is still having low back tightness [...] CPT Codes Procedures - Manipulation: 1-2 regions (40152) Procedures - Electronic Stimulation: Yes (39506) Procedures - Traction, Mechanical: Yes (29184) 11/02/21 1438 <Electronically signed by Simi Page D.C.> Date Simi Page D.C. Cosigner Signature: Date (if applicable) CC: Corinne Sousa CNP Work Phone: Start: 10-31-2021 End: 10-31-2021 Chiropractic Report Comments: See Note; NOTES: [facility]ic [address] [place], [place] [id number] OFFICE VISIT Date of Service: 10/31/21 MR#: [id number] Acct: [id number] Name: SOCORRO VILLA Rep #: [id number] : 1960 Provider: ANTOLIN Jackson Age/Sex: 60/F Location: [facility] Status: Signed Intake Intake Visit Reasons: [...] CPT Codes Procedures - Manipulation: 1-2 regions (36402) Procedures - Electronic Stimulation: Yes (68245) Procedures - Traction, Mechanical: Yes (92548) 10/31/21 3366 <Electronically signed by Simi Page D.C.> Date Simi Page D.C. Cosigner Signature: Date (if applicable) CC: Corinne Lars STEELE Work Phone: Start: 10-26-2021 End: 10-30-2021 Chiropractic Report Comments: See Note; NOTES: [facility] [address] [place] [address] OFFICE VISIT Date of Service: 10/26/21 MR#: [id number] Acct: [id number] Name: SOCORRO VILLA Rep #: [id number] : 1960 Provider: ANTOLIN Jackson Age/Sex: 60/F Location: [facility] Status: Signed Intake Intake Visit Reasons: Back [...] CPT Codes Procedures - Manipulation: 1-2 regions (70922) Procedures - Electronic Stimulation: Yes (85556) Procedures - Traction, Mechanical: Yes (85130) 10/30/21 1510 <Electronically signed by Simi Page D.C.> Date Simi Page D.C. Cosigner Signature: Date (if applicable) CC: Corinne Sousa [facility] Work Phone: Start: 10-24-2021 End: 10-30-2021 Chiropractic Report Comments: See Note; NOTES: [facility] [address] [place] [address] OFFICE VISIT Date of Service: 10/24/21 MR#: [id number] Acct: [id number] Name: SOCORRO VILLA Rep #: [id number] : 1960 Provider: ANTOLIN Jackson Age/Sex: 60/F Location: [facility] Status: Signed Intake Intake Visit Reasons: [...] CPT Codes Procedures - Manipulation: 1-2 regions (02046) Procedures - Electronic Stimulation: Yes (16216) 10/30/21 0816 <Electronically signed by Simi Page D.C.> Date Simi Page D.C. Cosignisacc Signature: Date (if applicable) CC: Corinne Sousa CNP Work Phone: Start: 10-03-2021 End: 10-03-2021 Chiropractic Report Comments: See Note; NOTES: [facility] [address] [place] [address] OFFICE VISIT Date of Service: 10/03/21 MR#: [id number] Acct: [id number] Name: SOCORRO VILLA Rep #: [id number] : 1960 Provider: ANTOLIN Jackson Age/Sex: 60/F Location: [facility] Status: Signed Intake Vital Signs 10/03/21 10:32 Height 5 ft 7 in Weight: 199 lb 8 oz BMI 31.2 BP 150/80 H Blood Pressure Location Lt brachial Position Sitting Intake Visit Reasons: Back Pain Chief Complaint: Low Back Pain Insulation Foreman Required: No Accompanied by: Self Is patient [...] 10/03/21 @ 13:[address] Simi Page, MD) Back problem Hypertension Surgical History (Updated 10/03/21 [...] CPT Codes Procedures - Manipulation: 1-2 regions (72313) Procedures - Traction, Mechanical: Yes (31143) 10/03/21 1306 <Electronically signed by Simi Page D.C.> Date Simi Dumont Signature: Date (if applicable) CC: Corinne Sousa CIVIL ENGINEERING PROFESSIONAL Work Phone: Start: 08-24-2020 End: 08-24-2020 Orthopedic Visit Report Comments: See Note; NOTES: [facility] Sports Medicine [address] [place] [address] OFFICE VISIT Date of Service: 08/24/20 MR#: [id number] Acct: [id number] Name: SOCORRO VILLA Raul Rep #: [id number] : 1960 Provider: Dr. Chinmay segal DO Age/Sex: 59/F Location: [facility] Status: Signed Intake Intake Visit Reasons: lUMBAR [...] Cerda DO> Date [facility] Signature: Date (if applicable) CC: ASSOCIATE ACCOUNT MANAGER-C Maru Villela; Dr Luis A Villela Start: 08-17-2020 End: 08-17-2020 Spine Lumbar (Routine) Comments: See Note; NOTES: [facility] Imaging Services [address] [place] [address] Spine Lumbar (Routine) MR#: [id number] Acct: [id number] Name: SOCORRO VILLA Rep #: [id number] : 1960 F 59 From: Dawood Horton MD PCP: REGINA Molina Status: REG CLI Study: Spine Lumbar (Routine) Date of Exam: 08/17/20 Exam# [id number] Ordering Dr: Chimnay Cerda DO STUDY: MRI LUMBAR SPINE WITHOUT [...] CC: REGINA Villela; Dr. Chinmay Cerda DO Cane Piler: Signed Maru Villela Start: 08-01-2020 End: 08-01-2020 Orthopedic Visit Report Comments: See Note; NOTES: [facility] Sports Medicine [address] [place] [address] OFFICE VISIT Date of Service: 08/01/20 MR#: [id number] Acct: [id number] Name: SOCORRO VILLA Rep #: [id number] : 1960 Provider: Dr. Chinmay segal DO Age/Sex: 59/F Location: [facility] Status: Signed Intake Vital Signs 08/01/20 Height [...] End: 07-15-2020 Aorta Comments: See Note; NOTES: [facility] Imaging Services [address] [place] [address] [place] [address] Aorta MR#: [id number] Acct: [id number] Name: SOCORRO VILLA Rep #: [id number] : 1960 F 59 From: Gerardo paz MD PCP: REGINA Molina Status: REG CLI Study: Aorta Date of Exam: 07/15/20 Exam# [id number] Ordering Dr: Maru Villela NP PROCEDURES: ULTRASOUND [...] , Service support , CC: REGINA Villela Cane Piler: Signed Maru Villela Work Phone: Start: 07-11-2020 End: 07-12-2020 L/S Spine Min 4 Views Comments: See Note; NOTES: [facility] Imaging Services [address] [place] [address] L/S Spine Min 4 Views MR#: [id number] Acct: [id number] Name: SOCORRO VILLA Rep #: [id number] : 1960 F 59 From: Dejuan Godinez MD PCP: REGINA Molina Status: REG CLI Study: L/S Spine Min 4 Views Date of Exam: 07/11/20 Exam# [id number] Ordering Dr: Maru Villela NP STUDY: X-RAY [...] , Service support , CC: REGINA Villela Cane Piler: Signed Maru Villela Work Phone: Start: 07-11-2020 End: 07-12-2020 Pelvis 1 or 2 Views Comments: See Note; NOTES: [facility] Imaging Services [address] [place] [address] Pelvis 1 or 2 Views MR#: [id number] Acct: [id number] Name: SOCORRO VILLA Rep #: [id number] : 1960 F 59 From: Dejuan Godinez MD PCP: REGINA Molina Status: REG CLI Study: Pelvis 1 or 2 Views Date of Exam: 07/11/20 Exam# [id number] Ordering Dr: Maru Villela NP ASSOCIATE ACCOUNT MANAGER-C STUDY: X-RAY - PELVIS REASON FOR EXAM: [...] Tel , Service support , CC: ASSOCIATE ACCOUNT MANAGER-C Maru Villela Cane Piler: Signed Maru Villela Work Phone: Start: 03-29-2020 End: 03-29-2020 PT D/C of Non Returning Pt (1) Comments: See Note; NOTES: [facility] Physical Therapy [facility] [address] [place] [address] [address] [place] [address] / REHABILITATION SERVICES DISCHARGE SUMMARY MR#: [id number] Acct: [id number] Name: LUCY VILLAEstefanía Carter Rep #: [id number] : 1960 59 From: MARIAN Duran DPT, CSCS Referring Dr.: REGINA Villela Status: REG RCR Insurance: [facility] PACKAGE PLAN SOCORRO VILLA was seen [...] (1) - PT Comments: See Note; NOTES: [facility] Physical Therapy [facility] [address] [place] [address] [address] [place] [address] / REHABILITATION SERVICES INITIAL EVALUATION MR#: [id number] Acct: [id number] Name: SOCORRO VILLA Rep #: [id number] : 1960 59 From: MARIAN Duran DPT, CSCS Referring Dr.: REGINA Villela Status: REG RCR Insurance: [facility] P[employer] Patient's Visit Information SOCORRO [...] to be FAXED BACK to us at [phone] for Medicare purposes. For Medicare only, by signing this I certify the plan of care. Please let me know if there are questions or concerns regarding this plan of care. Physician Signature: Date: <Electronically signed by Gurinder Sousa DPT, OCS, CSCS> 01/26/20 0859 CC: ASSOCIATE ACCOUNT MANAGERYulia Villela EBG Signed Maru Villela Start: 11-22-2018 End: 11-22-2018 Discharge Instruction Comments: See Note; NOTES: [facility] Medical Records Department [address] [place] [address] Discharge Instruction 11/21/182134 MR#: [id number] Acct: [id number] Name: LUCY VILLAEstefanía Carter Rep #: [id number] : 1960 57 From: Faheem Cormier MD [...] your Primary Care Provider. Call [facility] ([phone]) or report to the closest Emergency Room. Call 911 if necessary. 11/22/18 0007 <Electronically signed by Faheem Cormier MD> Date Faheem Cormier MD Cosigner Signature (If Indicated): Date CC: ASSOCIATE ACCOUNT MANAGER Maru Villela Maru Hinojosaestefanía Start: 11-22-2018 End: 11-22-2018 Emergency Department Summary Comments: See Note; NOTES: [facility] Medical Records Department [address] [place] [address] Emergency Department Summary 11/21/182134 MR#: [id number] Acct: [id number] Name: SOCORRO VILLA Rep #: [id number] : 1960 57 From: Faheem Cormier MD [...] Hypertension established This note was generated with Subwayation software. It may contain incorrect words, spelling, [...] your Primary Care Provider. Call [facility] ([phone]) or report to the closest Emergency Room. Call 911 if necessary. 11/22/18 0007 <Electronically signed by Faheem Cormier MD> Date Faheem Cormier MD Cosigner Signature (If Indicated): Date CC: ASSOCIATE ACCOUNT MANAGER Maru Villela Start: 11-06-2018 End: 11-06-2018 Emergency Department Summary Comments: See Note; NOTES: [facility] Medical Records Department [address] [place] [address] Emergency Department Summary 11/05/18 2207 MR#: [id number] Acct: [id number] Name: SOCORRO VILLA Rep #: [id number] : 1960 57 From: Faheem Bruce DO [...] Acute cystitis This note was generated with Prosodic dictation software. It may contain incorrect words, [...] your Primary Care Provider. Call [facility] ([phone]) or report to the closest Emergency Room. Call 911 if necessary. 11/06/18 0107 <Electronically signed by Faheem Bruce DO> Date Faheem Bruce DO Cosigner Signature (If Indicated): Date CC: ARIELLE Villela Start: 09-09-2017 End: 09-09-2017 Cerv Spine 2 or 3 Views Comments: See Note; NOTES: [facility] Imaging Services [address] [facility] [place] [address] Cerv Spine 2 or 3 Views MR#: [id number] Acct: [id number] Name: SOCORRO VILLA Rep #: [id number] : 1960 F 56 From: Maranda Mi MD PCP: Maru Villela NP Status: REG CLI Study: Cerv Spine 2 or 3 Views Date of Exam: 09/09/17 Exam# [id number] Ordering Dr: Yolanda Gunn MD XR Spine [...] Service support , CC: Maru Villela ASSOCIATE ACCOUNT MANAGER; Yolanda Gunn MD Cane Piler: Signed Maru Villela Start: 08-23-2017 End: 08-24-2017 Spine Lumbar (Routine) Comments: See Note; NOTES: [facility] Imaging Services [address] [place] [address] Spine Lumbar (Routine) MR#: [id number] Acct: [id number] Name: SOCORRO VILLA Rep #: [id number] : 1960 F 56 From: Effie Escudero MD PCP: Maru Villela NP Status: REG CLI Study: Spine Lumbar (Routine) Date of Exam: 08/23/17 Exam# [id number] Ordering Dr: Maru Villela STUDY: MRI LUMBAR [...] Service support , CC: Maru Villela NP Cane Piler: Signed Maru Villela Work Phone: Start: 08-15-2017 End: 08-15-2017 Inital Evaluation (1) - PT Comments: See Note; NOTES: [facility] Physical Therapy [facility] [address] [place] [address]. [address] [place] [address] Fax REHABILITATION SERVICES INITIAL EVALUATION MR#: [id number] Acct: [id number] Name: SOCORRO VILLA Rep #: [id number] : 1960 56 From: Marly Sauer PT, Cert. MDT Referring Dr.: Xi Lua DO Status: REG R Insurance: [facility] SELF PAY INSURANCE Patient's Visit Information SOCORRO [...] to be FAXED BACK to us at [phone] for Medicare purposes. Please let me know [...] 08-11-2017 Discharge Instruction Comments: See Note; NOTES: [facility] Medical Records Department [address] [place] [address] Discharge Instruction 08/11/171757 MR#: [id number] Acct: [id number] Name: SOCORRO VILLA Rep #: [id number] : 1960 56 From: Michael Watson MD [...] your Primary Care Provider. Call [facility] ([phone]) or report to the closest Emergency Room. Call 911 if necessary. 08/11/171757 <Electronically signed by Michael Watson MD> Date Michael Watson MD Cosigner Signature (If Indicated): Date CC: Maru Villela Start: 08-11-2017 End: 08-11-2017 Emergency Department Summary Comments: See Note; NOTES: [facility] Medical Records Department [address] [place] [address] Emergency Department Summary 08/11/171754 MR#: [id number] Acct: [id number] Name: SOCORRO VILLA Rep #: [id number] : 1960 56 From: Michael Watson MD [...] Lumbar radiculopathy This note was generated with Prosodic dictation software. It may contain incorrect words, [...] problems, contact your Primary Care Provider. Call [facility] ([phone]) or report to the closest Emergency Room. Call 911 if necessary. 08/11/17 7095 <Electronically signed by Michael Watson MD> Date Michael Watson MD Cosigner Signature (If Indicated): Date CC: Maru Villela NP Maru Villela Start: 08-11-2017 End: 08-11-2017 Lumbar Spine 2 or 3 Views Comments: See Note; NOTES: [facility] Imaging Services [address] [place] [address] Lumbar Spine 2 or 3 Views MR#: [id number] Acct: [id number] Name: SOCORRO VILLA Rep #: [id number] : 1960 F 56 From: Effie Escudero MD PCP: Maru Villela NP Status: REG ER Study: Lumbar Spine 2 or 3 Views Date of Exam: 08/11/17 Exam# [id number] Ordering Dr: Michael Watson MD STUDY: X-RAY [...] CC: Maru Villela NP; Michael Watson MD Cane Piler: Signed Maru Villela Start: 08-11-2017 End: 08-11-2017 Thoracic Spine 2 Views Comments: See Note; NOTES: [facility] Imaging Services [address] [place] [address] Thoracic Spine 2 Views MR#: [id number] Acct: [id number] Name: SOCORRO VILLA Rep #: [id number] : 1960 F 56 From: Effie Escudero MD PCP: Maru Villela NP Status: REG ER Study: Thoracic Spine 2 Views Date of Exam: 08/11/17 Exam# [id number] Ordering Dr: Michael Watson MD STUDY: X-RAY [...] CC: Maru Villela NP; Michael Watson MD Cane Piler: Signed Maru Villela Hysterectomy Suzanne L Long Hysterectomy Chong Jennings Hysterectomy Chong Jennings Hysterectomy Chong Jennings Hysterectomy Beatriz Sabrina Hysterectomy Suzanne L Long Hysterectomy Chong Jennings Hysterectomy Chong Jennings Hysterectomy Chong Jennings Hysterectomy Chong Warren Hysterectomy Cinda Slarb Hysterectomy Chong Warren Hysterectomy Chong Warren Hysterectomy Cinda Slarb Hysterectomy Chong Warren LP N Hysterectomy Chong Warren LP N Hysterectomy BEVERLY [place] GEOPHYSICAL PROSPECTING PERMIT AGENT Hysterectomy Jaqueline Garrett L PN Hysterectomy Cinda Slarb LP N Hysterectomy Cinda Slarb LP N Hysterectomy Keke Isaiah M A Hysterectomy BEVERLY [place] GEOPHYSICAL PROSPECTING PERMIT AGENT Ligation of fallopia n tube Suzanne L [...] Ligation of fallopia n tube Chong Warren GEOPHYSICAL PROSPECTING PERMIT AGENT Ligation of fallopia n tube Chong Warren GEOPHYSICAL PROSPECTING PERMIT AGENT Ligation of fallopia n tube BEVERLY [place] GEOPHYSICAL PROSPECTING PERMIT AGENT Ligation of fallopia n tube Jaqueline Garrett GEOPHYSICAL PROSPECTING PERMIT AGENT Ligation of fallopia n tube Cinda Slarb GEOPHYSICAL PROSPECTING PERMIT AGENT Ligation of fallopia n tube Cinda Slarb GEOPHYSICAL PROSPECTING PERMIT AGENT Ligation of fallopia n tube Keke Colon MA Ligation of fallopia n tube BEVERLY [place] GEOPHYSICAL PROSPECTING PERMIT AGENT Plan of Treatment Date Care Activity Detail Author Start: 03-18-2023 Blood count complete auto&auto difrntl wbc CBC, PLATELETS & AUT DIFF (23091) : in 6 mo [facility] Work Phone: Start: 03-18-2023 Comprehensive metabolic panel METABOLIC PANEL, COMPREHENSIVE (62378) : in 6 mo [facility]; [facility] Work Phone: Start: 03-18-2023 Lipid panel LIPID PANEL (15550) : in 6 mo [facility]; [...] Start: 12-07-2022 Urinalysis qual/semiquant except immunoassays URINALYSIS (96639) : 1 wk after completion of antibiotic. [facility]; [facility] Work Phone: Start: 12-07-2022 Urnls dip stick/tablet reagent auto microscopy Urinalysis, Complete W/ Microscopic Examination with reflex to urine culture, routine (21084) [facility]; [facility] Work Phone: Start: 09-14-2022 Assay of thyroid stimulating hormone tsh TSH (THYROID STIMULATING HORMONE) (36089) [facility]; [facility] Work [...] Phone: Payers Date Payer Category Payer Unknown [id number] 2018 Unknown [id number] 2016 Unknown [id number] 1960 Unknown [id number] Unknown Social History Date Type Detail Facility [...] tion Online using Patient Portal and 3rd [employer] Apps Indication:Nonsmoker Start:09-Jun-2021 Instruction Type:Patient Education Patient Instructions Indication:BMI 31.0-31.9,adult Start:22-Mar-2021 Instruction Type:Provider Instructions for Treatment How to Access Health Informa tion Online using Patient Portal and 3rd [employer] Apps Indication:BMI 31.0-31.9,adult Start:22-Mar-2021 Instruction Type:Patient Education Patient Instructions Indication:BMI 31.0-31.9,adult Start:10-Mar-2021 Instruction Type:Provider Instructions for Treatment How to Access Health Informa tion Online using Patient Portal and 3rd [employer] Apps Indication:BMI 31.0-31.9,adult Start:10-Mar-2021 Instruction Type:Patient Education Patient Instructions Indication:Nonsmoker Start:07-Dec-2020 Instruction Type:Provider Instructions for Treatment How to Access Health Informa tion Online using Patient Portal and 3rd Republican Apps Indication:Nonsmoker Start:07-Dec-2020 Instruction Type:Patient Education Patient Instructions Indication:Nonsmoker Start:18-Oct-2020 Instruction Type:Provider Instructions for Treatment How to Access Health Informa tion Online using Patient Portal and [employer] Apps Indication:Nonsmoker Start:18-Oct-2020 Instruction Type:Patient Education Patient Instructions Indication:Nonsmoker Start:06-Sep-2020 Instruction Type:Provider Instructions for Treatment How to Access Health Informa tion Online using Patient Portal and [employer] Apps Indication:Nonsmoker Start:06-Sep-2020 Instruction Type:Patient Education Patient Instructions Indication:Nonsmoker Start:23-Aug-2020 Instruction Type:Provider Instructions for Treatment How to Access Health Informa tion Online using Patient Portal and [employer] Apps Indication:Nonsmoker Start:23-Aug-2020 Instruction Type:Patient Education Patient Instructions Indication:Nonsmoker Start:03-Aug-2020 Instruction Type:Provider Instructions for Treatment How to Access Health Informa tion Online using Patient Portal and [employer] Apps Indication:Nonsmoker Start:03-Aug-2020 Instruction Type:Patient Education Patient Instructions Indication:Nonsmoker Start:25-Jul-2020 Instruction Type:Provider Instructions for Treatment How to Access Health Informa tion Online using Patient Portal and [employer] Apps Indication:Nonsmoker Start:25-Jul-2020 Instruction Type:Patient Education Patient Instructions Indication:Nonsmoker Start:18-Jul-2020 Instruction Type:Provider Instructions for Treatment How to Access Health Informa tion Online using Patient Portal and [employer] Apps Indication:Nonsmoker Start:18-Jul-2020 Instruction Type:Patient Education Patient Instructions Indication:Nonsmoker Start:11-Jul-2020 Instruction Type:Provider Instructions for Treatment How to Access Health Informa tion Online using Patient Portal and [employer] Apps Indication:Nonsmoker Start:11-Jul-2020 Instruction Type:Patient Education How [...] tion Online using Patient Portal and [employer] Apps Indication:Nonsmoker Start:09-Jun-2021 Instruction Type:Patient Education Patient Instructions Indication:BMI 31.0-31.9,adult Start:22-Mar-2021 Instruction Type:Provider Instructions for Treatment How to Access Health Informa tion Online using Patient Portal and [employer] Apps Indication:BMI 31.0-31.9,adult Start:22-Mar-2021 Instruction Type:Patient Education Patient Instructions Indication:BMI 31.0-31.9,adult Start:10-Mar-2021 Instruction Type:Provider Instructions for Treatment How to Access Health Informa tion Online using Patient Portal and [employer] Apps Indication:BMI 31.0-31.9,adult Start:10-Mar-2021 Instruction Type:Patient Education Patient Instructions Indication:Nonsmoker Start:07-Dec-2020 Instruction Type:Provider Instructions for Treatment How to Access Health Informa tion Online using Patient Portal and [employer] Apps Indication:Nonsmoker Start:07-Dec-2020 Instruction Type:Patient Education Patient Instructions Indication:Nonsmoker Start:18-Oct-2020 Instruction Type:Provider Instructions for Treatment How to Access Health Informa tion Online using Patient Portal and [employer] Apps Indication:Nonsmoker Start:18-Oct-2020 Instruction Type:Patient Education Patient Instructions Indication:Nonsmoker Start:06-Sep-2020 Instruction Type:Provider Instructions for Treatment How to Access Health Informa tion Online using Patient Portal and [employer] Apps Indication:Nonsmoker Start:06-Sep-2020 Instruction Type:Patient Education Patient Instructions Indication:Nonsmoker Start:23-Aug-2020 Instruction Type:Provider Instructions for Treatment How to Access Health Informa tion Online using Patient Portal and [employer] Apps Indication:Nonsmoker Start:23-Aug-2020 Instruction Type:Patient Education Patient Instructions Indication:Nonsmoker Start:03-Aug-2020 Instruction Type:Provider Instructions for Treatment How to Access Health Informa tion Online using Patient Portal and [employer] Apps Indication:Nonsmoker Start:03-Aug-2020 Instruction Type:Patient Education Patient Instructions Indication:Nonsmoker Start:25-Jul-2020 Instruction Type:Provider Instructions for Treatment How to Access Health Informa tion Online using Patient Portal and [employer] Apps Indication:Nonsmoker Start:25-Jul-2020 Instruction Type:Patient Education Patient Instructions Indication:Nonsmoker Start:18-Jul-2020 Instruction Type:Provider Instructions for Treatment How to Access Health Informa tion Online using Patient Portal and [employer] Apps Indication:Nonsmoker Start:18-Jul-2020 Instruction Type:Patient Education Patient Instructions Indication:Nonsmoker Start:11-Jul-2020 Instruction Type:Provider Instructions for Treatment How to Access Health Informa tion Online using Patient Portal and [employer] Apps Indication:Nonsmoker Start:11-Jul-2020 Instruction Type:Patient Education How [...] tion Online using Patient Portal and [employer] Apps Indication:BMI 31.0-31.9,adult Start:11-Sep-2021 Instruction Type:Patient Education Patient Instructions Indication:BMI 31.0-31.9,adult Start:09-Jun-2021 Instruction Type:Provider Instructions for Treatment How to Access Health Informa tion Online using Patient Portal and [employer] Apps Indication:Nonsmoker Start:09-Jun-2021 Instruction Type:Patient Education Patient Instructions Indication:BMI 31.0-31.9,adult Start:22-Mar-2021 Instruction Type:Provider Instructions for Treatment How to Access Health Informa tion Online using Patient Portal and [employer] Apps Indication:BMI 31.0-31.9,adult Start:22-Mar-2021 Instruction Type:Patient Education Patient Instructions Indication:BMI 31.0-31.9,adult Start:10-Mar-2021 Instruction Type:Provider Instructions for Treatment How to Access Health Informa tion Online using Patient Portal and [employer] Apps Indication:BMI 31.0-31.9,adult Start:10-Mar-2021 Instruction Type:Patient Education Patient Instructions Indication:Nonsmoker Start:07-Dec-2020 Instruction Type:Provider Instructions for Treatment How to Access Health Informa tion Online using Patient Portal and [employer] Apps Indication:Nonsmoker Start:07-Dec-2020 Instruction Type:Patient Education Patient Instructions Indication:Nonsmoker Start:18-Oct-2020 Instruction Type:Provider Instructions for Treatment How to Access Health Informa tion Online using Patient Portal and [employer] Apps Indication:Nonsmoker Start:18-Oct-2020 Instruction Type:Patient Education Patient Instructions Indication:Nonsmoker Start:06-Sep-2020 Instruction Type:Provider Instructions for Treatment How to Access Health Informa tion Online using Patient Portal and [employer] Apps Indication:Nonsmoker Start:06-Sep-2020 Instruction Type:Patient Education Patient Instructions Indication:Nonsmoker Start:23-Aug-2020 Instruction Type:Provider Instructions for Treatment How to Access Health Informa tion Online using Patient Portal and [employer] Apps Indication:Nonsmoker Start:23-Aug-2020 Instruction Type:Patient Education Patient Instructions Indication:Nonsmoker Start:03-Aug-2020 Instruction Type:Provider Instructions for Treatment How to Access Health Informa tion Online using Patient Portal and [employer] Apps Indication:Nonsmoker Start:03-Aug-2020 Instruction Type:Patient Education Patient Instructions Indication:Nonsmoker Start:25-Jul-2020 Instruction Type:Provider Instructions for Treatment How to Access Health Informa tion Online using Patient Portal and [employer] Apps Indication:Nonsmoker Start:25-Jul-2020 Instruction Type:Patient Education Patient Instructions Indication:Nonsmoker Start:18-Jul-2020 Instruction Type:Provider Instructions for Treatment How to Access Health Informa tion Online using Patient Portal and [employer] Apps Indication:Nonsmoker Start:18-Jul-2020 Instruction Type:Patient Education Patient Instructions Indication:Nonsmoker Start:11-Jul-2020 Instruction Type:Provider Instructions for Treatment How to Access Health Informa tion Online using Patient Portal and [employer] Apps Indication:Nonsmoker Start:11-Jul-2020 Instruction Type:Patient Education How [...] tion Online using Patient Portal and [employer] Apps Indication:BMI 31.0-31.9,adult Start:11-Sep-2021 Instruction Type:Patient Education Patient Instructions Indication:BMI 31.0-31.9,adult Start:09-Jun-2021 Instruction Type:Provider Instructions for Treatment How to Access Health Informa tion Online using Patient Portal and [employer] Apps Indication:Nonsmoker Start:09-Jun-2021 Instruction Type:Patient Education Patient Instructions Indication:BMI 31.0-31.9,adult Start:22-Mar-2021 Instruction Type:Provider Instructions for Treatment How to Access Health Informa tion Online using Patient Portal and [employer] Apps Indication:BMI 31.0-31.9,adult Start:22-Mar-2021 Instruction Type:Patient Education Patient Instructions Indication:BMI 31.0-31.9,adult Start:10-Mar-2021 Instruction Type:Provider Instructions for Treatment How to Access Health Informa tion Online using Patient Portal and [employer] Apps Indication:BMI 31.0-31.9,adult Start:10-Mar-2021 Instruction Type:Patient Education Patient Instructions Indication:Nonsmoker Start:07-Dec-2020 Instruction Type:Provider Instructions for Treatment How to Access Health Informa tion Online using Patient Portal and [employer] Apps Indication:Nonsmoker Start:07-Dec-2020 Instruction Type:Patient Education Patient Instructions Indication:Nonsmoker Start:18-Oct-2020 Instruction Type:Provider Instructions for Treatment How to Access Health Informa tion Online using Patient Portal and [employer] Apps Indication:Nonsmoker Start:18-Oct-2020 Instruction Type:Patient Education Patient Instructions Indication:Nonsmoker Start:06-Sep-2020 Instruction Type:Provider Instructions for Treatment How to Access Health Informa tion Online using Patient Portal and [employer] Apps Indication:Nonsmoker Start:06-Sep-2020 Instruction Type:Patient Education Patient Instructions Indication:Nonsmoker Start:23-Aug-2020 Instruction Type:Provider Instructions for Treatment How to Access Health Informa tion Online using Patient Portal and [employer] Apps Indication:Nonsmoker Start:23-Aug-2020 Instruction Type:Patient Education Patient Instructions Indication:Nonsmoker Start:03-Aug-2020 Instruction Type:Provider Instructions for Treatment How to Access Health Informa tion Online using Patient Portal and [employer] Apps Indication:Nonsmoker Start:03-Aug-2020 Instruction Type:Patient Education Patient Instructions Indication:Nonsmoker Start:25-Jul-2020 Instruction Type:Provider Instructions for Treatment How to Access Health Informa tion Online using Patient Portal and [employer] Apps Indication:Nonsmoker Start:25-Jul-2020 Instruction Type:Patient Education Patient Instructions Indication:Nonsmoker Start:18-Jul-2020 Instruction Type:Provider Instructions for Treatment How to Access Health Informa tion Online using Patient Portal and [employer] Apps Indication:Nonsmoker Start:18-Jul-2020 Instruction Type:Patient Education Patient Instructions Indication:Nonsmoker Start:11-Jul-2020 Instruction Type:Provider Instructions for Treatment How to Access Health Informa tion Online using Patient Portal and [employer] Apps Indication:Nonsmoker Start:11-Jul-2020 Instruction Type:Patient Education How [...] tion Online using Patient Portal and [employer] Apps Indication:BMI 31.0-31.9,adult Start:11-Sep-2021 Instruction Type:Patient Education Patient Instructions Indication:BMI 31.0-31.9,adult Start:09-Jun-2021 Instruction Type:Provider Instructions for Treatment How to Access Health Informa tion Online using Patient Portal and [employer] Apps Indication:Nonsmoker Start:09-Jun-2021 Instruction Type:Patient Education Patient Instructions Indication:BMI 31.0-31.9,adult Start:22-Mar-2021 Instruction Type:Provider Instructions for Treatment How to Access Health Informa tion Online using Patient Portal and [employer] Apps Indication:BMI 31.0-31.9,adult Start:22-Mar-2021 Instruction Type:Patient Education Patient Instructions Indication:BMI 31.0-31.9,adult Start:10-Mar-2021 Instruction Type:Provider Instructions for Treatment How to Access Health Informa tion Online using Patient Portal and [employer] Apps Indication:BMI 31.0-31.9,adult Start:10-Mar-2021 Instruction Type:Patient Education Patient Instructions Indication:Nonsmoker Start:07-Dec-2020 Instruction Type:Provider Instructions for Treatment How to Access Health Informa tion Online using Patient Portal and [employer] Apps Indication:Nonsmoker Start:07-Dec-2020 Instruction Type:Patient Education Patient Instructions Indication:Nonsmoker Start:18-Oct-2020 Instruction Type:Provider Instructions for Treatment How to Access Health Informa tion Online using Patient Portal and [employer] Apps Indication:Nonsmoker Start:18-Oct-2020 Instruction Type:Patient Education Patient Instructions Indication:Nonsmoker Start:06-Sep-2020 Instruction Type:Provider Instructions for Treatment How to Access Health Informa tion Online using Patient Portal and [employer] Apps Indication:Nonsmoker Start:06-Sep-2020 Instruction Type:Patient Education Patient Instructions Indication:Nonsmoker Start:23-Aug-2020 Instruction Type:Provider Instructions for Treatment How to Access Health Informa tion Online using Patient Portal and [employer] Apps Indication:Nonsmoker Start:23-Aug-2020 Instruction Type:Patient Education Patient Instructions Indication:Nonsmoker Start:03-Aug-2020 Instruction Type:Provider Instructions for Treatment How to Access Health Informa tion Online using Patient Portal and [employer] Apps Indication:Nonsmoker Start:03-Aug-2020 Instruction Type:Patient Education Patient Instructions Indication:Nonsmoker Start:25-Jul-2020 Instruction Type:Provider Instructions for Treatment How to Access Health Informa tion Online using Patient Portal and [employer] Apps Indication:Nonsmoker Start:25-Jul-2020 Instruction Type:Patient Education Patient Instructions Indication:Nonsmoker Start:18-Jul-2020 Instruction Type:Provider Instructions for Treatment How to Access Health Informa tion Online using Patient Portal and [employer] Apps Indication:Nonsmoker Start:18-Jul-2020 Instruction Type:Patient Education Patient Instructions Indication:Nonsmoker Start:11-Jul-2020 Instruction Type:Provider Instructions for Treatment How to Access Health Informa tion Online using Patient Portal and [employer] Apps Indication:Nonsmoker Start:11-Jul-2020 Instruction Type:Patient Education How [...] Informa tion Online using Patient Portal and [employer] Republican Apps Indication:Nonsmoker Start:16-Mar-2022 Instruction Type:Patient Education Patient Instructions Indication:BMI 31.0-31.9,adult Start:11-Sep-2021 Instruction Type:Provider Instructions for Treatment How to Access Health Informa tion Online using Patient Portal and [employer] Apps Indication:BMI 31.0-31.9,adult Start:11-Sep-2021 Instruction Type:Patient Education Patient Instructions Indication:BMI 31.0-31.9,adult Start:09-Jun-2021 Instruction Type:Provider Instructions for Treatment How to Access Health Informa tion Online using Patient Portal and [employer] Apps Indication:Nonsmoker Start:09-Jun-2021 Instruction Type:Patient Education Patient Instructions Indication:BMI 31.0-31.9,adult Start:22-Mar-2021 Instruction Type:Provider Instructions for Treatment How to Access Health Informa tion Online using Patient Portal and [employer] Apps Indication:BMI 31.0-31.9,adult Start:22-Mar-2021 Instruction Type:Patient Education Patient Instructions Indication:BMI 31.0-31.9,adult Start:10-Mar-2021 Instruction Type:Provider Instructions for Treatment How to Access Health Informa tion Online using Patient Portal and [employer] Apps Indication:BMI 31.0-31.9,adult Start:10-Mar-2021 Instruction Type:Patient Education Patient Instructions Indication:Nonsmoker Start:07-Dec-2020 Instruction Type:Provider Instructions for Treatment How to Access Health Informa tion Online using Patient Portal and [employer] Apps Indication:Nonsmoker Start:07-Dec-2020 Instruction Type:Patient Education Patient Instructions Indication:Nonsmoker Start:18-Oct-2020 Instruction Type:Provider Instructions for Treatment How to Access Health Informa tion Online using Patient Portal and [employer] Apps Indication:Nonsmoker Start:18-Oct-2020 Instruction Type:Patient Education Patient Instructions Indication:Nonsmoker Start:06-Sep-2020 Instruction Type:Provider Instructions for Treatment How to Access Health Informa tion Online using Patient Portal and [employer] Apps Indication:Nonsmoker Start:06-Sep-2020 Instruction Type:Patient Education Patient Instructions Indication:Nonsmoker Start:23-Aug-2020 Instruction Type:Provider Instructions for Treatment How to Access Health Informa tion Online using Patient Portal and [employer] Apps Indication:Nonsmoker Start:23-Aug-2020 Instruction Type:Patient Education Patient Instructions Indication:Nonsmoker Start:03-Aug-2020 Instruction Type:Provider Instructions for Treatment How to Access Health Informa tion Online using Patient Portal and [employer] Apps Indication:Nonsmoker Start:03-Aug-2020 Instruction Type:Patient Education Patient Instructions Indication:Nonsmoker Start:25-Jul-2020 Instruction Type:Provider Instructions for Treatment How to Access Health Informa tion Online using Patient Portal and [employer] Apps Indication:Nonsmoker Start:25-Jul-2020 Instruction Type:Patient Education Patient Instructions Indication:Nonsmoker Start:18-Jul-2020 Instruction Type:Provider Instructions for Treatment How to Access Health Informa tion Online using Patient Portal and [employer] Apps Indication:Nonsmoker Start:18-Jul-2020 Instruction Type:Patient Education Patient Instructions Indication:Nonsmoker Start:11-Jul-2020 Instruction Type:Provider Instructions for Treatment How to Access Health Informa tion Online using Patient Portal and [employer] Apps Indication:Nonsmoker Start:11-Jul-2020 Instruction Type:Patient Education How [...] tion Online using Patient Portal and [employer] Apps Indication:Nonsmoker Start:16-Mar-2022 Instruction Type:Patient Education Patient Instructions Indication:BMI 31.0-31.9,adult Start:11-Sep-2021 Instruction Type:Provider Instructions for Treatment How to Access Health Informa tion Online using Patient Portal and [employer] Apps Indication:BMI 31.0-31.9,adult Start:11-Sep-2021 Instruction Type:Patient Education Patient Instructions Indication:BMI 31.0-31.9,adult Start:09-Jun-2021 Instruction Type:Provider Instructions for Treatment How to Access Health Informa tion Online using Patient Portal and [employer] Apps Indication:Nonsmoker Start:09-Jun-2021 Instruction Type:Patient Education Patient Instructions Indication:BMI 31.0-31.9,adult Start:22-Mar-2021 Instruction Type:Provider Instructions for Treatment How to Access Health Informa tion Online using Patient Portal and [employer] Apps Indication:BMI 31.0-31.9,adult Start:22-Mar-2021 Instruction Type:Patient Education Patient Instructions Indication:BMI 31.0-31.9,adult Start:10-Mar-2021 Instruction Type:Provider Instructions for Treatment How to Access Health Informa tion Online using Patient Portal and [employer] Apps Indication:BMI 31.0-31.9,adult Start:10-Mar-2021 Instruction Type:Patient Education Patient Instructions Indication:Nonsmoker Start:07-Dec-2020 Instruction Type:Provider Instructions for Treatment How to Access Health Informa tion Online using Patient Portal and [employer] Apps Indication:Nonsmoker Start:07-Dec-2020 Instruction Type:Patient Education Patient Instructions Indication:Nonsmoker Start:18-Oct-2020 Instruction Type:Provider Instructions for Treatment How to Access Health Informa tion Online using Patient Portal and [employer] Apps Indication:Nonsmoker Start:18-Oct-2020 Instruction Type:Patient Education Patient Instructions Indication:Nonsmoker Start:06-Sep-2020 Instruction Type:Provider Instructions for Treatment How to Access Health Informa tion Online using Patient Portal and [employer] Apps Indication:Nonsmoker Start:06-Sep-2020 Instruction Type:Patient Education Patient Instructions Indication:Nonsmoker Start:23-Aug-2020 Instruction Type:Provider Instructions for Treatment How to Access Health Informa tion Online using Patient Portal and [employer] Apps Indication:Nonsmoker Start:23-Aug-2020 Instruction Type:Patient Education Patient Instructions Indication:Nonsmoker Start:03-Aug-2020 Instruction Type:Provider Instructions for Treatment How to Access Health Informa tion Online using Patient Portal and [employer] Apps Indication:Nonsmoker Start:03-Aug-2020 Instruction Type:Patient Education Patient Instructions Indication:Nonsmoker Start:25-Jul-2020 Instruction Type:Provider Instructions for Treatment How to Access Health Informa tion Online using Patient Portal and [employer] Apps Indication:Nonsmoker Start:25-Jul-2020 Instruction Type:Patient Education Patient Instructions Indication:Nonsmoker Start:18-Jul-2020 Instruction Type:Provider Instructions for Treatment How to Access Health Informa tion Online using Patient Portal and [employer] Apps Indication:Nonsmoker Start:18-Jul-2020 Instruction Type:Patient Education Patient Instructions Indication:Nonsmoker Start:11-Jul-2020 Instruction Type:Provider Instructions for Treatment How to Access Health Informa tion Online using Patient Portal and [employer] Apps Indication:Nonsmoker Start:11-Jul-2020 Instruction Type:Patient Education How [...] tion Online using Patient Portal and [employer] Apps Indication:Nonsmoker Start:14-Sep-2022 Instruction Type:Patient Education Patient Instructions Indication:Nonsmoker Start:16-Mar-2022 Instruction Type:Provider Instructions for Treatment How to Access Health Informa tion Online using Patient Portal and [employer] Apps Indication:Nonsmoker Start:16-Mar-2022 Instruction Type:Patient Education Patient Instructions Indication:BMI 31.0-31.9,adult Start:11-Sep-2021 Instruction Type:Provider Instructions for Treatment How to Access Health Informa tion Online using Patient Portal and [employer] Apps Indication:BMI 31.0-31.9,adult Start:11-Sep-2021 Instruction Type:Patient Education Patient Instructions Indication:BMI 31.0-31.9,adult Start:09-Jun-2021 Instruction Type:Provider Instructions for Treatment How to Access Health Informa tion Online using Patient Portal and [employer] Apps Indication:Nonsmoker Start:09-Jun-2021 Instruction Type:Patient Education Patient Instructions Indication:BMI 31.0-31.9,adult Start:22-Mar-2021 Instruction Type:Provider Instructions for Treatment How to Access Health Informa tion Online using Patient Portal and [employer] Apps Indication:BMI 31.0-31.9,adult Start:22-Mar-2021 Instruction Type:Patient Education Patient Instructions Indication:BMI 31.0-31.9,adult Start:10-Mar-2021 Instruction Type:Provider Instructions for Treatment How to Access Health Informa tion Online using Patient Portal and [employer] Apps Indication:BMI 31.0-31.9,adult Start:10-Mar-2021 Instruction Type:Patient Education Patient Instructions Indication:Nonsmoker Start:07-Dec-2020 Instruction Type:Provider Instructions for Treatment How to Access Health Informa tion Online using Patient Portal and [employer] Apps Indication:Nonsmoker Start:07-Dec-2020 Instruction Type:Patient Education Patient Instructions Indication:Nonsmoker Start:18-Oct-2020 Instruction Type:Provider Instructions for Treatment How to Access Health Informa tion Online using Patient Portal and [employer] Apps Indication:Nonsmoker Start:18-Oct-2020 Instruction Type:Patient Education Patient Instructions Indication:Nonsmoker Start:06-Sep-2020 Instruction Type:Provider Instructions for Treatment How to Access Health Informa tion Online using Patient Portal and [employer] Apps Indication:Nonsmoker Start:06-Sep-2020 Instruction Type:Patient Education Patient Instructions Indication:Nonsmoker Start:23-Aug-2020 Instruction Type:Provider Instructions for Treatment How to Access Health Informa tion Online using Patient Portal and [employer] Indication:Nonsmoker Start:23-Aug-2020 Instruction Type:Patient Education Patient Instructions Indication:Nonsmoker Start:03-Aug-2020 Instruction Type:Provider Instructions for Treatment How to Access Health Informa tion Online using Patient Portal and [employer] Indication:Nonsmoker Start:03-Aug-2020 Instruction Type:Patient Education Patient Instructions Indication:Nonsmoker Start:25-Jul-2020 Instruction Type:Provider Instructions for Treatment How to Access Health Informa tion Online using Patient Portal and [employer] Apps Indication:Nonsmoker Start:25-Jul-2020 Instruction Type:Patient Education Patient Instructions Indication:Nonsmoker Start:18-Jul-2020 Instruction Type:Provider Instructions for Treatment How to Access Health Informa tion Online using Patient Portal and [employer] Apps Indication:Nonsmoker Start:18-Jul-2020 Instruction Type:Patient Education Patient Instructions Indication:Nonsmoker Start:11-Jul-2020 Instruction Type:Provider Instructions for Treatment How to Access Health Informa tion Online using Patient Portal and [employer] Apps Indication:Nonsmoker Start:11-Jul-2020 Instruction Type:Patient Education How [...] tion Online using Patient Portal and [employer] Apps Indication:Nonsmoker Start:14-Sep-2022 Instruction Type:Patient Education Patient Instructions Indication:Nonsmoker Start:16-Mar-2022 Instruction Type:Provider Instructions for Treatment How to Access Health Informa tion Online using Patient Portal and [employer] Apps Indication:Nonsmoker Start:16-Mar-2022 Instruction Type:Patient Education Patient Instructions Indication:BMI 31.0-31.9,adult Start:11-Sep-2021 Instruction Type:Provider Instructions for Treatment How to Access Health Informa tion Online using Patient Portal and [employer] Indication:BMI 31.0-31.9,adult Start:11-Sep-2021 Instruction Type:Patient Education Patient Instructions Indication:BMI 31.0-31.9,adult Start:09-Jun-2021 Instruction Type:Provider Instructions for Treatment How to Access Health Informa tion Online using Patient Portal and [employer] Apps Indication:Nonsmoker Start:09-Jun-2021 Instruction Type:Patient Education Patient Instructions Indication:BMI 31.0-31.9,adult Start:22-Mar-2021 Instruction Type:Provider Instructions for Treatment How to Access Health Informa tion Online using Patient Portal and [employer] Apps Indication:BMI 31.0-31.9,adult Start:22-Mar-2021 Instruction Type:Patient Education Patient Instructions Indication:BMI 31.0-31.9,adult Start:10-Mar-2021 Instruction Type:Provider Instructions for Treatment How to Access Health Informa tion Online using Patient Portal and [employer] Indication:BMI 31.0-31.9,adult Start:10-Mar-2021 Instruction Type:Patient Education Patient Instructions Indication:Nonsmoker Start:07-Dec-2020 Instruction Type:Provider Instructions for Treatment How to Access Health Informa tion Online using Patient Portal and [employer] Apps Indication:Nonsmoker Start:07-Dec-2020 Instruction Type:Patient Education Patient Instructions Indication:Nonsmoker Start:18-Oct-2020 Instruction Type:Provider Instructions for Treatment How to Access Health Informa tion Online using Patient Portal and [employer] Apps Indication:Nonsmoker Start:18-Oct-2020 Instruction Type:Patient Education Patient Instructions Indication:Nonsmoker Start:06-Sep-2020 Instruction Type:Provider Instructions for Treatment How to Access Health Informa tion Online using Patient Portal and [employer] Apps Indication:Nonsmoker Start:06-Sep-2020 Instruction Type:Patient Education Patient Instructions Indication:Nonsmoker Start:23-Aug-2020 Instruction Type:Provider Instructions for Treatment How to Access Health Informa tion Online using Patient Portal and [employer] Apps Indication:Nonsmoker Start:23-Aug-2020 Instruction Type:Patient Education Patient Instructions Indication:Nonsmoker Start:03-Aug-2020 Instruction Type:Provider Instructions for Treatment How to Access Health Informa tion Online using Patient Portal and [employer] Apps Indication:Nonsmoker Start:03-Aug-2020 Instruction Type:Patient Education Patient Instructions Indication:Nonsmoker Start:25-Jul-2020 Instruction Type:Provider Instructions for Treatment How to Access Health Informa tion Online using Patient Portal and [employer] Apps Indication:Nonsmoker Start:25-Jul-2020 Instruction Type:Patient Education Patient Instructions Indication:Nonsmoker Start:18-Jul-2020 Instruction Type:Provider Instructions for Treatment How to Access Health Informa tion Online using Patient Portal and [employer] Apps Indication:Nonsmoker Start:18-Jul-2020 Instruction Type:Patient Education Patient Instructions Indication:Nonsmoker Start:11-Jul-2020 Instruction Type:Provider Instructions for Treatment How to Access Health Informa tion Online using Patient Portal and [employer] Apps Indication:Nonsmoker Start:11-Jul-2020 Instruction Type:Patient Education How [...] tion Online using Patient Portal and [employer] Apps Indication:UTI symptoms (Renamed from Symptoms of urinary tract infection) Start:07-Dec-2022 Instruction Type:Patient Education Patient Instructions Indication:Nonsmoker Start:14-Sep-2022 Instruction Type:Provider Instructions for Treatment How to Access Health Informa tion Online using Patient Portal and [employer] Apps Indication:Nonsmoker Start:14-Sep-2022 Instruction Type:Patient Education Patient Instructions Indication:Nonsmoker Start:16-Mar-2022 Instruction Type:Provider Instructions for Treatment How to Access Health Informa tion Online using Patient Portal and [employer] Apps Indication:Nonsmoker Start:16-Mar-2022 Instruction Type:Patient Education Patient Instructions Indication:BMI 31.0-31.9,adult Start:11-Sep-2021 Instruction Type:Provider Instructions for Treatment How to Access Health Informa tion Online using Patient Portal and [employer] Apps Indication:BMI 31.0-31.9,adult Start:11-Sep-2021 Instruction Type:Patient Education Patient Instructions Indication:BMI 31.0-31.9,adult Start:09-Jun-2021 Instruction Type:Provider Instructions for Treatment How to Access Health Informa tion Online using Patient Portal and [employer] Apps Indication:Nonsmoker Start:09-Jun-2021 Instruction Type:Patient Education Patient Instructions Indication:BMI 31.0-31.9,adult Start:22-Mar-2021 Instruction Type:Provider Instructions for Treatment How to Access Health Informa tion Online using Patient Portal and [employer] Apps Indication:BMI 31.0-31.9,adult Start:22-Mar-2021 Instruction Type:Patient Education Patient Instructions Indication:BMI 31.0-31.9,adult Start:10-Mar-2021 Instruction Type:Provider Instructions for Treatment How to Access Health Informa tion Online using Patient Portal and [employer] Apps Indication:BMI 31.0-31.9,adult Start:10-Mar-2021 Instruction Type:Patient Education Patient Instructions Indication:Nonsmoker Start:07-Dec-2020 Instruction Type:Provider Instructions for Treatment How to Access Health Informa tion Online using Patient Portal and [employer] Apps Indication:Nonsmoker Start:07-Dec-2020 Instruction Type:Patient Education Patient Instructions Indication:Nonsmoker Start:18-Oct-2020 Instruction Type:Provider Instructions for Treatment How to Access Health Informa tion Online using Patient Portal and [employer] Apps Indication:Nonsmoker Start:18-Oct-2020 Instruction Type:Patient Education Patient Instructions Indication:Nonsmoker Start:06-Sep-2020 Instruction Type:Provider Instructions for Treatment How to Access Health Informa tion Online using Patient Portal and [employer] Apps Indication:Nonsmoker Start:06-Sep-2020 Instruction Type:Patient Education Patient Instructions Indication:Nonsmoker Start:23-Aug-2020 Instruction Type:Provider Instructions for Treatment How to Access Health Informa tion Online using Patient Portal and [employer] Apps Indication:Nonsmoker Start:23-Aug-2020 Instruction Type:Patient Education Patient Instructions Indication:Nonsmoker Start:03-Aug-2020 Instruction Type:Provider Instructions for Treatment How to Access Health Informa tion Online using Patient Portal and [employer] Apps Indication:Nonsmoker Start:03-Aug-2020 Instruction Type:Patient Education Patient Instructions Indication:Nonsmoker Start:25-Jul-2020 Instruction Type:Provider Instructions for Treatment How to Access Health Informa tion Online using Patient Portal and [employer] Apps Indication:Nonsmoker Start:25-Jul-2020 Instruction Type:Patient Education Patient Instructions Indication:Nonsmoker Start:18-Jul-2020 Instruction Type:Provider Instructions for Treatment How to Access Health Informa tion Online using Patient Portal and [employer] Apps Indication:Nonsmoker Start:18-Jul-2020 Instruction Type:Patient Education Patient Instructions Indication:Nonsmoker Start:11-Jul-2020 Instruction Type:Provider Instructions for Treatment How to Access Health Informa tion Online using Patient Portal and [employer] Apps Indication:Nonsmoker Start:11-Jul-2020 Instruction Type:Patient Education How [...] tion Online using Patient Portal and [employer] Apps Indication:UTI symptoms (Renamed from Symptoms of urinary tract infection) Start:07-Dec-2022 Instruction Type:Patient Education Patient Instructions Indication:Nonsmoker Start:14-Sep-2022 Instruction Type:Provider Instructions for Treatment How to Access Health Informa tion Online using Patient Portal and [employer] Apps Indication:Nonsmoker Start:14-Sep-2022 Instruction Type:Patient Education Patient Instructions Indication:Nonsmoker Start:16-Mar-2022 Instruction Type:Provider Instructions for Treatment How to Access Health Informa tion Online using Patient Portal and [employer] Apps Indication:Nonsmoker Start:16-Mar-2022 Instruction Type:Patient Education Patient Instructions Indication:BMI 31.0-31.9,adult Start:11-Sep-2021 Instruction Type:Provider Instructions for Treatment How to Access Health Informa tion Online using Patient Portal and [employer] Apps Indication:BMI 31.0-31.9,adult Start:11-Sep-2021 Instruction Type:Patient Education Patient Instructions Indication:BMI 31.0-31.9,adult Start:09-Jun-2021 Instruction Type:Provider Instructions for Treatment How to Access Health Informa tion Online using Patient Portal and [employer] Apps Indication:Nonsmoker Start:09-Jun-2021 Instruction Type:Patient Education Patient Instructions Indication:BMI 31.0-31.9,adult Start:22-Mar-2021 Instruction Type:Provider Instructions for Treatment How to Access Health Informa tion Online using Patient Portal and [employer] Apps Indication:BMI 31.0-31.9,adult Start:22-Mar-2021 Instruction Type:Patient Education Patient Instructions Indication:BMI 31.0-31.9,adult Start:10-Mar-2021 Instruction Type:Provider Instructions for Treatment How to Access Health Informa tion Online using Patient Portal and [employer] Apps Indication:BMI 31.0-31.9,adult Start:10-Mar-2021 Instruction Type:Patient Education Patient Instructions Indication:Nonsmoker Start:07-Dec-2020 Instruction Type:Provider Instructions for Treatment How to Access Health Informa tion Online using Patient Portal and [employer] Apps Indication:Nonsmoker Start:07-Dec-2020 Instruction Type:Patient Education Patient Instructions Indication:Nonsmoker Start:18-Oct-2020 Instruction Type:Provider Instructions for Treatment How to Access Health Informa tion Online using Patient Portal and [employer] Apps Indication:Nonsmoker Start:18-Oct-2020 Instruction Type:Patient Education Patient Instructions Indication:Nonsmoker Start:06-Sep-2020 Instruction Type:Provider Instructions for Treatment How to Access Health Informa tion Online using Patient Portal and [employer] Apps Indication:Nonsmoker Start:06-Sep-2020 Instruction Type:Patient Education Patient Instructions Indication:Nonsmoker Start:23-Aug-2020 Instruction Type:Provider Instructions for Treatment How to Access Health Informa tion Online using Patient Portal and [employer] Apps Indication:Nonsmoker Start:23-Aug-2020 Instruction Type:Patient Education Patient Instructions Indication:Nonsmoker Start:03-Aug-2020 Instruction Type:Provider Instructions for Treatment How to Access Health Informa tion Online using Patient Portal and [employer] Apps Indication:Nonsmoker Start:03-Aug-2020 Instruction Type:Patient Education Patient Instructions Indication:Nonsmoker Start:25-Jul-2020 Instruction Type:Provider Instructions for Treatment How to Access Health Informa tion Online using Patient Portal and [employer] Apps Indication:Nonsmoker Start:25-Jul-2020 Instruction Type:Patient Education Patient Instructions Indication:Nonsmoker Start:18-Jul-2020 Instruction Type:Provider Instructions for Treatment How to Access Health Informa tion Online using Patient Portal and [employer] Apps Indication:Nonsmoker Start:18-Jul-2020 Instruction Type:Patient Education Patient Instructions Indication:Nonsmoker Start:11-Jul-2020 Instruction Type:Provider Instructions for Treatment How to Access Health Informa tion Online using Patient Portal and [employer] Apps Indication:Nonsmoker Start:11-Jul-2020 Instruction Type:Patient Education How [...] Informa tion Online using Patient Portal and [employer] Apps Indication:UTI symptoms (Renamed from Symptoms of urinary tract infection) Start:07-Dec-2022 Instruction Type:Patient Education Patient Instructions Indication:Nonsmoker Start:14-Sep-2022 Instruction Type:Provider Instructions for Treatment How to Access Health Informa tion Online using Patient Portal and [employer] Apps Indication:Nonsmoker Start:14-Sep-2022 Instruction Type:Patient Education Patient Instructions Indication:Nonsmoker Start:16-Mar-2022 Instruction Type:Provider Instructions for Treatment How to Access Health Informa tion Online using Patient Portal and [employer] Apps Indication:Nonsmoker Start:16-Mar-2022 Instruction Type:Patient Education Patient Instructions Indication:BMI 31.0-31.9,adult Start:11-Sep-2021 Instruction Type:Provider Instructions for Treatment How to Access Health Informa tion Online using Patient Portal and [employer] Apps Indication:BMI 31.0-31.9,adult Start:11-Sep-2021 Instruction Type:Patient Education Patient Instructions Indication:BMI 31.0-31.9,adult Start:09-Jun-2021 Instruction Type:Provider Instructions for Treatment How to Access Health Informa tion Online using Patient Portal and [employer] Apps Indication:Nonsmoker Start:09-Jun-2021 Instruction Type:Patient Education Patient Instructions Indication:BMI 31.0-31.9,adult Start:22-Mar-2021 Instruction Type:Provider Instructions for Treatment How to Access Health Informa tion Online using Patient Portal and [employer] Apps Indication:BMI 31.0-31.9,adult Start:22-Mar-2021 Instruction Type:Patient Education Patient Instructions Indication:BMI 31.0-31.9,adult Start:10-Mar-2021 Instruction Type:Provider Instructions for Treatment How to Access Health Informa tion Online using Patient Portal and [employer] Apps Indication:BMI 31.0-31.9,adult Start:10-Mar-2021 Instruction Type:Patient Education Patient Instructions Indication:Nonsmoker Start:07-Dec-2020 Instruction Type:Provider Instructions for Treatment How to Access Health Informa tion Online using Patient Portal and [employer] Apps Indication:Nonsmoker Start:07-Dec-2020 Instruction Type:Patient Education Patient Instructions Indication:Nonsmoker Start:18-Oct-2020 Instruction Type:Provider Instructions for Treatment How to Access Health Informa tion Online using Patient Portal and [employer] Apps Indication:Nonsmoker Start:18-Oct-2020 Instruction Type:Patient Education Patient Instructions Indication:Nonsmoker Start:06-Sep-2020 Instruction Type:Provider Instructions for Treatment How to Access Health Informa tion Online using Patient Portal and [employer] Apps Indication:Nonsmoker Start:06-Sep-2020 Instruction Type:Patient Education Patient Instructions Indication:Nonsmoker Start:23-Aug-2020 Instruction Type:Provider Instructions for Treatment How to Access Health Informa tion Online using Patient Portal and [employer] Apps Indication:Nonsmoker Start:23-Aug-2020 Instruction Type:Patient Education Patient Instructions Indication:Nonsmoker Start:03-Aug-2020 Instruction Type:Provider Instructions for Treatment How to Access Health Informa tion Online using Patient Portal and [employer] Apps Indication:Nonsmoker Start:03-Aug-2020 Instruction Type:Patient Education Patient Instructions Indication:Nonsmoker Start:25-Jul-2020 Instruction Type:Provider Instructions for Treatment How to Access Health Informa tion Online using Patient Portal and [employer] Apps Indication:Nonsmoker Start:25-Jul-2020 Instruction Type:Patient Education Patient Instructions Indication:Nonsmoker Start:18-Jul-2020 Instruction Type:Provider Instructions for Treatment How to Access Health Informa tion Online using Patient Portal and [employer] Apps Indication:Nonsmoker Start:18-Jul-2020 Instruction Type:Patient Education Patient Instructions Indication:Nonsmoker Start:11-Jul-2020 Instruction Type:Provider Instructions for Treatment How to Access Health Informa tion Online using Patient Portal and [employer] Apps Indication:Nonsmoker Start:11-Jul-2020 Instruction Type:Patient Education How [...] Informa tion Online using Patient Portal and [employer] Apps Indication:UTI symptoms (Renamed from Symptoms of urinary tract infection) Start:07-Dec-2022 Instruction Type:Patient Education Patient Instructions Indication:Nonsmoker Start:14-Sep-2022 Instruction Type:Provider Instructions for Treatment How to Access Health Informa tion Online using Patient Portal and [employer] Apps Indication:Nonsmoker Start:14-Sep-2022 Instruction Type:Patient Education Patient Instructions Indication:Nonsmoker Start:16-Mar-2022 Instruction Type:Provider Instructions for Treatment How to Access Health Informa tion Online using Patient Portal and [employer] Apps Indication:Nonsmoker Start:16-Mar-2022 Instruction Type:Patient Education Patient Instructions Indication:BMI 31.0-31.9,adult Start:11-Sep-2021 Instruction Type:Provider Instructions for Treatment How to Access Health Informa tion Online using Patient Portal and [employer] Apps Indication:BMI 31.0-31.9,adult Start:11-Sep-2021 Instruction Type:Patient Education Patient Instructions Indication:BMI 31.0-31.9,adult Start:09-Jun-2021 Instruction Type:Provider Instructions for Treatment How to Access Health Informa tion Online using Patient Portal and [employer] Apps Indication:Nonsmoker Start:09-Jun-2021 Instruction Type:Patient Education Patient Instructions Indication:BMI 31.0-31.9,adult Start:22-Mar-2021 Instruction Type:Provider Instructions for Treatment How to Access Health Informa tion Online using Patient Portal and [employer] Apps Indication:BMI 31.0-31.9,adult Start:22-Mar-2021 Instruction Type:Patient Education Patient Instructions Indication:BMI 31.0-31.9,adult Start:10-Mar-2021 Instruction Type:Provider Instructions for Treatment How to Access Health Informa tion Online using Patient Portal and [employer] Apps Indication:BMI 31.0-31.9,adult Start:10-Mar-2021 Instruction Type:Patient Education Patient Instructions Indication:Nonsmoker Start:07-Dec-2020 Instruction Type:Provider Instructions for Treatment How to Access Health Informa tion Online using Patient Portal and [employer] Apps Indication:Nonsmoker Start:07-Dec-2020 Instruction Type:Patient Education Patient Instructions Indication:Nonsmoker Start:18-Oct-2020 Instruction Type:Provider Instructions for Treatment How to Access Health Informa tion Online using Patient Portal and [employer] Apps Indication:Nonsmoker Start:18-Oct-2020 Instruction Type:Patient Education Patient Instructions Indication:Nonsmoker Start:06-Sep-2020 Instruction Type:Provider Instructions for Treatment How to Access Health Informa tion Online using Patient Portal and [employer] Apps Indication:Nonsmoker Start:06-Sep-2020 Instruction Type:Patient Education Patient Instructions Indication:Nonsmoker Start:23-Aug-2020 Instruction Type:Provider Instructions for Treatment How to Access Health Informa tion Online using Patient Portal and [employer] Apps Indication:Nonsmoker Start:23-Aug-2020 Instruction Type:Patient Education Patient Instructions Indication:Nonsmoker Start:03-Aug-2020 Instruction Type:Provider Instructions for Treatment How to Access Health Informa tion Online using Patient Portal and [employer] Apps Indication:Nonsmoker Start:03-Aug-2020 Instruction Type:Patient Education Patient Instructions Indication:Nonsmoker Start:25-Jul-2020 Instruction Type:Provider Instructions for Treatment How to Access Health Informa tion Online using Patient Portal and [employer] Apps Indication:Nonsmoker Start:25-Jul-2020 Instruction Type:Patient Education Patient Instructions Indication:Nonsmoker Start:18-Jul-2020 Instruction Type:Provider Instructions for Treatment How to Access Health Informa tion Online using Patient Portal and [employer] Apps Indication:Nonsmoker Start:18-Jul-2020 Instruction Type:Patient Education Patient Instructions Indication:Nonsmoker Start:11-Jul-2020 Instruction Type:Provider Instructions for Treatment How to Access Health Informa tion Online using Patient Portal and [employer] Indication:Nonsmoker Start:11-Jul-2020 Instruction Type:Patient Education How [...] tion Online using Patient Portal and [employer] Apps Indication:Nonsmoker Start:11-Jul-2020 Instruction Type:Patient Education How [...] tion Online using Patient Portal and [employer] Indication:Nonsmoker Start:11-Jul-2020 Instruction Type:Patient Education How [...] tion Online using Patient Portal and [employer] Apps Indication:Nonsmoker Start:18-Jul-2020 Instruction Type:Patient Education Patient Instructions Indication:Nonsmoker Start:11-Jul-2020 Instruction Type:Provider Instructions for Treatment How to Access Health Informa tion Online using Patient Portal and [employer] Indication:Nonsmoker Start:11-Jul-2020 Instruction Type:Patient Education How [...] tion Online using Patient Portal and [employer] Apps Indication:Nonsmoker Start:18-Jul-2020 Instruction Type:Patient Education Patient Instructions Indication:Nonsmoker Start:11-Jul-2020 Instruction Type:Provider Instructions for Treatment How to Access Health Informa tion Online using Patient Portal and [employer] Apps Indication:Nonsmoker Start:11-Jul-2020 Instruction Type:Patient Education How [...] tion Online using Patient Portal and [employer] Apps Indication:Nonsmoker Start:23-Aug-2020 Instruction Type:Patient Education Patient Instructions Indication:Nonsmoker Start:03-Aug-2020 Instruction Type:Provider Instructions for Treatment How to Access Health Informa tion Online using Patient Portal and [employer] Apps Indication:Nonsmoker Start:03-Aug-2020 Instruction Type:Patient Education Patient Instructions Indication:Nonsmoker Start:25-Jul-2020 Instruction Type:Provider Instructions for Treatment How to Access Health Informa tion Online using Patient Portal and [employer] Apps Indication:Nonsmoker Start:25-Jul-2020 Instruction Type:Patient Education Patient Instructions Indication:Nonsmoker Start:18-Jul-2020 Instruction Type:Provider Instructions for Treatment How to Access Health Informa tion Online using Patient Portal and [employer] Apps Indication:Nonsmoker Start:18-Jul-2020 Instruction Type:Patient Education Patient Instructions Indication:Nonsmoker Start:11-Jul-2020 Instruction Type:Provider Instructions for Treatment How to Access Health Informa tion Online using Patient Portal and [employer] Indication:Nonsmoker Start:11-Jul-2020 Instruction Type:Patient Education How [...] tion Online using Patient Portal and [employer] Indication:Nonsmoker Start:06-Sep-2020 Instruction Type:Patient Education Patient Instructions Indication:Nonsmoker Start:23-Aug-2020 Instruction Type:Provider Instructions for Treatment How to Access Health Informa tion Online using Patient Portal and 3rd [employer] Apps Indication:Nonsmoker Start:23-Aug-2020 Instruction Type:Patient Education Patient Instructions Indication:Nonsmoker Start:03-Aug-2020 Instruction Type:Provider Instructions for Treatment How to Access Health Informa tion Online using Patient Portal and 3rd [employer] Apps Indication:Nonsmoker Start:03-Aug-2020 Instruction Type:Patient Education Patient Instructions Indication:Nonsmoker Start:25-Jul-2020 Instruction Type:Provider Instructions for Treatment How to Access Health Informa tion Online using Patient Portal and 3rd [employer] Apps Indication:Nonsmoker Start:25-Jul-2020 Instruction Type:Patient Education Patient Instructions Indication:Nonsmoker Start:18-Jul-2020 Instruction Type:Provider Instructions for Treatment How to Access Health Informa tion Online using Patient Portal and 3rd [employer] Apps Indication:Nonsmoker Start:18-Jul-2020 Instruction Type:Patient Education Patient Instructions Indication:Nonsmoker Start:11-Jul-2020 Instruction Type:Provider Instructions for Treatment How to Access Health Informa tion Online using Patient Portal and 3rd [employer] Apps Indication:Nonsmoker Start:11-Jul-2020 Instruction Type:Patient Education How [...] tion Online using Patient Portal and 3rd [employer] Apps Indication:Nonsmoker Start:06-Sep-2020 Instruction Type:Patient Education Patient Instructions Indication:Nonsmoker Start:23-Aug-2020 Instruction Type:Provider Instructions for Treatment How to Access Health Informa tion Online using Patient Portal and 3rd [employer] Apps Indication:Nonsmoker Start:23-Aug-2020 Instruction Type:Patient Education Patient Instructions Indication:Nonsmoker Start:03-Aug-2020 Instruction Type:Provider Instructions for Treatment How to Access Health Informa tion Online using Patient Portal and 3rd [employer] Apps Indication:Nonsmoker Start:03-Aug-2020 Instruction Type:Patient Education Patient Instructions Indication:Nonsmoker Start:25-Jul-2020 Instruction Type:Provider Instructions for Treatment How to Access Health Informa tion Online using Patient Portal and 3rd [employer] Apps Indication:Nonsmoker Start:25-Jul-2020 Instruction Type:Patient Education Patient Instructions Indication:Nonsmoker Start:18-Jul-2020 Instruction Type:Provider Instructions for Treatment How to Access Health Informa tion Online using Patient Portal and 3rd [employer] Apps Indication:Nonsmoker Start:18-Jul-2020 Instruction Type:Patient Education Patient Instructions Indication:Nonsmoker Start:11-Jul-2020 Instruction Type:Provider Instructions for Treatment How to Access Health Informa tion Online using Patient Portal and 3rd [employer] Apps Indication:Nonsmoker Start:11-Jul-2020 Instruction Type:Patient Education How [...] tion Online using Patient Portal and 3rd [employer] Apps Indication:Nonsmoker Start:18-Oct-2020 Instruction Type:Patient Education Patient Instructions Indication:Nonsmoker Start:06-Sep-2020 Instruction Type:Provider Instructions for Treatment How to Access Health Informa tion Online using Patient Portal and 3rd [employer] Apps Indication:Nonsmoker Start:06-Sep-2020 Instruction Type:Patient Education Patient Instructions Indication:Nonsmoker Start:23-Aug-2020 Instruction Type:Provider Instructions for Treatment How to Access Health Informa tion Online using Patient Portal and 3rd [employer] Apps Indication:Nonsmoker Start:23-Aug-2020 Instruction Type:Patient Education Patient Instructions Indication:Nonsmoker Start:03-Aug-2020 Instruction Type:Provider Instructions for Treatment How to Access Health Informa tion Online using Patient Portal and 3rd [employer] Apps Indication:Nonsmoker Start:03-Aug-2020 Instruction Type:Patient Education Patient Instructions Indication:Nonsmoker Start:25-Jul-2020 Instruction Type:Provider Instructions for Treatment How to Access Health Informa tion Online using Patient Portal and 3rd [employer] Apps Indication:Nonsmoker Start:25-Jul-2020 Instruction Type:Patient Education Patient Instructions Indication:Nonsmoker Start:18-Jul-2020 Instruction Type:Provider Instructions for Treatment How to Access Health Informa tion Online using Patient Portal and 3rd [employer] Apps Indication:Nonsmoker Start:18-Jul-2020 Instruction Type:Patient Education Patient Instructions Indication:Nonsmoker Start:11-Jul-2020 Instruction Type:Provider Instructions for Treatment How to Access Health Informa tion Online using Patient Portal and 3rd [employer] Apps Indication:Nonsmoker Start:11-Jul-2020 Instruction Type:Patient Education How [...] Advance Directives Name Dates Details Immunization Registry [place] - Effective on 09/27/2020. Expiration date unspecified Effective:27-Sep-2020 Name Dates Details Immunization Registry [place] - Effective on 09/27/2020. Expiration date unspecified Effective:27-Sep-2020 Name Dates Details Immunization Registry [place] - Effective on 09/27/2020. Expiration date unspecified Effective:27-Sep-2020 Name Dates Details Immunization Registry [place] - Effective on 09/27/2020. Expiration date unspecified Effective:27-Sep-2020 Name Dates Details Immunization Registry [place] - Effective on 09/27/2020. Expiration date unspecified Effective:27-Sep-2020 Name Dates Details Immunization Registry [place] - Effective on 09/27/2020. Expiration date unspecified Effective:27-Sep-2020 Name Dates Details Immunization Registry [place] - Effective on 09/27/2020. Expiration date unspecified Effective:27-Sep-2020 Name Dates Details Immunization Registry [place] - Effective on 09/27/2020. Expiration date unspecified Effective:27-Sep-2020 Name Dates Details Immunization Registry [place] - Effective on 09/27/2020. Expiration date unspecified Effective:27-Sep-2020 Name Dates Details Immunization Registry [place] - Effective on 09/27/2020. Expiration date unspecified Effective:27-Sep-2020 Name Dates Details Immunization Registry [place] - Effective on 09/27/2020. Expiration date unspecified Effective:27-Sep-2020 Name Dates Details Immunization Registry [place] - Effective on 09/27/2020. Expiration date unspecified Effective:27-Sep-2020 Name Dates Details Immunization Registry [place] - Effective on 09/27/2020. Expiration date unspecified Effective:27-Sep-2020 Name Dates Details Immunization Registry [place] - Effective on 09/27/2020. Expiration date unspecified Effective:27-Sep-2020 Name Dates Details Immunization Registry [place] - Effective on 09/27/2020. Expiration date unspecified Effective:27-Sep-2020 Name Dates Details Immunization Registry [place] - Effective on 09/27/2020. Expiration date unspecified Effective:27-Sep-2020 Additional Source Comments INFORMATION SOURCE (unrecogn ized section and content) DATE CREATED AUTHOR AUTHOR'S ORGANIZ ATION 09/15/[address] [facility] FOR RECORDS PERTAINING TO PATIENTS [...] BE BASED ON THE PRIMARY CLINICAL RECORDS. [facility] [employer] [facility]. provides no warranty or guarantee of the accuracy or completeness of information in this document.
--- NOTE | 2023-07-31 08:47 | NEURO ---
NCS and/or EMG Patient Report Ordering Doctor: Corinne Sousa DATE OF SERVICE: 07/31/23 Clinical Summary: This is a 62 year old female presenting with complaints of weakness and numbness/tingling in the bilateral lower extremities. This EMG/NCS was performed to evaluate for peripheral polyneuropathy and lumbosacral radiculopathy. Nerve Conduction Studies Summary: The right peroneal motor conduction velocity dropped greater than 10 m/s across the fibular head. Otherwise, nerve conduction studies were within normal ranges. Needle Examination Summary: Needle examination demonstrated higher proportion of motor unit action potentials with reduced recruitment, increased amplitude, increased duration, and polyphasia in the right medial gastrocnemius muscle. Impression: This is an abnormal study. 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 Isolated, chronic neurogenic changes in the right medial gastrocnemius muscle could be indicative, but not definitively diagnostic, of a mild, right S1 radiculopathy There is no electrodiagnostic evidence of a large-fiber peripheral polyneuropathy. Procedures Neurology CF Procedures [id number]: [id number] Musc test done w/n test comp (interp) Multi Select Codes Neurology Neurology Interp Codes: 42650-15 Musc test done w/n test comp (interp) (2) and 74643-31 Nrv cndj test 7-8 studies (interp)
== END | disposition home or self-care (01) ==
PROVIDERS: PCP Nurse Practitioner Family; Referring Provider Nurse Practitioner Family; Visit Provider Nurse Practitioner Family
DX: R29.898 Other symptoms and signs involving the musculoskeletal system (principal)
CPT/HCPCS: 95886; 95910